=== PATIENT | female | born 1940 | race Caucasian/White ===

== ENCOUNTER → 2016-11-17 | Outpatient (CLI) | payer MEDICARE ==
[~2016-11-17] VITALS: Ht 152.4 cm; Wt 78.5 kg
[~2016-11-17] MED LIST: ACHD5005 PO; AMOX1TAB11 PO; ASP81TEC PO; ASPI-586 PO; ATOR20TA66 PO; ATOR40TA PO; BNZ40T PO; CATHETER FLUSH 10 ML SYR IV PRN; CITA20TA4 PO; CLOP75TA PO; DILT240C86 PO; DILT420C10 PO; DOCU100C37 PO; LVT.1T PO; MELO-195 PO; MELO7.5O PO; MTP25TSR PO; OMEG1CAP77 PO; SIMV10TA3 PO; SIMV20TA3 PO
[2016-11-17 09:09] VITALS: BP 153/84
--- NOTE | 2016-11-17 20:39 | STRESS TEST ---
PROCEDURE PHYSICIAN: NGHIA COOPER DATE OF PROCEDURE: 11/17/2016 EXERCISE MYOVIEW STRESS TEST REPORT REFERRING PHYSICIAN: Dr. Mandeep Summers. INDICATION: Chest pain. BASELINE HEART RATE: 80 BASELINE BLOOD PRESSURE: 153/84 BASELINE EKG: Sinus rhythm with right bundle branch block. SUMMARY: The patient was injected with 10.63 mCi of technetium 99 Myoview and the resting images were obtained. Then the patient started exercising with a baseline heart rate, blood pressure and EKG mentioned above. At minute 2, patient was injected with 30.3 mCi of technetium 99 Myoview. The test was terminated at minute 3, achieving maximum heart rate of 134, which is 92% of maximum expected heart rate. With peak exercise level, blood pressure was 238/124. EKG was showing nondiagnostic changes. During recovery, heart rate returned to baseline. Blood pressure continued to be elevated. Oxygen saturation dropped to 87% during exercise. The resting and stress images were reviewed and compared in the short axis, horizontal long axis, and vertical long axis views. Review of the images showed breast attenuation affecting the quality of the images. There is mild decreased uptake at the anteroapical segment and mid to apical anterior wall with subtle reversibility. SSS 5, SDS 5, TID value 0.8. On the gated images, the left ventricle appeared to be normal size with normal contractility. Calculated ejection fraction 73%. CONCLUSION: 1. Poor exercise tolerance a total of 3 minutes on standard Jelani protocol. Total of 4.6 METs, achieving 92% of maximum expected heart rate. 2. Right bundle branch block persisted throughout test with no ischemic EKG changes. 3. Severe hypertensive response to exercise persisted during recovery. 4. Mild hypoxemia noted during exercise down to 87% after 3 minutes of walking. 5. Breast attenuation with typical female pattern with no significant ischemia or infarction on SPECT images. 6. Normal left ventricular size with normal contractility. Calculated ejection fraction 73%. Job ID: [id number] Dictated Date: 11/17/2016 16:40:47 Manager Of Hospital Date: 11/17/2016 20:33:09 / reinaldo
== END ==
LOC: CARD 07:15
PROVIDERS: ATTEND Internal Medicine Cardiovascular Disease
DX: E78.5 Hyperlipidemia, unspecified (principal); I10 Essential (primary) hypertension; I70.1 Atherosclerosis of renal artery; R07.9 Chest pain, unspecified
CPT/HCPCS: 78452; 93017

== ENCOUNTER → 2016-11-19 | Outpatient (CLI) | payer MEDICARE ==
[~2016-11-19] MED LIST changes: -CATHETER FLUSH 10 ML SYR IV PRN
--- NOTE | 2016-11-22 09:12 | ECHOCARDIOGRAPHY REPORT ---
PROCEDURE PHYSICIAN: NGHIA COOPER DATE OF PROCEDURE: 11/19/2016 TWO DIMENSIONAL ECHOCARDIOGRAM REPORT PRIMARY PHYSICIAN: OTHER PHYSICIAN: REFERRING PHYSICIAN: Dr. Mandeep Summers ORDERING PHYSICIAN: INDICATION FOR THE PROCEDURE: Chest pain. MEASUREMENTS DERIVED VALUES LV DIAMETER (LAX) NORMALS NORMALS Diastolic 4.7 (3.6-5.2) Eject. Fract. 60% (60%+/-6%) Systolic (2.3-3.9) Diastolic Vol. % Shortening (0.22-0.42) Systolic Vol. Aortic Root IVS THICKNESS Diastolic 1 (0.6-1.1) LVPW THICKNESS Diastolic 1 (0.6-1.1) LA DIAMETER Systolic 3.6 (2.1-3.7) FINDINGS: 1. Technical quality is good. 2. The left ventricle is normal in size with normal contractility. Systolic function appeared to be normal. Estimated ejection fraction 60%. 3. The left atrium is normal in size. No clot or thrombus were seen within the left atrium. 4. The right atrium and right ventricle are normal in size. No clot or thrombus were seen within the right side. 5. Mitral valve is normal in morphology with mild mitral regurgitation noted by color Doppler flow. No mitral valve prolapse. No mitral valve stenosis. 6. Aortic valve is trileaflet with normal opening and closing pattern. No significant aortic stenosis or regurgitation was seen. 7. Tricuspid valve is normal in morphology with mild tricuspid regurgitation noted by color Doppler flow. Doppler across tricuspid valve estimated pulmonary artery pressure of 19+ right atrial pressure. 8. Pulmonic valve is functioning normally. 9. No pericardial effusion. IN CONCLUSION: 1. Normal left ventricular size Systolic function. Estimated ejection fraction 60%. 2. Mild mitral and tricuspid regurgitation. 3. Estimated pulmonary artery pressure of 25 mmHg. Job ID: [id number] Dictated Date: 11/22/2016 08:23:25 Guest Services Attendant Date: 11/22/2016 09:09:49 / [email or web address]
== END ==
LOC: CARD 12:09
PROVIDERS: ATTEND Internal Medicine Cardiovascular Disease
DX: I10 Essential (primary) hypertension (principal); I70.1 Atherosclerosis of renal artery; E78.5 Hyperlipidemia, unspecified; R07.9 Chest pain, unspecified
CPT/HCPCS: 93306

== ENCOUNTER → 2016-12-16 | Outpatient (CLI) | payer MEDICARE ==
--- NOTE | 2016-12-16 12:28 | Diagnostic Imaging Report ---
EXAM: Renal vascular duplex ultrasound. INDICATION: Hypertension. FINDINGS: There right kidney is 9.5 and the left kidney is 9.6 cm in length. There is no hydronephrosis or focal lesion. There is minimal increased velocity in the proximal right renal artery to 139 cm per second and mid right renal artery velocity is 1:30 and distally is 91 cm per second. On the renal artery the proximal velocity is 74, mid is 83 and distally is 84 CM per second. The abdominal aortic baseline flow velocity however is 57 cm per second. The right renal artery to aortic ratio is 2.4 and up to 1.5 on the left. Resistive index is 0.69 to 0.76 on the right and 0.71 to 0.72 on the left. IMPRESSION: Slightly elevated velocity, particularly when compared to the abdominal aorta in the proximal right renal artery probably reflective of a mild or moderate stenosis. Correlate clinically and with CTA or MRA if needed. Dictated by: Dictated on workstation # [id number]
== END ==
LOC: RAD 07:49
PROVIDERS: ATTEND Internal Medicine Cardiovascular Disease
DX: I10 Essential (primary) hypertension (principal); I25.10 Atherosclerotic heart disease of native coronary artery without angina pectoris; R07.9 Chest pain, unspecified; E78.5 Hyperlipidemia, unspecified; E78.2 Mixed hyperlipidemia
CPT/HCPCS: 93975

== ENCOUNTER → 2017-03-02 | Outpatient (CLI) | payer MEDICARE ==
[~2017-03-02] MED LIST changes: +CATHETER FLUSH 10 ML SYR IV PRN; +IOHEXOL 350 MG/ML 100 ML (OMNIPAQUE 350) VIAL IV ONE; +NS 100 ML (IVPB) BAG IV ONE
[2017-03-02 10:42] LABS: ALANINE AMINOTRANSFERASE 16 U/L (0-55); ANION GAP 8 MMOL/L (5-14); ASPARTATE AMINO TRANSFERASE 16 U/L (5-34); BILIRUBIN,DIRECT 0.1 MG/DL (0.0-0.3); BILIRUBIN,INDIRECT 0.3 MG/DL; BILIRUBIN,TOTAL 0.4 MG/DL (0.1-1.0); BLOOD UREA NITROGEN 21 MG/DL (7-18); BUN/CREATININE RATIO 23; CALCIUM 9.4 MG/DL (8.5-10.1); CARBON DIOXIDE 24 MMOL/L (21-32); CHLORIDE 110 MMOL/L (98-107); CHOLESTEROL 206 MG/DL (< 200); DIRECT LDL 146 MG/DL (1-129); GFR ESTIMATED > 60; GLUCOSE 98 MG/DL (70-105); POTASSIUM 4.4 MMOL/L (3.6-5.0); SODIUM 142 MMOL/L (135-145); TOTAL PROTEIN 7.5 GM/DL (6.4-8.2); TRIGLYCERIDES 116 MG/DL (<150); VLDL CHOLESTEROL 23 MG/DL (5-40)
--- NOTE | 2017-03-02 11:56 | Diagnostic Imaging Report ---
TECHNIQUE: The CT angiogram of the abdomen was performed with intravenous contrast. Thin section imaging was performed in the axial and coronal planes with MIP coronal reconstructions performed. CONTRAST: 85 mL of Omnipaque 350 was administered intravenously. INDICATION: Hypertension. FINDINGS: The abdominal aorta demonstrates mild calcified and noncalcified plaque with no significant stenosis. There is a patent right renal ostial stent. There is an ostial calcified plaque in the left renal artery with no significant stenosis. The celiac and SMA branches are patent. The ZELDA is also patent. There is a small fat-containing umbilical hernia. No periaortic significantly enlarged lymph node is seen. The lung bases demonstrate minimal groundglass opacities, likely atelectasis related. The liver, gallbladder, pancreas, adrenals, and spleen appear unremarkable. The kidneys demonstrate normal enhancement and excretion. No hydronephrosis. The unenhanced phase demonstrates no stones. The osseous structures demonstrate degenerative disc and facet changes in the lumbar spine and minimal right convexity scoliosis. IMPRESSION: 1. There is a patent proximal right renal stent. No significant renal artery stenosis on either side. 2. Small fat-containing umbilical hernia. Dictated by: Dictated on workstation # [id number]
== END ==
LOC: RAD 09:28
PROVIDERS: ATTEND Internal Medicine Cardiovascular Disease
DX: K42.9 Umbilical hernia without obstruction or gangrene (principal); Z96.0 Presence of urogenital implants; I25.10 Atherosclerotic heart disease of native coronary artery without angina pectoris; E78.2 Mixed hyperlipidemia; I10 Essential (primary) hypertension; Z82.49 Family history of ischemic heart disease and other diseases of the circulatory system
CPT/HCPCS: 36415; 74175; 80048; 80061; 80076

== ENCOUNTER 2017-07-20 07:33 | Day surgery (SDC) | payer MEDICARE ==
[2017-07-20] VITALS (11 sets, daily range): BP systolic 153–174; BP diastolic 76–93
[~2017-07-20] VITALS: Ht 152.4 cm; Wt 77.1 kg
[~2017-07-20 07:33] MED LIST changes: -CATHETER FLUSH 10 ML SYR IV PRN; -IOHEXOL 350 MG/ML 100 ML (OMNIPAQUE 350) VIAL IV ONE; -NS 100 ML (IVPB) BAG IV ONE
[2017-07-20] MEDS ORDERED: HEParin (CATH LAB) 2,000 ML IV ONE (07:46)
[2017-07-20] MEDS ORDERED: NS IV 1000 ML 1,000 ML ONE (07:46)
[2017-07-20] MEDS ORDERED: NS IV 1000 ML 1,000 ML IV SCH ×3 (08:00→11:27)
[2017-07-20 08:17] LABS: BILIRUBIN,URINE NEGATIVE (NEGATIVE); KETONES,URINE NEGATIVE (NEGATIVE); LEUKOCYTE ESTERASE ,URINE 2+ (NEGATIVE); NITRITE,URINE NEGATIVE (NEGATIVE); PH,URINE 5 (5-9); PROTEIN,URINE NEGATIVE (NEGATIVE); UROBILINOGEN,URINE NORMAL (NORMAL)
[2017-07-20 08:18] LABS: MEAN PLATELET VOLUME 11.1 FL (7.4-10.4); RED BLOOD COUNT 4.31 10^6/uL (4.35-5.85); RED CELL DISTRIBUTION WIDTH 13.3 % (10.0-14.5); WHITE BLOOD COUNT 6.9 10^3/uL (4.3-11.0)
[2017-07-20 08:27] LABS: SQUAMOUS EPITHELIAL CELL,UR 0-2 /HPF; WBC,URINE 0-2 /HPF
[2017-07-20 08:33] LABS: PROTHROMBIN TIME PATIENT 13.2 SEC (12.2-14.7)
[2017-07-20 08:43] LABS: ALANINE AMINOTRANSFERASE 19 U/L (0-55); ANION GAP 8 MMOL/L (5-14); ASPARTATE AMINO TRANSFERASE 22 U/L (5-34); BILIRUBIN,TOTAL 0.6 MG/DL (0.1-1.0); BLOOD UREA NITROGEN 16 MG/DL (7-18); BUN/CREATININE RATIO 19; CARBON DIOXIDE 23 MMOL/L (21-32); CHLORIDE 109 MMOL/L (98-107); CHOLESTEROL 167 MG/DL (< 200); CREATININE SERUM 0.84 MG/DL (0.60-1.30); DIRECT LDL 99 MG/DL (1-129); GFR ESTIMATED > 60; GLUCOSE 94 MG/DL (70-105); POTASSIUM 3.7 MMOL/L (3.6-5.0); SODIUM 140 MMOL/L (135-145); TOTAL PROTEIN 7.6 GM/DL (6.4-8.2); TRIGLYCERIDES 131 MG/DL (<150); VLDL CHOLESTEROL 26 MG/DL (5-40)
[2017-07-20] MEDS ORDERED: BNZ40T PO (08:43)
[2017-07-20] MEDS ORDERED: MELO15TA39 PO (08:43)
[2017-07-20] MEDS ORDERED: CITA10TA12 PO (08:43)
[2017-07-20] MEDS ORDERED: ATOR20TA49 PO (08:43)
[2017-07-20] MEDS ORDERED: LEVO100T7 PO (08:43)
[2017-07-20] MEDS ORDERED: ACET-2469 PO (08:43)
[2017-07-20] MEDS ORDERED: IBUP-30 PO (08:43)
[2017-07-20] MEDS ORDERED: DILT300C57 PO (08:43)
--- NOTE | 2017-07-20 08:43 | Diagnostic Imaging Report ---
INDICATION: Atherosclerotic disease. COMPARISON: 01/24/2015. FINDINGS: There is no focal pulmonary consolidation. No effusion or pneumothorax. No vascular congestion. Upper limits heart size is noted. IMPRESSION: No acute appearing abnormality. Dictated by: Dictated on workstation # [id number]
[2017-07-20] MEDS ORDERED: CLON0.1T PO (08:44)
[2017-07-20] MEDS ORDERED: METO-387 PO (08:44)
[2017-07-20] MEDS ORDERED: CITA20TA12 PO (09:56)
[2017-07-20] MEDS ORDERED: DILT300C26 PO (09:56)
[2017-07-20] MEDS ORDERED: MIDAZOLAM 2 MG/2 ML (VERSED) VIAL ONE (10:39)
[2017-07-20] MEDS ORDERED: fentaNYL INJECTION 100 MCG/2 ML AMP ONE (10:39)
--- NOTE | 2017-07-20 11:20 | Cardiac Procedure Note-CS/ASA ---
Pre-Procedure Note Pre-Op Procedure Note H&P Reviewed The H&P was reviewed, patient examined and no changes noted. Date H&P Reviewed: Jul 20, 2017 Time H&P Reviewed: 11:20 Conscious Sedation Pre-Proced Time Reviewed: 11:20 ASA Class: 3 Airway Mallampati Classification: (north fork appropriate class) I. II. III, IV Lungs Heart ASA score ASA 1: a normal healthy patient ASA 2: a patient with a mild systemic disease (mid diabetes, controlled hypertension, obesity X ASA 3: a patient with a severe systemic disease that limits activity (angina , COPD, prior Myocardial infarction) ASA 4: a patient with an incapacitating disease that is a constant threat to life (CHF, renal failure) ASA 5: a moribund patient not expected to survive 24 hrs. (ruptured aneurysm) ASA 6: a declared brain patient whose organs are being harvested. For emergent operations, add the letter E after the classification Grade 3 Sedation Plan: Analgesia, Amnesia, Plan communicated to team members, Discussed options with patient/fam, Discussed risks with patient/fam Note The patient is an appropriate candidate to undergo the planned procedure, sedation, and anesthesia. The patient immediately re-assessed prior to indication. NGHIA COOPER MD Jul 20, 2017 11:20
[2017-07-20] MEDS ORDERED: ENALAPRILAT 2.5 MG/2 ML (VASOTEC) VIAL IV ONE (11:25)
[2017-07-20] MEDS ORDERED: NITROGLYCERIN 2% OINT 1 GM UNIT DOSE PACKET ONE (11:27)
[2017-07-20] MEDS ORDERED: PATIENT MAY USE OWN MEDS, ALL PO SCH (11:30)
--- NOTE | 2017-07-20 11:30 | Discharge Inst-Post CATH ---
Discharge Inst-CATH Post Cardiac Cath D/C Inst Follow Up/Plan Appointment with Dr. Abraham's office in 2 weeks CARDIAC CATH DISCHARGE INSTRUCTIONS *Hold Metformin for 48 hours post heart cath. ACTIVITY * Go Home directly and rest. * Limit activity of the leg (or wrist if it was used) for 7 days including aerobics, swimming, jogging, bicycling, etc. * Restrict stair-climbing for 7 days if possible, if not, climb up with your non -cath leg, then bring together on the same step. * Avoid lifting, pushing, pulling or excessive movement of the affected extremity for 7 days. * Customary sexual activity may be resumed after 2 days-use caution not to use a position that strains or causes pain to the affected extremity. * No driving for 24 hours. * NO SMOKING. * Avoid straining for bowel movements for 7 days. * Gentle walking on level ground is allowed. * Returning to work will depend on the type of procedure and the results. Your doctor will discuss this with you. CALL YOUR DOCTOR FOR ANY OF THE FOLLOWING: *If bleeding from the puncture site occurs- Apply gentle pressure to site with clean cloth and call your doctor or EMS. * If a knot or lump forms under the skin, increases in size, or causes pain. * If bruising appears to be worsening or moving further down your leg instead of disappearing. * Temperature above 101 F. CARE OF YOUR GROIN INCISION; * Bruising or purple discoloration of the skin near the puncture site is common. * You may shower only, no bathtub bathing for 5 days. Be careful to avoid slipping as your leg may feel stiff. * If a closure device was used on your femoral artery, please see the attached guide regarding care of the device and your leg. * REMOVE the dressing from your groin the next day after your procedure in the shower. CARE OF YOUR WRIST INCISION; * Bruising or purple discoloration of the skin near the puncture site is common. * You may shower. * DO NOT submerge wrist. * Remove dressing in 24 hours. NGHIA ABRAHAM MD Jul 20, 2017 11:29
--- NOTE | 2017-07-20 11:33 | Peripheral Report ---
Peripheral Report Physician (s)/Residential Treatment Counselor (s) Physician NGHIA COOPER MD Pre-Procedure Diagnosis Pre-Procedure Diagnosis: malignant hypertension, renal artery stenosis Post-Procedure Note Procedure Start Date: Jul 20, 2017 Name of Procedure: Abdominant aortogram Selective right renal angiogram Findings/Procedure Note PROCEDURE NOTE: After explaining the procedure to the patient, all pros and cons were explained, all questions were answered. The patient signed the consent and then she was placed on the cardiac catheterization laboratory. The patient was placed on the cardiac catheterization laboratory. Groin was prepped SL fashion local anesthesia was used. Sheath placed in the right femoral artery Pigtail catheter was placed in the abdominal aorta and abdominal aortogram was done Gege right catheter was advanced to the right renal artery and selective right renal angiogram was done. Addendum the procedure sheath was removed, Mynx was used FINDINGS: Abdominal aortogram: Normal abdominal aorta, no dissection or aneurysm, selective of the superior and inferior mesenteric artery were normal, left renal artery appeared normal, right renal artery appeared to be slightly hazy in its proximal portion Selective right renal angiogram: Patent stent with mild ostial right renal artery stenosis about 20 percent nonobstructive disease CONCLUSIONS: 1. Patent stent in the right renal artery with mild ostial right renal artery stenosis nonobstructive disease 2. Normal abdominal aorta DISCUSSION AND RECOMMENDATIONS: continue maximizing medical therapy Anesthesia Type: Conscious Sedation Estimated blood loss (mL): 10 ml Contrast Amount: 25 ml Total Radiation Dose: 58 mGy Post-Procedure Diagnosis Post-operative diagnosis: Malignant hypertension Renal artery stenosis Hyperlipidemia NGHIA COOPER MD Jul 20, 2017 11:33 am
== END 2017-07-20 16:30 | disposition home or self-care (01) ==
LOC: CATH 07:33 → SURG 11:52 → CATH 16:30
PROVIDERS: ATTEND Internal Medicine Cardiovascular Disease
DX: I10 Essential (primary) hypertension (principal); I70.1 Atherosclerosis of renal artery; I25.10 Atherosclerotic heart disease of native coronary artery without angina pectoris; E03.9 Hypothyroidism, unspecified; E78.2 Mixed hyperlipidemia; Z79.899 Other long term (current) drug therapy; Z11.2 Encounter for screening for other bacterial diseases; R07.9 Chest pain, unspecified
CPT/HCPCS: 36251; 36415; 71010; 75625; 80053; 80061; 81000; 85027; 85610; 85730; 87081; 93005

== ENCOUNTER → 2018-11-16 | Outpatient (CLI) | payer MEDICARE ==
[~2018-11-16] MED LIST changes: +ACET-2469 PO; +ATOR20TA49 PO; +BENA40TA5 PO; +CITA10TA12 PO; +CITA20TA12 PO; +CLON0.1T PO; +DILT300C26 PO; +DILT300C71 PO; +IBUP-30 PO; +LEVO100T7 PO; +MELO15TA39 PO; +METO-387 PO
[2018-11-16 11:02] LABS: ALBUMIN 4.5 GM/DL (3.2-4.5); BILIRUBIN,TOTAL 0.7 MG/DL (0.1-1.0); CALCIUM 9.7 MG/DL (8.5-10.1); CREATININE SERUM 1.17 MG/DL (0.60-1.30); POTASSIUM 3.9 MMOL/L (3.6-5.0); TOTAL PROTEIN 8.5 GM/DL (6.4-8.2)
--- NOTE | 2018-11-16 12:31 | Diagnostic Imaging Report ---
INDICATION: CAD HYPERTENSION MIXED HYPERLIPIDEMIA JESE COMPARISON: 07/20/2017. FINDINGS: Frontal and lateral views of the chest demonstrate normal heart size and pulmonary vascularity. The lungs are clear. There are no signs of infiltrate, pleural effusions or pneumothoraces. The visualized osseous structures show no acute abnormalities. IMPRESSION: 1. No acute process. No signs of infiltrates, effusions or pneumothoraces. Dictated by: Dictated on workstation # [id number]
== END ==
LOC: RAD 10:10
PROVIDERS: ATTEND Physician Assistant
DX: I25.10 Atherosclerotic heart disease of native coronary artery without angina pectoris (principal); I10 Essential (primary) hypertension; E78.2 Mixed hyperlipidemia; I70.1 Atherosclerosis of renal artery
CPT/HCPCS: 36415; 71046; 80053; 80061

== ENCOUNTER → 2018-11-22 | Outpatient (CLI) | payer MEDICARE | LOC: CARD 11:20 | PROVIDERS: ATTEND Physician Assistant | DX: I25.10 Atherosclerotic heart disease of native coronary artery without angina pectoris (principal); I10 Essential (primary) hypertension; E78.2 Mixed hyperlipidemia; I70.1 Atherosclerosis of renal artery; I07.1 Rheumatic tricuspid insufficiency | CPT/HCPCS: 93306 ==

== ENCOUNTER → 2018-11-27 | Outpatient (CLI) | payer MEDICARE ==
[~2018-11-27] VITALS: Ht 152.4 cm; Wt 78.5 kg
[~2018-11-27] MED LIST changes: +CATHETER FLUSH 10 ML SYR IV PRN; +REGADENOSON 0.4 MG/5 ML SYR (LEXISCAN) IV ONE
[2018-11-27 09:35] VITALS: BP 219/93
[2018-11-27 09:36] VITALS: BP_SYST 180; BP_SYST 219; BP_DIAS 93; BP_DIAS 99
--- NOTE | 2018-11-28 09:08 | STRESS TEST ---
DATE OF SERVICE: 11/27/2018 LEXISCAN MYOVIEW STRESS TEST REFERRING PHYSICIAN: Dr. Mandeep Summers. Baseline heart rate is 63. Baseline blood pressure 219/93. Baseline EKG is sinus rhythm with right bundle branch block. SUMMARY: The patient was injected with 10.8 mCi of technetium-99 Myoview and the resting images were obtained. Then, she received 0.4 mg of Lexiscan followed by 30.9 mCi of technetium-99 Myoview. Throughout the test, there were no EKG changes. The resting and stress images were reviewed and compared in the short axis, horizontal long axis, and vertical long axis views. Review of the images showed breast attenuation affecting the quality of the images with typical female pattern. No significant ischemia or infarction. SSS is 3, SDS 3, TID value 0.85. On the gated images, the left ventricle appeared to be in normal size with normal contractility. Calculated ejection fraction 69%. CONCLUSION: 1. The patient tolerated Lexiscan well. 2. Breast attenuation with typical female pattern. No significant ischemia or infarction on SPECT images. 3. Normal left ventricular size with normal contractility. Calculated ejection fraction 69%. 4. Baseline hypertension persisted throughout test. Job ID: [id number] DocumentID: [id number] Dictated Date: 11/28/2018 08:08:12 Automotive Lube Technician Date: 11/28/2018 09:07:57 Dictated By: NGHIA COOPER MD
== END ==
LOC: CARD 07:28
PROVIDERS: ATTEND Physician Assistant
DX: I25.10 Atherosclerotic heart disease of native coronary artery without angina pectoris (principal); I10 Essential (primary) hypertension; E78.2 Mixed hyperlipidemia; I70.1 Atherosclerosis of renal artery
CPT/HCPCS: 78452; 93017

== ENCOUNTER 2019-02-16 10:42 | Inpatient (IN) | payer MEDICARE ==
[~2019-02-16] VITALS: Ht 152.4 cm; Wt 74.1 kg
[2019-02-16] VITALS (14 sets, daily range): BP systolic 106–148; BP diastolic 48–117
[~2019-02-16 10:42] MED LIST changes: -CATHETER FLUSH 10 ML SYR IV PRN; -REGADENOSON 0.4 MG/5 ML SYR (LEXISCAN) IV ONE
--- OUTSIDE RECORDS SUMMARY | 2019-02-16 10:48 | XMS REPORT | Continuity of Care Document ---
Author Organization Unknown Address Unknown Allergies Active Description Code Type Severity Reaction Onset Reported/Identified Relationship to Patient Clinical Status Yes NO KNOWN DRUG ALLERGIES NO KNOWN DRUG ALLERG UNKNOWN Yes NO KNOWN DRUG ALLERGIES UNKNOWN NO KNOWN DRUG ALLERG Yes NO KNOWN DRUG ALLERGIES UNKNOWN UNKNOWN Yes No Known Drug Allergies [id number] Drug Allergy Unknown N/A 10/27/2010 Medications There is no data. 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, MIDLINE 01/29/2015 ANNIE HOROWITZ DO Ot V03.82 PROPHYLACTIC VACC AGAINST STREPTOCOCCUS 01/31/2015 Ot 611.72 01/31/2015 Ot 611.72 01/31/2015 Ot V67.9 01/31/2015 Ot V15.89 01/31/2015 Ot V67.09 01/31/2015 Ot 793.89 01/31/2015 Ot V76.12 01/31/2015 Ot 793.80 01/31/2015 Ot 793.82 01/31/2015 MANDEEP SUMMERS DO Ot 793.80 01/31/2015 MANDEEP SUMMERS DO Ot V67.9 01/31/2015 GREGORY BROWN APRN Ot 793.80 01/31/2015 ANNIE HOROWITZ DO Ot 618.01 01/31/2015 ANNIE HOROWITZ DO Ot 791.9 01/31/2015 HOROWITZ DO, ANNIE C Ot V72.63 01/31/2015 HOROWITZ DO, ANNIE C Ot V72.81 01/31/2015 HOROWITZ DO, ANNIE C Ot V72.83 01/31/2015 HOROWITZ DO, ANNIE C Ot V74.8 01/31/2015 HOROWITZ DO, ANNIE C Ot 618.01 01/31/2015 HOROWITZ DO, ANNIE C Ot 791.9 01/31/2015 HOROWITZ DO, ANNIE C Ot V72.63 01/31/2015 HOROWITZ DO, ANNIE C Ot V72.81 01/31/2015 HOROWITZ DO, ANNIE C Ot V72.83 01/31/2015 HOROWITZ DO, ANNIE C Ot V74.8 02/14/2015 HOROWITZ DO, ANNIE C Ot 618.01 02/14/2015 HOROWITZ DO, ANNIE C Ot 791.9 02/14/2015 HOROWITZ DO, ANNIE C Ot V72.63 02/14/2015 HOROWITZ DO, ANNIE C Ot V72.81 02/14/2015 HOROWITZ DO, ANNIE C Ot V72.83 02/14/2015 HOROWITZ DO, ANNIE C Ot V74.8 02/25/2015 HOROWITZ DO, ANNIE C Ot 618.01 02/25/2015 HOROWITZ DO, ANNIE C Ot 791.9 02/25/2015 HOROWITZ DO, ANNIE C Ot V72.63 02/25/2015 HOROWITZ DO, ANNIE C Ot V72.81 02/25/2015 HOROWITZ DO, ANNIE C Ot V72.83 02/25/2015 HOROWITZ DO, ANNIE C Ot V74.8 04/24/2015 Ot 611.72 04/24/2015 Ot 611.72 04/24/2015 Ot V67.9 04/24/2015 Ot V15.89 04/24/2015 Ot V67.09 04/24/2015 Ot 793.89 04/24/2015 Ot V76.12 04/24/2015 Ot 793.80 04/24/2015 Ot 793.82 04/24/2015 PAONI DOMANDEEP S Ot 793.80 04/24/2015 PAONI DOMANDEEP S Ot V67.9 04/24/2015 GREGORY BROWN APRN Ot 793.80 04/24/2015 HOROWITZ DO, ANNIE C Ot 618.01 04/24/2015 HOROWITZ DO, ANNIE C Ot 791.9 04/24/2015 HOROWITZ DO, ANNIE C Ot V72.63 04/24/2015 HOROWITZ DO, ANNIE C Ot V72.81 04/24/2015 HOROWITZ DO, ANNIE C Ot V72.83 04/24/2015 HOROWITZ DO, ANNIE C Ot V74.8 04/24/2015 Ot 611.72 04/24/2015 Ot 611.72 04/24/2015 Ot V67.9 04/24/2015 Ot V15.89 04/24/2015 Ot V67.09 04/24/2015 Ot 793.89 04/24/2015 Ot V76.12 04/24/2015 Ot 793.80 04/24/2015 Ot 793.82 04/24/2015 PAONI MANDEEP THURSTON S Ot 793.80 04/24/2015 MANDEEP SUMMERS DO S Ot V67.9 04/24/2015 KEVINGREGORY FLORIST'S DECORATOR Ot 793.80 04/24/2015 HOROWITZ DO, ANNIE C Ot 618.01 04/24/2015 HOROWITZ DO, ANNIE C Ot 791.9 04/24/2015 HOROWITZ DO ANNIE C Ot V72.63 04/24/2015 HOROWITZ DO, ANNIE C Ot V72.81 04/24/2015 HOROWITZ DO, ANNIE C Ot V72.83 04/24/2015 HOROWITZ DO, ANNIE C Ot V74.8 04/30/2015 HOROWITZ DO, ANNIE C Ot 618.2 UTEROVAG PROLAPS-INCOMPL 05/21/2015 HOROWITZ DO, ANNIE C Ot 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, MIDLINE 05/21/2015 HOROWITZ DO, ANNIE C Ot V72.63 PRE-PROCEDURAL LABORATORY EXAMINATION 05/21/2015 HOROWITZ DO ANNIE C Ot V74.8 SCREEN-BACTERIAL DIS NEC 03/22/2016 HOROWITZ DO, ANNIE C Ot 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, MIDLINE 03/22/2016 HOROWITZ DO, ANNIE C Ot V72.63 PRE-PROCEDURAL LABORATORY EXAMINATION 03/22/2016 HOROWITZ DO, ANNIE C Ot V74.8 SCREEN-BACTERIAL DIS NEC 11/17/2016 NGHIA COOPER MD Ot E78.5 HYPERLIPIDEMIA, UNSPECIFIED 11/17/2016 NGHIA COOPER MD Ot I10 ESSENTIAL (PRIMARY) HYPERTENSION 11/17/2016 NGHIA COOPER MD Ot I70.1 ATHEROSCLEROSIS OF RENAL ARTERY 11/17/2016 NGHIA COOPER MD Ot R07.9 CHEST PAIN, UNSPECIFIED 11/18/2016 NGHIA COOPER MD Ot E78.5 HYPERLIPIDEMIA, UNSPECIFIED 11/18/2016 NGHIA COOPER MD Ot I10 ESSENTIAL (PRIMARY) HYPERTENSION 11/18/2016 NGHIA COOPER MD Ot I70.1 ATHEROSCLEROSIS OF RENAL ARTERY 11/18/2016 NGHIA COOPER MD Ot R07.9 CHEST PAIN, UNSPECIFIED 11/22/2016 NGHIA COOPER MD Ot E78.5 HYPERLIPIDEMIA, UNSPECIFIED 11/22/2016 NGHIA COOPER MD Ot I10 ESSENTIAL (PRIMARY) HYPERTENSION 11/22/2016 NGHIA COOPER MD Ot I70.1 ATHEROSCLEROSIS OF RENAL ARTERY 11/22/2016 NGHIA COOPER MD Ot R07.9 CHEST PAIN, UNSPECIFIED 11/25/2016 NGHIA COOPER MD Ot E78.5 HYPERLIPIDEMIA, UNSPECIFIED 11/25/2016 NGHIA COOPER MD Ot I10 ESSENTIAL (PRIMARY) HYPERTENSION 11/25/2016 NGHIA COOPER MD Ot I70.1 ATHEROSCLEROSIS OF RENAL ARTERY 11/25/2016 NGHIA COOPER MD Ot R07.9 CHEST PAIN, UNSPECIFIED 12/09/2016 NGHIA COOPER MD Ot E78.5 HYPERLIPIDEMIA, UNSPECIFIED 12/09/2016 NGHIA COOPER MD Ot I10 ESSENTIAL (PRIMARY) HYPERTENSION 12/09/2016 NGHIA COOPER MD Ot I70.1 ATHEROSCLEROSIS OF RENAL ARTERY 12/09/2016 NGHIA COOPER MD Ot R07.9 CHEST PAIN, UNSPECIFIED 12/14/2016 NGHIA COOPER MD Ot E78.5 HYPERLIPIDEMIA, UNSPECIFIED 12/14/2016 GNHIA COOPER MD Ot I10 ESSENTIAL (PRIMARY) HYPERTENSION 12/14/2016 NGHIA COOPER MD Ot I70.1 ATHEROSCLEROSIS OF RENAL ARTERY 12/14/2016 NGHIA COOPER MD Ot R07.9 CHEST PAIN, UNSPECIFIED 12/15/2016 NGHIA COOPER MD Ot I10 ESSENTIAL (PRIMARY) HYPERTENSION 12/16/2016 NGHIA COOPER MD Ot I10 ESSENTIAL (PRIMARY) HYPERTENSION 12/16/2016 NGHIA COOPER MD Ot I10 ESSENTIAL (PRIMARY) HYPERTENSION 12/16/2016 NGHIA COOPER MD Ot E78.2 MIXED HYPERLIPIDEMIA 12/16/2016 NGHIA COOPER MD Ot E78.5 HYPERLIPIDEMIA, UNSPECIFIED 12/16/2016 NGHIA COOPER MD Ot I10 ESSENTIAL (PRIMARY) HYPERTENSION 12/16/2016 NGHIA COOPER MD Ot I25.10 ATHSCL HEART DISEASE OF [place] CORONARY 12/16/2016 NGHIA COOPER MD Ot R07.9 CHEST PAIN, UNSPECIFIED 12/17/2016 NGHIA COOPER MD Ot E78.5 HYPERLIPIDEMIA, UNSPECIFIED 12/17/2016 NGHIA COOPER MD Ot I10 ESSENTIAL (PRIMARY) HYPERTENSION 12/17/2016 NGHIA COOPER MD Ot I70.1 ATHEROSCLEROSIS OF RENAL ARTERY 12/17/2016 NGHIA COOPER MD Ot R07.9 CHEST PAIN, UNSPECIFIED 12/17/2016 NGHIA OCOPER MD Ot E78.5 HYPERLIPIDEMIA, UNSPECIFIED 12/17/2016 NGHIA COOPER MD Ot I10 ESSENTIAL (PRIMARY) HYPERTENSION 12/17/2016 NGHIA COOPER MD Ot I70.1 ATHEROSCLEROSIS OF RENAL ARTERY 12/17/2016 NGHIA COOPER MD Ot R07.9 CHEST PAIN, UNSPECIFIED 01/06/2017 NGHIA COOPER MD Ot E78.2 MIXED HYPERLIPIDEMIA 01/06/2017 NGHIA COOPER MD Ot E78.5 HYPERLIPIDEMIA, UNSPECIFIED 01/06/2017 NGHIA COOPER MD Ot I10 ESSENTIAL (PRIMARY) HYPERTENSION 01/06/2017 NGHIA COOPER MD Ot I25.10 ATHSCL HEART DISEASE OF [place] CORONARY 01/06/2017 NGHIA COOPER MD Ot R07.9 CHEST PAIN, UNSPECIFIED 01/18/2017 NGHIA COOPER MD Ot E78.2 MIXED HYPERLIPIDEMIA 01/18/2017 NGHIA COOPER MD Ot E78.5 HYPERLIPIDEMIA, UNSPECIFIED 01/18/2017 NGHIA COOPER MD Ot I10 ESSENTIAL (PRIMARY) HYPERTENSION 01/18/2017 NGHIA COOPER MD Ot I25.10 ATHSCL HEART DISEASE OF [place] CORONARY 01/18/2017 NGHIA COOPER MD Ot R07.9 CHEST PAIN, UNSPECIFIED 03/02/2017 NGHIA COOPER MD Ot E78.2 MIXED HYPERLIPIDEMIA 03/03/2017 NGHIA COOPER MD Ot E78.2 MIXED HYPERLIPIDEMIA 03/03/2017 NGHIA COOPER MD Ot I10 ESSENTIAL (PRIMARY) HYPERTENSION 03/03/2017 NGHIA COOPER MD Ot I25.10 ATHSCL HEART DISEASE OF [place] CORONARY 03/03/2017 NGHIA COOPER MD Ot K42.9 UMBILICAL HERNIA WITHOUT OBSTRUCTION OR 03/03/2017 NGHIA COOPER MD Ot Z82.49 FAMILY HX OF ISCHEM HEART DIS AND OTH DI 03/03/2017 NGHIA COOPER MD Ot Z96.0 PRESENCE OF UROGENITAL IMPLANTS 03/23/2017 NGHIA COOPER MD Ot E78.2 MIXED HYPERLIPIDEMIA 03/23/2017 NGHIA COOPER MD Ot I10 ESSENTIAL (PRIMARY) HYPERTENSION 03/23/2017 NGHIA COOPER MD Ot I25.10 ATHSCL HEART DISEASE OF [place] CORONARY 03/23/2017 NGHIA COOPER MD Ot K42.9 UMBILICAL HERNIA WITHOUT OBSTRUCTION OR 03/23/2017 NGHIA COOPER MD Ot Z82.49 FAMILY HX OF ISCHE[place] HEART DIS AND OTH DI 03/23/2017 NGHIA COOPER MD Ot Z96.0 PRESENCE OF UROGENITAL IMPLANTS 03/30/2017 NGHIA COOPER MD Ot E78.2 MIXED HYPERLIPIDEMIA 03/30/2017 NGHIA COOPER MD Ot I10 ESSENTIAL (PRIMARY) HYPERTENSION 03/30/2017 NGHIA COOPER MD Ot I25.10 ATHSCL HEART DISEASE OF [place] CORONARY 03/30/2017 NGHIA COOPER MD Ot K42.9 UMBILICAL HERNIA WITHOUT OBSTRUCTION OR 03/30/2017 NGHIA COOPER MD Ot Z82.49 FAMILY HX OF ISCHE[place] HEART DIS AND OTH DI 03/30/2017 NGHIA COOPER MD Ot Z96.0 PRESENCE OF UROGENITAL IMPLANTS 07/20/2017 NGHIA COOPER MD Ot E03.9 HYPOTHYROIDISM, UNSPECIFIED 07/20/2017 NGHIA COOPER MD Ot E78.2 MIXED HYPERLIPIDEMIA 07/20/2017 NGHIA COOPER MD Ot I10 ESSENTIAL (PRIMARY) HYPERTENSION 07/20/2017 NGHIA COOPER MD Ot I25.10 ATHSCL HEART DISEASE OF [place] CORONARY 07/20/2017 NGHIA COOPER MD Ot I70.1 ATHEROSCLEROSIS OF RENAL ARTERY 07/20/2017 NGHIA COOPER MD Ot R07.9 CHEST PAIN, UNSPECIFIED 07/20/2017 NGHIA COOPER MD Ot Z11.2 ENCOUNTER FOR SCREENING FOR OTHER BACTER 07/20/2017 GNHIA COOPER MD Ot Z79.899 OTHER ALF (CURRENT) DRUG THERAPY 07/29/2017 NGHIA COOPER MD Ot E03.9 HYPOTHYROIDISM, UNSPECIFIED 07/29/2017 NGHIA COOPER MD Ot E78.2 MIXED HYPERLIPIDEMIA 07/29/2017 NGHIA COOPER MD Ot I10 ESSENTIAL (PRIMARY) HYPERTENSION 07/29/2017 NGHIA COOPER MD Ot I25.10 ATHSCL HEART DISEASE OF [place] CORONARY 07/29/2017 NGHIA COOPER MD Ot I70.1 ATHEROSCLEROSIS OF RENAL ARTERY 07/29/2017 NGHIA COOPER MD Ot R07.9 CHEST PAIN, UNSPECIFIED 07/29/2017 NGHIA COOPER MD Ot Z11.2 ENCOUNTER FOR SCREENING FOR OTHER BACTER 07/29/2017 NGHIA COOPER MD Ot Z79.899 OTHER ALF (CURRENT) DRUG THERAPY 08/03/2017 NGHIA COOPER MD Ot E03.9 HYPOTHYROIDISM, UNSPECIFIED 08/03/2017 NGHIA COOPER MD Ot E78.2 MIXED HYPERLIPIDEMIA 08/03/2017 NGHIA COOPER MD J Ot I10 ESSENTIAL (PRIMARY) HYPERTENSION 08/03/2017 NGHIA COOPER MD Ot I25.10 ATHSCL HEART DISEASE OF [place] CORONARY 08/03/2017 NGHIA COOPER MD Ot I70.1 ATHEROSCLEROSIS OF RENAL ARTERY 08/03/2017 NGHIA COOPER MD Ot R07.9 CHEST PAIN, UNSPECIFIED 08/03/2017 NGHIA COOPER MD Ot Z11.2 ENCOUNTER FOR SCREENING FOR OTHER BACTER 08/03/2017 KENNETH SAINI, NGHIA Mendez Ot Z79.899 OTHER BEHAVIORAL HEALTH PROFESSIONAL (CURRENT) DRUG THERAPY 10/05/2017 VolodymyrMandeep garza 728.87 MUSCLE WEAKNESS (GENERALIZED) 10/05/2017 Mandeep Summers M62.81 MUSCLE WEAKNESS (GENERALIZED) 12/15/2017 Mandeep Summers V70.0 ROUTINE GENERAL MEDICAL EXAMINATION AT A HEALTH CARE FACILITY 12/15/2017 Mandeep Summers Z00.00 ENCOUNTER FOR GENERAL ADULT MEDICAL EXAMINATION WITHOUT ABNORMAL FINDINGS 12/15/2017 Mandeep Summers V70.0 ROUTINE GENERAL MEDICAL EXAMINATION AT A HEALTH CARE FACILITY 12/15/2017 Mandeep Summers Z00.00 ENCOUNTER FOR GENERAL ADULT MEDICAL EXAMINATION WITHOUT ABNORMAL FINDINGS 07/05/2018 Volodymyrgreg Mnadeep Jovel 244.9 UNSPECIFIED HYPOTHYROIDISM 07/05/2018 Melina Mandeep Becka E03.9 HYPOTHYROIDISM, UNSPECIFIED 07/05/2018 Volodymyrgreg Mandeep Jovel 244.9 UNSPECIFIED HYPOTHYROIDISM 07/05/2018 Melina Mandeep Becka E03.9 HYPOTHYROIDISM, UNSPECIFIED 11/16/2018 GREGORY BROWN APRN Ot 793.80 UNSPEC ABNORMAL MAMMOGRAM 11/16/2018 ANNIE HOROWITZ DO Ot 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, MIDLINE 11/16/2018 ANNIE HOROWITZ DO Ot 791.9 ABN URINE FINDINGS NEC 11/16/2018 ANNIE HOROWITZ DO Ot V72.63 PRE-PROCEDURAL LABORATORY EXAMINATION 11/16/2018 ANNIE HOROWITZ DO Ot V72.81 [id number] CARDIOVASCULAR 11/16/2018 ANNIE HOROWITZ DO Ot V72.83 EXAM PRE-OPERATIVE NEC 11/16/2018 ANNIE HOROWTIZ DO Ot V74.8 SCREEN-BACTERIAL DIS NEC 11/16/2018 ANNIE HOROWITZ DO Ot 618.01 11/16/2018 ANNIE HOROWITZ DO Ot V72.63 11/16/2018 ANNIE HOROWITZ DO Ot V74.8 11/16/2018 NGHIA COOPER MD Ot E78.5 HYPERLIPIDEMIA, UNSPECIFIED 11/16/2018 NGHIA COOPER MD Ot I10 ESSENTIAL (PRIMARY) HYPERTENSION 11/16/2018 NGHIA COOPER MD Ot I70.1 ATHEROSCLEROSIS OF RENAL ARTERY 11/16/2018 NGHIA COOPER MD Ot R07.9 CHEST PAIN, UNSPECIFIED 11/16/2018 NGHIA COOPER MD Ot E78.5 HYPERLIPIDEMIA, UNSPECIFIED 11/16/2018 NGHIA COOPER MD Ot I10 ESSENTIAL (PRIMARY) HYPERTENSION 11/16/2018 NGHIA COOPER MD Ot I70.1 ATHEROSCLEROSIS OF RENAL ARTERY 11/16/2018 NGHIA COOPER MD Ot R07.9 CHEST PAIN, UNSPECIFIED 11/16/2018 NGHIA COOPER MD Ot E78.2 MIXED HYPERLIPIDEMIA 11/16/2018 NGHIA COOPER MD Ot E78.5 HYPERLIPIDEMIA, UNSPECIFIED 11/16/2018 NGHIA COOPER MD Ot I10 ESSENTIAL (PRIMARY) HYPERTENSION 11/16/2018 NGHIA COOPER MD Ot I25.10 ATHSCL HEART DISEASE OF [place] CORONARY 11/16/2018 NGHIA COOPER MD Ot R07.9 CHEST PAIN, UNSPECIFIED 11/16/2018 NGHIA COOPER MD Ot E78.2 MIXED HYPERLIPIDEMIA 11/16/2018 NGHIA COOPER MD Ot I10 ESSENTIAL (PRIMARY) HYPERTENSION 11/16/2018 NGHIA COOPER MD Ot I25.10 ATHSCL HEART DISEASE OF [place] CORONARY 11/16/2018 NGHIA COOPER MD Ot K42.9 UMBILICAL HERNIA WITHOUT OBSTRUCTION OR 11/16/2018 NGHIA COOPER MD Ot Z82.49 FAMILY HX OF [place] HEART DIS AND OTH DI 11/16/2018 NGHIA COOPER MD Ot Z96.0 PRESENCE OF UROGENITAL IMPLANTS 11/29/2018 SHAHID WEBB Ot E78.2 MIXED HYPERLIPIDEMIA 11/29/2018 SHAHID WEBB Ot I10 ESSENTIAL (PRIMARY) HYPERTENSION 11/29/2018 SHAHID WEBB Ot I25.10 ATHSCL HEART DISEASE OF [place] CORONARY 11/29/2018 SHAHID WEBB Ot I70.1 ATHEROSCLEROSIS OF RENAL ARTERY 12/07/2018 SHAHID WEBB Ot E78.2 MIXED HYPERLIPIDEMIA 12/07/2018 SHAHID WEBB Ot I10 ESSENTIAL (PRIMARY) HYPERTENSION 12/07/2018 FLOREZ-ELA PA, SHAHID K Ot I25.10 ATHSCL HEART DISEASE OF [place] CORONARY 12/07/2018 KEARA EDOUARD, SHAHID K Ot I70.1 ATHEROSCLEROSIS OF RENAL ARTERY 12/13/2018 KEARA EDOUARD, SHAHID Berg Ot E78.2 MIXED HYPERLIPIDEMIA 12/13/2018 KEARA EDOUARD, SHAHID K Ot I10 ESSENTIAL (PRIMARY) HYPERTENSION 12/13/2018 KEARA EDOUARD, SHAHID Berg Ot I25.10 ATHSCL HEART DISEASE OF [place] CORONARY 12/13/2018 KEARA EDOUARD, SHAHID Berg Ot I70.1 ATHEROSCLEROSIS OF RENAL ARTERY 12/18/2018 KEARA EDOUARD, SHAHID K Ot E78.2 MIXED HYPERLIPIDEMIA 12/18/2018 SHAHID WEBB Ot I07.1 RHEUMATIC TRICUSPID INSUFFICIENCY 12/18/2018 SHAHID WEBB K Ot I10 ESSENTIAL (PRIMARY) HYPERTENSION 12/18/2018 SHAHID WEBB Ot I25.10 ATHSCL HEART DISEASE OF [place] CORONARY 12/18/2018 SHAHID WEBB Ot I70.1 ATHEROSCLEROSIS OF RENAL ARTERY 12/19/2018 KEARA EDOUARD, SHAHID K Ot E78.2 MIXED HYPERLIPIDEMIA 12/19/2018 KEARA EDOUARD, SHAHID Berg Ot I10 ESSENTIAL (PRIMARY) HYPERTENSION 12/19/2018 SHAHID WEBB Ot I25.10 ATHSCL HEART DISEASE OF [place] CORONARY 12/19/2018 SHAHID WEBB Ot I70.1 ATHEROSCLEROSIS OF RENAL ARTERY 12/19/2018 Mandeep Summers V76.19 OTHER SCREENING BREAST EXAMINATION 12/19/2018 Mandeep Summers Z12.39 ENCOUNTER FOR OTHER SCREENING FOR MALIGNANT NEOPLASM OF BREAST 12/19/2018 Mandeep Summers V76.19 OTHER SCREENING BREAST EXAMINATION 12/19/2018 Mandeep Summers Z12.39 ENCOUNTER FOR OTHER SCREENING FOR MALIGNANT NEOPLASM OF BREAST 12/21/2018 SHAHID WEBB Ot E78.2 MIXED HYPERLIPIDEMIA 12/21/2018 SHAHID WEBB Ot I07.1 RHEUMATIC TRICUSPID INSUFFICIENCY 12/21/2018 SHAHID WEBB K Ot I10 ESSENTIAL (PRIMARY) HYPERTENSION 12/21/2018 SHAHID WEBB Ot I25.10 ATHSCL HEART DISEASE OF [place] CORONARY 12/21/2018 SHAHID WEBB Ot I70.1 ATHEROSCLEROSIS OF RENAL ARTERY 12/27/2018 SHAHID WEBB Ot E78.2 MIXED HYPERLIPIDEMIA 12/27/2018 SHAHID WEBB Ot I10 ESSENTIAL (PRIMARY) HYPERTENSION 12/27/2018 SHAHID WEBB Ot I25.10 ATHSCL HEART DISEASE OF [place] CORONARY 12/27/2018 SHAHID WEBB Ot I70.1 ATHEROSCLEROSIS OF RENAL ARTERY Procedures There is no data. Results Test Result Range Lipid Panel - 10/27/16 09:06 C/HDL 2.8 3.7-6.7 Cholesterol 158 mg/dL 100-240 HDL 56 mg/dL 30-85 LDL-Calculated 88 mg/dL 0-100 Trig 72 mg/dL 35-160 VLDL 14 mg/dL 0-42 Thyroid Stimulating Hormone - 04/12/17 09:45 TSH 0.47 mIU/mL 0.32-5.00 Automated blood complete blood count (hemogram) panel - 07/20/17 08:01 Blood leukocytes automated count (number/volume) 6.9 10*3/uL 4.3-11.0 Blood erythrocytes automated count (number/volume) 4.31 10*6/uL 4.35-5.85 Venous blood hemoglobin measurement (mass/volume) 12.7 g/dL 11.5-16.0 Blood hematocrit (volume fraction) 38 % 35-52 Automated erythrocyte mean corpuscular volume 89 [foz_us] 80-99 Automated erythrocyte mean corpuscular hemoglobin (mass per erythrocyte) 30 pg 25-34 Automated erythrocyte mean corpuscular hemoglobin concentration measurement (mass/volume) 33 g/dL 32-36 Automated erythrocyte distribution width ratio 13.3 % 10.0- 14.5 Automated blood platelet count (count/volume) 213 10*3/uL 130-400 Automated blood platelet mean volume measurement 11.1 [foz_us] 7.4-10.4 Complete urinalysis with reflex to culture - 07/20/17 08:01 Urine color determination YELLOW NRG Urine clarity determination CLEAR NRG Urine pH measurement by test strip 5 5-9 Specific gravity of urine by test strip 1.020 1.016-1.022 Urine protein assay by test strip, semi-quantitative NEGATIVE NEGATIVE Urine glucose detection by automated test strip NEGATIVE NEGATIVE Erythrocytes detection in urine sediment by light microscopy 1+ NEGATIVE Urine ketones detection by automated test strip NEGATIVE NEGATIVE Urine nitrite detection by test strip NEGATIVE NEGATIVE Urine total bilirubin detection by test strip NEGATIVE NEGATIVE Urine urobilinogen measurement by automated test strip (mass/volume) NORMAL NORMAL Urine leukocyte esterase detection by dipstick 2+ NEGATIVE Automated urine sediment erythrocyte count by microscopy (number/high power field) RARE NRG Automated urine sediment leukocyte count by microscopy (number/high power field) [HPF] NRG Bacteria detection in urine sediment by light microscopy NEGATIVE NRG Squamous epithelial cells detection in urine sediment by light microscopy 0-2 NRG Crystals detection in urine sediment by light microscopy NONE NRG Casts detection in urine sediment by light microscopy NONE NRG Mucus detection in urine sediment by light microscopy NEGATIVE NRG Complete urinalysis with reflex to culture NO NRG PT panel in platelet poor plasma by coagulation assay - 07/20/17 08:01 Prothrombin time (PT) in platelet poor plasma by coagulation assay 13.2 s 12.2-14.7 INR in platelet poor plasma or blood by coagulation assay 1.0 0.8-1.4 Activated partial thromboplastin time (aPTT) in platelet poor plasma bycoagulation assay - 07/20/17 08:01 Activated partial thromboplastin time (aPTT) in platelet poor plasma bycoagulation assay 35 s 24-35 Comprehensive metabolic panel - 07/20/17 08:01 Serum or plasma sodium measurement (moles/volume) 140 mmol/L 135-145 Serum or plasma potassium measurement (moles/volume) 3.7 mmol/L 3.6-5.0 Serum or plasma chloride measurement (moles/volume) 109 mmol/L 98-107 Carbon dioxide 23 mmol/L 21-32 Serum or plasma anion gap determination (moles/volume) 8 mmol/L 5-14 Serum or plasma urea nitrogen measurement (mass/volume) 16 mg/dL 7-18 Serum or plasma creatinine measurement (mass/volume) 0.84 mg/dL 0.60-1.30 Serum or plasma urea nitrogen/creatinine mass ratio 19 NRG Serum or plasma creatinine measurement with calculation of estimated glomerular filtration rate > NRG Serum or plasma glucose measurement (mass/volume) 94 mg/dL 70-105 Serum or plasma calcium measurement (mass/volume) 9.0 mg/dL 8.5-10.1 Serum or plasma total bilirubin measurement (mass/volume) 0.6 mg/dL 0.1-1.0 Serum or plasma alkaline phosphatase measurement (enzymatic activity/volume) 108 U/L 40-136 Serum or plasma aspartate aminotransferase measurement (enzymatic activity/volume) 22 U/L 5-34 Serum or plasma alanine aminotransferase measurement (enzymatic activity/volume) 19 U/L 0-55 Serum or plasma protein measurement (mass/volume) 7.6 g/dL 6.4-8.2 Serum or plasma albumin measurement (mass/volume) 4.0 g/dL 3.2-4.5 Lipid 1996 panel - 07/20/17 08:01 Serum or plasma triglyceride measurement (mass/volume) 131 mg/dL <150 Serum or plasma cholesterol measurement (mass/volume) 167 mg/dL < 200 Serum or plasma cholesterol in HDL measurement (mass/volume) 44 mg/dL 40-60 Cholesterol in LDL [mass/volume] in serum or plasma by direct assay 99 mg/dL 1-129 Serum or plasma cholesterol in VLDL measurement (mass/volume) 26 mg/dL 5-40 Methicillin resistant Staphylococcus aureus (MRSA) screening culture - 07/20/17 08:01 Methicillin resistant Staphylococcus aureus (MRSA) screening culture NEG [facility] Lipid Panel - 05/26/18 09:53 C/HDL 3.6 3.7-6.7 Cholesterol 190 mg/dL 100-240 HDL 53 mg/dL 30-85 LDL-Calculated 120 mg/dL 0-100 Trig 86 mg/dL 35-160 VLDL 17 mg/dL 0-42 Thyroid Stimulating Hormone - 07/05/18 10:51 TSH 2.48 mIU/mL 0.32-5.00 Cardiac Panel - 02/08/19 10:02 CK 116 U/L 26-174 CK-MB 2.7 ng/ml 0.0-9.2 Myoglobin 79.6 ng/ml 1.6-106.0 Troponin <0.020 ng/mL 0.0-0.4 Encounters ACCT No. Visit Date/Time Discharge Status Pt. Type Provider Facility Loc./Unit Complaint [id number] 02/08/2019 09:05:00 02/08/2019 23:59:00 DIS Outpatient Mandeep Summers [id number] 12/19/2018 13:34:00 12/19/2018 23:59:00 DIS Outpatient Pagreg, Mandeep [id number] 07/05/2018 10:48:00 07/05/2018 23:59:00 DIS Outpatient Paoni, Mandeep [id number] 05/26/2018 09:48:00 05/26/2018 23:59:00 DIS Outpatient Pagreg, Mandeep [id number] 12/15/2017 10:26:00 12/15/2017 23:59:00 DIS Outpatient Paoni, Mandeep [id number] 09/16/2017 10:04:00 10/05/2017 15:35:00 DIS Outpatient Paoni, Mandeep [id number] 04/12/2017 09:42:00 04/12/2017 23:59:00 DIS Outpatient Mandeep Summers [id number] 10/27/2016 09:03:00 10/27/2016 23:59:00 DIS Outpatient Mandeep Summers [id number] 10/26/2016 10:18:00 10/26/2016 23:59:00 DIS Outpatient Mandeep Summers [id number] 11/27/2018 07:28:00 11/27/2018 23:59:59 CLS Outpatient FLOREZ-ELA PAMINNASHAHID Morena [facility] CARD CAD, HYPERTENSION [id number] 11/22/2018 11:20:00 11/22/2018 23:59:59 CLS Outpatient FLOREZ-ELA PAMINNASHAHID K [facility] CARD CAD, HYPERTENSION [id number] 11/16/2018 10:10:00 11/16/2018 23:59:59 CLS Outpatient FLOREZ-ELA PAMINNASHAHID K [facility] RAD CAD [id number] 07/20/2017 07:33:00 07/20/2017 16:30:00 DIS Outpatient NGHIA COOPER MD [facility] CATH JESE,HTN,HLP [id number] 03/02/2017 09:28:00 03/02/2017 23:59:59 CLS Outpatient NGHIA COOPER MD [facility] RAD I25.10 CAD [id number] 12/16/2016 07:49:00 12/16/2016 23:59:59 CLS Outpatient NGHIA COOPER MD [facility] RAD I25.10 [id number] 11/19/2016 12:09:00 11/19/2016 23:59:59 CLS Outpatient NGHIA COOPER MD [facility] CARD CHEST PAIN SYNDROME,HTN,HLP [id number] 11/17/2016 07:15:00 11/17/2016 23:59:59 CLS Outpatient NGHIA COOPER MD [facility] CARD CHEST PAIN SYNDROME,HTN,HLP [id number] 05/22/2015 10:00:00 05/22/2015 23:59:59 CLS Preadmit ANNIE HOROWITZ DO [facility] PREOP CYSTOCELE [id number] 04/24/2015 09:34:00 05/21/2015 00:01:00 DIS Outpatient ANNIE HOROWITZ DO [facility] PREOP CYSTOCELE [id number] 04/29/2015 07:45:00 04/30/2015 09:25:00 DIS Outpatient ANNIE HOROWITZ DO [facility] CYSTOCELE [id number] 01/28/2015 06:08:00 01/29/2015 09:30:00 DIS Outpatient ANNIE HOROWITZ DO [facility] CYSTOCELE [id number] 01/24/2015 10:23:00 01/24/2015 23:59:59 CLS Outpatient ANNIE HOROWITZ DO [facility] PREOP CYSTOCELE [id number] 07/10/2013 13:50:00 07/10/2013 23:59:59 CLS Outpatient GREGORY BROWN APRN [facility] RAD 6 MONTH FOLLOW UP [id number] 01/12/2013 08:25:00 01/12/2013 23:59:59 CLS Outpatient MANDEEP SUMMERS DO [facility] RAD [id number] 01/31/2015 09:11:00 Document Registration [id number] 01/31/2015 09:10:00 Document Registration [id number] 01/31/2015 09:10:00 Document Registration [id number] 06/29/2012 07:04:00 Document Registration [id number] 03/21/2012 14:24:00 Document Registration [id number] 03/09/2012 13:34:00 Document Registration [id number] 03/17/2011 09:28:00 Document Registration [id number] 09/07/2010 14:55:00 Document Registration [id number] 05/27/2010 11:18:00 Document Registration
--- NOTE | 2019-02-16 10:56 | NUR ---
pt here with " " pt alert gcs 15. in geovanny pt same time. pt ambulated to room from w/r w/o problems. pt relates approx 1 hr ago pt had sudden onset seing purple out of left eye only. pt denies chest and abd pain. denies dyspnea and no acute sighns of dyspnea noted. pt denies other pain c/os. denies wkness and other vision c/os with dr. pt normall wears glasses has no glassess on now. pt denies abd pain and n/v/d. debnies h/a. denies dizziness. lungs cta bilaterally. abd soft nondistended neg pain with palpation. pt has h/o high bp. neuro check by at 1105. tele applied by me shows sb 53. done geovanny pt at 1108.
--- NOTE | 2019-02-16 11:15 | NUR ---
neuro check by me is neg except for seing purple left eye only.
[2019-02-16 11:22] LABS: BASOPHILS # (AUTO) 0.1 10^3/uL (0.0-0.1); BASOPHILS % (AUTO) 1 % (0-10); EOSINOPHILS # (AUTO) 0.3 10^3/uL (0.0-0.3); EOSINOPHILS % (AUTO) 5 % (0-10); HEMATOCRIT 39 % (35-52); HEMOGLOBIN 12.8 G/DL (11.5-16.0); LYMPHOCYTES # (AUTO) 1.9 X 10^3 (1.0-4.0); LYMPHOCYTES % (AUTO) 27 % (12-44); MEAN CORPUSCULAR HEMOGLOBIN 29 PG (25-34); MEAN CORPUSCULAR HGB CONC 33 G/DL (32-36); MEAN CORPUSCULAR VOLUME 89 FL (80-99); MEAN PLATELET VOLUME 11.7 FL (7.4-10.4); MONOCYTES # (AUTO) 0.6 X 10^3 (0.0-1.0); MONOCYTES % (AUTO) 9 % (0-12); NEUTROPHILS % (AUTO) 59 % (42-75); PLATELET COUNT 211 10^3/uL (130-400); RED CELL DISTRIBUTION WIDTH 13.9 % (10.0-14.5); WHITE BLOOD COUNT 6.8 10^3/uL (4.3-11.0)
--- NOTE | 2019-02-16 11:22 | NUR ---
someone paged out cva alert
--- NOTE | 2019-02-16 11:27 | NUR ---
bs by glucometer by me is 91. dr vergara .
--- NOTE | 2019-02-16 11:28 | NUR ---
bp machine is 156/64 v/odr hold lopressor for now.
[2019-02-16] MEDS ORDERED: meTOprolol 5 MG/5 ML (LOPRESSOR) VIAL IV ONE (11:30)
--- NOTE | 2019-02-16 11:30 | NUR ---
going over risks benefits tpa with pt/
[2019-02-16 11:38] LABS: INR 0.9 (0.8-1.4); PROTHROMBIN TIME PATIENT 12.9 SEC (12.2-14.7)
--- NOTE | 2019-02-16 11:40 | NUR ---
pt back from ct. pt gcs 15. bp machine is 167/76 ausc hr 56 reg ausc resp 20 normal recheck temp 98.1 p ox r/a is 96. tele shows sb 48.
[2019-02-16 11:41] LABS: ALBUMIN 4.3 GM/DL (3.2-4.5); BILIRUBIN,TOTAL 0.6 MG/DL (0.1-1.0); CALCIUM 9.6 MG/DL (8.5-10.1); CREATININE SERUM 1.38 MG/DL (0.60-1.30); POTASSIUM 4.1 MMOL/L (3.6-5.0); TOTAL PROTEIN 8.1 GM/DL (6.4-8.2)
--- NOTE | 2019-02-16 11:44 | NUR ---
iv x1 by me 20 g l acf.
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
--- NOTE | 2019-02-16 11:46 | Diagnostic Imaging Report ---
INDICATION: 24 hours' left eye vision loss. FINDINGS: The lungs are clear. The heart and vessels are normal. There is no effusion or pneumothorax. IMPRESSION: No acute appearing abnormality. Dictated by: Dictated on workstation # [id number]
[2019-02-16] MEDS ORDERED: NS IV 1000 ML 1,000 ML IV ONE (11:53)
--- NOTE | 2019-02-16 11:53 | Diagnostic Imaging Report ---
CLINICAL INDICATION: Patient with left eye vision loss for last 24 hours. EXAM: Axial CT scan of brain performed without IV contrast. COMPARISON: None. FINDINGS: There is no evidence of acute cerebral infarct, intracranial hemorrhage, or gross mass effect. The brain parenchymal volume appears appropriate for patient's age. There are diffuse patchy and confluent areas of low-attenuation white matter changes seen throughout both cerebral hemispheres. There is normal mello-white matter distinction. There is no significant midline shift or herniation. There is no evidence of hydrocephalus. The basal cisterns are unremarkable. The skull, extracranial soft tissue, and orbits are unremarkable. The paranasal sinuses are unremarkable. Temporal bones show no significant abnormality. IMPRESSION: 1: There is no definite CT evidence of interval acute cerebral infarction, intracranial hemorrhage, or mass seen. Given the diffuse low attenuation changes throughout the brain parenchyma which can obscure more subtle findings, if there is clinical concern for acute cerebral infarction, MRI of the brain would better evaluate. 2: There are diffuse patchy confluent areas of low-attenuation white matter changes seen throughout both cerebral hemispheres. This may be related to chronic small vessel ischemic disease or leukoaraiosis. Comparison to prior brain imaging, if available, would help better evaluate for chronicity. Results of this report were discussed with Dr. Leno Turpin via the telephone on 02/16/2019 at 1145 hrs. Dictated by: Dictated on workstation # [id number]
[2019-02-16] MEDS ORDERED: ALTEPLASE 100 MG/VIAL (ACTIVASE) IV ONE (12:00)
--- NOTE | 2019-02-16 12:00 | NUR ---
pt wght 160 poiunds. waste 34.6 mg bolus 6.5 mg total dose 65.4 mginfusion at 58.9/ hr
--- NOTE | 2019-02-16 12:00 | NUR ---
approx time me and 2 other nurse ivan and jam computed up the tpa.
--- NOTE | 2019-02-16 12:00 | NUR ---
before tpa. pt alert gcs 15. bp machine is 180/79 ausc hr 56 reg ausc resp 20 normal recheck temp 98.2 p ox r/a is 96. tele shows sb 49.
--- NOTE | 2019-02-16 12:03 | NUR ---
v/o dr give the lopressor then the tpa. . dr monique with hr as well.
--- NOTE | 2019-02-16 12:07 | NUR ---
lopressor by me over 3 min.
--- NOTE | 2019-02-16 12:09 | NUR ---
tpa bolus completed by mebp machine is 179/85 tele shows sb 49
--- NOTE | 2019-02-16 12:13 | NUR ---
tpa infusionstarted by me
[2019-02-16 12:15] LABS: FIBRIN DEGRADATION PRODUCTS 0.92 UG/ML (0.00-0.49)
--- NOTE | 2019-02-16 12:15 | NUR ---
pt alert gcs 15. in room. pt denies chest and abd pain. denies dyspnea and no acute sighns of dyspnea noted. pt still seing purple left eye only. bp machine is 182/78 tle shows sb 46. p ox r/a is 94.
--- NOTE | 2019-02-16 12:20 | NUR ---
bp adrian is 188/88 tele shows sb 46. p ox r/a is 98. pt gcs 15.
--- NOTE | 2019-02-16 12:25 | NUR ---
pt gcs 15. bp machine is 188/74 tele shows sb 47 p ox r/a is 94
[2019-02-16] MEDS ORDERED: niCARdipine IV 50 MG in NS (IVPB) 230 ML IV SCH (12:30)
--- NOTE | 2019-02-16 12:30 | NUR ---
in room geovanny pt. bp machine is 169/85 tele shows sb 49.p ox r/a is 95. pt let gcs 15.
--- NOTE | 2019-02-16 12:32 | NUR ---
v/o dr start the cardene if systolic bp 185. start at 5 mg /hr.
--- NOTE | 2019-02-16 12:37 | NUR ---
bp machine is 172/75 tele shows sb 48. p ox r/a is 97.pt alert gcs 15. in room. denies chest and abd pain. denies dyspnea and no acute sighns of dyspnea noted. denies h/a and blurry vision. neuro check neg eyes are perlno acute bleeding noted. pt says seing purple in left eye has decresed.
--- NOTE | 2019-02-16 12:44 | NUR ---
pt knows npo awhile ago
--- NOTE | 2019-02-16 12:50 | NUR ---
bp machine is 176/82 tele shows sb 47. p ox r/a is 97 liter bolus started. tpa infusion 95 percent complete.pt alert gcs 15.
--- NOTE | 2019-02-16 12:56 | NUR ---
ekg by me
--- NOTE | 2019-02-16 12:59 | NUR ---
tpa infusion completed.
--- NOTE | 2019-02-16 13:01 | NUR ---
dr monique with commode for ua. ua to lab by me at [address]
[2019-02-16 13:15] LABS: BILIRUBIN,URINE NEGATIVE (NEGATIVE); CLARITY,URINE CLEAR; COLOR,URINE YELLOW; GLUCOSE, URINE (UA) NEGATIVE (NEGATIVE); KETONES,URINE NEGATIVE (NEGATIVE); LEUKOCYTE ESTERASE ,URINE NEGATIVE (NEGATIVE); NITRITE,URINE NEGATIVE (NEGATIVE); PH,URINE 6 (5-9); PROTEIN,URINE NEGATIVE (NEGATIVE); UROBILINOGEN,URINE NORMAL (NORMAL)
[2019-02-16 13:23] LABS: BACTERIA,URINE NEGATIVE /HPF; SQUAMOUS EPITHELIAL CELL,UR 0-2 /HPF
--- NOTE | 2019-02-16 13:31 | NUR ---
bp machine is 187/87 ausc hr 52 reg ausc resp 16 norml recheck temp 97.8 p ox r/a is 97pt back from ct. tele shows srb 53. pt alert gcs 15. remains in the room. pt denies chest and abd pain. denies nausea and no v/d noted in er visit thus far. denies dyspnea and no acute sighns of dyspnea noted. pt knows npo. liter bilus 1/2 completed. pt denies h/a denies vertigo. no acute bleeding noted. neuro check neg and pt relates seing left eye purple had decreased but continues.
--- NOTE | 2019-02-16 13:37 | NUR ---
cardene iv at 5 mg /hr per pump started. 25 ml per hr.
[2019-02-16] MEDS ORDERED: IOHEXOL 350 MG/ML 100 ML (OMNIPAQUE 350) VIAL IV ONE (13:45)
[2019-02-16] MEDS ORDERED: NS 100 ML (IVPB) BAG IV ONE (13:45)
[2019-02-16] MEDS ORDERED: HOLD METFORMIN - RECEIVED CONTRAST 20 ML VIAL IV SCH (13:45)
--- NOTE | 2019-02-16 13:47 | NUR ---
i called report to admit nurse olinda.
--- NOTE | 2019-02-16 13:52 | NUR ---
i will be taking p to admit room john
--- NOTE | 2019-02-16 13:52 | NUR ---
pt remains alert gcs 15. remains in the room. bolus continues cardene continues 5/hr on pump. bp machine is 166/60 ausc hr 52 reg ausc resp 12 normal/ recheck temp 97.6 p ox r/a is 99. tele shows sb 52. no acute sighns of dyspnea noted and no acute sighns of bleeding noted.
--- NOTE | 2019-02-16 13:53 | Diagnostic Imaging Report ---
PROCEDURE: CT angiography of the head and CT angiography of the neck with and without contrast. TECHNIQUE: Contiguous noncontrast images were obtained from the skull base through the vertex. After intravenous contrast administration, helical CT angiography of the neck was performed. Source data was reformatted into multiple MIP projections. Delayed post contrast acquisition was also obtained. Auto Exposure Controls were utilized during the CT exam to meet ALARA standards for radiation dose reduction. DATE: February 16, 2019. INDICATION: 78-year-old female, altered vision of the left eye. The left common carotid artery is patent. The left internal carotid artery is patent. There are calcifications of the cavernous segment of the left internal carotid artery. The left middle cerebral artery is patent. The left anterior cerebral artery is patent. The right anterior cerebral artery is patent. There is a patent anterior communicating artery. The right A1 segment is hypoplastic. The right middle cerebral artery is patent. There are calcifications of the cavernous segment of the right internal carotid artery. The right internal carotid artery is patent. There is calcification at the right carotid bifurcation. There is approximately 50% stenosis of the proximal segment of the right internal carotid artery relating to calcified plaque at this level. The right common carotid artery is patent. The left vertebral artery is conventional in origin. It is patent. The basilar artery is patent. The right and left posterior cerebral arteries are patent. The right and left posterior inferior cerebellar arteries are patent. The right vertebral artery is patent and conventional in origin. The visualized portions of the lung apices are clear. There is a right superior mediastinal lymph node measuring 10 mm in short axis. This is of unclear exact etiology. There is no identified abnormally enlarged cervical lymph node. There is no identified arterial dissection or aneurysm. There are prominent areas of low attenuation in the periventricular and subcortical white matter which are nonspecific but may relate to extensive changes of chronic small vessel ischemic disease. There is no identified abnormal intracranial enhancement. IMPRESSION: 1. No identified arterial head or neck occlusion, dissection, or aneurysm. 2. Hypoplastic right A1 segment. There is patency of the right anterior cerebral artery via a patent anterior communicating artery. 3. Approximately 50% stenosis at the level of the proximal aspect of the right internal carotid artery relating to calcified plaque. 4. Probable extensive changes of chronic small vessel ischemic disease which may limit CT sensitivity for identification of acute stroke. If this is of persistent clinical concern, MRI brain is recommended for further assessment. Dictated by: Dictated on workstation # [id number]
[2019-02-16] MEDS ORDERED: NS IV 1000 ML 1,000 ML IV SCH (14:00)
--- NOTE | 2019-02-16 14:09 | NUR ---
waiting for admit stuff so i can take pt to icu.
--- NOTE | 2019-02-16 14:20 | NUR ---
pt up to commode for ua w/o problems. pt alert gc 15. in room. bp machine is 181/80 ausc hr 64 reg ausc resp 20 normal recheck temp 98.3 p ox r/a is 95 tele shows sr 68. 100 left in bolus. cardene cont. at 5mg/hr on pump. pt relates purple in left eye " not much" and says she can see shapes now out of left eye. no acute bleeding noted. dr want me to do swallow screen.
--- NOTE | 2019-02-16 14:26 | NUR ---
ashley failed swallow screen . i told dr. ramirez had very very slight gurgling upon drinking approx 1/2 glass h20.
--- NOTE | 2019-02-16 14:32 | NUR ---
v/o dr inc. allenene to 7.5mg/hr. i did this and at 1433 i am taking pt to icu. bolus completed. alejandroene and tele continue to floor. with.
[2019-02-16] MEDS ORDERED: HYDR25TA4 PO (15:30)
[2019-02-16] MEDS ORDERED: METO-370 PO (15:30)
[2019-02-16] MEDS ORDERED: LOSA100T57 PO (15:30)
[2019-02-16] MEDS ORDERED: CITA20TA9 PO (15:30)
[2019-02-16] MEDS ORDERED: CLON0.2T PO (15:30)
[2019-02-16] MEDS ORDERED: CLON0.1T PO (15:30)
--- NOTE | 2019-02-16 15:54 | Physical Therapy Evaluation ---
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 Patient completes activity by themselves 4 Supervision or touching assist (CGA). [place] provide cues , steadying assist 3 The helper provides less than half the effort to complete the activity 2 The helper provides more than half the effort to complete the activity 1 Dependent. The helper does all the effort to complete an activity 7 Patient refused to complete or attempt activity 9 The patient did not perform the activity before the current illness or injury 88 Not attempted due to Medical conditions or safety concerns Functional Abilities and Goals: Independent: Patient completed the activities by him/herself, with or without an assistive device, with no assistance from a helper. Needed Some Help: Patient needed partial assistance from another person to complete activities. Dependent: A helper completed the activities for the patient. Unknown: Not Applicable: Bed Mobility: 7 Transfers (B,C,W/C) (FIM): 7 Gait: 7 Stairs: 7 Indoor Mobility (Ambulation): Independent Stairs: Independent Prior Devices Use: None PT Evaluation-Current Subjective Patient reports her vision is getting "a little better". Pain Numeric Pain Scale: 0-No Pain Location: No Pain Reported Objective Patient Orientation: Normal For Age Problem Solving: Good Attachments: IV ROM/Strength ROM Lower Extremities bilateral LE WFL Strength Lower Extremities 4/5 grossly bilaterally Integumentary/Posture Integumentary refer to nursing notes Bowel Incontinence: No Bladder Incontinence: No Posture WFL Neuromuscular (Tone, Coordination, Reflexes) grossly intact Sensory Vision: left eye decreased peripheral vision Hearing: Functional Sensation Right Lower Extremit: Intact Sensation Left Lower Extremity: Intact Transfers Therapy Code Descriptions/Definitions Functional Ness Measure: 0=Not Assessed/NA 4=Minimal Assistance 1=Total Assistance 5=Supervision or Setup 2=Maximal Assistance 6=Modified Ness 3=Moderate Assistance 7=Complete Ness Transfers (B, C, W/C) (FIM): 7 Scootin Rollin Supine to/from Sit: 7 Sit to/from Stand: 7 Gait Mode of Locomotion: Walk Anticipated Mode of Locomotion: Walk Gait (FIM): 7 Distance (FIM): 3=150 ft Distance: 300' Gait Level of Assist: 7 Gait Assistive Device: None Comments/Gait Description safe and functional Balance Sitting Static: Normal Sitting Dynamic: Normal Standing Static: Normal Standing Dynamic: Normal Assessment/Needs 78 y.o. female is currently at independent [facility] with all gross motor skills and does not require skilled therapy intervention. Rehab Potential: Good PT Plan Treatment/Plan Treatment Plan: Discontinue PT, goals met Treatment Plan: Other Treatment Duration: Feb 16, 2019 Frequency: 1 time per week Estimated Hrs Per Day: .25 hour per day Patient and/or Family Agrees t: Yes Time/GCodes Time In: 1525 Time Out: 1535 Total Billed Treatment Time: 10 Total Billed Treatment 1 visit EVLowC 10 min CARMELLA OCHOA PT Feb 16, 2019 15:54
[2019-02-16] MEDS ORDERED: CYAN200014 PO (16:14)
[2019-02-16] MEDS ORDERED: OMEG-160 PO (16:14)
[2019-02-16] MEDS ORDERED: ACETAMINOPHEN 650 MG SUPP (TYLENOL) PR PRN (16:15)
[2019-02-16] MEDS ORDERED: ACETAMINOPHEN 325 MG TABLET PO PRN (16:15)
[2019-02-16] MEDS ORDERED: CATHETER FLUSH 10 ML SYR IV PRN (16:15)
[2019-02-16] MEDS ORDERED: APAP 325 MG/10.15 ML LIQ (TYLENOL) UDC NG PRN (16:15)
--- NOTE | 2019-02-16 16:15 | NUR ---
SPOKE WITH PATIENT WELL GOING OVER THE EXTERNAL MED HISTORY. PATIENT IS TAKING CLONIDINE 0.1 MG (CURRENTLY HAS 0.2MG AT HOME AND IS BREAKING THEM IN 1/2) AND IS TAKING THIS ONCE DAILY. HER PRESCRIPTIONS HAVE INDICATED TO TAKE A 2ND DOSE WHEN BLOOD PRESSURE IS HIGH BUT SHE SAYS DOES NOT DO THAT BECAUSE SHE DOES NOT LIKE HOW IT MAKES HER FEEL AND SHE HAS TOLD DR. ALONSO. HCTZ HAS BEEN DISCONTINUED PER PATIENT WITHIN THE LAST 4-[address] COOPER. OTC MEDICATIONS: VITAMIN B12 ONCE DAILY FISH OIL ONCE DAILY IBUPROFEN PRN TYLENOL PM QHS PRN
[2019-02-16] MEDS: niCARdipine 50 MG/NS 250 ML IV DRIP IV SCH ×2 (16:30)
[2019-02-16] MEDS: NS IV 1000 ML 1,000 ML IV SCH (16:31)
--- NOTE | 2019-02-16 17:24 | Consultation-Cardiology ---
HPI-Cardiology Cardiology Consultation Date of Consultation 02/16/19 Date of Admission Time Seen by Provider: 17:20 Indication: acute CVA HPI 78-year-old lady with history of malignant hypertension, sinus node dysfunction, started having sudden loss of vision in her left eye occurred around 10 a.m., came to the emergency room, CT did not show any stroke, she was diagnosed with r etinal artery occlusion and received TPA. Reporting slight improvement in the vision at this time but still seeing some shadows and light only. Denied any chest pain, denied any shortness of breath or palpitation. No similar episodes in the past Home Medications & Allergies Allergies: Coded Allergies: No Known Drug Allergies (Unverified , 10/27/10) Home Medication List Reviewed: Yes OBD-Vrheyo-Ifqoel Hx Patient Social History Marital Status: Alcohol Use: Denies Use Recreational Drug Use: No Smoking Status: Never a Smoker Recent Foreign Travel: No Recent Infectious Disease Expo: No Immunizations Up To Date Date of Pneumonia Vaccine: Jan 20, 2015 Date of Influenza Vaccine: Jun 08, 2017 Past Medical History Discussed below Family Medical History Family History: Arthritis 19 FATHER 19 MOTHER Cardiovascular disease 19 FATHER Cataracts 19 MOTHER Dementia 19 FATHER Hypertension 19 MOTHER Myocardial infarction 19 FATHER Thyroid disease 19 MOTHER No Family History of: AIDS Alcoholism Alzheimer's disease Asthma Colon cancer Completed stroke Diabetes mellitus Drug abuse Glaucoma Kidney disease Parkinson's disease Prostate cancer Psychosocial problem Respiratory disorder Seizure disorder Severe allergy Tuberculosis Review of Systems-General Review of Systems Constitutional: no symptoms reported, see HPI; No chills, No fever EENTM: see HPI Respiratory: see HPI; No cough, No dyspnea on exertion, No hemoptysis, No orthopnea, No phlegm, No short of breath, No stridor, No wheezing, No other Cardiovascular: see HPI; No chest pain, No edema Gastrointestinal: see HPI; No abdominal pain, No nausea, No vomiting Genitourinary: no symptoms reported, see HPI Musculoskeletal: no symptoms reported, see HPI Skin: no symptoms reported, see HPI Psychiatric/Neurological: See HPI All Other Systems Reviewed Negative Unless Noted: Yes Reviewed Test Results Reviewed Test Results Lab Laboratory Tests Test 02/16/19 11:12 02/16/19 11:27 02/16/19 13:05 Range/Units White Blood Count 6.8 4.3-11.0 10^3/uL Red Blood Count 4.39 4.35-5.85 10^6/uL Hemoglobin 12.8 11.5-16.0 G/DL Hematocrit 39 35-52 % Mean Corpuscular Volume 89 80-99 FL Mean Corpuscular Hemoglobin 29 25-34 PG Mean Corpuscular Hemoglobin Concent 33 32-36 G/DL Red Cell Distribution Width 13.9 10.0-14.5 % Platelet Count 211 130-400 10^3/uL Mean Platelet Volume 11.7 H 7.4-10.4 FL Neutrophils (%) (Auto) 59 42-75 % Lymphocytes (%) (Auto) 27 12-44 % Monocytes (%) (Auto) 9 0-12 % Eosinophils (%) (Auto) 5 0-10 % Basophils (%) (Auto) 1 0-10 % Neutrophils # (Auto) 4.0 1.8-7.8 X 10^3 Lymphocytes # (Auto) 1.9 1.0-4.0 X 10^3 Monocytes # (Auto) 0.6 0.0-1.0 X 10^3 Eosinophils # (Auto) 0.3 0.0-0.3 10^3/uL Basophils # (Auto) 0.1 0.0-0.1 10^3/uL Prothrombin Time 12.9 12.2-14.7 SEC INR Comment 0.9 0.8-1.4 Activated Partial Thromboplast Time 40 H 24-35 SEC D-Dimer 0.92 H 0.00-0.49 UG/ML Sodium Level 137 135-145 MMOL/L Potassium Level 4.1 3.6-5.0 MMOL/L Chloride Level 108 H 98-107 MMOL/L Carbon Dioxide Level 19 L 21-32 MMOL/L Anion Gap 10 5-14 MMOL/L Blood Urea Nitrogen 26 H 7-18 MG/DL Creatinine 1.38 H 0.60-1.30 MG/DL Estimat Glomerular Filtration Rate 37 BUN/Creatinine Ratio 19 Glucose Level 95 70-105 MG/DL Calcium Level 9.6 8.5-10.1 MG/DL Corrected Calcium 9.4 8.5-10.1 MG/DL Total Bilirubin 0.6 0.1-1.0 MG/DL Aspartate Amino Transf (AST/SGOT) 18 5-34 U/L Alanine Aminotransferase (ALT/SGPT) 15 0-55 U/L Alkaline Phosphatase 117 40-136 U/L Troponin I 0.042 H <0.028 NG/ML Total Protein 8.1 6.4-8.2 GM/DL Albumin 4.3 3.2-4.5 GM/DL Glucometer 91 70-110 MG/DL Urine Color YELLOW Urine Clarity CLEAR Urine pH 6 5-9 Urine Specific [place] 1.010 L 1.016-1.022 Urine Protein NEGATIVE NEGATIVE Urine Glucose (UA) NEGATIVE NEGATIVE Urine Ketones NEGATIVE NEGATIVE Urine Nitrite NEGATIVE NEGATIVE Urine Bilirubin NEGATIVE NEGATIVE Urine Urobilinogen NORMAL NORMAL MG/DL Urine Leukocyte Esterase NEGATIVE NEGATIVE Urine RBC (Auto) NEGATIVE NEGATIVE Urine RBC NONE /HPF Urine WBC NONE /HPF Urine Squamous Epithelial Cells 0-2 /HPF Urine Crystals NONE /LPF Urine Bacteria NEGATIVE /HPF Urine Casts NONE /LPF Urine Mucus NEGATIVE /LPF Urine Culture Indicated NO Physical Exam Physical Exam Vital Signs Vital Signs - First Documented 02/16/19 10:56 Temp 97.7 Pulse 64 Resp 16 B/P (MAP) 204/89 (127) Pulse Ox 98 O2 Delivery Room Air Capillary Refill : Less Than 3 Seconds Height, Weight, BMI Height: 5'0.00" Weight: 169lbs. 0.0oz. [id number]; 33.0 BMI Method:Stated General Appearance: WD/WN, Mild Distress Eyes: Bilateral Eye Normal Inspection, Bilateral Eye PERRL, Bilateral Eye EOMI HEENT: Normal ENT Inspection, Pharynx Normal, Moist Mucous Membranes Neck: Full Range of Motion, Normal Inspection, Non Tender, Supple, Carotid Bruit Respiratory: Chest Non Tender, Normal Breath Sounds, No Accessory Muscle Use, No Respiratory Distress Cardiovascular: Regular Rate, Rhythm, No Edema, No JVD, Normal Peripheral Pulses, Systolic Murmur, Gallop/S3 Gastrointestinal: Normal Bowel Sounds, No Organomegaly, No Pulsatile Mass, Non Tender, Soft Back: Normal Inspection, No CVA Tenderness, No Vertebral Tenderness Extremity: Normal Capillary Refill, Normal Inspection, Normal Range of Motion, Non Tender, No Calf Tenderness, No Pedal Edema Neurologic/Psychiatric: Alert, Oriented x3, No Motor/Sensory Deficits, Normal Mood/Affect Skin: Normal Color, Warm/Dry Lymphatic: No Adenopathy A/P-Cardiology Admission Diagnosis Acute CVA Malignant hypertension Hyperlipidemia Coronary artery disease Assessment/Plan Acute CVA, diagnosed with acute retinal artery occlusion and received TPA. Still having significant vision loss. Maintained on Cardene drip at this time. Malignant hypertension, history of renal artery stent in 2017, still having labile blood pressure. Currently on Cardene drip. I will try to keep her blood pressure between 150 and 180 for adequate perfusion pressure History of chest pain, reporting improvement. No chest pain was reported at this time Cardiac catheterization done in 2010 showing 50 percent stenosis in the right coronary artery with ilas-ju-pdsikqik disease nonobstructive disease, stress test in November 2018 showing typical female pattern with no ischemia or infarction Hyperlipidemia Mild to moderate carotid stenosis, CTA reported 50 percent stenosis nonobstructive disease History of thyroidectomy History of breast cancer Degenerative joint disease Clinical Quality Measures DVT/VTE Risk/Contraindication: Risk Factor Score Per Nursin RFS Level Per Nursing on Admit: 3=High Stroke: Date of last known well: Feb 16, 2019 NGHIA COOPER MD Feb 16, 2019 17:24
[2019-02-16] MEDS: meTOproloL SUCCINATE 50 MG (TOPROL XL) TAB PO SCH (17:52)
[2019-02-16] MEDS ORDERED: NON-FORMULARY MEDICATION 1 EA EA (Atorvastatin Calcium (Lipitor) 20 MG) PO SCH (18:00)
[2019-02-16] MEDS: ATORVASTATIN 20 MG (LIPITOR) TABLET PO SCH (18:00)
[2019-02-17] VITALS (10 sets, daily range): BP systolic 130–163; BP diastolic 61–90
[2019-02-17] MEDS: niCARdipine 50 MG/NS 250 ML IV DRIP IV SCH ×2 (02:12)
[2019-02-17 04:14] LABS: BASOPHILS # (AUTO) 0.1 10^3/uL (0.0-0.1); BASOPHILS % (AUTO) 1 % (0-10); EOSINOPHILS # (AUTO) 0.3 10^3/uL (0.0-0.3); EOSINOPHILS % (AUTO) 4 % (0-10); HEMATOCRIT 36 % (35-52); LYMPHOCYTES % (AUTO) 26 % (12-44); MEAN CORPUSCULAR HEMOGLOBIN 29 PG (25-34); MEAN CORPUSCULAR HGB CONC 33 G/DL (32-36); MEAN CORPUSCULAR VOLUME 88 FL (80-99); MEAN PLATELET VOLUME 11.8 FL (7.4-10.4); MONOCYTES # (AUTO) 0.7 X 10^3 (0.0-1.0); MONOCYTES % (AUTO) 9 % (0-12); NEUTROPHILS # (AUTO) 4.9 X 10^3 (1.8-7.8); NEUTROPHILS % (AUTO) 61 % (42-75); PLATELET COUNT 226 10^3/uL (130-400); RED CELL DISTRIBUTION WIDTH 13.8 % (10.0-14.5)
[2019-02-17 04:36] LABS: ALBUMIN 3.9 GM/DL (3.2-4.5); BILIRUBIN,TOTAL 0.5 MG/DL (0.1-1.0); CREATININE SERUM 0.94 MG/DL (0.60-1.30); MAGNESIUM 1.8 MG/DL (1.8-2.4); PHOSPHORUS 3.3 MG/DL (2.3-4.7); POTASSIUM 3.8 MMOL/L (3.6-5.0); TOTAL PROTEIN 7.3 GM/DL (6.4-8.2)
[2019-02-17] MEDS: LEVOTHYROXINE 100 MCG (LEVOTHROID) TAB PO SCH (05:37)
[2019-02-17] MEDS ORDERED: KCL 20 MEQ TAB (K-DUR) PO SCH (06:00)
[2019-02-17] MEDS ORDERED: POTASSIUM CL 10MEQ/50ML IVPB 50 ML IV SCH (06:00)
[2019-02-17] MEDS ORDERED: MAGNESIUM 1 GM/100 ML IVPB 100 ML IV SCH (06:00)
--- NOTE | 2019-02-17 06:55 | Pulmonary Consultation ---
History of Present Illness History of Present Illness Date of Consultation 02/17/19 06:49 Time Seen by Provider: 06:50 Date of Admission Reason for Visit: acute CVA Allergies and Home Medications Allergies Coded Allergies: No Known Drug Allergies (Unverified , 10/27/10) Home Medications Acetaminophen/Diphenhydramine 1 Each Tablet, 1 TAB PO HS PRN for SLEEP, (Reported) Atorvastatin Calcium 20 Mg Tablet, 20 MG PO 1800, (Reported) Citalopram Hydrobromide 20 Mg Tablet, 20 MG PO 1800, (Reported) Clonidine HCl 0.1 Mg Tablet, 0.1 MG PO DAILY, (Reported) Cyanocobalamin (Vitamin B-12) 2,000 Mcg Tablet, 2,000 MCG PO DAILY, (Reported) Diltiazem HCl 300 Mg Cap.er.24h, 300 MG PO DAILY, (Reported) Ibuprofen 200 Mg Tablet, 200 MG PO Q6H PRN for PAIN-MILD, (Reported) Levothyroxine Sodium 100 Mcg Tablet, 100 MCG PO DAILY, (Reported) Losartan Potassium 100 Mg Tablet, 100 MG PO DAILY, (Reported) Meloxicam 15 Mg Tablet, 15 MG PO DAILY, (Reported) Metoprolol Succinate 50 Mg Tab.er.24h, 50 MG PO 1800, (Reported) [place]-3/Dha/Epa/Fish Oil 1 Each Capsule, 1 CAP PO DAILY, (Reported) Past [place]-Vcrrsy-Rdnsby Hx Past Med/Social Hx: Reviewed Nursing Past Med/Soc Hx Patient Social History Alcohol Use: Denies Use Recreational Drug Use: No Smoking Status: Never a Smoker Recent Foreign Travel: No Contact w/Someone Who Travel: No Recent Infectious Disease Expo: No Immunizations Up To Date Date of Pneumonia Vaccine: Jan 20, 2015 Date of Influenza Vaccine: Jun 08, 2017 Past Medical History Surgeries: Yes Lobectomy (left breast), Thyroidectomy Cardiac: Yes High Cholesterol, Hypertension Reproductive Disorders: No Female Reproductive Disorders: Denies Sexually Transmitted Disease: No HIV/AIDS: No Osteoporosis, Arthritis, Fractures Hypothyroidsim Cataract Loss of Vision: Bilateral Hearing Impairment: Denies Breast, Thyroid Depression Adverse Reaction/Blood Tranf: No Family Medical History Reviewed Nursing Family Hx Arthritis 19 FATHER 19 MOTHER Cardiovascular disease 19 FATHER Cataracts 19 MOTHER Dementia 19 FATHER Hypertension 19 MOTHER Myocardial infarction 19 FATHER Thyroid disease 19 MOTHER No Family History of: AIDS Alcoholism Alzheimer's disease Asthma Colon cancer Completed stroke Diabetes mellitus Drug abuse Glaucoma Kidney disease Parkinson's disease Prostate cancer Psychosocial problem Respiratory disorder Seizure disorder Severe allergy Tuberculosis Review of Systems Time Seen by Provider: 06:57 Sepsis Event Evaluation Height, Weight, BMI Height: 5'0.00" Weight: 165lbs. 7.0oz. 75.709251vg; 33.0 BMI Method:Stated Exam Exam Vital Signs Date Time Temp Pulse Resp B/P (MAP) Pulse Ox O2 Delivery O2 Flow Rate FiO2 02/17/19 06:00 67 32 95 Room Air 02/17/19 05:45 45 20 152/81 (104) 96 Room Air 02/17/19 05:30 13 150/90 (110) 97 Room Air 02/17/19 05:00 22 02/17/19 04:00 53 25 145/74 (97) 97 Room Air 02/17/19 04:00 Room Air 02/17/19 03:00 50 14 145/70 (95) 94 Room Air 02/17/19 02:00 52 18 95 Room Air 02/17/19 01:00 51 02/17/19 01:00 51 15 145/74 (97) 95 Room Air 02/17/19 00:00 48 16 133/61 (85) 94 Room Air 02/17/19 00:00 Room Air 02/16/19 23:05 98.4 02/16/19 23:00 79 18 106/50 (68) 92 Room Air 02/16/19 22:00 49 20 128/57 (80) 90 Room Air 02/16/19 21:00 48 18 124/59 (80) 94 Room Air 02/16/19 20:00 Room Air 02/16/19 20:00 52 11 116/63 (80) 94 Room Air 02/16/19 19:48 95 Room Air 02/16/19 19:30 98.2 02/16/19 19:00 49 02/16/19 19:00 49 15 116/48 (70) 97 Room Air 02/16/19 18:00 56 23 139/79 (99) 95 Room Air 02/16/19 17:00 80 20 115/51 (72) 97 Room Air 02/16/19 16:45 56 19 136/63 (87) 97 Room Air 02/16/19 16:30 61 21 134/117 (123) 96 Room Air 02/16/19 16:15 58 24 129/62 (84) 96 Room Air 02/16/19 16:00 54 11 135/63 (87) 97 Room Air 02/16/19 15:45 56 20 132/61 (84) 96 Room Air 02/16/19 15:15 59 38 126/67 (86) 94 Room Air 02/16/19 15:00 62 24 148/68 (94) 98 Room Air 02/16/19 15:00 98 Room Air 02/16/19 15:00 96 Room Air 02/16/19 14:56 57 02/16/19 13:47 97.6 52 12 166/60 (95) 99 Room Air 02/16/19 10:56 97.7 64 16 204/89 (127) 98 Room Air I & O 02/17/19 07:00 Intake Total 1850 ml Output Total 1350 ml Balance 500 ml Height & Weight Height: 5'0.00" Weight: 165lbs. 7.0oz. 75.372210vk; 33.0 BMI Method:Stated General Appearance: No Apparent Distress, WD/WN HEENT: Normal ENT Inspection, Pharynx Normal, Moist Mucous Membranes Neck: Full Range of Motion, Normal Inspection, Non Tender, Supple, Carotid Bruit Respiratory: Chest Non Tender, Normal Breath Sounds, No Accessory Muscle Use, No Respiratory Distress Cardiovascular: Regular Rate, Rhythm, No Edema, No JVD, Normal Peripheral P ulses, Systolic Murmur, Gallop/S3 Capillary Refill: Less Than 3 Seconds Peripheral Pulses: 2+ Radial Pulses (R), 2+ Radial Pulses (L) Gastrointestinal: normal bowel sounds, soft Extremity: Normal Capillary Refill, Normal Inspection, Normal Range of Motion, Non Tender, No Calf Tenderness, No Pedal Edema Neurologic/Psychiatric: Alert, Oriented x3, No Motor/Sensory Deficits, Normal Mood/Affect Skin: Normal Color, Warm/Dry Lymphatic: No Adenopathy Results Lab Laboratory Tests 02/16/19 11:12 02/17/19 03:55 Assessment/Plan Assessment/Plan Acute CVA s/p TPA -Repeat CT scheduled for today -NIH is 1 -Dysphagia screen - passed -Start plavix after 24hrs TPA and after CT head if no bleed Malignant HTN - Improved -Monitor Hyperlipidemia CAD -Cardiology following OCTAVIO STANFORD DO Feb 17, 2019 06:55
[2019-02-17] MEDS: DILTIAZEM 300 MG (CARDIZEM CD) CAP PO SCH (07:54)
[2019-02-17] MEDS: LOSARTAN 100 MG (COZAAR) TABLET PO SCH (07:54)
[2019-02-17] MEDS: NS IV 1000 ML 1,000 ML IV SCH (07:54)
--- NOTE | 2019-02-17 08:24 | Diagnostic Imaging Report ---
INDICATION: Shortness of breath. COMPARISON: 02/16/2019. FINDINGS: Single view of the chest demonstrates clear lungs bilaterally. The heart is normal. There is no pneumothorax. Osseous structures are normal. IMPRESSION: Negative chest. Dictated by: Dictated on workstation # [id number]
[2019-02-17] MEDS ORDERED: NON-FORMULARY MEDICATION 1 EA EA (Diltiazem HCl (Cartia Xt) 300 MG) PO SCH (09:00)
--- NOTE | 2019-02-17 09:13 | Cardiology Progress Note ---
Subjective Date Seen by Provider: Feb 17, 2019 Time Seen by Provider: 09:12 Subjective/Events-last exam patient is sitting in a chair, feeling better, her vision is improved. Review of Systems General: No Chills, No Night Sweats, No Fatigue, No Malaise, No Appetite, No Other HEENT: No Head Aches, No Visual Changes, No Eye Pain, No Ear Pain, No Dysphasia, No Sinus Congestion, No Post Nasal Drip, No Sore Throat, No Other Pulmonary: No Dyspnea, No Cough, No Pleuritic Chest Pain, No Other Cardiovascular: No: Chest Pain, Palpitations, Orthopnea, Paroxysmal Noc. Dyspnea, Edema, Lt Headedness, Other Objective-Cardiology Exam Last Set of Vital Signs Vital Signs 02/16/19 02/17/19 02/17/19 02/17/19 23:05 05:45 06:00 07:00 Temp 98.4 Pulse 54 Resp 32 B/P (MAP) 152/81 (104) Pulse Ox 95 O2 Delivery Room Air Capillary Refill : Less Than 3 Seconds I&O Intake and Output 02/17/19 00:00 Intake Total 1700 ml Output Total 200 ml Balance 1500 ml Intake Oral 700 ml IV Total 1000 ml Output Urine Total 200 ml # Voids 3 Daily Weight Change No General: Alert, Oriented X3, Cooperative HEENT: Atraumatic, PERRLA Neck: Supple, No JVD, No Thyromegaly Lungs: Clear to Auscultation, Normal Air Movement Heart: Regular Rate, Normal S1, Normal S2, No Murmurs Abdomen: Normal Bowel Sounds, Soft, No Tenderness, No Hepatosplenomegaly, No Masses Extremities: No Clubbing, No Cyanosis, No Edema, Normal Pulses, No Tenderness/Swelling Skin: No Rashes, No Breakdown, No Significant Lesion Neuro: Normal Gait, Normal Speech, Strength at 5/5 X4 Ext, Normal Tone, Se nsation Intact Psych/Mental Status: Mental Status NL, Mood NL Results Lab Laboratory Tests 02/16/19 11:12 02/17/19 03:55 A/P-Cardiology Admission Diagnosis Acute CVA Malignant hypertension Hyperlipidemia Coronary artery disease Assessment/Plan Acute CVA, diagnosed with acute retinal artery occlusion and received TPA, continue to improve. We will continue monitoring Malignant hypertension, history of renal artery stent in 2016, still having labile blood pressure, better controlled at this time, restarted home medication and will continue to monitoring blood pressure History of chest pain, reporting improvement. No chest pain was reported at this time, continue to monitor Cardiac catheterization done in 2010 showing 50 percent stenosis in the right coronary artery with [id number] disease nonobstructive disease, stress test in November 2018 showing typical female pattern with no ischemia or infarction Hyperlipidemia, monitor lipids Mild to moderate carotid stenosis, CTA reported 50 percent stenosis nonobstructive disease History of thyroidectomy History of breast cancer Degenerative joint disease Clinical Quality Measures DVT/VTE Risk/Contraindication: Risk Factor Score Per Nursin RFS Level Per Nursing on Admit: 3=High Stroke: Date of last known well: Feb 16, 2019 NGHIA COOPER MD Feb 17, 2019 09:13
--- NOTE | 2019-02-17 09:48 | Diagnostic Imaging Report ---
PROCEDURE: CT head without contrast. TECHNIQUE: Multiple contiguous axial images were obtained through the brain without the use of intravenous contrast. Auto Exposure Controls were utilized during the CT exam to meet ALARA standards for radiation dose reduction. INDICATION: Visual disturbance COMPARISON: 02/16/2019 FINDINGS: There is stable age-related cerebral volume loss and chronic small vessel ischemic changes. There is no midline shift or mass effect. There is no hemorrhage or evidence of acute ischemia. No extra-axial fluid collection is seen. There is no dense vessel sign. Osseous structures are normal. Paranasal sinuses and mastoids are clear. IMPRESSION: No acute intracranial abnormalities. Dictated by: Dictated on workstation # [id number]
[2019-02-17] MEDS: cloNIDine 0.1 MG (CATAPRES) TAB PO SCH ×2 (09:53→19:52)
--- NOTE | 2019-02-17 10:00 | NUR ---
Patient in room 420. Report received from Christine NUNEZ. Will continue to monitor.
--- NOTE | 2019-02-17 10:03 | NUR ---
pt to room 420 and settled. report to Sandra NUNEZ
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
[2019-02-17] MEDS: CLOPIDOGREL 75 MG (PLAVIX) TABLET PO SCH (12:42)
[2019-02-17] MEDS: ATORVASTATIN 20 MG (LIPITOR) TABLET PO SCH (17:34)
[2019-02-17] MEDS: meTOproloL SUCCINATE 50 MG (TOPROL XL) TAB PO SCH (17:35)
--- NOTE | 2019-02-17 21:40 | NUR ---
PATIENT REMOVED IV ON DAY SHIFT. PATIENT REFUSED TO LET THIS NURSE REPLACE IV. PATIENT IS DRESSED IN STREET CLOTHES AND HAS REMOVED ALL HOSPITAL WRISTBANDS. PATIENT HAS COME OUT OF HER ROOM SEVERAL TIMES WITH DIFFERENT ITEMS ([employer] GROCERY BAG FILLED WITH PERSONAL ITEMS, BLANKETS, BED LINENS) AND WHEN STAFF APPROACHES PATIENT TO ASK WHERE SHE IS GOING PATIENT STATES THAT SHE IS GOING HOME. PATIENT IS EASILY REDIRECTED BACK TO HER ROOM. TELESITTER PLACED IN PATIENT ROOM FOR HER SAFETY. WILL CONTINUE TO MONITOR.
[2019-02-18] VITALS: BP 142/68
[2019-02-18 04:00] VITALS: BP 172/77
[2019-02-18] MEDS: LEVOTHYROXINE 100 MCG (LEVOTHROID) TAB PO SCH (05:59)
[2019-02-18 08:00] VITALS: BP 166/79
[2019-02-18] MEDS ORDERED: CLOP75TA28 PO (08:32)
[2019-02-18] MEDS: DILTIAZEM 300 MG (CARDIZEM CD) CAP PO SCH (08:36)
[2019-02-18] MEDS: cloNIDine 0.1 MG (CATAPRES) TAB PO SCH (08:36)
[2019-02-18] MEDS: LOSARTAN 100 MG (COZAAR) TABLET PO SCH (08:37)
[2019-02-18] MEDS: CLOPIDOGREL 75 MG (PLAVIX) TABLET PO SCH (08:37)
--- NOTE | 2019-02-18 08:43 | Discharge Summary-Hospitalist ---
Diagnosis/Chief Complaint Date of Admission Feb 16, 2019 at 14:00 Date of Discharge Discharge Date: Feb 18, 2019 Admission Diagnosis A/P 1. Acute ischemic left retinal artery occlusion likely atherosclerotic in etiology with good response to TPA NIH stroke level 0 will initiate Plavix around noon today 24 hours post TPA dose likely discharge tomorrow. 2. Difficult to control hypertension for the patient and Dr. Hardy hypertension management per his recommendation. 3. Likely sick sinus syndrome bradycardia aggravated by medication patient very well may end up needing a pacemaker in the future after discussion loop recording as an outpatient and follow-up with cardiology. 4. probable Stage III chronic renal disease secondary to hypertension repeat basic metabolic panel.. Discharge Summary Discharge Physical Exam Allergies: Coded Allergies: No Known Drug Allergies (Unverified , 10/27/10) Vitals & I&Os Vital Signs Date Time Temp Pulse Resp B/P (MAP) Pulse Ox O2 Delivery O2 Flow Rate FiO2 02/18/19 04:00 93.1 51 14 172/77 (108) 97 Room Air General Appearance: No Apparent Distress, WD/WN HEENT: PERRL/EOMI Respiratory: Chest Non Tender, Lungs Clear, Normal Breath Sounds, No Accessory Muscle Use, No Respiratory Distress Cardiovascular: Regular Rate, Rhythm, No Edema, No Gallop, No JVD, Normal Peripheral Pulses, Other (positive S4 negative S3 with soft 1 to 2/6 systolic ejection murmur noted best over the aortic outflow tract) Gastrointestinal: Normal Bowel Sounds, No Organomegaly, No Pulsatile Mass, Non Tender, Soft Neurologic/Psychiatric: Alert, Oriented x3 Hospital Course Was the Problem List Reviewed?: Yes patient presented emergency room with acute loss of vision in the left eye there was absence of pupillary reflexes on the left and funduscopic findings were highly suspicious for central retinal artery occlusion. After consultation with the stroke team at [facility] was initiated and after discussion with the patient over wrists and benefits. CT had prior revealed no evidence for bleed. Patient does have stage III chronic renal disease secondary to long-standing labile hypertension so CT angiography was not obtained. She had had recent carotid duplex evaluation revealed findings compatible with moderate carotid disease per Dr. Wright reporting around 50 percent estimated bilateral obstruction of the carotids. Post-TPA she had returned to near normal vision. She was able to read normal print with her glasses on out of the affected left eye. She reports in the morning of vision seems a bit blurred but clears after an hour to and on discharge she is again able to read print in the morning with glasses on. Her heart rate predominantly in the mid 40s to low 50s but on 3 medications have heart rate lowering effects. We will defer to Dr. Wright in regards to any changes in antihypertensive regiment. She had prodromal a mild systolic blood pressure elevation during her hospital stay of that she states is aggravated by stress of her 's declining health. He is predominantly in the 140-160 systolic range with normal diastolic pressures. She was switched to Plavix which she will continue 75 mg daily and was advised to call her exhibit specialist Dr. Ely Tuesday morning to get in for an evaluation this coming week at which time a can be decided as to whether or not there would be any benefit to ophthalmolog ic referral not available at our institution currently. She will follow with Dr. Wright based on his recommendations. I did advise considering that we're initiating Plavix and an elderly individual who is also on SSRI into reported nonsteroidals that she stop both her as needed ibuprofen and regular meloxicam as this is not helping out with blood pressure control and it increases her risk for GI bleeding. Labs (last 24 hrs) Microbiology 02/16/19 MRSA Screen - Final, Complete MRSA not isolated Patient resulted labs reviewed. Discussion & Recommendations Discharge Planning: >30 minutes discharge planning Discharge Home Medications: Active Scripts Active Clopidogrel (Clopidogrel Bisulfate) 75 Mg Tablet 75 Mg PO DAILY 30 Days Reported Fish Oil 1,000 mg Softgel (Freeland-3/Dha/Epa/Fish Oil) 1 Each Capsule 1 Cap PO DAILY Vitamin B-12 (Cyanocobalamin (Vitamin B-12)) 2,000 Mcg Tablet 2,000 Mcg PO DAILY Losartan Potassium 100 Mg Tablet 100 Mg PO DAILY Citalopram HBr (Citalopram Hydrobromide) 20 Mg Tablet 20 Mg PO 1800 Metoprolol Succinate 50 Mg Tab.er.24h 50 Mg PO 1800 Cartia Xt (Diltiazem HCl) 300 Mg Cap.er.24h 300 Mg PO DAILY Clonidine HCl 0.1 Mg Tablet 0.1 Mg PO DAILY Meloxicam 15 Mg Tablet 15 Mg PO DAILY Lipitor (Atorvastatin Calcium) 20 Mg Tablet 20 Mg PO 1800 Tylenol Pm Ex-Strength Caplet (Acetaminophen/Diphenhydramine) 1 Each Tablet 1 Tab PO HS PRN Advil (Ibuprofen) 200 Mg Tablet 200 Mg PO Q6H PRN Levothyroxine Sodium 100 Mcg Tablet 100 Mcg PO DAILY Instructions to patient/family Please see electronic discharge instructions given to patient. Clinical Quality Measures DVT/VTE Risk/Contraindication: Risk Factor Score Per Nursin RFS Level Per Nursing on Admit: 3=High Stroke: Date of last known well: Feb 16, 2019 Copy Copies To 1: DEMOND ALONSO MARK D MD Feb 18, 2019 08:43
[2019-02-18 12:55] VITALS: BP 166/79
== END 2019-02-18 13:00 | disposition home or self-care (01) | DRG 123 ==
LOC: EDUNIT# 10:42 → ER 10:43 → ICU 14:00 → 4TH 02-17 09:55
PROVIDERS: ADMIT Internal Medicine; ATTEND Internal Medicine
DX: H34.12 Central retinal artery occlusion, left eye (principal); I12.9 Hypertensive chronic kidney disease with stage 1 through stage 4 chronic kidney disease, or unspecified chronic kidney disease; N18.3 Chronic kidney disease, stage 3 (moderate); R29.700 NIHSS score 0; I49.5 Sick sinus syndrome; I45.10 Unspecified right bundle-branch block; E78.5 Hyperlipidemia, unspecified; I25.10 Atherosclerotic heart disease of native coronary artery without angina pectoris; F32.9 Major depressive disorder, single episode, unspecified; M81.0 Age-related osteoporosis without current pathological fracture; M19.90 Unspecified osteoarthritis, unspecified site; E89.0 Postprocedural hypothyroidism; Z95.0 Presence of cardiac pacemaker; Z85.3 Personal history of malignant neoplasm of breast
CPT/HCPCS: 36415; 70450; 70496; 70498; 71045; 80053; 80061; 81000; 82962; 83735; 84100; 84484; 85025; 85379; 85610; 85730; 87081; 92977; 93005; 93041; 94664; 99291

== ENCOUNTER 2020-01-01 00:01 | Inpatient (IN) | payer MEDICARE ==
[~2020-01-01] VITALS: Ht 162 cm; Wt 72.0 kg
[2020-01-01] VITALS (29 sets, daily range): BP systolic 109–151; BP diastolic 56–106
[~2020-01-01 00:01] MED LIST changes: -ACET-2469 PO; +ACET-2715 PO; +CITA20TA9 PO; +CLON0.2T PO; +CLOP75TA28 PO; +CYAN200014 PO; +HYDR25TA4 PO; +LOSA100T57 PO; -METO-387 PO; +METO50TA7 PO; +OMEG-160 PO; +SIMV10TA26 PO; -SIMV10TA3 PO
--- OUTSIDE RECORDS SUMMARY | 2020-01-01 01:01 | XMS REPORT ---
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 [facility] [employer] Address [address] [place] [address] Care Team Providers Care Home Teaching Grades 9 Thru 12 Teacher Name Role Phone MANDEEP SUMMERS Unavailable PAONI, MANDEEP Unavailable Unavailable PAONI, MANDEEP Unavailable Unavailable PAONI, MANDEEP Unavailable Unavailable KENNETH SAINI, NGHIA Mendez Unavailable Unavailable SHAHID WEBB Unavailable Unavailab MANDEEP Salazar Unavailable Unavailable PASIMONE, MANDEEP Unavailable Unavailable PASIMONE MANDEEP Unavailable Unavailable TOBY SAINI, SERA Hauser Unavailable Unavailable MARY SAINI, BOB Hauser Unavailable Unavailable MARY SAINI, BOB Hauser Unavailable Unavailable AVA SAINI, SHAWNEE Unavailable Unavailable LEISURE, LYNIETA Unavailable Unavailable BROWN, ROB Unavailable Unavailable BROWN, ROB Unavailable Unavailable CARLOS, CHANDROUTIE Unavailable Unavailable CARLOS, CHANDROUTIE Unavailable Unavailable CARLOS, CHANDROUTIE Unavailable Unavailable MARLENE PARRY Unavailable Unavailable ANETA WETZEL Unavailable Unavailable KIDO, TAKAAKI Unavailable Unavailable KIDO, TAKAAKI Unavailable Unavailable KIDO, TAKAAKI Unavailable Unavailable Unavailable Unavailable Unavailable Unavailable Unavailable Unavailable Unavailable Unavailable Unavailable Unavailable Allergies Normalized Allergy Reported Date of Reaction(s) Care Provider Facility Allergy Type classification allergen Allergy Onset DA (20 Unclassified No Known Drug 10-27-2010 - no information NGHIA COOPER , Not Available sources.) Allergies (05468) no information Unclassified NO KNOWN DRUG UNKNOWN, NO MANDEEP APONTE I Not Available (21 sources.) ALLERGIES KNOWN DRUG (12833) ALLERGIES Medications Medication Ingredient Drug Dose Dates Status Sig Sig Care Class(es) (Normalized) (Original) Provid er no ALPRAZolam Benzodiazep 0.25 10-13-19 no no no no information ine mg 20 - informat information informatio n name (1 source.) 10-13-19 ion 20 no CEFAZOLIN no 1 g 10-07-19 no no no no information VIAL INJ 1 information 20 - informat informatio n information name (1 source.) GM (ANCEF) 10-07-19 ion 20 1 g 10-07-2019 no no no no name - information inform informat 10-07-2019 ation ion no FENTANYL no 10-07-19 no no no no information INJ 100 information - informat information info rmation name (1 source.) MCG/2CC 10-14-19 ion VIAL 20 10-07-2019 no no no no name - information inform informat 10-07-2019 ation ion 10-07-2019 no no no no name - information inform informat 10-07-2019 ation ion no hydroCHLORO Thiazide 25 mg 10-08-19 no no Hydroc hlorot no information thiazide Diuretic 20 - informat information hiazid e name (1 source.) 10-14-19 ion tablet 25mg 20 (Hydrodiuril 25mg) 25 25 no HYDROCODONE no 10-07-19 no no no no information /APAP information 20 - informat information infor mation name (1 source.) 5MG/325MG 10-17-19 ion TAB 5 20 MG/325MG (CARINA-TAB 5/325) no KETOROLAC no 12-15-19 no no no no information VIAL INJ 15 information - informat informati on information name (1 source.) MG/CC 12-15-19 ion (TORADOL 20 VIAL) no Lactated no 12-31-19 no no no Jeanni information Ringer's information - informat information inf ormation e (1 source.) Solution 01-07-20 ion Jones 20 on (no phone) no LORAZEPAM no 10-08-19 no no no no information 1CC VIAL information - informat information inf ormation name (1 source.) INJ 2 MG/CC 10-08-19 ion (ATIVAN 20 VIAL) no Losartan Angiotensin 100 mg 10-08-19 no no LOSART AN TAB no information 2 Receptor 20 - informat information 100 MG name (1 source.) Sherif 10-14-19 ion (COZAAR) 100 20 100 no MORPHINE no 10-07-19 no no no no information SYRINGE INJ information - informat informati on information name (1 source.) 2 MG/CC 10-14-19 ion 20 no Normal no 12-31-19 no no no Jeanni information saline information 20 - informat information infor mation e (1 source.) Translation 01-15-20 ion Jones s: [ Normal 20 on (no SALINE 0.9 phone) % (NS 100cc) (plain bag), NORMAL SALINE 250CC IV BAG INJ 0.9 % (NS 250CC IV BAG)] 10-08-2019 no no no no name - information inform informat 10-08-2019 ation ion 10-08-2019 no no no no name - information inform informat 10-23-2019 ation ion 10-07-2019 no no no no name - information inform informat 10-14-2019 ation ion 10-07-2019 no no no no name - information inform informat 10-14-2019 ation ion 10-07-2019 no no no no name - information inform informat 10-22-2019 ation ion 10-07-2019 no no no no name - information inform informat 10-22-2019 ation ion no ONDANSETRON no 10-07-19 no no no no information VIAL INJ 4 information 20 - informat informatio n information name (1 source.) MG/2CC 10-14-19 ion (ZOFRAN 2CC 20 VIAL) no Orphenadrin Muscle 12-15-19 no no no no information e Relaxant 20 - informat information informat ion name (1 source.) 12-15-19 ion 20 no pantoprazol Proton Pump 40 mg 10-09-19 no no no no information e Inhibitor 20 - informat information informa tion name (1 source.) 10-22-19 ion 20 no Piperacilli no 3.375 10-07-19 no no no no information n-tazobacta information g 20 - informat inform ation information name (1 source.) m 3.375 Gm 10-14-19 ion IV recon 20 soln (Zosyn) 3.375 g 10-07-2019 no no no no name - information inform informat 10-14-2019 ation ion Problems Active Problems Problem Normalized Date Last Normalized Normalized Provider Fa cility Classification Problem(s) Recorded Problem Problem Sta tus Duration Other Abnormal Episodic Active GREGORY BROKOB Not Availa ble screening for mammogram, (34682) suspected unspecified conditions Translations: (not mental [ ENCOUNTER disorders or FOR OTHER infectious SCREENING FOR disease) (31 MALIGNANT sources.) NEOPLASM OF BREAST, OTHER SCREENING BREAST EXAMINATION] Acute Acute Episodic Active [facility] posthemorrhagi posthemorrhagi [facility] of c anemia (7 c anemia [employer] sources.) Translations: [facility] (42583) [ ACUTE POSTHEMORRHAGI C ANEMIA] Osteoporosis Age-related Chronic Active BOB MARY Via (8 sources.) osteoporosis MD [place] without Hospital - current [place] pathological (42112) fracture Anxiety Anxiety Chronic Active [facility] disorders (8 disorder, [facility] of sources.) unspecified [employer] Translations: [facility] (01330) [ ANXIETY STATE, UNSPECIFIED] Peripheral and Atherosclerosi Chronic Active RAVIJEFF BOLAÑOSJI , Not Available visceral s of renal (74860) atherosclerosi artery s (19 sources.) Coronary Atheroscleroti Chronic Active [facility] KENNETH , No t Available atherosclerosi c heart (95330) s and other disease of heart disease [place] (21 sources.) coronary artery without angina pectoris 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; 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; occlusion, Hospital - vascular left eye [place] occlusion; and Translations: (61174) retinopathy [ CENTRAL (32 sources.) RETINAL ARTERY OCCLUSION, BILATERAL, CENTRAL RETINAL ARTERY OCCLUSION] Nonspecific Chest pain, Episodic [facility] , Not Available chest pain (21 unspecified MD (87087) sources.) Translations: [ OTHER CHEST PAIN, OTHER CHEST PAIN, CHEST PAIN, UNSPECIFIED ] Chronic kidney Chronic kidney Chronic Active BOB GAURAV HERNANDEZ Via disease (8 disease, stage MD [place] sources.) 3 (moderate) [facility] (27668) Intracranial Concussion Episodic Active [facility] injury (12 without loss [facility] of sources.) of [employer] consciousness, [facility] (50320) initial encounter Translations: [ CONCUSSION WITH NO LOSS OF CONSCIOUSNESS] Prolapse of Cystocele, Chronic Active ANNIE HOROWITZ , Not A vailable female genital midline DO (13824) organs (4 Translations: sources.) [ UTEROVAG PROLAPS-INCOMP L] Other Encounter for Episodic Active [facility] aftercare (14 change or [facility] of sources.) removal of [employer] surgical wound [facility] (15684) dressing Other Encounter for Episodic Active [facility] aftercare (14 change or [facility] of sources.) removal of [employer] surgical wound [facility] (09067) dressing Immunizations Encounter for Episodic Active ANNIE HOROWITZ , Not Available and screening screening for DO (10621) for infectious other disease (9 bacterial sources.) diseases Translations: [ SCREEN-BACTERI AL DIS NEC, PROPHYLACTIC VACC AGAINST STREPTOCOCCUS ] Essential Essential Chronic Active NGHIA COOPER , Not [place] ilable hypertension (primary) (48419) (21 sources.) hypertension Translations: [ UNSPECIFIED ESSENTIAL HYPERTENSION, MALIGNANT ESSENTIAL HYPERTENSION] Residual Family history Episodic Active NGHIA COOPER , No t Available codes; of ischemic MD (44079) unclassified heart disease (4 sources.) and other diseases of the circulatory system Headache; Headache Episodic Active [facility] including [facility] #1 of migraine (3 [employer] sources.) [facility] (69050) Hypertension Hypertensive Chronic Active BOB HERNANDEZ [facility] Via with chronic kidney MD [place] complications disease with Hospital - and secondary stage 1 [place] hypertension through stage (77739) (8 sources.) 4 chronic kidney disease, or unspecified chronic kidney disease Thyroid Hypothyroidism Chronic Active [facility] , No t Available disorders (33 , unspecified MD (57875) sources.) Translations: [ UNSPECIFIED HYPOTHYROIDISM , UNSPECIFIED HYPOTHYROIDISM ] Residual Insomnia, Episodic Active [facility] Hospital codes; unspecified [facility] of unclassified [employer] (5 sources.) [facility] (79215) Residual Insomnia, Episodic Active [facility] Hospital codes; unspecified [facility] of unclassified [employer] (5 sources.) [facility] (54605) Other Long-term Episodic Active [facility] aftercare (6 (current) use [facility] #1 o f sources.) of other [employer] medications [facility] (06370) Mood disorders Major Chronic Active GAURAV WONG Via (5 sources.) depressive MD [place] disorder, [facility] - single [place] episode, (61688) unspecified Disorders of Mixed Chronic Active [facility] KENNETH , Not A vailable lipid hyperlipidemia (81178) metabolism (24 Translations: sources.) [ HYPERLIPIDEMIA , UNSPECIFIED, MIXED HYPERLIPIDEMIA ] Other Muscle Episodic Active [facility] connective weakness [facility] #1 of tissue disease (generalized) [employer] (25 sources.) [facility] (48346) Acute NIHSS score 0 Episodic Active GAURAV WONG Via cerebrovascula MD [place] r disease (5 Hospital - sources.) [place] (02747) Open wounds of Open wound of Episodic Active [facility] pital head; neck; scalp, without [place] of and trunk (26 mention of [place] sources.) complication [facility] (39259) Translations: [ LACERATION WITH FOREIGN BODY OF SCALP, INITIAL ENCOUNTER , OPEN WOUND OF SCALP, , OPEN WOUND OF SCALP, COMPLICATED, LACERATION WITH FOREIGN BODY OF SCALP, SUBSEQUENT ENCOUNTER ] Other Other Episodic Active [facility] connective disorders of [facility] of tissue disease soft tissue [employer] (5 sources.) [facility] (75157) Other Other long Episodic Active NGHIA COOPER , Not Av ailable aftercare (15 term (current) MD (79845) sources.) drug therapy Other injuries Other Episodic Active ANNIE HOROWITZ , Not Available and conditions nonspecific DO (53116) due to findings on external examination of causes (1 urine source.) Other Other soft Episodic Active [facility] connective tissue [facility] of tissue disease disorders [employer] (25 sources.) related to [facility] (57535) use, overuse and pressure, left forearm Other Other soft Episodic Active [facility] connective tissue [facility] of tissue disease disorders [employer] (2 sources.) related to [facility] (17423) use, overuse and pressure, unspecified upper arms Other Other Episodic Active [facility] aftercare (15 specified [facility] of sources.) aftercare [facility] (68802) Other Other Chronic Active [facility] non-traumatic specified [facility] of joint arthritis, [place] disorders (20 multiple sites [facility] (47627) sources.) Spondylosis; Pain in Episodic Active [facility] intervertebral thoracic spine [facility] of disc [place] disorders; [facility] (09680) other back problems (4 sources.) Cancer of Personal Episodic Active [facility]OB [facility]NANDEZ [facility] breast (8 history of MD [place] sources.) malignant Hospital - neoplasm of [place] breast (58620) Complications Postprocedural Chronic Active BOB HERNANDEZ [facility] Via of surgical hypothyroidism MD [place] procedures or Hospital - medical care [place] (8 sources.) (85935) Genitourinary Presence of Chronic Active NGHIA KENNETH , N ot Available symptoms and urogenital MD (21250) ill-defined implants conditions (4 sources.) Heart valve Rheumatic Chronic Active SHAHID [facility] Via disorders (2 tricuspid FLOREZ-ANDERSO Linda sources.) insufficiency N , [place] [facility] (28232) Cardiac Sick sinus Chronic Active BOB HERNANDEZ , [facility] Vi a dysrhythmias syndrome MD [place] (8 sources.) [facility] (03833) Sprains and Strain of Episodic Active ANETA WETZEL Hospit al strains (2 muscle, fascia [facility] of sources.) and tendon at [employer] neck level, [facility] (97976) initial encounter Translations: [ NECK SPRAIN] Bacterial Streptococcus Episodic Active ANNIE HOROWITZ , Not Available infection; infection in DO (43372) unspecified conditions site (1 classified source.) elsewhere and of unspecified site, streptococcus, group D [Enterococcus] Abdominal Umbilical Episodic Active BASHAR KENNETH , Not [place] ilable hernia (4 hernia without MD (36024) sources.) obstruction or gangrene Osteoarthritis Unspecified Chronic Active BOB HERNANDEZ 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 [place] sources.) bundle-branch [facility] Translations: (21523) [ PRESENCE OF CARDIAC PACEMAKER] Urinary tract Urinary tract Episodic Active ANNIE HOROWITZ , Not Available infections (1 infection, DO (29602) source.) site not specified Past or Other Problems Problem Normalized Date Last Normalized Normalized Provider Fa cility Classification Problem(s) Recorded Problem Problem Sta tus Duration Unclassified ACUTE POS no information no information [facility] (1 source.) [facility] #1 of [facility] (34933) Other Diarrhea, Episodic Completed [facility] gastrointestin unspecified [facility] of al disorders [employer] (27 sources.) [facility] (05276) Unclassified Laceration no information no information [facility] (26 sources.) without LEISURE [facility] of foreign body [employer] of [facility] (09137) Unclassified LONG-TERM no information no information [facility] (1 source.) (CURRENT) USE [facility] o f OF O [facility] (68993) Mood disorders Major no information no information BOB ARORA SON , [facility] Via (3 sources.) depressive MD [place] disorder, [facility] episode, (59476) unspecified Acute NIHSS score 0 no information no information BOB ARORA SON , [facility] Via cerebrovascula MD Linda stevens disease (3 Hospital - sources.) [place] (26537) Unclassified OPEN WOUND OF no information no information [facility] (1 source.) [facility] [address] ([address]018) Unclassified no information no information no information IRA A HOROWITZ , Not Available (1 source.) DO (44578) Unclassified no information no information no information IRA A HOROWITZ , Not Available (1 source.) DO (07726) Unclassified no information no information no information IRA A HOROWITZ , Not Available (1 source.) DO (85412) Procedures Procedure Normalized Procedure Procedure Result Performer Facility Date 02-16-2019 INTRODUCE OTH no information no name [facility] Via C hristi THROMBOLYTIC IN [facility] VEI (54800) INTRODUCE OTH no information no name [facility] Via Linda THROMBOLYTIC IN [facility] (98577) Immunizations Normalized Immunization Date Notes Care Provider Facili ty Immunization no information 10-07-2019 no information no name Hospital [address] ([address]) Results Test Name Value Interpretation Reference Range Date Time Fa cility (Normalized) (Normalized) (Medline Reference) not yet categorized on 2019-12-26 COVID19 Negative (no code) 12-26-2019 Hospital 05: [address] ([address]648) laboratory on 2019-12-26 Albumin BCG dye 4.1 (no code) 12-26-2019 Hospital [Mass/Vol] 05: [address] ([address]05) ALP [Catalytic 115 U/L (no code) 44 - 147 U/L 12-26-2019 Hosp ital activity/Vol] 05: [address] (65729) ALT [Catalytic 12 U/L (no code) 4 - 40 U/L 12-26-2019 Hospit al activity/Vol] 05: [address] (80263) Anion gap 14 mmol/L (no code) 3 - 11 mmol/L 12-26-2019 Hospital [Moles/Vol] 05: [address] (48864) AST [Catalytic 16 U/L (no code) 10 - 34 U/L 12-26-2019 Hospi shruti activity/Vol] 05:00 [facility] of [facility] (62857) Basophils (Bld) 0.1 10*3/uL (no code) 0 - 0.3 10*3/uL 12-26-2019 Hospital [#/Vol] 05:00040 [facility] (88209) Basophils/100 0.60 % (no code) 0.5 - 1 % 12-26-2019 Hospital WBC (Bld) 05: [facility] (45389) Bilirubin 0.5 mg/dL (no code) 0.1 - 1.2 mg/dL 12-26-2019 Hospit al [Mass/Vol] 05: [facility] () Calcium 8.3 mg/dL (no code) 8.5 - 10.2 mg/dL 12-26-2019 Hospi shruti [Mass/Vol] 05: [facility] (55683) Chloride 100 mmol/L (no code) 95 - 106 mmol/L 05 Hospi shruti [Moles/Vol] 05:00 [facility] of [facility] (21777) Creatinine 1.71 mg/dL (H) 12-26-2019 Hospital [Mass/Vol] 05:00 [facility] (93816) Eosinophils 0.2 10*3/uL (no code) 0.05 - 0.5 12-26-2019 Hospita l (Bld) [#/Vol] 10*3/uL 05: [facility] (54424) Eosinophils/100 1.9 % (no code) 1 - 4 % 12-26-2019 Hospit al WBC (Bld) 05: [facility] (26826) Erythrocyte 13.4 % (no code) 11.6 - 14.6 % 12-26-2019 Hospit al distribution 05: [facility] of width (RBC) [facility] [Ratio] (65076) GFR/1.73 sq 29 (L) 90 - 120 12-26-2019 Hospital M.predicted MDRD mL/min/{1.73_m2} mL/min/{1.73_m2} 05:00 District [facility] of (S/P/Bld) [Vol [facility] rate/Area] (47312) Globulin (S) 2.9 g/dL (no code) 2 - 3.5 g/dL 12-26-2019 Hospit al [Mass/Vol] 05:00 [facility] of [facility] () Glucose 101 mg/dL (no code) 60 - 125 mg/dL 12-26-2019 Hospita l [Mass/Vol] 05:00 [facility] () HCO3 (P) 26 (no code) 12-26-2019 Hospital [Moles/Vol] 05: [facility] () Hematocrit (Bld) 36.4 % (no code) 36.1 - 50.3 % 12-26-2019 H ospital [Volume 05: [facility] of fraction] [facility] (21376) Hemoglobin (Bld) 12.0 g/dL (L) 12.1 - 17.2 g/dL 12-26-2019 Hospital [Mass/Vol] 05:00 [facility] (46059) Lymphocytes 1.86 10*3/uL (no code) 0.9 - 2.9 12-26-2019 Hospita l (Bld) [#/Vol] 10*3/uL 05:00 [facility] () Lymphocytes/100 23.1 % (no code) 20 - 40 % 12-26-2019 Hospit al WBC (Bld) 05:00 [facility] () MCH (RBC) 29.1 pg (no code) 27 - 31 pg 12-26-2019 Hospital [Entitic mass] 05: [facility] #1 [facility] () MCHC (RBC) 33.0 g/dL (no code) 32 - 36 g/dL 12-26-2019 Hospital [Mass/Vol] 05:00 [facility] () MCV (RBC) 88.1 fL (no code) 80 - 100 fL 12-26-2019 Hospital [Entitic vol] 05:00 [facility] (87799) Monocytes (Bld) 0.8 10*3/uL (no code) 0.3 - 0.9 12-26-2019 Hosp ital [#/Vol] 10*3/uL 05: [facility] (62842) Monocytes/100 9.4 % (no code) 2 - 8 % 12-26-2019 Hospital WBC (Bld) 05: [facility] (51601) Neutrophils 5.23 10*3/uL (no code) 1.7 - 7 10*3/uL 12-26-2019 H ospital (Bld) [#/Vol] 05: District 1 of [facility] (18473) Neutrophils/100 65.0 % (no code) 40 - 60 % 12-26-2019 Hospit al WBC (Bld) 05: [facility] (25786) Osmolality Calc 287 (no code) 12-26-2019 Hospital [Osmolality] 05: [facility] (62389) Platelet mean 9.6 fL (no code) 7.2 - 11.7 fL 12-26-2019 Hosp ital volume (Bld) 05: [facility] of [Entitic vol] [facility] (85112) Platelets (Bld) 408 10*3/uL (H) 150 - 450 12-26-2019 Hosp ital [#/Vol] 10*3/uL 05:00 [facility] (46672) Potassium 2.4 mmol/L (LL) 3.7 - 5.2 mmol/L 12-26-2019 Hosp ital [Moles/Vol] 05: District 1 [facility] (97641) Protein 7.0 g/dL (no code) 6.4 - 8.3 g/dL 12-26-2019 Hospita l [Mass/Vol] 05: [facility] 1 of [facility] (33454) RBC (Bld) 4.13 10*6/uL (no code) 4.2 - 6.1 12-26-2019 Hospital [#/Vol] 10*6/uL 05:000 [facility] (89471) Sodium 138 mmol/L (no code) 135 - 145 mmol/L 12-26-2019 Hosp ital [Moles/Vol] 05:000 [facility] (84499) Urea nitrogen 19 mg/dL (no code) 7 - 20 mg/dL 12-26-2019 Hospi shruti [Mass/Vol] 05:00 [facility] (86464) WBC (Bld) 8.05 10*3/uL (no code) 3.5 - 10.5 12-26-2019 Hospital [#/Vol] 10*3/uL 05:000 [facility] (78654) laboratory on 2019-12-16 Salmonella and Note (no code) 12-16-2019 [facility] (00 000) Shigella sp 06:45-0400 identified Org specific cx Nom (Stl) laboratory on 2019-12-14 Ova and Note (no code) 12-14-2019 [facility] (41689 ) parasites 14:57-0400 identified LM Nom (Unsp spec) not yet categorized on 2019-12-13 CAMPYLOBACTER FINAL REPORT (no code) 12-13-2019 Hospital CULTURE 07:13 [facility] (01617) RESULT 1 NO SALMONELLA OR (no code) 12-13-2019 Hospital SHIGELLA 07:130400 [facility] of RECOVERED. [facility] (05349) RESULT 1 NO CAMPYLOBACTER (no code) 12-13-2019 Hospital SPECIES 07:13 [facility] of ISOLATED. [facility] (98757) SALMONELLA/SHIGE FINAL REPORT (no code) 12-13-2019 Hospital LLA SCREEN 07:13 [facility] (10195) laboratory on 2019-12-13 E. coli Negative (no code) 12-13-2019 Hospital shiga-like toxin 07:130400 [facility] of IA Ql (Stl) [facility] (85735) not yet categorized on 2019-12-11 OVA + PARASITE FINAL REPORT (no code) 12-11-2019 Hospital EXAM 10:59-0400 [facility] (63224) RESULT 1 NO OVA, CYSTS, (no code) 12-11-2019 Hospital OR PARASITES 10:59-0400 [facility] of SEEN.\.br\ONE [facility] NEGATIVE (52297) SPECIMEN DOES NOT RULE OUT THE POSSIBILITY OF A\.br\PARASITIC INFECTION. laboratory on 2019-12-11 C. difficile DNA NEGATIVE: No DNA (A) 12-11-2019 Hosp ital SAMMY+probe Ql evidence of 10:59-0400 [facility] of (Unsp spec) toxogenic C. [facility] difficile (92096) detected. Lactoferrin IA Positive (A) 12-11-2019 Hospital Ql (Stl) 10:59-0400 [facility] ([id number]) not yet categorized on 2019-10-13 Electrocardiogra Complete (no code) 10-13-2019 Hospital ms recorded 03:410500 [facility] (15997) laboratory on 2019-10-13 Albumin BCG dye 4.2 (no code) 10-13-2019 Hospital [Mass/Vol] 03:410500 [facility] (12071) ALP [Catalytic 101 U/L (no code) 44 - 147 U/L 10-13-2019 Hosp ital activity/Vol] 03:410500 [facility] (40046) ALT [Catalytic 13 U/L (no code) 4 - 40 U/L 10-13-2019 Hospit al activity/Vol] 03:410500 [facility] (20618) Anion gap 14 mmol/L (no code) 3 - 11 mmol/L 10-13-2019 Hospital [Moles/Vol] 03:41-0500 [facility] (49458) AST [Catalytic 14 U/L (no code) 10 - 34 U/L 10-13-2019 Hospi shruti activity/Vol] 03:410500 [facility] (61495) Basophils (Bld) 0.1 10*3/uL (no code) 0 - 0.3 10*3/uL 10-13-2019 Hospital [#/Vol] 03:41-0500 [facility] (87848) Basophils/100 0.70 % (no code) 0.5 - 1 % 10-13-2019 Hospital WBC (Bld) 03: [facility] (76641) Bilirubin 0.4 mg/dL (no code) 0.1 - 1.2 mg/dL 10-13-2019 Hospit al [Mass/Vol] 03:050 [facility] (40719) Calcium 9.5 mg/dL (no code) 8.5 - 10.2 mg/dL 10-13-2019 Hospi shruti [Mass/Vol] 03: [facility] (97937) Chloride 109 mmol/L (no code) 95 - 106 mmol/L 10-13-2019 Hospi shruti [Moles/Vol] 03: [facility] (92189) Creatinine 1.05 mg/dL (no code) 10-13-2019 Hospital [Mass/Vol] 03: [facility] (59930) Eosinophils 0.4 10*3/uL (no code) 0.05 - 0.5 10-13-2019 Hospita l (Bld) [#/Vol] 10*3/uL 03:050 [facility] (86961) Eosinophils/100 4.2 % (no code) 1 - 4 % 10-13-2019 Hospit al WBC (Bld) 03:050 [facility] (01992) Erythrocyte 14.1 % (no code) 11.6 - 14.6 % 10-13-2019 Hospit al distribution 03: [facility] width (RBC) [facility] [Ratio] ([id number]) Fibrin D-dimer 220.00 (no code) 10-13-2019 Hospital DDU (PPP) 03: [facility] [Mass/Vol] [facility] (23450) Free T4 1.66 ng/dL (H) 0.9 - 2.2 ng/dL 10-13-2019 Hospi shruti [Mass/Vol] 03:050 [facility] (03157) GFR/1.73 sq 51 (L) 90 - 120 10-13-2019 Hospital M.predicted MDRD mL/min/{1.73_m2} mL/min/{1.73_m2} 03:41-050 [facility] (S/P/Bld) [Vol [facility] rate/Area] (72152) Globulin (S) 3.2 g/dL (no code) 2 - 3.5 g/dL 10-13-2019 Hospit al [Mass/Vol] 03:41-050 [facility] (11581) Glucose 106 mg/dL (no code) 60 - 125 mg/dL 10-13-2019 Hospita l [Mass/Vol] 03:41-050 [facility] (24798) HCO3 (P) 24 (no code) 10-13-2019 Hospital [Moles/Vol] 03:41050 [facility] (29461) Hematocrit (Bld) 33.2 % (L) 36.1 - 50.3 % 10-13-2019 H ospital [Volume 03:41-0500 [facility] fraction] [facility] (59956) Hemoglobin (Bld) 10.7 g/dL (L) 12.1 - 17.2 g/dL 10-13-2019 Hospital [Mass/Vol] 03:41-0500 [facility] (90924) Lymphocytes 2.06 10*3/uL (no code) 0.9 - 2.9 10-13-2019 Hospita l (Bld) [#/Vol] 10*3/uL 03:41-0500 [facility] () Lymphocytes/100 24.8 % (no code) 20 - 40 % 10-13-2019 Hospit al WBC (Bld) 03:41-0500 [facility] (87632) MCH (RBC) 30.4 pg (no code) 27 - 31 pg 10-13-2019 Hospital [Entitic mass] 03:410500 [facility] (59806) MCHC (RBC) 32.2 g/dL (no code) 32 - 36 g/dL 10-13-2019 Hospital [Mass/Vol] 03:41-0500 [facility] (29955) MCV (RBC) 94.3 fL (no code) 80 - 100 fL 10-13-2019 Hospital [Entitic vol] 03:41-0500 [facility] (23494) Monocytes (Bld) 0.8 10*3/uL (no code) 0.3 - 0.9 10-13-2019 Hosp ital [#/Vol] 10*3/uL 03:050 [facility] (03717) Monocytes/100 9.0 % (no code) 2 - 8 % 10-13-2019 Hospital WBC (Bld) 03: [facility] (50385) Natriuretic 49.50 pg/mL (no code) 0 - 100 pg/mL 10-13-2019 Hosp ital peptide B (Bld) 03: [facility] [Mass/Vol] [facility] (09137) Neutrophils 5.09 10*3/uL (no code) 1.7 - 7 10*3/uL 10-13-2019 H ospital (Bld) [#/Vol] 03: [facility] (85674) Neutrophils/100 61.3 % (no code) 40 - 60 % 10-13-2019 Hospit al WBC (Bld) 03: [facility] (96911) Osmolality Calc 296 (H) 10-13-2019 Hospital [Osmolality] 03: [facility] (38999) Platelet mean 10.8 fL (H) 7.2 - 11.7 fL 10-13-2019 Hosp ital volume (Bld) 03: [facility] [Entitic vol] [facility] (47986) Platelets (Bld) 264 10*3/uL (no code) 150 - 450 10-13-2019 Hosp ital [#/Vol] 10*3/uL 03: [facility] (97623) Potassium 3.6 mmol/L (no code) 3.7 - 5.2 mmol/L 10-13-2019 Hosp ital [Moles/Vol] 03:050 [facility] (43802) Protein 7.4 g/dL (no code) 6.4 - 8.3 g/dL 10-13-2019 Hospita l [Mass/Vol] 03:41050 [facility] (24914) RBC (Bld) 3.52 10*6/uL (L) 4.2 - 6.1 10-13-2019 Hospital [#/Vol] 10*6/uL 03:050 [facility] (36565) Sodium 143 mmol/L (no code) 135 - 145 mmol/L 10-13-2019 Hosp ital [Moles/Vol] 03: [facility] (70164) Troponin ng/mL (no code) 0 - 0.4 ng/mL 10-13-2019 Hospital I.cardiac 03: [facility] [Mass/Vol] [facility] (29027) TSH Qn 0.74 (no code) 10-13-2019 Hospital 03: [facility] (39708) Urea nitrogen 14 mg/dL (no code) 7 - 20 mg/dL 10-13-2019 Hospi shruti [Mass/Vol] 03: [facility] (19979) WBC (Bld) 8.31 10*3/uL (no code) 3.5 - 10.5 10-13-2019 Hospital [#/Vol] 10*3/uL 03: [facility] () laboratory on 2019-10-09 Anion gap 12 mmol/L (no code) 3 - 11 mmol/L 10-09-2019 Hospital [Moles/Vol] 00:36050 [facility] (05839) Basophils (Bld) 0.0 10*3/uL (no code) 0 - 0.3 10*3/uL 10-09-2019 Hospital [#/Vol] 00:36050 [facility] (13313) Basophils/100 0.10 % (no code) 0.5 - 1 % 10-09-2019 Hospital WBC (Bld) 00: [facility] (75538) Calcium 8.3 mg/dL (no code) 8.5 - 10.2 mg/dL 10-09-2019 Hospi shruti [Mass/Vol] 00: [facility] (57756) Chloride 116 mmol/L (H) 95 - 106 mmol/L 10-09-2019 Hospi shruti [Moles/Vol] 00: [facility] () Creatinine 1.03 mg/dL (no code) 10-09-2019 Hospital [Mass/Vol] 00:36 [facility] () Eosinophils 0.0 10*3/uL (no code) 0.05 - 0.5 10-09-2019 Hospita l (Bld) [#/Vol] 10*3/uL 00: [facility] (26964) Eosinophils/100 0.1 % (no code) 1 - 4 % 10-09-2019 Hospit al WBC (Bld) 00: [facility] () Erythrocyte 13.6 % (no code) 11.6 - 14.6 % 10-09-2019 Hospit al distribution 00: [facility] width (RBC) [facility] [Ratio] ([id number]) GFR/1.73 sq 52 (L) 90 - 120 10-09-2019 Hospital M.predicted MDRD mL/min/{1.73_m2} mL/min/{1.73_m2} 00: [facility] (S/P/Bld) [Vol [facility] rate/Area] () Glucose 108 mg/dL (no code) 60 - 125 mg/dL 10-09-2019 Hospita l [Mass/Vol] 00: [facility] () HCO3 (P) 19 (L) 10-09-2019 Hospital [Moles/Vol] 00: [facility] (92244) Hematocrit (Bld) 28.9 % (L) 36.1 - 50.3 % 10-09-2019 H ospital [Volume 00: [facility] fraction] [facility] () Hemoglobin (Bld) 9.4 g/dL (L) 12.1 - 17.2 g/dL 10-09-2019 Hospital [Mass/Vol] 00: [facility] (03420) Lymphocytes 1.79 10*3/uL (no code) 0.9 - 2.9 10-09-2019 Hospita l (Bld) [#/Vol] 10*3/uL 00:36-0500 [facility] (64474) Lymphocytes/100 17.5 % (no code) 20 - 40 % 10-09-2019 Hospit al WBC (Bld) 00:36050 [facility] (83522) MCH (RBC) 30.4 pg (no code) 27 - 31 pg 10-09-2019 Hospital [Entitic mass] 00:36050 [facility] (97149) MCHC (RBC) 32.5 g/dL (no code) 32 - 36 g/dL 10-09-2019 Hospital [Mass/Vol] 00:36050 [facility] (04586) MCV (RBC) 93.5 fL (no code) 80 - 100 fL 10-09-2019 Hospital [Entitic vol] 00:36050 [facility] (78332) Monocytes (Bld) 0.9 10*3/uL (no code) 0.3 - 0.9 10-09-2019 Hosp ital [#/Vol] 10*3/uL 00:360500 [facility] (09376) Monocytes/100 8.3 % (no code) 2 - 8 % 10-09-2019 Hospital WBC (Bld) 00:360500 [facility] (61420) Neutrophils 7.55 10*3/uL (H) 1.7 - 7 10*3/uL 10-09-2019 H ospital (Bld) [#/Vol] 00:360500 [facility] (49999) Neutrophils/100 74.0 % (no code) 40 - 60 % 10-09-2019 Hospit al WBC (Bld) 00:36050 [facility] (58569) Osmolality Calc 298 (H) 10-09-2019 Hospital [Osmolality] 00:[address] (59593) Platelet mean 11.5 fL (H) 7.2 - 11.7 fL 10-09-2019 Hosp ital volume (Bld) 00:360500 [facility] [Entitic vol] [facility] (37314) Platelets (Bld) 166 10*3/uL (no code) 150 - 450 10-09-2019 Hosp ital [#/Vol] 10*3/uL 00:36-0500 [facility] (16116) Potassium 3.9 mmol/L (no code) 3.7 - 5.2 mmol/L 10-09-2019 Hosp ital [Moles/Vol] 00:360500 [facility] (35794) RBC (Bld) 3.09 10*6/uL (L) 4.2 - 6.1 10-09-2019 Hospital [#/Vol] 10*6/uL 00:360500 [facility] (65588) Sodium 143 mmol/L (no code) 135 - 145 mmol/L 10-09-2019 Hosp ital [Moles/Vol] 00:360500 [facility] (29010) Urea nitrogen 19 mg/dL (no code) 7 - 20 mg/dL 10-09-2019 Hospi shruti [Mass/Vol] 00:360500 [facility] (59407) WBC (Bld) 10.21 10*3/uL (H) 3.5 - 10.5 10-09-2019 Hospita l [#/Vol] 10*3/uL 00:36-0500 [facility] (40222) not yet categorized on 2019-10-08 Electrocardiogra Complete (no code) 10-08-2019 Hospital ms recorded 07:28-0500 [facility] (21028) Electrocardiogra Complete (no code) 10-08-2019 Hospital ms recorded 13:46-0500 [facility] (91595) laboratory on 2019-10-08 ABO and Rh group Positive (no code) 10-08-2019 Hospital Nom (BldC) 13:49-0500 [facility] (73935) Anion gap 13 mmol/L (no code) 3 - 11 mmol/L 10-08-2019 Hospital [Moles/Vol] 02:000500 [facility] (86140) Basophils (Bld) 0.0 10*3/uL (no code) 0 - 0.3 10*3/uL 10-08-2019 Hospital [#/Vol] 02:000500 [facility] (67591) Basophils/100 0.10 % (no code) 0.5 - 1 % 10-08-2019 Hospital WBC (Bld) 02:00 [facility] (53395) Blood group Negative (no code) 10-08-2019 Hospital antibody screen 13:49 [facility] (74809) Calcium 8.1 mg/dL (L) 8.5 - 10.2 mg/dL 10-08-2019 Hospi shruti [Mass/Vol] 02:00 [facility] (96043) Chloride 112 mmol/L (no code) 95 - 106 mmol/L 10-08-2019 Hospi shruti [Moles/Vol] 02: [facility] (50809) CK [Catalytic 85 U/L (no code) 10-08-2019 Hospital activity/Vol] 07:28050 [facility] (23379) CK [Catalytic 123 U/L (no code) 10-08-2019 Hospital activity/Vol] 13:460500 [facility] (67844) CK.MB [Mass/Vol] 2.4 ng/mL (no code) 0 - 4.3 ng/mL 10-08-2019 H ospital 07: [facility] (86720) CK.MB [Mass/Vol] 2.9 ng/mL (no code) 0 - 4.3 ng/mL 10-08-2019 H ospital 13:460500 [facility] (65752) Creatinine 1.23 mg/dL (no code) 10-08-2019 Hospital [Mass/Vol] 02: [facility] (13278) Eosinophils 0.0 10*3/uL (no code) 0.05 - 0.5 10-08-2019 Hospita l (Bld) [#/Vol] 10*3/uL 02: [facility] (97939) Eosinophils/100 0.0 % (no code) 1 - 4 % 10-08-2019 Hospit al WBC (Bld) 02: [facility] (11684) Erythrocyte 13.5 % (no code) 11.6 - 14.6 % 10-08-2019 Hospit al distribution 02: [facility] width (RBC) [facility] [Ratio] (34685) GFR/1.73 sq 42 (L) 90 - 120 10-08-2019 Hospital M.predicted MDRD mL/min/{1.73_m2} mL/min/{1.73_m2} 02: [facility] (S/P/Bld) [Vol [facility] rate/Area] () Glucose 138 mg/dL (H) 60 - 125 mg/dL 10-08-2019 Hospita l [Mass/Vol] 02: [facility] (75037) HCO3 (P) 17 (L) 10-08-2019 Hospital [Moles/Vol] 02: [facility] (64908) Hematocrit (Bld) 25.6 % (L) 36.1 - 50.3 % 10-08-2019 H ospital [Volume 02:00050 [facility] fraction] [facility] (50703) Hematocrit (Bld) 23.2 % (L) 36.1 - 50.3 % 10-08-2019 H ospital [Volume 11:30-0500 [facility] fraction] [facility] (01622) Hematocrit (Bld) 23.2 % (L) 36.1 - 50.3 % 10-08-2019 H ospital [Volume 13:49-0500 [facility] fraction] [facility] (49983) Hemoglobin (Bld) 8.1 g/dL (L) 12.1 - 17.2 g/dL 10-08-2019 Hospital [Mass/Vol] 02:050 [facility] (41808) Hemoglobin (Bld) 7.4 g/dL (L) 12.1 - 17.2 g/dL 10-08-2019 Hospital [Mass/Vol] 11:300500 [facility] (78919) Hemoglobin (Bld) 7.4 g/dL (L) 12.1 - 17.2 g/dL 10-08-2019 Hospital [Mass/Vol] 13:49-0500 [facility] (56839) Lymphocytes 1.14 10*3/uL (no code) 0.9 - 2.9 10-08-2019 Hospita l (Bld) [#/Vol] 10*3/uL 02:000500 [facility] (50612) Lymphocytes/100 11.3 % (no code) 20 - 40 % 10-08-2019 Hospit al WBC (Bld) 02: [facility] (39909) Major crossmatch COMPATIBLE X 2 (no code) 10-08-2019 Hospit al [Interp] 13:490500 [facility] (61696) MCH (RBC) 29.7 pg (no code) 27 - 31 pg 10-08-2019 Hospital [Entitic mass] 02:000500 [facility] (72203) MCHC (RBC) 31.6 g/dL (L) 32 - 36 g/dL 10-08-2019 Hospital [Mass/Vol] 02:000500 [facility] (55130) MCV (RBC) 93.8 fL (no code) 80 - 100 fL 10-08-2019 Hospital [Entitic vol] 02:000500 [facility] (54538) Monocytes (Bld) 0.4 10*3/uL (no code) 0.3 - 0.9 10-08-2019 Hosp ital [#/Vol] 10*3/uL 02:000500 [facility] (65382) Monocytes/100 4.2 % (no code) 2 - 8 % 10-08-2019 Hospital WBC (Bld) 02:000 [facility] (91944) Myoglobin 172.7 ng/mL (H) 10-08-2019 Hospital [Mass/Vol] 07:28-0500 [facility] (06781) Myoglobin 203.3 ng/mL (H) 10-08-2019 Hospital [Mass/Vol] 13:46-0500 [facility] (00057) Neutrophils 8.54 10*3/uL (H) 1.7 - 7 10*3/uL 10-08-2019 H ospital (Bld) [#/Vol] 02:000500 [facility] (43529) Neutrophils/100 84.4 % (H) 40 - 60 % 10-08-2019 Hospit al WBC (Bld) 02:00 [facility] (89875) Osmolality Calc 291 (no code) 10-08-2019 Hospital [Osmolality] 02:00 [facility] (88778) Platelet mean 11.1 fL (H) 7.2 - 11.7 fL 10-08-2019 Hosp ital volume (Bld) 02:000500 [facility] [Entitic vol] [facility] (88180) Platelets (Bld) 227 10*3/uL (no code) 150 - 450 10-08-2019 Hosp ital [#/Vol] 10*3/uL 02:000500 [facility] (35660) Potassium 4.4 mmol/L (no code) 3.7 - 5.2 mmol/L 10-08-2019 Hosp ital [Moles/Vol] 02:000500 [facility] (73344) RBC (Bld) 2.73 10*6/uL (L) 4.2 - 6.1 10-08-2019 Hospital [#/Vol] 10*6/uL 02:000500 [facility] (73700) Sodium 138 mmol/L (no code) 135 - 145 mmol/L 10-08-2019 Hosp ital [Moles/Vol] 02:000500 [facility] (33046) Transfuse packed Checked Out. (no code) 10-08-2019 Hospital RBC units (BPU) 13:49-0500 [facility] [#] [facility] (46408) Transfuse packed Checked Out. (no code) 10-08-2019 Hospital RBC units (BPU) 18:37-0500 [facility] [#] [facility] (05038) Troponin ng/mL (no code) 0 - 0.4 ng/mL 10-08-2019 Hospital I.cardiac 07:280500 [facility] [Mass/Vol] [facility] (61236) Troponin ng/mL (no code) 0 - 0.4 ng/mL 10-08-2019 Hospital I.cardiac 13:46-0500 [facility] [Mass/Vol] [facility] (98422) Urea nitrogen 25 mg/dL (no code) 7 - 20 mg/dL 10-08-2019 Hospi shruti [Mass/Vol] 02:00050 [facility] (59182) WBC (Bld) 10.11 10*3/uL (H) 3.5 - 10.5 10-08-2019 Hospita l [#/Vol] 10*3/uL 02: [facility] (83359) not yet categorized on 2019-10-07 Electrocardiogra Complete (no code) 10-07-2019 Hospital ms recorded 11:59-0500 [facility] (28744) laboratory on 2019-10-07 ABO and Rh group Positive (no code) 10-07-2019 Hospital Nom (BldC) 11:440500 [facility] (14856) Albumin BCG dye 3.8 (no code) 10-07-2019 Hospital [Mass/Vol] 10:470500 [facility] (40609) ALP [Catalytic 115 U/L (no code) 44 - 147 U/L 10-07-2019 Hosp ital activity/Vol] 10:47050 [facility] (55863) ALT [Catalytic 15 U/L (no code) 4 - 40 U/L 10-07-2019 Hospit al activity/Vol] 10:470500 [facility] (60685) Anion gap 16 mmol/L (H) 3 - 11 mmol/L 10-07-2019 Hospital [Moles/Vol] 10:470500 [facility] (92517) AST [Catalytic 19 U/L (no code) 10 - 34 U/L 10-07-2019 Hospi shruti activity/Vol] 10:470500 [facility] (69854) Basophils (Bld) 0.1 10*3/uL (no code) 0 - 0.3 10*3/uL 10-07-2019 Hospital [#/Vol] 10:47-0500 [facility] (79934) Basophils (Bld) 0.0 10*3/uL (no code) 0 - 0.3 10*3/uL 10-07-2019 Hospital [#/Vol] 16:00-0500 [facility] (96990) Basophils/100 0.50 % (no code) 0.5 - 1 % 10-07-2019 Hospital WBC (Bld) 10:470500 [facility] (13339) Basophils/100 0.20 % (no code) 0.5 - 1 % 10-07-2019 Hospital WBC (Bld) 16:000500 [facility] (64176) Bilirubin 0.4 mg/dL (no code) 0.1 - 1.2 mg/dL 10-07-2019 Hospit al [Mass/Vol] 10:470500 [facility] (02712) Blood group Negative (no code) 10-07-2019 Hospital antibody screen 11:440500 [facility] (74785) Calcium 8.9 mg/dL (no code) 8.5 - 10.2 mg/dL 10-07-2019 Hospi shruti [Mass/Vol] 10:47-0500 [facility] (21776) Chloride 112 mmol/L (no code) 95 - 106 mmol/L 10-07-2019 Hospi shruti [Moles/Vol] 10:47-0500 [facility] (28604) Creatinine 1.59 mg/dL (H) 10-07-2019 Hospital [Mass/Vol] 10:47-0500 [facility] (47397) Eosinophils 0.4 10*3/uL (no code) 0.05 - 0.5 10-07-2019 Hospita l (Bld) [#/Vol] 10*3/uL 10:47-0500 [facility] (01633) Eosinophils 0.0 10*3/uL (no code) 0.05 - 0.5 10-07-2019 Hospita l (Bld) [#/Vol] 10*3/uL 16:00050 [facility] (68971) Eosinophils/100 2.8 % (no code) 1 - 4 % 10-07-2019 Hospit al WBC (Bld) 10:47-0500 [facility] (46715) Eosinophils/100 0.1 % (no code) 1 - 4 % 10-07-2019 Hospit al WBC (Bld) 16:000500 [facility] (04549) Erythrocyte 13.6 % (no code) 11.6 - 14.6 % 10-07-2019 Hospit al distribution 10:47050 [facility] of width (RBC) [facility] [Ratio] (01643) Erythrocyte 13.5 % (no code) 11.6 - 14.6 % 10-07-2019 Hospit al distribution 16:00-050 [facility] of width (RBC) [facility] [Ratio] (89334) GFR/1.73 sq 31 (L) 90 - 120 10-07-2019 Hospital M.predicted MDRD mL/min/{1.73_m2} mL/min/{1.73_m2} 10:47050 [facility] (S/P/Bld) [Vol [facility] rate/Area] (45514) Globulin (S) 3.1 g/dL (no code) 2 - 3.5 g/dL 10-07-2019 Hospit al [Mass/Vol] 10:470500 [facility] (68979) Glucose 123 mg/dL (H) 60 - 125 mg/dL 10-07-2019 Hospita l [Mass/Vol] 10:470500 [facility] (41974) HCO3 (P) 18 (L) 10-07-2019 Hospital [Moles/Vol] 10:47050 [facility] () Hematocrit (Bld) 34.3 % (L) 36.1 - 50.3 % 10-07-2019 H ospital [Volume 10:470500 [facility] of fraction] [facility] (17263) Hematocrit (Bld) 34.2 % (L) 36.1 - 50.3 % 10-07-2019 H ospital [Volume 11:44-0500 [facility] of fraction] [facility] (54972) Hematocrit (Bld) 29.2 % (L) 36.1 - 50.3 % 10-07-2019 H ospital [Volume 16:00-0500 [facility] of fraction] [facility] (03187) Hemoglobin (Bld) 11.1 g/dL (L) 12.1 - 17.2 g/dL 10-07-2019 Hospital [Mass/Vol] 10:47-0500 [facility] ([id number]) Hemoglobin (Bld) 11.0 g/dL (L) 12.1 - 17.2 g/dL 10-07-2019 Hospital [Mass/Vol] 11:44-0500 [facility] ([id number]) Hemoglobin (Bld) 9.3 g/dL (L) 12.1 - 17.2 g/dL 10-07-2019 Hospital [Mass/Vol] 16:00-0500 [facility] ([id number]) INR Coag 1.0 (no code) 10-07-2019 Hospital (Platelet poor 10:470500 [facility] plasma or blood) [facility] [Relative time] ([id number]) Lymphocytes 3.04 10*3/uL (no code) 0.9 - 2.9 10-07-2019 Hospita l (Bld) [#/Vol] 10*3/uL 10:470500 [facility] ([id number]) Lymphocytes 1.03 10*3/uL (no code) 0.9 - 2.9 10-07-2019 [facility]ospita l (Bld) [#/Vol] 10*3/uL 16:000500 [facility] ([id number]) Lymphocytes/100 23.0 % (no code) 20 - 40 % 10-07-2019 Hospit al WBC (Bld) 10:47-0500 [facility] ([id number]) Lymphocytes/100 6.7 % (L) 20 - 40 % 10-07-2019 Hospit al WBC (Bld) 16:000500 [facility] ([id number]) MCH (RBC) 29.8 pg (no code) 27 - 31 pg 10-07-2019 Hospital [Entitic mass] 10:47-0500 [facility] ([id number]) MCHC (RBC) 32.4 g/dL (no code) 32 - 36 g/dL 10-07-2019 Hospital [Mass/Vol] 10:47-0500 [facility] ([id number]) MCHC (RBC) 31.8 g/dL (L) 32 - 36 g/dL 10-07-2019 Hospital [Mass/Vol] 16:00-0500 [facility] ([id number]) MCV (RBC) 92.2 fL (no code) 80 - 100 fL 10-07-2019 Hospital [Entitic vol] 10:47-0500 [facility] ([id number]) MCV (RBC) 93.6 fL (no code) 80 - 100 fL 10-07-2019 Hospital [Entitic vol] 16:00-0500 [facility] ([id number]) Monocytes (Bld) 0.9 10*3/uL (no code) 0.3 - 0.9 10-07-2019 Hosp ital [#/Vol] 10*3/uL 10:47-0500 [facility] ([id number]) Monocytes (Bld) 0.3 10*3/uL (no code) 0.3 - 0.9 10-07-2019 Hosp ital [#/Vol] 10*3/uL 16:00-0500 [facility] ([id number]) Monocytes/100 6.8 % (no code) 2 - 8 % 10-07-2019 Hospital WBC (Bld) 10:47-0500 [facility] ([id number]) Monocytes/100 1.7 % (no code) 2 - 8 % 10-07-2019 Hospital WBC (Bld) 16:000500 [facility] ([id number]) Neutrophils 8.82 10*3/uL (H) 1.7 - 7 10*3/uL 10-07-2019 H [facility]spital (Bld) [#/Vol] 10:47-0500 [facility] ([id number]) Neutrophils 14.03 10*3/uL (H) 1.7 - 7 10*3/uL 10-07-2019 Hospital (Bld) [#/Vol] 16:00-0500 [facility] ([id number]) Neutrophils/100 66.9 % (no code) 40 - 60 % 10-07-2019 Hospit al WBC (Bld) 10:47-0500 [facility] ([id number]) Neutrophils/100 91.3 % (H) 40 - 60 % 10-07-2019 Hospit al WBC (Bld) 16:00050 [facility] ([id number]) Osmolality Calc 299 (H) 10-07-2019 Hospital [Osmolality] 10:470500 [facility] ([id number]) Platelet mean 11.5 fL (H) 7.2 - 11.7 fL 10-07-2019 Hosp ital volume (Bld) 10:47-0500 [facility] [Entitic vol] [facility] ([id number]) Platelet mean 10.9 fL (H) 7.2 - 11.7 fL 10-07-2019 Hosp ital volume (Bld) 16:000500 [facility] [Entitic vol] [facility] ([id number]) Platelets (Bld) 286 10*3/uL (no code) 150 - 450 10-07-2019 Hosp ital [#/Vol] 10*3/uL 10:47-0500 [facility] ([id number]) Platelets (Bld) 229 10*3/uL (no code) 150 - 450 10-07-2019 Hosp ital [#/Vol] 10*3/uL 16:000500 [facility] ([id number]) Potassium 4.2 mmol/L (no code) 3.7 - 5.2 mmol/L 10-07-2019 Hosp ital [Moles/Vol] 10:470500 [facility] ([id number]) Protein 6.9 g/dL (no code) 6.4 - 8.3 g/dL 10-07-2019 Hospita l [Mass/Vol] 10:47-0500 [facility] ([id number]) PT Coag (PPP) 12.0 s (no code) 9.4 - 12.5 s 10-07-2019 Hospi shruti [Time] 10:47-0500 [facility] ([id number]) RBC (Bld) 3.72 10*6/uL (no code) 4.2 - 6.1 10-07-2019 Hospital [#/Vol] 10*6/uL 10:47050 [facility] ([id number]) RBC (Bld) 3.12 10*6/uL (L) 4.2 - 6.1 10-07-2019 Hospital [#/Vol] 10*6/uL 16: [facility] ([id number]) Sodium 142 mmol/L (no code) 135 - 145 mmol/L 10-07-2019 Hosp ital [Moles/Vol] 10: [facility] (87327) Urea nitrogen 28 mg/dL (H) 7 - 20 mg/dL 10-07-2019 Hospi shruti [Mass/Vol] 10: [facility] ([id number]) WBC (Bld) 13.19 10*3/uL (H) 3.5 - 10.5 10-07-2019 Hospita l [#/Vol] 10*3/uL 10:47050 [facility] ([id number]) WBC (Bld) 15.36 10*3/uL (H) 3.5 - 10.5 10-07-2019 Hospita l [#/Vol] 10*3/uL 16: [facility] ([id number]) laboratory on 2019-10-01 Albumin BCG dye 4.5 (no code) 10-01-2019 Hospital [Mass/Vol] 04: [facility] (79576) ALP [Catalytic 129 U/L (no code) 44 - 147 U/L 10-01-2019 Hosp ital activity/Vol] 04: [facility] ([id number]) ALT [Catalytic 16 U/L (no code) 4 - 40 U/L 10-01-2019 Hospit al activity/Vol] 04: [facility] ([id number]) Anion gap 13 mmol/L (no code) 3 - 11 mmol/L 10-01-2019 Hospital [Moles/Vol] 04: [facility] (57731) AST [Catalytic 17 U/L (no code) 10 - 34 U/L 10-01-2019 Hospi shruti activity/Vol] 04: [facility] (18624) Bilirubin 0.7 mg/dL (no code) 0.1 - 1.2 mg/dL 10-01-2019 Hospit al [Mass/Vol] 04: [facility] (68001) Calcium 9.7 mg/dL (no code) 8.5 - 10.2 mg/dL 10-01-2019 Hospi shruti [Mass/Vol] 04: [facility] (83665) Chloride 107 mmol/L (no code) 95 - 106 mmol/L 10-01-2019 Hospi shruti [Moles/Vol] 04: [facility] (61155) Cholesterol 182 mg/dL (no code) 180 - 200 mg/dL 10-01-2019 Hosp ital [Mass/Vol] 04: [facility] (72635) Cholesterol in 50 mg/dL (no code) 10-01-2019 Hospital HDL [Mass/Vol] 04: [facility] (60763) Cholesterol in 104 mg/dL (H) 0 - 100 mg/dL 10-01-2019 Hos pital LDL [Mass/Vol] 04: [facility] (03399) Cholesterol in 28 mg/dL (no code) 10-01-2019 Hospital VLDL [Mass/Vol] 04: [facility] (70476) Cholesterol.tota 3.6 {ratio} (L) 10-01-2019 Hospital l/Cholesterol in 04: [facility] HDL [Mass ratio] [facility] ([id number]) Creatinine 1.21 mg/dL (no code) 10-01-2019 Hospital [Mass/Vol] 04: [facility] (68641) GFR/1.73 sq 43 (L) 90 - 120 10-01-2019 Hospital M.predicted MDRD mL/min/{1.73_m2} mL/min/{1.73_m2} 04: [facility] (S/P/Bld) [Vol [facility] rate/Area] ([id number]) Globulin (S) 3.1 g/dL (no code) 2 - 3.5 g/dL 10-01-2019 Hospit al [Mass/Vol] 04: [facility] (63975) Glucose 110 mg/dL (no code) 60 - 125 mg/dL 10-01-2019 Hospita l [Mass/Vol] 04: [facility] (80506) HCO3 (P) 26 (no code) 10-01-2019 Hospital [Moles/Vol] 04: [facility] (58604) Osmolality Calc 296 (H) 10-01-2019 Hospital [Osmolality] 04: [facility] () Potassium 3.9 mmol/L (no code) 3.7 - 5.2 mmol/L 10-01-2019 Hosp ital [Moles/Vol] 04: [facility] (67611) Protein 7.6 g/dL (no code) 6.4 - 8.3 g/dL 10-01-2019 Hospita l [Mass/Vol] 04: [facility] (63396) Sodium 142 mmol/L (no code) 135 - 145 mmol/L 10-01-2019 Hosp ital [Moles/Vol] 04: [facility] (64152) Triglyceride 142 mg/dL (no code) 0 - 150 mg/dL 10-01-2019 Hospi shruti [Mass/Vol] 04: [facility] (43925) TSH Qn 0.76 (no code) 10-01-2019 Hospital 04: [facility] (47878) Urea nitrogen 18 mg/dL (no code) 7 - 20 mg/dL 10-01-2019 Hospi shruti [Mass/Vol] 04: [facility] ([id number]) not yet categorized on 2019-04-25 Electrocardiogra Complete (no code) 04-25-2019 Hospital ms recorded 18:080400 [facility] (51935) hematology on 2019-02-27 ESR (Bld) 11 mm/h (no code) 02-27-2019 Hospital [Velocity] 11:430400 [facility] ([id number]) other on 2019-02-08 CK [Catalytic 116 U/L (no code) 02-08-2019 Hospital activity/Vol] 11:02 [facility] (48256) Electrocardiogra Complete (no code) 02-08-2019 Hospital ms recorded 11:02 [facility] (12074) cardiac on 2019-02-08 CK.MB [Mass/Vol] 2.7 ng/mL (no code) 0 - 4.3 ng/mL 02-08-2019 H ospital 11: [facility] (56251) Myoglobin 79.6 ng/mL (no code) 02-08-2019 Hospital [Mass/Vol] 11:02 [facility] (97175) Troponin ng/mL (no code) 0 - 0.4 ng/mL 02-08-2019 Hospital I.cardiac 11: [facility] [Mass/Vol] [facility] (02629) thyroid on 2018-07-05 Thyrotropin Qn 2.48 (no code) 07-05-2018 Hospital 11:51-0500 [facility] (07615) urinalysis on 2018-05-26 Bilirubin Ql (U) 0.5 (no code) 05-26-2018 Hospital 10:530400 [facility] (91892) other on 2018-05-26 Cholesterol in 17 mg/dL (no code) 05-26-2018 Hospital VLDL mass conc 10:53 [facility] (16903) Cholesterol.tota 3.6 {ratio} (L) 05-26-2018 Hospital l/Cholesterol in :53 [facility] HDL mass ratio [facility] (18185) Globulin 3.2 g/dL (no code) 2 - 3.5 g/dL 05-26-2018 Hospital Calculated mass :53 [facility] conc (S) [facility] (26863) metabolic panel on 2018-05-26 Albumin mass 4.1 g/dL (no code) 3.4 - 5.4 g/dL 05-26-2018 Hosp ital conc 10:53-0400 [facility] (99876) ALP enzyme 92 U/L (no code) 44 - 147 U/L 05-26-2018 Hospital act/vol 10:530400 [facility] (89699) ALT enzyme 15 U/L (no code) 4 - 40 U/L 05-26-2018 Hospital act/vol 10:530400 [facility] (75133) Anion gap 3 12 mmol/L (no code) 3 - 11 mmol/L 05-26-2018 Hospit al molar conc 10:530400 [facility] (16612) AST enzyme 20 U/L (no code) 10 - 34 U/L 05-26-2018 Hospital act/vol 10:530400 [facility] (17833) Calcium mass 9.3 mg/dL (no code) 8.5 - 10.2 mg/dL 05-26-2018 Ho spital conc 10:530400 [facility] (37080) Chloride molar 109 mmol/L (no code) 95 - 106 mmol/L 05-26-2018 Hospital conc 10:530400 [facility] (93274) CO2 molar conc 26 mmol/L (no code) 23 - 29 mmol/L 05-26-2018 Ho spital 10:530400 [facility] (10242) Creatinine mass 1.03 mg/dL (no code) 05-26-2018 Hospital conc 10:530400 [facility] (82401) GFR/1.73 sq M 52 (L) 90 - 120 05-26-2018 Hospital predicted among mL/min/{1.73_m2} mL/min/{1.73_m2} 10:53 [facility] non-blacks MDRD [facility] vol rate/area ([id number]) (S/P/Bld) Glucose mass 89 mg/dL (no code) 60 - 125 mg/dL 05-26-2018 Hosp ital conc 10:530400 [facility] (57760) Osmolality 295 mosm/kg (no code) 275 - 295 05-26-2018 Hospital mosm/kg 10: [facility] (52872) Potassium molar 4.8 mmol/L (no code) 3.7 - 5.2 mmol/L 05-26-2018 Hospital conc 10:530400 [facility] (38082) Protein mass 7.3 g/dL (no code) 6.4 - 8.3 g/dL 05-26-2018 Hosp ital conc 10:530400 [facility] (79128) Sodium molar 142 mmol/L (no code) 135 - 145 mmol/L 05-26-2018 H ospital conc 10:530400 [facility] (82352) Urea nitrogen 20 mg/dL (no code) 7 - 20 mg/dL 05-26-2018 Hospi shruti mass conc 10:530400 [facility] (18544) cardiac on 2018-05-26 Cholesterol in 53 mg/dL (no code) 05-26-2018 Hospital HDL mass conc 10:530400 [facility] (11407) Cholesterol in 120 mg/dL (H) 0 - 100 mg/dL 05-26-2018 Hos pital LDL mass conc 10:530400 [facility] (79264) Cholesterol mass 190 mg/dL (no code) 180 - 200 mg/dL 05-26-2018 Hospital conc 10:530400 [facility] (32325) Triglyceride 86 mg/dL (no code) 0 - 150 mg/dL 05-26-2018 Hospi shruti mass conc 10:530400 [facility] (06000) thyroid on 2017-04-12 TSH Qn 0.47 (no code) 04-12-2017 Not Available 10:0 (70762) other on 2016-10-27 Albumin BCG dye 4.3 (no code) 10-27-2016 Not Availa ble [Mass/Vol] 10:060500 (07817) Cholesterol in 14 mg/dL (no code) 10-27-2016 Not Availab le VLDL [Mass/Vol] 10:0500 (69447) Cholesterol.tota 2.8 {ratio} (L) 10-27-2016 Not Avail able l/Cholesterol in 10: (22379) HDL [Mass ratio] GFR/1.73 sq 64 (no code) 90 - 120 10-27-2016 Not Availa ble M.predicted MDRD mL/min/{1.73_m2} mL/min/{1.73_m2} 10:0 (46932) (S/P/Bld) [Vol rate/Area] Globulin (S) 2.9 g/dL (no code) 2 - 3.5 g/dL 10-27-2016 Not Av ailable [Mass/Vol] 10:0 (89973) HCO3 (P) 23 (no code) 10-27-2016 Not Available [Moles/Vol] 10:0 (96276) Osmolality Calc 297 (H) 10-27-2016 Not Availa ble [Osmolality] 10:0 (05337) metabolic panel on 2016-10-27 ALP [Catalytic 84 U/L (no code) 44 - 147 U/L 10-27-2016 Not Available activity/Vol] 10:0500 (23527) ALT [Catalytic 18 U/L (no code) 4 - 40 U/L 10-27-2016 Not Av ailable activity/Vol] 10:0500 (20506) Anion gap 13 mmol/L (no code) 3 - 11 mmol/L 10-27-2016 Not Avai lable [Moles/Vol] 10:0500 (07560) AST [Catalytic 18 U/L (no code) 10 - 34 U/L 10-27-2016 Not A vailable activity/Vol] 10:0500 (87436) Bilirubin 0.5 mg/dL (no code) 0.1 - 1.2 mg/dL 10-27-2016 Not Av ailable [Mass/Vol] 10:0500 (07152) Calcium 9.1 mg/dL (no code) 8.5 - 10.2 mg/dL 10-27-2016 Not A vailable [Mass/Vol] 10:0500 (28530) Chloride 111 mmol/L (no code) 95 - 106 mmol/L 10-27-2016 Not A vailable [Moles/Vol] 10:0500 (25254) Creatinine 0.87 mg/dL (no code) 10-27-2016 Not Available [Mass/Vol] 10:0500 (12986) Glucose 85 mg/dL (no code) 60 - 125 mg/dL 10-27-2016 Not Ariadne ilable [Mass/Vol] 10:0500 (82416) Potassium 3.9 mmol/L (no code) 3.7 - 5.2 mmol/L 10-27-2016 Not Available [Moles/Vol] 10:0500 (52147) Protein 7.2 g/dL (no code) 6.4 - 8.3 g/dL 10-27-2016 Not Ariadne ilable [Mass/Vol] 10:0500 (20519) Sodium 143 mmol/L (no code) 135 - 145 mmol/L 10-27-2016 Not Available [Moles/Vol] 10:0500 (09134) Urea nitrogen 21 mg/dL (no code) 7 - 20 mg/dL 10-27-2016 Not A vailable [Mass/Vol] 10:0500 (14570) cardiac on 2016-10-27 Cholesterol 158 mg/dL (no code) 180 - 200 mg/dL 10-27-2016 Not Available [Mass/Vol] 10:0500 (65502) Cholesterol in 56 mg/dL (no code) 10-27-2016 Not Availab le HDL [Mass/Vol] 10:0500 (65229) Cholesterol in 88 mg/dL (no code) 0 - 100 mg/dL 10-27-2016 Not Available LDL [Mass/Vol] 10:0500 (23271) Triglyceride 72 mg/dL (no code) 0 - 150 mg/dL 10-27-2016 Not A vailable [Mass/Vol] 10:0500 (73296) Vital Signs The data below is from unstructured sources Vital Response Date/Time Temperature (Fahrenheit) 98.2 degree s F (97.6 - 99.5) 04/30/2015 9:25am Temperature (Calculated Celsius) 36. 20255 degrees C (36.4 - 37.5) 04/30/2015 8:30am Temperature Source Tympanic 04/30/2015 9:25am Pulse Rate (adult) 74 bpm (60 - 90) 04/30/2015 9:25am Respiratory Rate 18 bpm (12 - 24) 04/30/2015 9:25am O2 Sat by Pulse Oximetry 97 % (88 - 100) 04/30/2015 9:25am Blood Pressure 145/88 mm Hg 04/30/2015 9:25am Blood Pressure Mean 107 mm Hg 04/30/2015 8:30am Pain Pain Intensity 0 2014 8:30am Height (Feet) 5 feet 03/2015 8:31am Height (Calculated Centimeters) 152. 641866 cm 04/29/2015 8:31am Weight (Pounds) 169 pounds 04/29/2015 8:31am Weight (Ounces) 9.6 oz 0 04/29/2015 8:31am Weight (Calculated Grams) 37465.267 gm 04/29/2015 8:31am Weight (Calculated Kilograms) 76.929 267 kilograms 04/29/2015 8:31am Calculated BMI 28.12 03/2015 8:31am Vital Response Date/Time Temperature (Fahrenheit) 97.9 degree s F (97.6 - 99.5) Temperature (Calculated Celsius) 36. 70745 degrees C (36.4 - 37.5) Temperature Source Tympanic Pulse Rate (adult) 85 bpm (60 - 90) Respiratory Rate 20 bpm (12 - 24) O2 Sat by Pulse Oximetry 95 % (88 - 100) Blood Pressure 136/69 mm Hg Pain Pain Intensity 0 Height (Feet) 5 feet Height (Calculated Centimeters) 152. 775282 cm Weight (Pounds) 173 pounds Weight (Calculated Grams) 81176.481 gm Weight (Calculated Kilograms) 78.471 481 kilograms Calculated BMI 28.79 Vital Response Date/Time Temperature (Fahrenheit) 98.3 degree s F (97.6 - 99.5) 07/20/2017 4:25pm Temperature (Calculated Celsius) 36. 51577 degrees C (36.4 - 37.5) 07/20/2017 4:20pm Temperature Source Tympanic 07/20/2017 4:25pm Pulse Rate (adult) 54 bpm (60 - 90) 07/20/2017 4:25pm Respiratory Rate 18 bpm (12 - 24) 07/20/2017 4:25pm O2 Sat by Pulse Oximetry 96 % (88 - 100) 07/20/2017 4:25pm Blood Pressure 163/92 mm Hg 07/20/2017 4:25pm Blood Pressure Mean 115 mm Hg (65 - 110) 07/20/2017 4:20pm Pain Numeric Pain Scale 0-No Pain 07/20/2017 4:25pm Height (Feet) 5 feet 8:10am Height (Inches) 0.00 inches 07/20/2017 8:10am Height (Calculated Centimeters) 152. 403884 cm 07/20/2017 8:10am Weight (Pounds) 170 pounds 07/20/2017 8:10am Weight (Ounces) 0.0 oz 1 09/19/2016 8:10am Weight (Calculated Grams) 35216.70 gm 07/20/2017 8:10am Weight (Calculated Kilograms) 77.110 704 kilograms 07/20/2017 8:10am Calculated BMI 33.2 06/23 8:10am Capillary Refill Capillary Refill Less Than 3 Seconds 07/20/2017 4:20pm Vital Response Date/Time Temperature (Fahrenheit) 98.3 degree s F (97.6 - 99.5) 07/20/2017 4:25pm Temperature (Calculated Celsius) 36. 75274 degrees C (36.4 - 37.5) 07/20/2017 4:20pm Temperature Source Tympanic 07/20/2017 4:25pm Pulse Rate (adult) 54 bpm (60 - 90) 07/20/2017 4:25pm Respiratory Rate 18 bpm (12 - 24) 07/20/2017 4:25pm O2 Sat by Pulse Oximetry 96 % (88 - 100) 07/20/2017 4:25pm Blood Pressure 163/92 mm Hg 07/20/2017 4:25pm Blood Pressure Mean 115 mm Hg (65 - 110) 07/20/2017 4:20pm Pain Numeric Pain Scale 0-No Pain 07/20/2017 4:25pm Height (Feet) 5 feet 8:10am Height (Inches) 0.00 inches 07/20/2017 8:10am Height (Calculated Centimeters) 152. 876035 cm 07/20/2017 8:10am Weight (Pounds) 170 pounds 07/20/2017 8:10am Weight (Ounces) 0.0 oz 1 09/19/2016 8:10am Weight (Calculated Grams) 04497.70 gm 07/20/2017 8:10am Weight (Calculated Kilograms) 77.110 704 kilograms 07/20/2017 8:10am Calculated BMI 33.2 06/23 8:10am Capillary Refill Capillary Refill Less Than 3 Seconds 07/20/2017 4:20pm Interventions No Information Plan of Treatment The data below is from unstructured sources Discharge Date 04/30/15 9:25am Instructions/Education Provided Cyst ocele (DC) Prescriptions See Medication Section Discharge Date 07/20/17 4:30pm Instructions/Education Provided CARD IAC CATH DISCHARGE INSTRUC Prescriptions See Medication Section Discharge Date 07/20/17 4:30pm Instructions/Education Provided CARD IAC CATH DISCHARGE INSTRUC Prescriptions See Medication Section Goals No Information Social History No Information Functional Status The data below is from unstructured sources Query Response Date Tony rded Patient Orientation Person Place Time Situation April 30, 2015 12:04pm No functional status information available. Mental Status No Information Encounters Encounter Normalized Encounter Encounter Diagnosis Care Provi alanis Organization Date Type 02-16-2019 Emergency department no information no name no organization name patient visit 02-16-2019 Evaluation and no information no name no organ ization name - management of 02-18-2019 inpatient 07-05-2018 Patient encounter no information no name no or ganization name - 07-06-2018 05-26-2018 Patient encounter no information no name no or ganization name - 05-27-2018 07-20-2017 Patient encounter no information no name no or ganization name - 07-20-2017 12-31-2019 Patient encounter no information Keegan Ramey (no [facility] phone[facility] of [facility] (no phone) 12-26-2019 Patient encounter no information KEEGAN RAMEY (no [facility] phone) MANDEEP SUMMERS (no of [facility] (no 12-26-2019 phone) phone) 12-19-2019 Patient encounter no information MANDEEP SUMMERS (no miguel ne) [facility] procedure of [facility] (no 12-19-2019 phone) 12-15-2019 Patient encounter no information Rob Becker (no [facility] procedure phone) ANETA LOVEELHAM of [facility] (no 12-15-2019 (no phone) ANETA phone) KATEELHAM (no phone) 12-13-2019 Patient encounter no information MANDEEP SUMMERS (no miguel ne) [facility] procedure of [facility] (no 12-13-2019 phone) 12-11-2019 Patient encounter no information MANDEEP SUMMERS (no miguel ne) [facility] procedure of [facility] (no 12-11-2019 phone) 10-29-2019 Patient encounter no information CHANDROUTIE LATCHM AN [facility] procedure (no phone) of [facility] (no 10-29-2019 phone) 10-27-2019 Patient encounter no information CHANDROUTIE LATCHM AN [facility] procedure (no phone) of [facility] (no 10-27-2019 phone) 10-26-2019 Patient encounter no information CHANDROUTIE LATCHM AN [facility] procedure (no phone) of [facility] (no 10-26-2019 phone) 10-25-2019 Patient encounter no information CHANDROUTIE LATCHM AN [facility] procedure (no phone) of [facility] (no 10-25-2019 phone) 10-24-2019 Patient encounter no information CHANDROUTIE LATCHM AN [facility] procedure (no phone) of [facility] (no 10-24-2019 phone) 10-23-2019 Patient encounter no information CHANDROUTIE LATCHM AN [facility] procedure (no phone) of [facility] (no 10-23-2019 phone) 10-22-2019 Patient encounter no information CHANDROUTIE LATCHM AN [facility] procedure (no phone) of [facility] (no 10-22-2019 phone) 10-21-2019 Patient encounter no information CHANDROUTIE LATCHM AN [facility] procedure (no phone) of [facility] (no 10-21-2019 phone) 10-20-2019 Patient encounter no information CHANDROUTIE LATCHM AN [facility] procedure (no phone) of [facility] (no 10-20-2019 phone) 10-19-2019 Patient encounter no information CHANDROUTIE LATCHM AN [facility] procedure (no phone) of [facility] (no 10-19-2019 phone) 10-18-2019 Patient encounter no information CHANDROUTIE LATCHM AN [facility] procedure (no phone) of [facility] (no 10-18-2019 phone) 10-17-2019 Patient encounter no information CHANDROUTIE LATCHM AN [facility] procedure (no phone) of [facility] (no 10-17-2019 phone) 10-16-2019 Patient encounter no information CHANDROUTIE LATCHM AN [facility] procedure (no phone) of [facility] (no 10-16-2019 phone) 10-15-2019 Patient encounter no information CHANDROUTIE LATCHM AN [facility] procedure (no phone) of [facility] (no 10-15-2019 phone) 10-14-2019 Patient encounter no information CHANDROUTIE LATCHM AN [facility] procedure (no phone) of [facility] (no 10-14-2019 phone) 10-13-2019 Patient encounter no information Mandeep Summers (no miguel ne) [facility] procedure MARLENE PARRY (no phone) of [facility] (no 10-13-2019 MARLENE PARRY (no phone) phone) MARLENE PARRY (no phone) 10-12-2019 Patient encounter no information [facility] (no phone) of [facility] (no 10-12-2019 phone) 10-11-2019 Patient encounter no information MANDEEP SUMMERS (no miguel ne) [facility] procedure of [facility] (no 10-11-2019 phone) 10-11-2019 Patient encounter no information TANI LATCHM AN [facility] procedure (no phone) of [facility] (no 10-11-2019 phone) 10-10-2019 Patient encounter no information MARIA DEL ROSARIOTIE LATCHM AN [facility] procedure (no phone) of [facility] (no 10-10-2019 phone) 10-07-2019 Patient encounter no information Mandeep Summers (no miguel ne) [facility] procedure CAITLIN JACKSON (no of [facility] (no 10-09-2019 phone) KADYROUTIE phone) CARLOS (no phone) Mandeep Summers (no phone) TANI GONZALEZ (no phone) Mandeep Summers (no phone) Mandeep Summers (no phone) Mandeep Helmoni (no phone) Mandeep Helmoni (no phone) 10-01-2019 Patient encounter no information MANDEEP SUMMERS (no miguel ne) [facility] - procedure of [facility] (no 10-01-2019 phone) 10-01-2019 Patient encounter no information MANDEEP SUMMERS (no miguel ne) [facility] - procedure of [facility] (no 10-01-2019 phone) 09-04-2019 Patient encounter no information no name no or ganization name - procedure 09-04-2019 06-21-2019 Patient encounter no information no name no or ganization name - procedure 06-21-2019 04-25-2019 Patient encounter no information no name no or ganization name - procedure 04-25-2019 02-27-2019 Patient encounter no information no name no or ganization name - procedure 02-28-2019 02-20-2019 Patient encounter no information no name no or ganization name - procedure 02-21-2019 02-16-2019 Patient encounter no information no name no or ganization name - procedure 02-18-2019 02-08-2019 Patient encounter no information no name no or ganization name - procedure 02-09-2019 02-08-2019 Patient encounter no information no name no or ganization name - procedure 02-09-2019 12-19-2018 Patient encounter no information no name no or ganization name - procedure 12-20-2018 11-27-2018 Patient encounter no information no name no or ganization name procedure 11-22-2018 Patient encounter no information no name no or ganization name procedure 11-16-2018 Patient encounter no information no name no or ganization name procedure 07-25-2018 Patient encounter no information no name no or ganization name - procedure 07-26-2018 10-12-2017 Patient encounter no information no name no or ganization name - procedure 10-13-2017 04-12-2017 Patient encounter no information no name no or ganization name - procedure 04-13-2017 03-02-2017 Patient encounter no information no name no or ganization name procedure 12-16-2016 Patient encounter no information no name no or ganization name procedure 11-19-2016 Patient encounter no information no name no or ganization name procedure 11-17-2016 Patient encounter no information no name no or ganization name procedure 10-27-2016 Patient encounter no information no name no or ganization name - procedure 10-28-2016 10-26-2016 Patient encounter no information no name no or ganization name - procedure 10-27-2016 05-22-2015 Patient encounter no information no name no or ganization name procedure 04-29-2015 Patient encounter no information no name no or ganization name - procedure 04-30-2015 04-24-2015 Patient encounter no information no name no or ganization name - procedure 05-21-2015 01-28-2015 Patient encounter no information no name no or ganization name - procedure 01-29-2015 07-10-2013 Patient encounter no information no name no or ganization name procedure 12-17-2019 no information Encounter for general no name n o organization name adult medical examination without abnormal findings 11-28-2019 no information Encounter for general no name n o organization name adult medical examination without abnormal findings 11-28-2019 no information Encounter for general no name n o organization name adult medical examination without abnormal findings 11-26-2019 no information Encounter for general no name n o organization name adult medical examination without abnormal findings 11-05-2019 no information Encounter for general no name n o organization name adult medical examination without abnormal findings 10-31-2019 no information Encounter for general no name n o organization name adult medical examination without abnormal findings 10-31-2019 no information Encounter for general no name n o organization name adult medical examination without abnormal findings 10-30-2019 no information Encounter for general no name n o organization name adult medical examination without abnormal findings 10-29-2019 no information Encounter for general no name n o organization name adult medical examination without abnormal findings 10-26-2019 no information Encounter for general no name n o organization name adult medical examination without abnormal findings 10-25-2019 no information Encounter for general no name n o organization name adult medical examination without abnormal findings 10-25-2019 no information Encounter for general no name n o organization name adult medical examination without abnormal findings 10-24-2019 no information Encounter for general no name n o organization name adult medical examination without abnormal findings 10-23-2019 no information Encounter for general no name n o organization name adult medical examination without abnormal findings 10-22-2019 no information Encounter for general no name n o organization name adult medical examination without abnormal findings 10-18-2019 no information Encounter for general no name n o organization name adult medical examination without abnormal findings 10-18-2019 no information Encounter for general no name n o organization name adult medical examination without abnormal findings 10-17-2019 no information Encounter for general no name n o organization name adult medical examination without abnormal findings 10-16-2019 no information Encounter for general no name n o organization name adult medical examination without abnormal findings no information Pre-operative no name no organization name cardiovascular examination no information Pre-procedural no name no organization name laboratory examination no information Encounter for general no name no organ ization name adult medical examination without abnormal findings Medical Equipment No Information Payers Normalized Payer Value Medicare no information Advance Directives Directive Response Recor ded Date/Time Advance Directives No 8:31am Health Care Power of Foreign Exchange Student Coordinator No 04/29/15 8:31am Organ Donor Yes 04/29/15 8:31am Resuscitation Status Full Code 04/29/15 8:31am Directive Response Recor ded Date/Time Advance Directives No 7:18am Health Care Power of Foreign Exchange Student Coordinator No 01/28/15 7:18am Organ Donor Yes 01/28/15 7:18am Resuscitation Status Full Code 01/28/15 7:18am Directive Response Recor ded Date/Time Advance Directives No 8:09am Health Care Power of Foreign Exchange Student Coordinator No 07/20/17 8:09am Organ Donor Yes 07/20/17 8:09am Resuscitation Status Full Code 07/20/17 8:09am Discharge Instructions Patient Instructions Physician Instructions New, Converted or Re-Newed RX: Transmitted to Pharmacy (also estrogen cream on chart please send with patient) Additional Follow Up: Yes Orders/Referrals Follow-up with Dr. Horowitz next week Activity: Activity as Tolerated (no lifting over 10 lb) Driving Instructions: You May Drive NO SMOKING: NO SMOKING Nothing Inside Vagina: No Douching, No [place], No Tampons Discharge Diet: Regular Diet Symptoms to Report to : Bleeding Excessive, Pain Increased, Fever Over 101 Degrees F, Pain/Pressure in Chest, Urination Difficulty, Vaginal Bleeding Increase, Vaginal Discharge Foul, Questions/Concerns, Nausea/Vomiting, Shortness of Breath For Any Problems or Questions: Contact Your Physician No hospital discharge instructions. Patient Instructions Physician Instructions New, Converted or Re-Newed RX: Transmitted to Pharmacy (also estrogen cream on chart please send with patient) Additional Follow Up: Yes Orders/Referrals Follow-up with Dr. Horowitz next week Activity: Activity as Tolerated (no lifting over 10 lb) Driving Instructions: You May Drive NO SMOKING: NO SMOKING Nothing Inside Vagina: No Douching, No [place], No Tampons Discharge Diet: Regular Diet Symptoms to Report to : Bleeding Excessive, Pain Increased, Fever Over 101 Degrees F, Pain/Pressure in Chest, Urination Difficulty, Vaginal Bleeding Increase, Vaginal Discharge Foul, Questions/Concerns, Nausea/Vomiting, Shortness of Breath For Any Problems or Questions: Contact Your Physician No hospital discharge instruction information available. Additional Source Comments This clinical document has been generated using [employer] software that has been certified by the Office of the National Coordinator for Health Information Technology (ONC 15.99.04.3023.[id number]) and the National Committee for [employer] (NCQA, as an eMeasure certified technology). FOR RECORDS PERTAINING TO PATIENTS WHO ARE OR HAVE BEEN ENROLLED IN A CHEMICAL D EPENDENCY/SUBSTANCE ABUSE PROGRAM, SOME INFORMATION MAY BE OMITTED. This clinica l summary was aggregated from multiple sources. Caution should be exercised in using it in the provision of clinical care. This summary normalizes information from multiple sources, and as a consequence, information in this document may ma terially change the coding, format and clinical context of patient data. In davidson tion, data may be omitted in some cases. CLINICAL DECISIONS SHOULD BE BASED ON T HE PRIMARY CLINICAL RECORDS. [employer] provides no warranty or guara ntee of the accuracy or completeness of information in this document.The followi ng information is based on time limited clinical information
--- OUTSIDE RECORDS SUMMARY | 2020-01-01 01:02 | XMS REPORT | Continuity of Care Document ---
Demographics Preferred Language Unknown Marital Status Unknown Voodoo Affiliation Unknown Race Unknown Ethnic Group Unknown Author Organization Unknown Address Unknown Phone Unavailable Allergies Active Description Code Type Severity Reaction Onset Reported/Identified Relationship to Patient Clinical Status Yes NO KNOWN DRUG ALLERGIES NO KNOWN DRUG ALLERG UNKNOWN Yes NO KNOWN DRUG ALLERGIES UNKNOWN NO KNOWN DRUG ALLERG Yes NO KNOWN DRUG ALLERGIES UNKNOWN UNKNOWN Yes No Known Drug Allergies [id number] Drug Allergy Unknown N/A 10/27/2010 Medications Medication Packaging Start Date St op Date Route Dosage Sig CEFAZOLIN VIAL INJ 1 GM (ANCEF) 10/07/2019 10/07/2019 ONCE&1544 TETANUS,DIPTH,PERT ADULT INJ 0 (ADACEL SYRINGE) ML 10/07/2019 10/07/2019 ONCE&1554 NORMAL SALINE 1000CC IV BAG INJ 0.9 % (NS 1000CC IV BAG) ml 10/07/2019 10/22/2019 CONTINUOUSEVERY 0 Hour FENTANYL INJ 100 MCG/2CC VIAL MCG 10/07/2019 10/07/2019 ONCE&1720 CEFAZOLIN VIAL INJ 1 GM (ANCEF) 10/07/2019 10/07/2019 ONCE&1745 NORMAL SALINE 1000CC IV BAG INJ 0.9 % (NS 1000CC IV BAG) ml 10/07/2019 10/22/2019 CONTINUOUSEVERY 0 Hour ONDANSETRON VIAL INJ 4 MG/2CC (ZOFRAN 2CC VIAL) MG 10/07/2019 10/14/2019 PRN Q6H MORPHINE SYRINGE INJ 2 MG/CC MG 10/07/2019 10/14/2019 PRN Q2H HYDROCODONE/APAP 5MG/325MG T AB 5 MG/325MG (CARINA-TAB 5/325) TAB 10/07/2019 10/17/2019 PRN Q4H Piperacillin-tazobactam 3.37 5 Gm IV recon soln (Zosyn) GM 10/07/2019 10/14/2019 Q6H&0600,1200,1800,2359 FENTANYL INJ 100 MCG/2CC VIAL MCG 10/07/2019 10/07/2019 ONCE&1950 DILTIAZEM XR CAP 300 MG (CARDIZEM CD) MG 10/07/2019 10/13/2019 Daily&2100 Piperacillin-tazobactam 3.37 5 Gm IV recon soln (Zosyn) GM 10/07/2019 10/14/2019 Q6H&0430,1030,1630,2230 FENTANYL INJ 100 MCG/2CC VIAL MCG 10/07/2019 10/14/2019 PRN Q2H LEVOTHYROXINE TAB 100 MCG (SYNTHROID) MCG 10/08/2019 11/06/2019 Q24H&0900 CLONIDINE TAB 0.1 MG (CATAPRES) Dose(s) 10/08/2019 10/14/2019 Daily&0900 Hydrochlorothiazide tablet 2 5mg (Hydrodiuril 25mg) Dose(s) 10/08/2019 10/14/2019 Daily&0900 LOSARTAN TAB 100 MG (COZAAR) Dose(s) 10/08/2019 10/14/2019 Daily&0900 NORMAL SALINE 1000CC IV BAG INJ 0.9 % (NS 1000CC IV BAG) ml 10/08/2019 10/23/2019 CONTINUOUSEVERY 0 Hour SIMVASTATIN TAB 10 MG (ZOCOR) MG 10/08/2019 10/14/2019 QPM&2000 NORMAL SALINE 250CC IV BAG I NJ 0.9 % (NS 250CC IV BAG) ml 10/08/2019 10/08/2019 ONCE&2019 LORAZEPAM 1CC VIAL INJ 2 MG/CC (ATIVAN VIA L) MG 10/09/2019 10/09/2019 PRN ONCE PANTOPRAZOLE TAB 40 MG (PROTONIX) MG 10/09/2019 10/22/2019 Q24H&0900 ALPRAZOLAM TAB 0.25 MG (XANAX) MG 10/13/2019 10/13/2019 PRN ONCE KETOROLAC VIAL INJ 15 MG/CC (TORADOL VIAL) MG 12/15/2019 12/15/2019 ONCE&1046 ORPHENADRINE INJ 60 MG/2CC (NORFLEX) MG 12/15/2019 12/15/2019 ONCE&1046 LACTATED RINGERS 1000CC IV BAG INJ ml 12/31/2019 01/07/2020 CONTINUOUSEVERY 0 Hour NORMAL SALINE 1000CC IV BAG INJ 0.9 % (NS 1000CC IV BAG) ml 12/31/2019 01/15/2020 CONTINUOUSEVERY 0 Hour Problems Date Dx Coded Attending Type Code Diagnosis Diagnosed By 10/28/2010 Ot 272.4 10/28/2010 Ot 405.01 10/28/2010 Ot 414.01 10/28/2010 Ot 440.0 10/28/2010 Ot 440.1 10/28/2010 Ot 593.81 10/28/2010 Ot 786.59 01/29/2015 HOROWITZ DO ANNIE C Ot 041.0 4 STREPTOCOCCUS INFECTION NOS, GROUP D (EN 01/29/2015 HOROWITZ DO, ANNIE C Ot 599.0 URIN TRACT INFECTION NOS 01/29/2015 HOROWITZ DO, ANNIE C Ot 618.0 1 CYSTOCELE, MIDLINE 01/29/2015 HOROWITZ DO, ANNIE C Ot V03.8 2 PROPHYLACTIC VACC AGAINST STREPTOCOCCUS 01/31/2015 Ot 611.72 01/31/2015 Ot 611.72 01/31/2015 Ot V67.9 01/31/2015 Ot V15.89 01/31/2015 Ot V67.09 01/31/2015 Ot 793.89 01/31/2015 Ot V76.12 01/31/2015 Ot 793.80 01/31/2015 Ot 793.82 01/31/2015 PAONI DO, MANDEEP S Ot 793.80 01/31/2015 PAONI DO, MANDEEP S Ot V67.9 01/31/2015 GREGORY BROWN APRN Ot 793.80 01/31/2015 HOROWITZ DO, ANNIE C Ot 618.0 1 01/31/2015 HOROWITZ DO, ANNIE C Ot 791.9 01/31/2015 HOROWITZ DO, ANNIE C Ot V72.6 3 01/31/2015 HOROWITZ DO, ANNIE C Ot V72.8 1 01/31/2015 HOROWITZ DO, ANNIE C Ot V72.8 3 01/31/2015 HOROWITZ DO, ANNIE C Ot V74.8 01/31/2015 HOROWITZ DO, ANNIE C Ot 618.0 1 01/31/2015 HOROWITZ DO, ANNIE C Ot 791.9 01/31/2015 HOROWITZ DO, ANNIE C Ot V72.6 3 01/31/2015 HOROWITZ DO, ANNIE C Ot V72.8 1 01/31/2015 HOROWITZ DO, ANNIE C Ot V72.8 3 01/31/2015 HOROWITZ DO, ANNIE C Ot V74.8 02/14/2015 HOROWITZ DO, ANNIE C Ot 618.0 1 02/14/2015 HOROWITZ DO, ANNIE C Ot 791.9 02/14/2015 HOROWITZ DO, ANNIE C Ot V72.6 3 02/14/2015 HOROWITZ DO, ANNIE C Ot V72.8 1 02/14/2015 HOROWITZ DO, ANNIE C Ot V72.8 3 02/14/2015 HOROWITZ DO, ANNIE C Ot V74.8 02/25/2015 HOROWITZ DO, ANNIE C Ot 618.0 1 02/25/2015 HOROWITZ DO, ANNIE C Ot 791.9 02/25/2015 HOROWITZ DO, ANNIE C Ot V72.6 3 02/25/2015 HOROWITZ DO, ANNIE C Ot V72.8 1 02/25/2015 HOROWITZ DO, ANNIE C Ot V72.8 3 02/25/2015 HOROWITZ DO, ANNIE C Ot V74.8 04/24/2015 Ot 611.72 04/24/2015 Ot 611.72 04/24/2015 Ot V67.9 04/24/2015 Ot V15.89 04/24/2015 Ot V67.09 04/24/2015 Ot 793.89 04/24/2015 Ot V76.12 04/24/2015 Ot 793.80 04/24/2015 Ot 793.82 04/24/2015 PAONI DO, MANDEEP S Ot 793.80 04/24/2015 PAONI DO, AMNDEEP S Ot V67.9 04/24/2015 GREGORY BROWN APRN Ot 793.80 04/24/2015 HOROWITZ DO, ANNIE C Ot 618.0 1 04/24/2015 HOROWITZ DO, ANNIE C Ot 791.9 04/24/2015 HORWOITZ DO, ANNIE C Ot V72.6 3 04/24/2015 HOROWITZ DO, ANNIE C Ot V72.8 1 04/24/2015 HOROWITZ DO, ANNIE C Ot V72.8 3 04/24/2015 HOROWITZ DO, ANNIE C Ot V74.8 04/24/2015 Ot 611.72 04/24/2015 Ot 611.72 04/24/2015 Ot V67.9 04/24/2015 Ot V15.89 04/24/2015 Ot V67.09 04/24/2015 Ot 793.89 04/24/2015 Ot V76.12 04/24/2015 Ot 793.80 04/24/2015 Ot 793.82 04/24/2015 MANDEEP SUMMERS DO S Ot 793.80 04/24/2015 PAONI DOMANDEEP S Ot V67.9 04/24/2015 NICOLEELYSIAJaninaGREGORY APRN Ot 793.80 04/24/2015 HOROWITZ DO, ANNIE C Ot 618.0 1 04/24/2015 HOROWITZ DO, ANNIE C Ot 791.9 04/24/2015 HOROWITZ DO, ANNIE C Ot V72.6 3 04/24/2015 HOROWITZ DO, ANNIE C Ot V72.8 1 04/24/2015 HOROWITZ DO, ANNIE C Ot V72.8 3 04/24/2015 HOROWITZ DO, ANNIE C Ot V74.8 04/30/2015 HOROWITZ DO, ANNIE C Ot 618.2 UTEROVAG PROLAPS-INCOMPL 05/21/2015 HOROWITZ DO, ANNIE C Ot 618.0 1 CYSTOCELE, MIDLINE 05/21/2015 HOROWITZ DO, ANNIE C Ot V72.6 3 PRE-PROCEDURAL LABORATORY EXAMINATION 05/21/2015 HOROWITZ DO, ANNIE C Ot V74.8 SCREEN-BACTERIAL DIS NEC 03/22/2016 HOROWITZ DO, ANNIE C Ot 618.0 1 CYSTOCELE, MIDLINE 03/22/2016 HOROWITZ DO, ANNIE C Ot V72.6 3 PRE-PROCEDURAL LABORATORY EXAMINATION 03/22/2016 HOROWITZ DO, ANNIE C Ot V74.8 SCREEN-BACTERIAL DIS NEC 04/07/2016 Diane Coleman W R19.7 DIARRHEA, UNSPECIFIED 04/07/2016 Diane Coleman W R19.7 DIARRHEA, UNSPECIFIED 04/07/2016 Diaen Coleman W R19.7 DIARRHEA, UNSPECIFIED 04/07/2016 Diane Coleman W R19.7 DIARRHEA, UNSPECIFIED 04/07/2016 Jefe Mae W R19.7 DIARRHEA, UNSPECIFIED 04/07/2016 Diane Coleman W R19.7 DIARRHEA, UNSPECIFIED 04/07/2016 JaredDiane swenson W R19.7 DIARRHEA, UNSPECIFIED 04/07/2016 JaredDiane swenson W R19.7 DIARRHEA, UNSPECIFIED 04/07/2016 JaredDiane swenson W R19.7 DIARRHEA, UNSPECIFIED 04/07/2016 JaredDiane swenson W R19.7 DIARRHEA, UNSPECIFIED 04/07/2016 JaredMichele hernandesmaritza W R19.7 DIARRHEA, UNSPECIFIED 04/07/2016 JaredMichele swensonmaritza W R19.7 DIARRHEA, UNSPECIFIED 04/07/2016 JaredMichele swensonmaritza W R19.7 DIARRHEA, UNSPECIFIED 04/07/2016 JaredMichele swensonmaritza W R19.7 DIARRHEA, UNSPECIFIED 04/07/2016 JaredMichele swensonmaritza W R19.7 DIARRHEA, UNSPECIFIED 04/07/2016 JaredMichele swensonmaritza W R19.7 DIARRHEA, UNSPECIFIED 04/07/2016 JaredMichele swensonmaritza W R19.7 DIARRHEA, UNSPECIFIED 04/07/2016 JaredDiane swenson W R19.7 DIARRHEA, UNSPECIFIED 04/07/2016 JaredDiane swenson W R19.7 DIARRHEA, UNSPECIFIED 04/07/2016 JaredDiane swenson W R19.7 DIARRHEA, UNSPECIFIED 04/07/2016 Zeb Bates W R19.7 DIARRHEA, UNSPECIFIED 11/17/2016 NGHIA COOPER MD Ot E78. 5 HYPERLIPIDEMIA, UNSPECIFIED 11/17/2016 NGHIA COOPER MD Ot I10 ESSENTIAL (PRIMARY) HYPERTENSION 11/17/2016 NGHIA COOPER MD Ot I70. 1 ATHEROSCLEROSIS OF RENAL ARTERY 11/17/2016 NGHIA COOPER MD Ot R07. 9 CHEST PAIN, UNSPECIFIED 11/18/2016 NGHIA COOPER MD Ot E78. 5 HYPERLIPIDEMIA, UNSPECIFIED 11/18/2016 NGHIA COOPER MD Ot I10 ESSENTIAL (PRIMARY) HYPERTENSION 11/18/2016 NGHIA COOPER MD Ot I70. 1 ATHEROSCLEROSIS OF RENAL ARTERY 11/18/2016 NGHIA COOPER MD Ot R07. 9 CHEST PAIN, UNSPECIFIED 11/22/2016 NGHIA COOPER MD Ot E78. 5 HYPERLIPIDEMIA, UNSPECIFIED 11/22/2016 NGHIA COOPER MD Ot I10 ESSENTIAL (PRIMARY) HYPERTENSION 11/22/2016 NGHIA COOPER MD Ot I70. 1 ATHEROSCLEROSIS OF RENAL ARTERY 11/22/2016 NGHIA COOPER MD Ot R07. 9 CHEST PAIN, UNSPECIFIED 11/25/2016 NGHIA COOPER MD Ot E78. 5 HYPERLIPIDEMIA, UNSPECIFIED 11/25/2016 NGHIA COOPER MD Ot I10 ESSENTIAL (PRIMARY) HYPERTENSION 11/25/2016 NGHIA COOPER MD Ot I70. 1 ATHEROSCLEROSIS OF RENAL ARTERY 11/25/2016 NGHIA COOPER MD Ot R07. 9 CHEST PAIN, UNSPECIFIED 12/09/2016 NGHIA COOPER MD Ot E78. 5 HYPERLIPIDEMIA, UNSPECIFIED 12/09/2016 NGHIA COOPER MD Ot I10 ESSENTIAL (PRIMARY) HYPERTENSION 12/09/2016 NGHIA COOPER MD Ot I70. 1 ATHEROSCLEROSIS OF RENAL ARTERY 12/09/2016 NGHIA COOPER MD Ot R07. 9 CHEST PAIN, UNSPECIFIED 12/14/2016 NGHIA COOPER MD Ot E78. 5 HYPERLIPIDEMIA, UNSPECIFIED 12/14/2016 NGHIA COOPER MD Ot I10 ESSENTIAL (PRIMARY) HYPERTENSION 12/14/2016 NGHIA COOPER MD Ot I70. 1 ATHEROSCLEROSIS OF RENAL ARTERY 12/14/2016 NGHIA COOPER MD Ot R07. 9 CHEST PAIN, UNSPECIFIED 12/15/2016 NGHIA COOPER MD Ot I10 ESSENTIAL (PRIMARY) HYPERTENSION 12/16/2016 NGHIA COOPER MD Ot I10 ESSENTIAL (PRIMARY) HYPERTENSION 12/16/2016 NGHIA COOPER MD Ot I10 ESSENTIAL (PRIMARY) HYPERTENSION 12/16/2016 NGHIA COOPER MD Ot E78. 2 MIXED HYPERLIPIDEMIA 12/16/2016 NGHIA COOPER MD Ot E78. 5 HYPERLIPIDEMIA, UNSPECIFIED 12/16/2016 NGHIA COOPER MD Ot I10 ESSENTIAL (PRIMARY) HYPERTENSION 12/16/2016 NGHIA COOPER MD Ot I25. 10 ATHSCL HEART DISEASE OF [place] CORONARY 12/16/2016 NGHIA COOPER MD Ot R07. 9 CHEST PAIN, UNSPECIFIED 12/17/2016 NGHIA COOPER MD Ot E78. 5 HYPERLIPIDEMIA, UNSPECIFIED 12/17/2016 NGHIA COOPER MD Ot I10 ESSENTIAL (PRIMARY) HYPERTENSION 12/17/2016 NGHIA COOPER MD Ot I70. 1 ATHEROSCLEROSIS OF RENAL ARTERY 12/17/2016 NGHIA COOPER MD Ot R07. 9 CHEST PAIN, UNSPECIFIED 12/17/2016 NGHIA COOPER MD Ot E78. 5 HYPERLIPIDEMIA, UNSPECIFIED 12/17/2016 NGHIA COOPER MD Ot I10 ESSENTIAL (PRIMARY) HYPERTENSION 12/17/2016 NGHIA COOPER MD Ot I70. 1 ATHEROSCLEROSIS OF RENAL ARTERY 12/17/2016 NGHIA COOPER MD Ot R07. 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 5 HYPERLIPIDEMIA, UNSPECIFIED 01/06/2017 NGHIA COOPER MD Ot I10 ESSENTIAL (PRIMARY) HYPERTENSION 01/06/2017 NGHIA COOPER MD Ot I25. 10 ATHSCL HEART DISEASE OF [place] CORONARY 01/06/2017 NGHIA COOPER MD Ot R07. 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 5 HYPERLIPIDEMIA, UNSPECIFIED 01/18/2017 NGHIA COOPER MD Ot I10 ESSENTIAL (PRIMARY) HYPERTENSION 01/18/2017 NGHIA COOPER MD Ot I25. 10 ATHSCL HEART DISEASE OF [place] CORONARY 01/18/2017 NGHIA COOPER MD Ot R07. 9 CHEST PAIN, UNSPECIFIED 03/02/2017 NGHIA COOPER MD Ot E78. 2 MIXED HYPERLIPIDEMIA 03/03/2017 NGHIA COOPER MD Ot E78. 2 MIXED HYPERLIPIDEMIA 03/03/2017 NGHIA COOPER MD Ot I10 ESSENTIAL (PRIMARY) HYPERTENSION 03/03/2017 NGHIA COOPER MD Ot I25. 10 ATHSCL HEART DISEASE OF [place] CORONARY 03/03/2017 NGHIA COOPER MD Ot K42. 9 UMBILICAL HERNIA WITHOUT OBSTRUCTION OR 03/03/2017 NGHIA COOPER MD Ot Z82. 49 FAMILY HX OF ISCHEM HEART DIS AND OTH DI 03/03/2017 NGHIA COOPER MD Ot Z96. 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 10 ATHSCL HEART DISEASE OF [place] CORONARY 03/23/2017 NGHIA COOPER MD Ot K42. 9 UMBILICAL HERNIA WITHOUT OBSTRUCTION OR 03/23/2017 NGHIA COOPER MD Ot Z82. 49 FAMILY HX OF ISCHEM HEART DIS AND OTH DI 03/23/2017 NGHIA COOPER MD Ot Z96. 0 PRESENCE OF UROGENITAL IMPLANTS 03/30/2017 NGHIA COOPER MD Ot E78. 2 MIXED HYPERLIPIDEMIA 03/30/2017 NGHIA COOPER MD Ot I10 ESSENTIAL (PRIMARY) HYPERTENSION 03/30/2017 NGHIA COOPER MD Ot I25. 10 ATHSCL HEART DISEASE OF [place] CORONARY 03/30/2017 NGHIA COOPER MD Ot K42. 9 UMBILICAL HERNIA WITHOUT OBSTRUCTION OR 03/30/2017 NGHIA COOPER MD Ot Z82. 49 FAMILY HX OF ISCHEM HEART DIS AND OTH DI 03/30/2017 NGHIA COOPER MD Ot Z96. 0 PRESENCE OF UROGENITAL IMPLANTS 07/20/2017 NGHIA COOPER MD Ot E03. 9 HYPOTHYROIDISM, UNSPECIFIED 07/20/2017 NGHIA COOPER MD Ot E78. 2 MIXED HYPERLIPIDEMIA 07/20/2017 NGHIA COOPER MD Ot I10 ESSENTIAL (PRIMARY) HYPERTENSION 07/20/2017 NGHIA COOPER MD Ot I25. 10 ATHSCL HEART DISEASE OF [place] CORONARY 07/20/2017 NGHIA COOPER MD Ot I70. 1 ATHEROSCLEROSIS OF RENAL ARTERY 07/20/2017 NGHIA COOPER MD Ot R07. 9 CHEST PAIN, UNSPECIFIED 07/20/2017 NGHIA COOPER MD Ot Z11. 2 ENCOUNTER FOR SCREENING FOR OTHER BACTER 07/20/2017 NGHIA COOPER MD Ot Z79.899 OTHER CUSTODIAL (CURRENT) DRUG THERAPY 07/29/2017 NGHIA COOPER MD Ot E03. 9 HYPOTHYROIDISM, UNSPECIFIED 07/29/2017 NGHIA COOPER MD Ot E78. 2 MIXED HYPERLIPIDEMIA 07/29/2017 NGHIA COOPER MD Ot I10 ESSENTIAL (PRIMARY) HYPERTENSION 07/29/2017 NGHIA COOPER MD Ot I25. 10 ATHSCL HEART DISEASE OF [place] CORONARY 07/29/2017 NGHIA COOPER MD Ot I70. 1 ATHEROSCLEROSIS OF RENAL ARTERY 07/29/2017 NGHIA COOPER MD Ot R07. 9 CHEST PAIN, UNSPECIFIED 07/29/2017 NGHIA COOPER MD Ot Z11. 2 ENCOUNTER FOR SCREENING FOR OTHER BACTER 07/29/2017 NGHIA COOPER MD Ot Z79.899 OTHER CUSTODIAL (CURRENT) DRUG THERAPY 08/03/2017 NGHIA COOPER MD Ot E03. 9 HYPOTHYROIDISM, UNSPECIFIED 08/03/2017 NGHIA COOPER MD Ot E78. 2 MIXED HYPERLIPIDEMIA 08/03/2017 NGHIA COOPER MD Ot I10 ESSENTIAL (PRIMARY) HYPERTENSION 08/03/2017 NGHIA COOPER MD Ot I25. 10 ATHSCL HEART DISEASE OF [place] CORONARY 08/03/2017 NGHIA COOPER MD Ot I70. 1 ATHEROSCLEROSIS OF RENAL ARTERY 08/03/2017 NGHIA COOPER MD Ot R07. 9 CHEST PAIN, UNSPECIFIED 08/03/2017 NGHIA COOPER MD Ot Z11. 2 ENCOUNTER FOR SCREENING FOR OTHER BACTER 08/03/2017 NGHIA COOPER MD Ot Z79.899 OTHER CUSTODIAL (CURRENT) DRUG THERAPY 10/05/2017 Mandeep Summers 728.87 MUSCLE WEAKNESS (GENERALIZED) 10/05/2017 Mandeep Summers M62.81 MUSCLE WEAKNESS (GENERALIZED) 10/12/2017 W 401.9 UNSP ECIFIED ESSENTIAL HYPERTENSION 10/12/2017 W I10 ESSENT IAL (PRIMARY) HYPERTENSION 10/12/2017 W V70.0 ROUT INE GENERAL MEDICAL EXAMINATION AT A HEALTH CARE FACILITY 10/12/2017 W Z00.00 ENC OUNTER FOR GENERAL ADULT MEDICAL EXAMINATION WITHOUT ABNORMAL FINDINGS 12/15/2017 Mandeep Summers V70.0 ROUTINE GENERAL MEDICAL EXAMINATION AT A HEALTH CARE FACILITY 12/15/2017 Mandeep Summers W Z00.00 ENCOUNTER FOR GENERAL ADULT MEDICAL EXAMINATION WITHOUT ABNORMAL FINDINGS 12/15/2017 Mandeep Summers V70.0 ROUTINE GENERAL MEDICAL EXAMINATION AT A HEALTH CARE FACILITY 12/15/2017 Madneep Summers Z00.00 ENCOUNTER FOR GENERAL ADULT MEDICAL EXAMINATION WITHOUT ABNORMAL FINDINGS 07/05/2018 Mandeep Summers W 244.9 UNSPECIFIED HYPOTHYROIDISM 07/05/2018 Mandeep Summers E03.9 HYPOTHYROIDISM, UNSPECIFIED 07/05/2018 W 244.9 UNSP ECIFIED HYPOTHYROIDISM 07/05/2018 W E03.9 HYPO THYROIDISM, UNSPECIFIED 07/05/2018 Mandeep Summers W 244.9 UNSPECIFIED HYPOTHYROIDISM 07/05/2018 Mandeep Summers W E03.9 HYPOTHYROIDISM, UNSPECIFIED 11/16/2018 NICOLEVANNA GREGORY Chin TOXICOLOGY SUPERVISOR Ot 793.80 UNSPEC ABNORMAL MAMMOGRAM 11/16/2018 LOR DO ANNIE C Ot 618.0 1 CYSTOCELE, MIDLINE 11/16/2018 LOR DO ANNIE C Ot 791.9 ABN URINE FINDINGS NEC 11/16/2018 LOR DO ANNIE C Ot V72.6 3 PRE-PROCEDURAL LABORATORY EXAMINATION 11/16/2018 LOR THURSTON ANNIE C Ot V72.8 1 ATSB-[id number] CARDIOVASCULAR 11/16/2018 LOR DO ANNIE C Ot V72.8 3 EXAM PRE-OPERATIVE NEC 11/16/2018 HOROWITZ DO ANNIE C Ot V74.8 SCREEN-BACTERIAL DIS NEC 11/16/2018 LOR DO ANNIE C Ot 618.0 1 11/16/2018 LOR DO ANNIE C Ot V72.6 3 11/16/2018 LOR DO ANNIE C Ot V74.8 11/16/2018 NGHIA COOPER MD Ot E78. 5 HYPERLIPIDEMIA, UNSPECIFIED 11/16/2018 NGHIA COOPER MD Ot I10 ESSENTIAL (PRIMARY) HYPERTENSION 11/16/2018 NGHIA COOPER MD Ot I70. 1 ATHEROSCLEROSIS OF RENAL ARTERY 11/16/2018 NGHIA COOPER MD Ot R07. 9 CHEST PAIN, UNSPECIFIED 11/16/2018 NGHIA COOPER MD Ot E78. 5 HYPERLIPIDEMIA, UNSPECIFIED 11/16/2018 NGHIA COOPER MD Ot I10 ESSENTIAL (PRIMARY) HYPERTENSION 11/16/2018 NGHIA COOPER MD Ot I70. 1 ATHEROSCLEROSIS OF RENAL ARTERY 11/16/2018 NGHIA COOPER MD Ot R07. 9 CHEST PAIN, UNSPECIFIED 11/16/2018 NGHIA COOPER MD Ot E78. 2 MIXED HYPERLIPIDEMIA 11/16/2018 NGHIA COOPER MD Ot E78. 5 HYPERLIPIDEMIA, UNSPECIFIED 11/16/2018 NGHIA COOPER MD Ot I10 ESSENTIAL (PRIMARY) HYPERTENSION 11/16/2018 NGHIA COOPER MD Ot I25. 10 ATHSCL HEART DISEASE OF [place] CORONARY 11/16/2018 NGHIA COOPER MD Ot R07. 9 CHEST PAIN, UNSPECIFIED 11/16/2018 NGHIA COOPER MD Ot E78. 2 MIXED HYPERLIPIDEMIA 11/16/2018 NGHIA COOPER MD Ot I10 ESSENTIAL (PRIMARY) HYPERTENSION 11/16/2018 NGHIA COOPER MD Ot I25. 10 ATHSCL HEART DISEASE OF [place] CORONARY 11/16/2018 NGHIA COOPER MD Ot K42. 9 UMBILICAL HERNIA WITHOUT OBSTRUCTION OR 11/16/2018 NGHIA COOPER MD Ot Z82. 49 FAMILY HX OF ISCHEM HEART DIS AND OTH DI 11/16/2018 NGHIA COOPER MD Ot Z96. 0 PRESENCE OF UROGENITAL IMPLANTS 11/29/2018 SHAHID WEBB Ot E78.2 MIXED HYPERLIPIDEMIA 11/29/2018 SHAHID WEBB Ot I10 ESSENTIAL (PRIMARY) HYPERTENSION 11/29/2018 SHAHID WEBB Ot I25.10 ATHSCL HEART DISEASE OF [place] CORONARY 11/29/2018 SHAHID WEBB Ot I70.1 ATHEROSCLEROSIS OF RENAL ARTERY 12/07/2018 SHAHID WEBB Ot E78.2 MIXED HYPERLIPIDEMIA 12/07/2018 SHAHID WEBB Ot I10 ESSENTIAL (PRIMARY) HYPERTENSION 12/07/2018 SHAHID WEBB Ot I25.10 ATHSCL HEART DISEASE OF [place] CORONARY 12/07/2018 SHAHID WEBB Ot I70.1 ATHEROSCLEROSIS OF RENAL ARTERY 12/13/2018 SHAHID WEBB Ot E78.2 MIXED HYPERLIPIDEMIA 12/13/2018 SHAHID WEBB Ot I10 ESSENTIAL (PRIMARY) HYPERTENSION 12/13/2018 SHAHID WEBB Ot I25.10 ATHSCL HEART DISEASE OF [place] CORONARY 12/13/2018 SHAHID WEBB Ot I70.1 ATHEROSCLEROSIS OF RENAL ARTERY 12/18/2018 SHAHID WEBB Ot E78.2 MIXED HYPERLIPIDEMIA 12/18/2018 SHAHID WEBB Ot I07.1 RHEUMATIC TRICUSPID INSUFFICIENCY 12/18/2018 SHAHID WEBB Ot I10 ESSENTIAL (PRIMARY) HYPERTENSION 12/18/2018 SHAHID WEBB Ot I25.10 ATHSCL HEART DISEASE OF [place] CORONARY 12/18/2018 SHAHID WEBB Ot I70.1 ATHEROSCLEROSIS OF RENAL ARTERY 12/19/2018 SHAHID WEBB Ot E78.2 MIXED HYPERLIPIDEMIA 12/19/2018 SHAHID WEBB Ot I10 ESSENTIAL (PRIMARY) HYPERTENSION 12/19/2018 SHAHID WEBB Ot I25.10 ATHSCL HEART DISEASE OF [place] CORONARY 12/19/2018 SHAHID WEBB Ot I70.1 ATHEROSCLEROSIS OF RENAL ARTERY 12/19/2018 Mandeep Summers W V76.19 OTHER SCREENING BREAST EXAMINATION 12/19/2018 Mandeep Summers W Z12.39 ENCOUNTER FOR OTHER SCREENING FOR MALIGNANT NEOPLASM OF BREAST 12/19/2018 W V76.19 OTH ER SCREENING BREAST EXAMINATION 12/19/2018 W Z12.39 ENC OUNTER FOR OTHER SCREENING FOR MALIGNANT NEOPLASM OF BREAST 12/19/2018 Mandeep Summers W V76.19 OTHER SCREENING BREAST EXAMINATION 12/19/2018 Mandeep Summers W Z12.39 ENCOUNTER FOR OTHER SCREENING FOR MALIGNANT NEOPLASM OF BREAST 12/21/2018 SHAHID WEBB Ot E78.2 MIXED HYPERLIPIDEMIA 12/21/2018 SHAHID WEBB Ot I07.1 RHEUMATIC TRICUSPID INSUFFICIENCY 12/21/2018 SHAHID WEBB Ot I10 ESSENTIAL (PRIMARY) HYPERTENSION 12/21/2018 SHAHID WEBB Ot I25.10 ATHSCL HEART DISEASE OF [place] CORONARY 12/21/2018 SHAHID WEBB Ot I70.1 ATHEROSCLEROSIS OF RENAL ARTERY 12/27/2018 SHAHID WEBB Ot E78.2 MIXED HYPERLIPIDEMIA 12/27/2018 SHAHID WEBB Ot I10 ESSENTIAL (PRIMARY) HYPERTENSION 12/27/2018 SHAHID WEBB Ot I25.10 ATHSCL HEART DISEASE OF [place] CORONARY 12/27/2018 SHAHID WEBB Ot I70.1 ATHEROSCLEROSIS OF RENAL ARTERY 02/08/2019 W 786.59 OTH ER CHEST PAIN 02/08/2019 W R07.89 OTH ER CHEST PAIN 02/18/2019 MARY SAINI, BOB Hauser Ot E78. 5 HYPERLIPIDEMIA, UNSPECIFIED 02/18/2019 MARY SAINI, BOB Hauser Ot E89. 0 POSTPROCEDURAL HYPOTHYROIDISM 02/18/2019 MARY SAINI, BOB Hauser Ot F32. 9 MAJOR DEPRESSIVE DISORDER, SINGLE EPISOD 02/18/2019 MARY SAINI, BOB Hauser Ot H34. 12 CENTRAL RETINAL ARTERY OCCLUSION, LEFT E 02/18/2019 MARY SAINI, BOB Hauser Ot I12. 9 HYPERTENSIVE CHRONIC KIDNEY DISEASE W ST 02/18/2019 MARY SAINI, BOB Hauser Ot I25. 10 ATHSCL HEART DISEASE OF [place] CORONARY 02/18/2019 MARY SAINI, BOB Hauser Ot I45. 10 UNSPECIFIED RIGHT BUNDLE-BRANCH BLOCK 02/18/2019 BOB HERNANDEZ MD Ot I49. 5 SICK SINUS SYNDROME 02/18/2019 MARY SAINI, BOB Hauser Ot M19. 90 UNSPECIFIED OSTEOARTHRITIS, UNSPECIFIED 02/18/2019 MARY SAINI, BOB Hauser Ot M81. 0 AGE-RELATED OSTEOPOROSIS W/O CURRENT PAT 02/18/2019 MARY SAINI, BOB Hauser Ot N18. 3 CHRONIC KIDNEY DISEASE, STAGE 3 (MODERAT 02/18/2019 MARY SAINI, BOB Hauser Ot R29.700 NIHSS SCORE 0 02/18/2019 MARY SAINI, BOB Hauser Ot Z85. 3 PERSONAL HISTORY OF MALIGNANT NEOPLASM O 02/18/2019 MARY SAINI, BOB Hauser Ot Z95. 0 PRESENCE OF CARDIAC PACEMAKER 02/20/2019 W 362.31 ROMA TRAL RETINAL ARTERY OCCLUSION 02/20/2019 W H34.13 ROMA TRAL RETINAL ARTERY OCCLUSION, BILATERAL 04/25/2019 LEISURE, LYNIETA W 729.99 OTHER DISORDERS OF SOFT TISSUE 04/25/2019 LEISURE, LYNIETA W M70.82 9 OTHER SOFT TISSUE DISORDERS RELATED TO USE, OVERUSE AND PRESSURE, UNSPECIFIED UPPER ARMS 04/25/2019 LEISURE, CAITLIN W M70.83 2 OTH SOFT TISSUE DISORDERS RELATED TO USE/PRESSURE, L FOREARM 10/07/2019 Diane Coleman W 873.0 OPEN WOUND OF SCALP, WITHOUT MENTION OF COMPLICATION 10/07/2019 Diane Coleman S01.01 LACERATION WITHOUT FOREIGN BODY OF SCALP 10/07/2019 Diane Coleman W 873.0 OPEN WOUND OF SCALP, WITHOUT MENTION OF COMPLICATION 10/07/2019 Diane Coleman S01.01 LACERATION WITHOUT FOREIGN BODY OF SCALP 10/09/2019 Diane Coleman W 244.9 UNSPECIFIED HYPOTHYROIDISM 10/09/2019 Diane Coleman 285.1 ACUTE POS 10/09/2019 Diane Coleman W 401.0 MALIGNANT ESSENTIAL HYPERTENSION 10/09/2019 Diane Coleman W 873.0 OPEN WOUND OF SCALP, 10/09/2019 Diane Coleman D 62 ACUTE POSTHEMORRHAGIC ANEMIA 10/09/2019 Diane Coleman E03.9 HYPOTHYROIDISM, UNSPECIFIED 10/09/2019 Diane Coleman H34.13 CENTRAL RETINAL ARTERY OCCLUSION, BILATERAL 10/09/2019 Diane Coleman I 10 ESSENTIAL (PRIMARY) HYPERTENSION 10/09/2019 Diane Coleman W M13.89 OTHER SPECIFIED ARTHRITIS, MULTIPLE SITES 10/09/2019 Diane Coleman M54.6 PAIN IN THORACIC SPINE 10/09/2019 Diane Coleman M62.81 MUSCLE WEAKNESS (GENERALIZED) 10/09/2019 Diane Coleman M70.832 OT SOFT TISSUE DISORDERS RELATED TO USE/PRESSURE, L F OREARM 10/09/2019 Diane Coleman R07.89 OTHER CHEST PAIN 10/09/2019 Diane Coleman W R07.9 CHEST PAIN, UNSPECIFIED 10/09/2019 Diane Coleman R 51 HEADACHE 10/09/2019 Diane Coleman S01.01 LACERATION WITHOUT FOREIGN BODY OF SCALP 10/09/2019 Diane Coleman S01.02XA LACERATION WITH FOREIGN BODY OF SCALP, INITIAL ENCOUNT ER 10/09/2019 Diane Coleman V58.69 LONG-TERM (CURRENT) USE OF O 10/09/2019 Diane Coleman Z00.00 ENCNTR FOR GENERAL ADULT MEDICAL EXAM W/O ABNORMAL FIN DINGS 10/09/2019 Diane Coleman Z12.39 ENCOUNTER FOR OTH SCREENING FOR MALIGNANT NEOPLASM OF BREAST 10/09/2019 Diane Coleman 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.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 10/10/2019 Diane Coleman E03.9 HYPOTHYROIDISM, UNSPECIFIED 10/10/2019 Diane Coleman H34.13 CENTRAL RETINAL ARTERY OCCLUSION, BILATERAL 10/10/2019 Diane Coleman W I 10 ESSENTIAL (PRIMARY) HYPERTENSION 10/10/2019 Diane Coleman M13.89 OTHER SPECIFIED ARTHRITIS, MULTIPLE SITES 10/10/2019 Diane Coleman M62.81 MUSCLE WEAKNESS (GENERALIZED) 10/10/2019 Diane Coleman M70.832 OTH SOFT TISSUE DISORDERS RELATED TO USE/PRESSURE, L F OREARM 10/10/2019 Diane Coleman R07.89 OTHER CHEST PAIN 10/10/2019 Diane Coleman Z00.00 ENCNTR FOR GENERAL ADULT MEDICAL EXAM W/O ABNORMAL FIN DINGS 10/10/2019 Diane Coleman Z12.39 ENCOUNTER FOR OTH SCREENING FOR MALIGNANT NEOPLASM OF BREAST 10/11/2019 Diane Coleman E03.9 HYPOTHYROIDISM, UNSPECIFIED 10/11/2019 Diane Coleman H34.13 CENTRAL RETINAL ARTERY OCCLUSION, BILATERAL 10/11/2019 Diane Coleman I 10 ESSENTIAL (PRIMARY) HYPERTENSION 10/11/2019 Diane Coleman M13.89 OTHER SPECIFIED ARTHRITIS, MULTIPLE SITES 10/11/2019 Diane Coleman M62.81 MUSCLE WEAKNESS (GENERALIZED) 10/11/2019 Diane Coleman M70.832 OTH SOFT TISSUE DISORDERS RELATED TO USE/PRESSURE, L F OREARM 10/11/2019 Diane Coleman R07.89 OTHER CHEST PAIN 10/11/2019 Diane Coleman V58.31 ENCOUNTER FOR CHANGE OR REMOVAL OF SURGICAL WOUND DRES SING 10/11/2019 Diane Coleman Z00.00 ENCNTR FOR GENERAL ADULT MEDICAL EXAM W/O ABNORMAL FIN DINGS 10/11/2019 Diane Coleman Z12.39 ENCOUNTER FOR OTH SCREENING FOR MALIGNANT NEOPLASM OF BREAST 10/11/2019 Diane Coleman Z48.01 ENCOUNTER FOR CHANGE OR REMOVAL OF SURGICAL WOUND DRES SING 10/12/2019 Diane Coleman E03.9 HYPOTHYROIDISM, UNSPECIFIED 10/12/2019 Diane Coleman H34.13 CENTRAL RETINAL ARTERY OCCLUSION, BILATERAL 10/12/2019 Diane Coleman I 10 ESSENTIAL (PRIMARY) HYPERTENSION 10/12/2019 Diane Coleman M13.89 OTHER SPECIFIED ARTHRITIS, MULTIPLE SITES 10/12/2019 Diane Coleman M62.81 MUSCLE WEAKNESS (GENERALIZED) 10/12/2019 Diane Coleman M70.832 OTH SOFT TISSUE DISORDERS RELATED TO USE/PRESSURE, L F OREARM 10/12/2019 Diane Coleman R07.89 OTHER CHEST PAIN 10/12/2019 iDane Coleman V58.31 ENCOUNTER FOR CHANGE OR REMOVAL OF SURGICAL WOUND DRES SING 10/12/2019 Diane Coleman Z00.00 ENCNTR FOR GENERAL ADULT MEDICAL EXAM W/O ABNORMAL FIN DINGS 10/12/2019 Diane Coleman Z12.39 ENCOUNTER FOR OTH SCREENING FOR MALIGNANT NEOPLASM OF BREAST 10/12/2019 Diane Coleman Z48.01 ENCOUNTER FOR CHANGE OR REMOVAL OF SURGICAL WOUND DRES SING 10/13/2019 eJfe Mae 300.00 ANXIETY STATE, UNSPECIFIED 10/13/2019 Jefe Mae 780.52 INSOMNIA, UNSPECIFIED 10/13/2019 Jefe Mae 850.0 CONCUSSION WITH NO LOSS OF CONSCIOUSNESS 10/13/2019 Jefe Mae 873.1 OPEN WOUND OF SCALP, COMPLICATED 10/13/2019 Jefe Mae E03.9 HYPOTHYROIDISM, UNSPECIFIED 10/13/2019 Jefe Mae F41.9 ANXIETY DISORDER, UNSPECIFIED 10/13/2019 Jefe Mae G47.00 INSOMNIA, UNSPECIFIED 10/13/2019 Jefe Mae H34.13 CENTRAL RETINAL ARTERY OCCLUSION, BILATERAL 10/13/2019 Jefe Mae I10 ESSENTIAL (PRIMARY) HYPERTENSION 10/13/2019 Jefe Mae M13.89 OTHER SPECIFIED ARTHRITIS, MULTIPLE SITES 10/13/2019 Jefe Mae M62.81 MUSCLE WEAKNESS (GENERALIZED) 10/13/2019 Jefe Mae M70.832 OTH SOFT TISSUE DISORDERS RELATED TO USE/PRESSURE, L FOREARM 10/13/2019 Jefe Mae R07.89 OTHER CHEST PAIN 10/13/2019 Jefe Mae S01.02XA LACERATION WITH FOREIGN BODY OF SCALP, INITIAL ENCOUNTER 10/13/2019 Jefe Mae S06.0X0A CONCUSSION WITHOUT LOSS OF CONSCIOUSNESS, INITIAL ENCOUNTER 10/13/2019 Jefe Mae Z00.00 ENCNTR FOR GENERAL ADULT MEDICAL EXAM W/O ABNORMAL FINDINGS 10/13/2019 Jefe Mae Z12.39 ENCOUNTER FOR OTH SCREENING FOR MALIGNANT NEOPLASM OF BREAST 10/14/2019 Diane Coleman E03.9 HYPOTHYROIDISM, UNSPECIFIED 10/14/2019 Diane Coleman H34.13 CENTRAL RETINAL ARTERY OCCLUSION, BILATERAL 10/14/2019 Diane Coleman I 10 ESSENTIAL (PRIMARY) HYPERTENSION 10/14/2019 Diane Coleman M13.89 OTHER SPECIFIED ARTHRITIS, MULTIPLE SITES 10/14/2019 Diane Coleman M62.81 MUSCLE WEAKNESS (GENERALIZED) 10/14/2019 Diane Coleman M70.832 OTH SOFT TISSUE DISORDERS RELATED TO USE/PRESSURE, L F OREARM 10/14/2019 Diane Coleman R07.89 OTHER CHEST PAIN 10/14/2019 Diane Coleman Z00.00 ENCNTR FOR GENERAL ADULT MEDICAL EXAM W/O ABNORMAL FIN DINGS 10/14/2019 Diane Coleman Z12.39 ENCOUNTER FOR OTH SCREENING FOR MALIGNANT NEOPLASM OF BREAST 10/15/2019 Diane Coleman E03.9 HYPOTHYROIDISM, UNSPECIFIED 10/15/2019 Diane Coleman H34.13 CENTRAL RETINAL ARTERY OCCLUSION, BILATERAL 10/15/2019 JaredDiane W I 10 ESSENTIAL (PRIMARY) HYPERTENSION 10/15/2019 Diane Coleman W M13.89 OTHER SPECIFIED ARTHRITIS, MULTIPLE SITES 10/15/2019 Diane Coleman M62.81 MUSCLE WEAKNESS (GENERALIZED) 10/15/2019 Diane Coleman M70.832 OTH SOFT TISSUE DISORDERS RELATED TO USE/PRESSURE, L F OREARM 10/15/2019 JaredDiane W R07.89 OTHER CHEST PAIN 10/15/2019 JaredDiane V58.31 ENCOUNTER FOR CHANGE OR REMOVAL OF SURGICAL WOUND DRES SING 10/15/2019 Diane Coleman Z00.00 ENCNTR FOR GENERAL ADULT MEDICAL EXAM W/O ABNORMAL FIN DINGS 10/15/2019 Diane Coleman Z12.39 ENCOUNTER FOR OTH SCREENING FOR MALIGNANT NEOPLASM OF BREAST 10/15/2019 Diane Coleman Z48.01 ENCOUNTER FOR CHANGE OR REMOVAL OF SURGICAL WOUND DRES SING 10/16/2019 Diane Coleman E03.9 HYPOTHYROIDISM, UNSPECIFIED 10/16/2019 Diane Coleman H34.13 CENTRAL RETINAL ARTERY OCCLUSION, BILATERAL 10/16/2019 Diane Coleman W I 10 ESSENTIAL (PRIMARY) HYPERTENSION 10/16/2019 Diane Coleman M13.89 OTHER SPECIFIED ARTHRITIS, MULTIPLE SITES 10/16/2019 Diane Coleman M62.81 MUSCLE WEAKNESS (GENERALIZED) 10/16/2019 Diane Coleman M70.832 OTH SOFT TISSUE DISORDERS RELATED TO USE/PRESSURE, L F OREARM 10/16/2019 Diane Coleman R07.89 OTHER CHEST PAIN 10/16/2019 Diane Coleman Z00.00 ENCNTR FOR GENERAL ADULT MEDICAL EXAM W/O ABNORMAL FIN DINGS 10/16/2019 Diane Coleman Z12.39 ENCOUNTER FOR OTH SCREENING FOR MALIGNANT NEOPLASM OF BREAST 10/17/2019 Diane Coleman E03.9 HYPOTHYROIDISM, UNSPECIFIED 10/17/2019 Diane Coleman H34.13 CENTRAL RETINAL ARTERY OCCLUSION, BILATERAL 10/17/2019 Diane Coleman W I 10 ESSENTIAL (PRIMARY) HYPERTENSION 10/17/2019 Diane Coleman M13.89 OTHER SPECIFIED ARTHRITIS, MULTIPLE SITES 10/17/2019 Diane Coleman M62.81 MUSCLE WEAKNESS (GENERALIZED) 10/17/2019 Diane Coleman M70.832 OTH SOFT TISSUE DISORDERS RELATED TO USE/PRESSURE, L F OREARM 10/17/2019 Diane Coleman R07.89 OTHER CHEST PAIN 10/17/2019 Diane Coleman V58.31 ENCOUNTER FOR CHANGE OR REMOVAL OF SURGICAL WOUND DRES SING 10/17/2019 Diane Coleman Z00.00 ENCNTR FOR GENERAL ADULT MEDICAL EXAM W/O ABNORMAL FIN DINGS 10/17/2019 Diane Coleman Z12.39 ENCOUNTER FOR OTH SCREENING FOR MALIGNANT NEOPLASM OF BREAST 10/17/2019 Diane Coleman Z48.01 ENCOUNTER FOR CHANGE OR REMOVAL OF SURGICAL WOUND DRES SING 10/18/2019 Diane Coleman E03.9 HYPOTHYROIDISM, UNSPECIFIED 10/18/2019 Diane Coleman H34.13 CENTRAL RETINAL ARTERY OCCLUSION, BILATERAL 10/18/2019 Diane Coleman I 10 ESSENTIAL (PRIMARY) HYPERTENSION 10/18/2019 Diane Coleman M13.89 OTHER SPECIFIED ARTHRITIS, MULTIPLE SITES 10/18/2019 Diane Coleman M62.81 MUSCLE WEAKNESS (GENERALIZED) 10/18/2019 Diane Coleman M70.832 OT SOFT TISSUE DISORDERS RELATED TO USE/PRESSURE, L F OREARM 10/18/2019 Diane Coleman R07.89 OTHER CHEST PAIN 10/18/2019 Diane Coleman V58.31 ENCOUNTER FOR CHANGE OR REMOVAL OF SURGICAL WOUND DRES SING 10/18/2019 Diane Coleman Z00.00 ENCNTR FOR GENERAL ADULT MEDICAL EXAM W/O ABNORMAL FIN DINGS 10/18/2019 Diane Coleman Z12.39 ENCOUNTER FOR OTH SCREENING FOR MALIGNANT NEOPLASM OF BREAST 10/18/2019 Diane Coleman Z48.01 ENCOUNTER FOR CHANGE OR REMOVAL OF SURGICAL WOUND DRES SING 10/19/2019 Diane Coleman E03.9 HYPOTHYROIDISM, UNSPECIFIED 10/19/2019 Diane Coleman H34.13 CENTRAL RETINAL ARTERY OCCLUSION, BILATERAL 10/19/2019 Diane Coleman W I 10 ESSENTIAL (PRIMARY) HYPERTENSION 10/19/2019 Diane Coleman M13.89 OTHER SPECIFIED ARTHRITIS, MULTIPLE SITES 10/19/2019 Diane Coleman M62.81 MUSCLE WEAKNESS (GENERALIZED) 10/19/2019 Diane Coleman M70.832 OTH SOFT TISSUE DISORDERS RELATED TO USE/PRESSURE, L F OREARM 10/19/2019 Diane Colmean R07.89 OTHER CHEST PAIN 10/19/2019 Diane Coleman V58.31 ENCOUNTER FOR CHANGE OR REMOVAL OF SURGICAL WOUND DRES SING 10/19/2019 Diane Coleman Z00.00 ENCNTR FOR GENERAL ADULT MEDICAL EXAM W/O ABNORMAL FIN DINGS 10/19/2019 Diane Coleman Z12.39 ENCOUNTER FOR OTH SCREENING FOR MALIGNANT NEOPLASM OF BREAST 10/19/2019 Diane Coleman Z48.01 ENCOUNTER FOR CHANGE OR REMOVAL OF SURGICAL WOUND DRES SING 10/20/2019 Diane Coleman E03.9 HYPOTHYROIDISM, UNSPECIFIED 10/20/2019 Diane Coleman H34.13 CENTRAL RETINAL ARTERY OCCLUSION, BILATERAL 10/20/2019 Diane Coleman W I 10 ESSENTIAL (PRIMARY) HYPERTENSION 10/20/2019 Diane Coleman M13.89 OTHER SPECIFIED ARTHRITIS, MULTIPLE SITES 10/20/2019 Diane Coleman M62.81 MUSCLE WEAKNESS (GENERALIZED) 10/20/2019 Diane Coleman M70.832 OTH SOFT TISSUE DISORDERS RELATED TO USE/PRESSURE, L F OREARM 10/20/2019 Diane Coleman R07.89 OTHER CHEST PAIN 10/20/2019 Diane Coleman V58.31 ENCOUNTER FOR CHANGE OR REMOVAL OF SURGICAL WOUND DRES SING 10/20/2019 Jared, [place] W Z00.00 ENCNTR FOR GENERAL ADULT MEDICAL EXAM W/O ABNORMAL FIN DINGS 10/20/2019 Diane Coleman Z12.39 ENCOUNTER FOR OTH SCREENING FOR MALIGNANT NEOPLASM OF BREAST 10/20/2019 Diane Coleman Z48.01 ENCOUNTER FOR CHANGE OR REMOVAL OF SURGICAL WOUND DRES SING 10/21/2019 Diane Coleman E03.9 HYPOTHYROIDISM, UNSPECIFIED 10/21/2019 Diane Coleman H34.13 CENTRAL RETINAL ARTERY OCCLUSION, BILATERAL 10/21/2019 Diane Coleman W I 10 ESSENTIAL (PRIMARY) HYPERTENSION 10/21/2019 Diane Coleman M13.89 OTHER SPECIFIED ARTHRITIS, MULTIPLE SITES 10/21/2019 Diane Coleman M62.81 MUSCLE WEAKNESS (GENERALIZED) 10/21/2019 Diane Coleman M70.832 OTH SOFT TISSUE DISORDERS RELATED TO USE/PRESSURE, L F OREARM 10/21/2019 Diane Coleman R07.89 OTHER CHEST PAIN 10/21/2019 Diane Coleman V58.31 ENCOUNTER FOR CHANGE OR REMOVAL OF SURGICAL WOUND DRES SING 10/21/2019 Diane Coleman Z00.00 ENCNTR FOR GENERAL ADULT MEDICAL EXAM W/O ABNORMAL FIN DINGS 10/21/2019 Diane Coleman Z12.39 ENCOUNTER FOR OTH SCREENING FOR MALIGNANT NEOPLASM OF BREAST 10/21/2019 Diane Coleman Z48.01 ENCOUNTER FOR CHANGE OR REMOVAL OF SURGICAL WOUND DRES SING 10/22/2019 Diane Coleman E03.9 HYPOTHYROIDISM, UNSPECIFIED 10/22/2019 Diane Coleman H34.13 CENTRAL RETINAL ARTERY OCCLUSION, BILATERAL 10/22/2019 Diane Coleman I 10 ESSENTIAL (PRIMARY) HYPERTENSION 10/22/2019 Diane Coleman M13.89 OTHER SPECIFIED ARTHRITIS, MULTIPLE SITES 10/22/2019 Diane Coleman M62.81 MUSCLE WEAKNESS (GENERALIZED) 10/22/2019 Diane Coleman M70.832 OTH SOFT TISSUE DISORDERS RELATED TO USE/PRESSURE, L F OREARM 10/22/2019 Diane Coleman R07.89 OTHER CHEST PAIN 10/22/2019 Diane Coleman V58.31 ENCOUNTER FOR CHANGE OR REMOVAL OF SURGICAL WOUND DRES SING 10/22/2019 Diane Coleman Z00.00 ENCNTR FOR GENERAL ADULT MEDICAL EXAM W/O ABNORMAL FIN DINGS 10/22/2019 Diane Coleman Z12.39 ENCOUNTER FOR OTH SCREENING FOR MALIGNANT NEOPLASM OF BREAST 10/22/2019 Diane Coleman Z48.01 ENCOUNTER FOR CHANGE OR REMOVAL OF SURGICAL WOUND DRES SING 10/23/2019 Diane Coleman E03.9 HYPOTHYROIDISM, UNSPECIFIED 10/23/2019 Diane Coleman H34.13 CENTRAL RETINAL ARTERY OCCLUSION, BILATERAL 10/23/2019 Diane Coleman I 10 ESSENTIAL (PRIMARY) HYPERTENSION 10/23/2019 Diane Coleman M13.89 OTHER SPECIFIED ARTHRITIS, MULTIPLE SITES 10/23/2019 Diane Coleman M62.81 MUSCLE WEAKNESS (GENERALIZED) 10/23/2019 Diane Coleman M70.832 OTH SOFT TISSUE DISORDERS RELATED TO USE/PRESSURE, L F OREARM 10/23/2019 Diane Coleman R07.89 OTHER CHEST PAIN 10/23/2019 Diane Coleman V58.31 ENCOUNTER FOR CHANGE OR REMOVAL OF SURGICAL WOUND DRES SING 10/23/2019 Diane Coleman Z00.00 ENCNTR FOR GENERAL ADULT MEDICAL EXAM W/O ABNORMAL FIN DINGS 10/23/2019 Diane Coleman Z12.39 ENCOUNTER FOR OTH SCREENING FOR MALIGNANT NEOPLASM OF BREAST 10/23/2019 Diane Coleman Z48.01 ENCOUNTER FOR CHANGE OR REMOVAL OF SURGICAL WOUND DRES SING 10/24/2019 Diane Coleman E03.9 HYPOTHYROIDISM, UNSPECIFIED 10/24/2019 Diane Coleman H34.13 CENTRAL RETINAL ARTERY OCCLUSION, BILATERAL 10/24/2019 Diane Coleman I 10 ESSENTIAL (PRIMARY) HYPERTENSION 10/24/2019 Diane Coleman M13.89 OTHER SPECIFIED ARTHRITIS, MULTIPLE SITES 10/24/2019 Diane Coleman M62.81 MUSCLE WEAKNESS (GENERALIZED) 10/24/2019 Diane Coleman M70.832 OTH SOFT TISSUE DISORDERS RELATED TO USE/PRESSURE, L F OREARM 10/24/2019 Diane Coleman R07.89 OTHER CHEST PAIN 10/24/2019 Diane Coleman V58.31 ENCOUNTER FOR CHANGE OR REMOVAL OF SURGICAL WOUND DRES SING 10/24/2019 Diane Coleman Z00.00 ENCNTR FOR GENERAL ADULT MEDICAL EXAM W/O ABNORMAL FIN DINGS 10/24/2019 Diane Coleman Z12.39 ENCOUNTER FOR OTH SCREENING FOR MALIGNANT NEOPLASM OF BREAST 10/24/2019 Diane Coleman Z48.01 ENCOUNTER FOR CHANGE OR REMOVAL OF SURGICAL WOUND DRES SING 10/25/2019 Diane Coleman E03.9 HYPOTHYROIDISM, UNSPECIFIED 10/25/2019 Diane Coleman H34.13 CENTRAL RETINAL ARTERY OCCLUSION, BILATERAL 10/25/2019 Diane Coleman I 10 ESSENTIAL (PRIMARY) HYPERTENSION 10/25/2019 Diane Coleman M13.89 OTHER SPECIFIED ARTHRITIS, MULTIPLE SITES 10/25/2019 Diane Coleman M62.81 MUSCLE WEAKNESS (GENERALIZED) 10/25/2019 Diane Coleman M70.832 OT SOFT TISSUE DISORDERS RELATED TO USE/PRESSURE, L F OREARM 10/25/2019 Daine Coleman R07.89 OTHER CHEST PAIN 10/25/2019 Diane Coleman V58.31 ENCOUNTER FOR CHANGE OR REMOVAL OF SURGICAL WOUND DRES SING 10/25/2019 Diane Coleman Z00.00 ENCNTR FOR GENERAL ADULT MEDICAL EXAM W/O ABNORMAL FIN DINGS 10/25/2019 Diane Coleman Z12.39 ENCOUNTER FOR OTH SCREENING FOR MALIGNANT NEOPLASM OF BREAST 10/25/2019 Diane Coleman Z48.01 ENCOUNTER FOR CHANGE OR REMOVAL OF SURGICAL WOUND DRES SING 10/26/2019 Diane Coleman E03.9 HYPOTHYROIDISM, UNSPECIFIED 10/26/2019 Diane Coleman H34.13 CENTRAL RETINAL ARTERY OCCLUSION, BILATERAL 10/26/2019 Diane Coleman I 10 ESSENTIAL (PRIMARY) HYPERTENSION 10/26/2019 Diane Coleman M13.89 OTHER SPECIFIED ARTHRITIS, MULTIPLE SITES 10/26/2019 Diane Coleman M62.81 MUSCLE WEAKNESS (GENERALIZED) 10/26/2019 Diane Coleman M70.832 OTH SOFT TISSUE DISORDERS RELATED TO USE/PRESSURE, L F OREARM 10/26/2019 Diane Coleman R07.89 OTHER CHEST PAIN 10/26/2019 Diane Coleman V58.31 ENCOUNTER FOR CHANGE OR REMOVAL OF SURGICAL WOUND DRES SING 10/26/2019 Diane Coleman Z00.00 ENCNTR FOR GENERAL ADULT MEDICAL EXAM W/O ABNORMAL FIN DINGS 10/26/2019 Diane Coleman Z12.39 ENCOUNTER FOR OTH SCREENING FOR MALIGNANT NEOPLASM OF BREAST 10/26/2019 Diane Coleman Z48.01 ENCOUNTER FOR CHANGE OR REMOVAL OF SURGICAL WOUND DRES SING 10/27/2019 Diane Coleman E03.9 HYPOTHYROIDISM, UNSPECIFIED 10/27/2019 Diane Coleman H34.13 CENTRAL RETINAL ARTERY OCCLUSION, BILATERAL 10/27/2019 Diane Coleman I 10 ESSENTIAL (PRIMARY) HYPERTENSION 10/27/2019 Diane Coleman M13.89 OTHER SPECIFIED ARTHRITIS, MULTIPLE SITES 10/27/2019 Diane Coleman M62.81 MUSCLE WEAKNESS (GENERALIZED) 10/27/2019 Diane Coleman M70.832 OT SOFT TISSUE DISORDERS RELATED TO USE/PRESSURE, L F OREARM 10/27/2019 Diane Coleman R07.89 OTHER CHEST PAIN 10/27/2019 Diane Coleman V58.31 ENCOUNTER FOR CHANGE OR REMOVAL OF SURGICAL WOUND DRES SING 10/27/2019 Diane Coleman Z00.00 ENCNTR FOR GENERAL ADULT MEDICAL EXAM W/O ABNORMAL FIN DINGS 10/27/2019 Diane Coleman Z12.39 ENCOUNTER FOR OTH SCREENING FOR MALIGNANT NEOPLASM OF BREAST 10/27/2019 Diane Coleman Z48.01 ENCOUNTER FOR CHANGE OR REMOVAL OF SURGICAL WOUND DRES SING 10/29/2019 Diane Coleman E03.9 HYPOTHYROIDISM, UNSPECIFIED 10/29/2019 Diane Coleman H34.13 CENTRAL RETINAL ARTERY OCCLUSION, BILATERAL 10/29/2019 Diane Coleman W I 10 ESSENTIAL (PRIMARY) HYPERTENSION 10/29/2019 Diane Coleman M13.89 OTHER SPECIFIED ARTHRITIS, MULTIPLE SITES 10/29/2019 Diane Coleman M62.81 MUSCLE WEAKNESS (GENERALIZED) 10/29/2019 Diane Coleman M70.832 OTH SOFT TISSUE DISORDERS RELATED TO USE/PRESSURE, L F OREARM 10/29/2019 Diane Coleman R07.89 OTHER CHEST PAIN 10/29/2019 Diane Coleman S01.02XD LACERATION WITH FOREIGN BODY OF SCALP, SUBSEQUENT ENCO UNTER 10/29/2019 Diane Coleman V58.89 ENCOUNTER FOR OTHER SPECIFIED AFTERCARE 10/29/2019 Diane Coleman Z00.00 ENCNTR FOR GENERAL ADULT MEDICAL EXAM W/O ABNORMAL FIN DINGS 10/29/2019 Diane Coleman Z12.39 ENCOUNTER FOR OT SCREENING FOR MALIGNANT NEOPLASM OF BREAST 12/15/2019 Zeb Bates 847.0 NECK SPRAIN 12/15/2019 Zeb Bates E03.9 HYPOTHYROIDISM, UNSPECIFIED 12/15/2019 Zeb Bates H34.13 CENTRAL RETINAL ARTERY OCCLUSION, BILATERAL 12/15/2019 Zeb Bates I10 ESSENTIAL (PRIMARY) HYPERTENSION 12/15/2019 Zeb Bates M13.89 OTHER SPECIFIED ARTHRITIS, MULTIPLE SITES 12/15/2019 Zeb Bates M62.81 MUSCLE WEAKNESS (GENERALIZED) 12/15/2019 Zeb Bates M70.832 OTH SOFT TISSUE DISORDERS RELATED TO USE/PRESSURE, L FOREARM 12/15/2019 Zeb Bates R07.89 OTHER CHEST PAIN 12/15/2019 Zeb Bates S16.1XXA STRAIN OF MUSCLE, FASCIA AND TENDON AT NECK LEVEL, INIT 12/15/2019 Zeb Bates Z00.00 ENCNTR FOR GENERAL ADULT MEDICAL EXAM W/O ABNORMAL FINDINGS 12/15/2019 Zeb Bates Z12.39 ENCOUNTER FOR OTH SCREENING FOR MALIGNANT NEOPLASM OF BREAST Procedures Code Description Performed By Per formed On [id number] IN TRODUCE OTH THROMBOLYTIC IN PERIPH VEI 02/16/2019 Results Test Result Range Lipid Panel - 10/27/16 09:06 C/HDL 2.8 3.7-6.7 Cholesterol 158 mg/dL 100-240 HDL 56 mg/dL 30-85 LDL-Calculated 88 mg/dL 0-100 Trig 72 mg/dL 35-160 VLDL 14 mg/dL 0-42 Thyroid Stimulating Hormone - 04/12/17 0 9:45 TSH 0.47 mIU/mL 0.32-5.00 Automated blood complete blood count (he mogram) panel - 07/20/17 08:01 Blood leukocytes automated count (number/volume) 6.9 10*3/uL 4.3-11.0 Blood erythrocytes automated count (number/volume) 4.31 10*6/uL 4.35-5.85 Venous blood hemoglobin measurement (mass/volume) 12.7 g/dL 11.5-16.0 Blood hematocrit (volume fraction) 38 % 35-52 Automated erythrocyte mean corpuscular volume 89 [ foz_us] 80-99 Automated erythrocyte mean corpuscular h emoglobin (mass per erythrocyte) 30 pg 25-34 Automated erythrocyte mean corpuscular h emoglobin concentration measurement (mass/volume) 33 g/dL 32-36 Automated erythrocyte distribution width ratio 13. 3 % 10.0- 14.5 Automated blood platelet count (count/volume) 213 10*3/uL 130-400 Automated blood platelet mean volume measurement 11.1 [foz_us] 7.4-10.4 Complete urinalysis with reflex to cultu re - 07/20/17 08:01 Urine color determination YELLOW NRG Urine clarity determination CLEAR NR G Urine pH measurement by test strip 5 5-9 Specific gravity of urine by test strip 1.020 1.016-1.022 Urine protein assay by test strip, semi-quantitative NEGATIVE NEGATIVE Urine glucose detection by automated test strip NE GATIVE NEGATIVE Erythrocytes detection in urine sediment by light micr oscopy 1+ NEGATIVE Urine ketones detection by automated test strip NE GATIVE NEGATIVE Urine nitrite detection by test strip NEGATIVE NEGATIVE Urine total bilirubin detection by test strip NEGA TIVE NEGATIVE Urine urobilinogen measurement by automated test strip (mass/volume) NORMAL NORMAL Urine leukocyte esterase detection by dipstick 2+ NEGATIVE Automated urine sediment erythrocyte cou nt by microscopy (number/high power field) RARE NRG Automated urine sediment leukocyte count by microscopy (number/high power field) [HPF] NRG Bacteria detection in urine sediment by light microsco py NEGATIVE NRG Squamous epithelial cells detection in u rine sediment by light microscopy 0-2 NRG Crystals detection in urine sediment by light microsco py NONE NRG Casts detection in urine sediment by light microscopy NONE NRG Mucus detection in urine sediment by light microscopy NEGATIVE NRG Complete urinalysis with reflex to culture NO NRG PT panel in platelet poor plasma by coag ulation assay - 07/20/17 08:01 Prothrombin time (PT) in platelet poor plasma by coagu lation assay 13.2 s 12.2-14.7 INR in platelet poor plasma or blood by coagulation as say 1.0 0.8-1.4 Activated partial thromboplastin time (a PTT) in platelet poor plasma bycoagulation assay - 07/20/17 08:01 Activated partial thromboplastin time (a PTT) in platelet poor plasma bycoagulation assay 35 s 24-35 Comprehensive metabolic panel - 07/20/17 08:01 Serum or plasma sodium measurement (moles/volume) 140 mmol/L 135-145 Serum or plasma potassium measurement (moles/volume) 3.7 mmol/L 3.6-5.0 Serum or plasma chloride measurement (moles/volume) 109 mmol/L 98-107 Carbon dioxide 23 mmol/L 21-32 Serum or plasma anion gap determination (moles/volume) 8 mmol/L 5-14 Serum or plasma urea nitrogen measurement (mass/volume ) 16 mg/dL 7-18 Serum or plasma creatinine measurement (mass/volume) 0.84 mg/dL 0.60-1.30 Serum or plasma urea nitrogen/creatinine mass ratio 19 NRG Serum or plasma creatinine measurement w ith calculation of estimated glomerular filtration rate > NRG Serum or plasma glucose measurement (mass/volume) 94 mg/dL 70-105 Serum or plasma calcium measurement (mass/volume) 9.0 mg/dL 8.5-10.1 Serum or plasma total bilirubin measurement (mass/volu me) 0.6 mg/dL 0.1-1.0 Serum or plasma alkaline phosphatase kathryn surement (enzymatic activity/volume) 108 U/L 40-136 Serum or plasma aspartate aminotransfera se measurement (enzymatic activity/volume) 22 U/L 5-34 Serum [...] Serum or plasma cholesterol in HDL measurement (mass/v olume) 44 mg/dL 40-60 Cholesterol in LDL [mass/volume] in serum or plasma by direct assay 99 mg/dL 1-129 Serum or plasma cholesterol in VLDL measurement (mass/ volume) 26 mg/dL 5-40 Methicillin resistant Staphylococcus aur eus (MRSA) screening culture - 07/20/17 08:01 Methicillin resistant Staphylococcus aureus (MRSA) scr eening culture NEG NRG Lipid Panel - 05/26/18 09:53 C/HDL 3.6 3.7-6.7 Cholesterol 190 mg/dL 100-240 HDL 53 mg/dL 30-85 LDL-Calculated 120 mg/dL 0-100 Trig 86 mg/dL 35-160 VLDL 17 mg/dL 0-42 Thyroid Stimulating Hormone - 07/05/18 1 0:51 TSH 2.48 mIU/mL 0.32-5.00 Cardiac Panel - 02/08/19 10:02 CK 116 U/L 26-174 CK-MB 2.7 ng/ml 0.0-9.2 Myoglobin 79.6 ng/ml 1.6-106.0 Troponin <0.020 ng/mL 0.0-0.4 Complete blood count (CBC) with automate d white blood cell (WBC) differential - 02/16/19 11:12 Blood leukocytes automated count (number/volume) 6.8 10*3/uL 4.3-11.0 Blood erythrocytes automated count (number/volume) 4.39 10*6/uL 4.35-5.85 Venous blood hemoglobin measurement (mass/volume) 12.8 g/dL 11.5-16.0 Blood hematocrit (volume fraction) 39 % 35-52 Automated erythrocyte mean corpuscular volume 89 [ foz_us] 80-99 Automated erythrocyte mean corpuscular h emoglobin (mass per erythrocyte) 29 pg 25-34 Automated erythrocyte mean corpuscular h emoglobin concentration measurement (mass/volume) 33 g/dL 32-36 Automated erythrocyte distribution width ratio 13. 9 % 10.0- 14.5 Automated blood platelet count (count/volume) 211 10*3/uL 130-400 Automated blood platelet mean volume measurement 11.7 [foz_us] 7.4-10.4 Automated blood neutrophils/100 leukocytes 59 % 42-75 Automated blood lymphocytes/100 leukocytes 27 % 12-44 Blood monocytes/100 leukocytes 9 % 0-12 Automated blood eosinophils/100 leukocytes 5 % 0-10 Automated blood basophils/100 leukocytes 1 % 0-10 Blood neutrophils automated count (number/volume) 4.0 10*3 1.8-7.8 Blood lymphocytes automated count (number/volume) 1.9 10*3 1.0-4.0 Blood monocytes automated count (number/volume) 0. 6 10*3 0.0-1.0 Automated eosinophil count 0.3 10*3/uL 0 .0-0.3 Automated blood basophil count (count/volume) 0.1 10*3/uL 0.0-0.1 PT panel in platelet poor plasma by coag ulation assay - 02/16/19 11:12 Prothrombin time (PT) in platelet poor plasma by coagu lation assay 12.9 s 12.2-14.7 INR in platelet poor plasma or blood by coagulation as say 0.9 0.8-1.4 Activated partial thromboplastin time (a PTT) in platelet poor plasma bycoagulation assay - 02/16/19 11:12 Activated partial thromboplastin time (a PTT) in platelet poor plasma bycoagulation assay 40 s 24-35 Comprehensive metabolic panel - 02/16/19 11:12 Serum or plasma sodium measurement (moles/volume) 137 mmol/L 135-145 Serum or plasma potassium measurement (moles/volume) 4.1 mmol/L 3.6-5.0 Serum or plasma chloride measurement (moles/volume) 108 mmol/L 98-107 Carbon dioxide 19 mmol/L 21-32 Serum or plasma anion gap determination (moles/volume) 10 mmol/L 5-14 Serum or plasma urea nitrogen measurement (mass/volume ) 26 mg/dL 7-18 Serum or plasma creatinine measurement (mass/volume) 1.38 mg/dL 0.60-1.30 Serum or plasma urea nitrogen/creatinine mass ratio 19 NRG Serum or plasma creatinine measurement w ith calculation of estimated glomerular filtration rate 37 NRG Serum or plasma glucose measurement (mass/volume) 95 mg/dL 70-105 Serum or plasma calcium measurement (mass/volume) 9.6 mg/dL 8.5-10.1 Serum or plasma total bilirubin measurement (mass/volu me) 0.6 mg/dL 0.1-1.0 Serum or plasma alkaline phosphatase kathryn surement (enzymatic activity/volume) 117 U/L 40-136 Serum or plasma aspartate aminotransfera se measurement (enzymatic activity/volume) 18 U/L 5-34 Serum or plasma alanine aminotransferase measurement (enzymatic activity/volume) 15 U/L 0-55 Serum or plasma protein measurement (mass/volume) 8.1 g/dL 6.4-8.2 Serum or plasma albumin measurement (mass/volume) 4.3 g/dL 3.2-4.5 CALCIUM CORRECTED 9.4 mg/dL 8.5-10.1 Serum or plasma troponin i.cardiac measu rement (mass/volume) - 02/16/19 11:12 Serum or plasma troponin i.cardiac measurement (mass/v olume) 0.042 ng/mL <0.028 Fibrin D-dimer FEU measurement in platel et poor plasma (mass/volume) - 02/16/19 11:12 Fibrin D-dimer FEU measurement in platelet poor plasma (mass/volume) 0.92 ug/mL 0.00-0.49 Capillary blood glucose measurement by g lucometer (mass/volume) - 02/16/19 11:27 Capillary blood glucose measurement by glucometer (mas s/volume) 91 mg/dL 70-110 Complete urinalysis with reflex to cultu re - 02/16/19 13:05 Urine color determination YELLOW NRG Urine clarity determination CLEAR NR G Urine pH measurement by test strip 6 5-9 Specific gravity of urine by test strip 1.010 1.016-1.022 Urine protein assay by test strip, semi-quantitative NEGATIVE NEGATIVE Urine glucose detection by automated test strip NE GATIVE NEGATIVE Erythrocytes detection in urine sediment by light micr oscopy NEGATIVE NEGATIVE Urine ketones detection by automated test strip NE GATIVE NEGATIVE Urine nitrite detection by test strip NEGATIVE NEGATIVE Urine total bilirubin detection by test strip NEGA TIVE NEGATIVE Urine urobilinogen measurement by automated test strip (mass/volume) NORMAL NORMAL Urine leukocyte esterase detection by dipstick NEG ATIVE NEGATIVE Automated urine sediment erythrocyte cou nt by microscopy (number/high power field) NONE NRG Automated urine sediment leukocyte count by microscopy (number/high power field) NONE NRG Bacteria detection in urine sediment by light microsco py NEGATIVE NRG Squamous epithelial cells detection in u rine sediment by light microscopy 0-2 NRG Crystals detection in urine sediment by light microsco py NONE NRG Casts detection in urine sediment by light microscopy NONE NRG Mucus detection in urine sediment by light microscopy NEGATIVE NRG Complete urinalysis with reflex to culture NO NRG Methicillin resistant Staphylococcus aur eus (MRSA) screening culture - 02/16/19 16:00 Methicillin resistant Staphylococcus aureus (MRSA) scr eening culture NEG NRG Complete blood count (CBC) with automate d white blood cell (WBC) differential - 02/17/19 03:55 Blood leukocytes automated count (number/volume) 8.0 10*3/uL 4.3-11.0 Blood erythrocytes automated count (number/volume) 4.10 10*6/uL 4.35-5.85 Venous blood hemoglobin measurement (mass/volume) 12.0 g/dL 11.5-16.0 Blood hematocrit (volume fraction) 36 % 35-52 Automated erythrocyte mean corpuscular volume 88 [ foz_us] 80-99 Automated erythrocyte mean corpuscular h emoglobin (mass per erythrocyte) 29 pg 25-34 Automated erythrocyte mean corpuscular h emoglobin concentration measurement (mass/volume) 33 g/dL 32-36 Automated erythrocyte distribution width ratio 13. 8 % 10.0- 14.5 Automated blood platelet count (count/volume) 226 10*3/uL 130-400 Automated blood platelet mean volume measurement 11.8 [foz_us] 7.4-10.4 Automated blood neutrophils/100 leukocytes 61 % 42-75 Automated blood lymphocytes/100 leukocytes 26 % 12-44 Blood monocytes/100 leukocytes 9 % 0-12 Automated blood eosinophils/100 leukocytes 4 % 0-10 Automated blood basophils/100 leukocytes 1 % 0-10 Blood neutrophils automated count (number/volume) 4.9 10*3 1.8-7.8 Blood lymphocytes automated count (number/volume) 2.0 10*3 1.0-4.0 Blood monocytes automated count (number/volume) 0. 7 10*3 0.0-1.0 Automated eosinophil count 0.3 10*3/uL 0 .0-0.3 Automated blood basophil count (count/volume) 0.1 10*3/uL 0.0-0.1 Comprehensive metabolic panel - 02/17/19 03:55 Serum or plasma sodium measurement (moles/volume) 141 mmol/L 135-145 Serum or plasma potassium measurement (moles/volume) 3.8 mmol/L 3.6-5.0 Serum or plasma chloride measurement (moles/volume) 113 mmol/L 98-107 Carbon dioxide 17 mmol/L 21-32 Serum or plasma anion gap determination (moles/volume) 11 mmol/L 5-14 Serum or plasma urea nitrogen measurement (mass/volume ) 16 mg/dL 7-18 Serum or plasma creatinine measurement (mass/volume) 0.94 mg/dL 0.60-1.30 Serum or plasma urea nitrogen/creatinine mass ratio 17 NRG Serum or plasma creatinine measurement w ith calculation of estimated glomerular filtration rate 58 NRG Serum or plasma glucose measurement (mass/volume) 95 mg/dL 70-105 Serum or plasma calcium measurement (mass/volume) 9.0 mg/dL 8.5-10.1 Serum or plasma total bilirubin measurement (mass/volu me) 0.5 mg/dL 0.1-1.0 Serum or plasma alkaline phosphatase kathryn surement (enzymatic activity/volume) 106 U/L 40-136 Serum or plasma aspartate aminotransfera se measurement (enzymatic activity/volume) 18 U/L 5-34 Serum or plasma alanine aminotransferase measurement (enzymatic activity/volume) 14 U/L 0-55 Serum or plasma protein measurement (mass/volume) 7.3 g/dL 6.4-8.2 Serum or plasma albumin measurement (mass/volume) 3.9 g/dL 3.2-4.5 CALCIUM CORRECTED 9.1 mg/dL 8.5-10.1 Serum or plasma phosphate measurement (m ass/volume) - 02/17/19 03:55 Serum or plasma phosphate measurement (mass/volume) 3.3 mg/dL 2.3-4.7 Magnesium - 02/17/19 03:55 Magnesium 1.8 mg/dL 1.8-2.4 Lipid 1996 panel - 02/17/19 03:55 Serum or plasma triglyceride measurement (mass/volume) 82 mg/dL <150 Serum or plasma cholesterol measurement (mass/volume) 135 mg/dL < 200 Serum or plasma cholesterol in HDL measurement (mass/v olume) 40 mg/dL 40-60 Cholesterol in LDL [mass/volume] in serum or plasma by direct assay 82 mg/dL 1-129 Serum or plasma cholesterol in VLDL measurement (mass/ volume) 16 mg/dL 5-40 Sed Rate - 02/27/19 10:43 Sed Rate 11 mm/hr 9-15 EKG - 04/25/19 17:08 EKG Complete Thyroid Stimulating Hormone - 10/01/19 0 9:16 TSH 0.76 mIU/mL 0.32-5.00 Protime - 10/07/19 15:47 INR 1.0 1.0-4.0 Protime 12.0 Sec 9.9-12.8 TYPE/SCREEN - 10/07/19 16:44 ABO/RH O POSITIVE ANTIBODY SCREEN NEGATIVE EKG - 10/07/19 16:59 EKG Complete CBC with Auto Diff - 10/07/19 21:00 Baso% 0.20 % 0.00-2.50 Eos 0.0 K/uL 0.0-0.7 Eos% 0.1 % 0.0-7.0 Hct 29.2 % 36.0-46.0 Hgb 9.3 g/dL 13.0-15.0 Lym 1.03 K/uL 0.60-3.40 Lym% 6.7 % 10.0-50.0 MCH 29.8 pg 27.0-31.0 MCHC 31.8 g/dL 32.0-36.0 MCV 93.6 fL 80.0-97.0 Schley% 1.7 % 0.0-12.0 MPV 10.9 fL 7.4-10.0 Clarisa% 91.3 % 37.0-80.0 Plt 229 K/uL 150-400 RBC 3.12 M/uL 3.60-5.00 RDW 13.5 % 11.6-14.8 WBC 15.36 K/uL 5.00-10.00 Clarisa 14.03 K/uL 2.00-6.90 Schley 0.3 K/uL 0.0-0.9 Baso 0.0 K/uL 0.0-0.2 [facility] - 10/08/19 07:00 Anion Gap 13 6-14 BUN 25 mg/dL 5-25 Calcium 8.1 mg/dL 8.3-10.4 Chloride 112 mmol/L 95-114 CO2 17 mEq/L 22-33 Creat 1.23 mg/dL 0.50-1.50 eGFR 42 mL/min/1.73m2 >59 Glucose 138 mg/dL 70-110 Osmo 291 280-295 Potassium 4.4 mmol/L 3.5-5.3 Sodium 138 mmol/L 134-148 Cardiac Panel - 10/08/19 12:28 CK 85 U/L 26-174 CK-MB 2.4 ng/ml 0.0-9.2 Myoglobin 172.7 ng/ml 1.6-106.0 Troponin <0.020 ng/mL 0.0-0.4 - 10/08/19 16:30 Hct 23.2 % 36.0-46.0 Hgb 7.4 g/dL 13.0-15.0 Cardiac Panel - 10/08/19 18:46 CK 123 U/L 26-174 CK-MB 2.9 ng/ml 0.0-9.2 Myoglobin 203.3 ng/ml 1.6-106.0 Troponin <0.020 ng/mL 0.0-0.4 EKG - 10/08/19 18:46 EKG Complete XM (2) [facility] - 10/08/19 18:49 CROSSMATCH COMPATIBLE X 2 Hct 23.2 % 36.0-46.0 Hgb 7.4 g/dL 13.0-15.0 Leukoreduced Packed RBC Unit Checkout - 10/08/19 18:49 LRPRBC Checkout Checked Out. Leukoreduced Packed RBC Unit Checkout - 10/08/19 23:37 LRPRBC Checkout Checked Out. [facility] - 10/09/19 05:36 Anion Gap 12 6-14 BUN 19 mg/dL 5-25 Calcium 8.3 mg/dL 8.3-10.4 Chloride 116 mmol/L 95-114 CO2 19 mEq/L 22-33 Creat 1.03 mg/dL 0.50-1.50 eGFR 52 mL/min/1.73m2 >59 Glucose 108 mg/dL 70-110 Osmo 298 280-295 Potassium 3.9 mmol/L 3.5-5.3 Sodium 143 mmol/L 134-148 Troponin I - 10/13/19 08:41 Troponin <0.020 ng/mL 0.0-0.4 Ova + Parasite Exam - 12/11/19 14:59 Ova + Parasite Exam Note Fecal Leukocyte - 12/11/19 14:59 Fecal Leukocyte Positive Negative Ova + Parasite Exam - 12/11/19 14:59 OVA + PARASITE EXAM FINAL REPORT RESULT 1 NO OVA, CYSTS, OR PARASITES SEEN..brONE NEGATIVE SPECIMEN DOES NOT RULE OUT THE POSSIBILITY OF A.brPARASITIC INFECTION. Stool Culture - 12/13/19 11:13 Stool Culture Note Stool Culture - 12/13/19 11:13 CAMPYLOBACTER CULTURE FINAL REPORT E COLI SHIGA TOXIN EIA NEGATIVE NEGATIV E RESULT 1 NO SALMONELLA OR SHIGELLA RECOVERED. Salmonella/Shigella Screen FINAL REPORT Result 1 NO CAMPYLOBACTER SPECIES ISOLATED. COVID19 - 12/26/19 09:00 COVID19 NEGATIVE test performed at [facility] - 12/31/19 09:35 Anion Gap 17 6-14 BUN 15 mg/dL 5-25 Calcium 9.1 mg/dL 8.3-10.4 Chloride 108 mmol/L 95-114 CO2 21 mEq/L 22-33 Creat 1.22 mg/dL 0.50-1.50 eGFR 43 mL/min/1.73m2 >59 Glucose 97 mg/dL 70-110 Osmo 294 280-295 Potassium 3.7 mmol/L 3.5-5.3 Sodium 142 mmol/L 134-148 Encounters ACCT No. Visit Date/Time Discharge Status Pt. 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, UNCONTROLLED HTN [id number] 11/27/2018 07:28:00 04/08/2 019 23:59:59 CLS Outpatient GIULIA WEBB [facility] CARD CAD, HYPERT ENSION [id number] 11/22/2018 11:20:00 019 23:59:59 CLS Outpatient GIULIA WEBB [facility] CARD CAD, HYPERT ENSION [id number] 11/16/2018 10:10:00 019 23:59:59 CLS Outpatient GIULIA WEBB [facility] RAD CAD [id number] 07/20/2017 07:33:00 017 16:30:00 DIS Outpatient NGHIA COOPER MD [facility] CATH JESE,HTN,HLP [id number] 03/02/2017 09:28:00 017 23:59:59 CLS Outpatient NGHIA COOPER MD [facility] RAD I25.10 CAD [id number] 12/16/2016 07:49:00 017 23:59:59 CLS Outpatient NGHIA COOPER MD [facility] RAD I25.10 [id number] 11/19/2016 12:09:00 017 23:59:59 CLS Outpatient NGHIA COOPER MD [facility] CARD CHEST PAIN SYNDROME,HTN ,HLP [id number] 11/17/2016 07:15:00 017 23:59:59 CLS Outpatient NGHIA COOPER MD [facility] CARD CHEST PAIN SYNDROME,HTN ,HLP [id number] 05/22/2015 10:00:00 015 23:59:59 CLS Preadmit ANNIE HOROWITZ DO, V [facility] PREOP CYSTOCELE [id number] 04/24/2015 09:34:00 015 00:01:00 DIS Outpatient ANNIE HOROWITZ DO [facility] PREOP CYSTOCELE [id number] 04/29/2015 07:45:00 015 09:25:00 DIS Outpatient HOROWITZ ANNIE THURSTON Marisabel [facility] CYSTOCELE [id number] 01/28/2015 06:08:00 015 09:30:00 DIS Outpatient ANNIE HOROWITZ DO Marisabel [facility] CYSTOCELE [id number] 01/24/2015 10:23:00 23:59:59 CLS Outpatient HOROWITZ DOANNIE Marisabel [facility] PREOP CYSTOCELE [id number] 07/10/2013 13:50:00 013 23:59:59 CLS Outpatient GREGORY BROWN APRN [facility] RAD 6 MONTH FOLLOW UP [id number] 01/12/2013 08:25:00 23:59:59 CLS Outpatient MANDEEP SUMMERS DO [facility] RAD [id number] 01/31/2015 09:11:00 Document Registration [id number] 01/31/2015 09:10:00 Document Registration [id number] 01/31/2015 09:10:00 Document Registration [id number] 06/29/2012 07:04:00 Document Registration [id number] 03/21/2012 14:24:00 Document Registration [id number] 03/09/2012 13:34:00 Document Registration [id number] 03/17/2011 09:28:00 Document Registration [id number] 09/07/2010 14:55:00 Document Registration [id number] 05/27/2010 11:18:00 Document Registration [id number] 12/26/2019 08:55:00 12/26/2019 23:59 :00 DIS Outpatient Ilan Ramey [id number] 12/26/2019 08:30:00 12/26/2019 23:59 :00 DIS Outpatient Mandeep Summers [id number] 12/19/2019 13:32:00 12/19/2019 23:59 :00 DIS Outpatient Mandeep Summers [id number] 12/15/2019 09:58:00 12/15/2019 11:00 :00 DIS Outpatient Paulo [facility] [id number] 12/13/2019 11:12:00 12/13/2019 23:59 :00 DIS Outpatient PaoniMandeep [id number] 12/13/2019 11:11:00 12/13/2019 23:59 :00 DIS Outpatient Paoni, Mandeep [id number] 12/11/2019 14:53:00 12/11/2019 23:59 :00 DIS Outpatient Paoni, Mandeep [id number] 10/29/2019 09:59:00 10/29/2019 10:04 :00 DIS Outpatient Jared, Diane [id number] 10/27/2019 09:33:00 10/27/2019 09:45 :00 DIS Outpatient Jared, Diane [id number] 10/26/2019 09:33:00 10/26/2019 09:48 :00 DIS Outpatient Jared, Diane [id number] 10/25/2019 08:56:00 10/25/2019 09:10 :00 DIS Outpatient Jared, Diane [id number] 10/24/2019 09:42:00 10/24/2019 09:47 :00 DIS Outpatient Jared, Diane [id number] 10/23/2019 09:10:00 10/23/2019 09:20 :00 DIS Outpatient Jared, Diane [id number] 10/22/2019 08:59:00 10/22/2019 09:07 :00 DIS Outpatient Jared, Diane [id number] 10/21/2019 09:41:00 10/21/2019 09:55 :00 DIS Outpatient Jared, Diane [id number] 10/20/2019 09:37:00 10/20/2019 09:50 :00 DIS Outpatient Jared, Diane [id number] 10/19/2019 10:10:00 10/19/2019 10:25 :00 DIS Outpatient Jared, Diane [id number] 10/18/2019 10:20:00 10/18/2019 10:42 :00 DIS Outpatient Jared, Diane [id number] 10/17/2019 09:01:00 10/17/2019 09:30 :00 DIS Outpatient Jared, Diane [id number] 10/17/2019 08:56:00 10/17/2019 08:56 :00 CAN Outpatient Jared, Diane [id number] 10/16/2019 08:53:00 10/16/2019 09:15 :00 DIS Outpatient Diane Coleman [id number] 10/15/2019 09:29:00 10/15/2019 09:50 :00 DIS Outpatient Michele Colemanmaritza [id number] 10/14/2019 10:03:00 10/14/2019 10:25 :00 DIS Outpatient Diane Coleman [id number] 10/13/2019 08:22:00 10/13/2019 10:00 :00 DIS Outpatient Jefe Mae [id number] 10/12/2019 09:22:00 10/12/2019 09:55 :00 DIS Outpatient JaredMichele swensonmaritza [id number] 10/11/2019 13:39:00 10/11/2019 23:59 :00 DIS Outpatient PaMandeep garza [id number] 10/11/2019 09:13:00 10/11/2019 09:25 :00 DIS Outpatient JaredMichele swensonmaritza [id number] 10/10/2019 08:06:00 10/10/2019 08:25 :00 [id number] 10/07/2019 15:12:00 10/09/2019 09:30 :00 DIS Outpatient Jared [facility] ICU [id number] 10/01/2019 13:35:00 10/01/2019 23:59 :00 DIS Outpatient Paoni, Mandeep [id number] 10/01/2019 09:08:00 10/01/2019 23:59 :00 DIS Outpatient Paoni, Mandeep [id number] 09/04/2019 10:56:00 09/04/2019 23:59 :00 DIS Outpatient Paoni, Mandeep [id number] 06/21/2019 14:47:00 06/21/2019 23:59: 00 DIS Outpatient Paoni, Mandeep [id number] 04/25/2019 16:40:00 04/25/2019 18:00: 00 [facility] [id number] 02/27/2019 10:24:00 02/27/2019 23:59: 00 DIS Outpatient Paoni, Mandeep [id number] 02/08/2019 09:05:00 02/08/2019 23:59: 00 DIS Outpatient Paoni, Mandeep [id number] 12/19/2018 13:34:00 12/19/2018 23:59: 00 DIS Outpatient Mandeep Summers [id number] 07/25/2018 15:07:00 07/25/2018 23:59: 00 DIS Outpatient SHAWNEE ESCALANTE [id number] 07/05/2018 10:48:00 07/05/2018 23:59: 00 DIS Outpatient Mandeep Summers [id number] 05/26/2018 09:48:00 05/26/2018 23:59: 00 DIS Outpatient Mandeep Summers [id number] 12/15/2017 10:26:00 12/15/2017 23:59: 00 DIS Outpatient Mandeep Summers [id number] 09/16/2017 10:04:00 10/05/2017 15:35: 00 DIS Outpatient Mandeep Summers [id number] 04/12/2017 09:42:00 04/12/2017 23:59: 00 DIS Outpatient Mandeep Summers [id number] 10/27/2016 09:03:00 10/27/2016 23:59: 00 DIS Outpatient Mandeep Summers [id number] 10/26/2016 10:18:00 10/26/2016 23:59: 00 DIS Outpatient Mandeep Summers [id number] 12/25/2019 10:32:12 Document Registration [id number] 11/05/2019 16:17:12 Document Registration [id number] 10/07/2019 15:44:44 Document Registration [id number] 10/07/2019 15:40:42 Document Registration [id number] 02/20/2019 09:41:00 Document Registration [id number] 02/08/2019 07:54:00 Document Registration [id number] 12/19/2018 12:46:00 Document Registration [id number] 07/05/2018 10:07:00 Document Registration [id number] 10/12/2017 13:00:00 Document Registration
[2020-01-01] MEDS ORDERED: PATIENT MAY USE OWN MEDS, ALL PO SCH ×2 (02:00→09:45)
[2020-01-01] MEDS ORDERED: NS IV 1000 ML 1,000 ML IV SCH ×2 (02:00→09:42)
[2020-01-01] MEDS ORDERED: NITROGLYCERIN 0.4 MG SL TABS BTL 25'S SL PRN (02:30)
[2020-01-01] MEDS ORDERED: NITROGLYCERIN DRIP 25 MG/250 ML D5W (PRE-MIX) IV SCH (02:30)
--- NOTE | 2020-01-01 03:21 | NUR ---
PT POOR HISTORIAN. UNABLE TO GET ALL ADMISSION INFORMATION.
[2020-01-01 03:49] LABS: BASOPHILS % (AUTO) 0 % (0-10); EOSINOPHILS % (AUTO) 0 % (0-10); HEMATOCRIT 34 % (35-52); HEMOGLOBIN 11.1 G/DL (11.5-16.0); LYMPHOCYTES # (AUTO) 0.9 X 10^3 (1.0-4.0); LYMPHOCYTES % (AUTO) 4 % (12-44); MEAN CORPUSCULAR HEMOGLOBIN 28 PG (25-34); MEAN CORPUSCULAR HGB CONC 33 G/DL (32-36); MEAN CORPUSCULAR VOLUME 87 FL (80-99); MEAN PLATELET VOLUME 10.6 FL (7.4-10.4); MONOCYTES # (AUTO) 0.5 X 10^3 (0.0-1.0); MONOCYTES % (AUTO) 2 % (0-12); NEUTROPHILS # (AUTO) 19.8 X 10^3 (1.8-7.8); NEUTROPHILS % (AUTO) 93 % (42-75); PLATELET COUNT 389 10^3/uL (130-400); RED CELL DISTRIBUTION WIDTH 14.1 % (10.0-14.5); WHITE BLOOD COUNT 21.3 10^3/uL (4.3-11.0)
[2020-01-01 04:06] LABS: POTASSIUM 3.8 MMOL/L (3.6-5.0)
[2020-01-01 04:07] LABS: CALCIUM 8.7 MG/DL (8.5-10.1)
[2020-01-01 04:11] LABS: PHOSPHORUS 3.8 MG/DL (2.3-4.7)
[2020-01-01 04:12] LABS: CREATININE SERUM 1.21 MG/DL (0.60-1.30)
[2020-01-01 04:14] LABS: INR 1.1 (0.8-1.4); MAGNESIUM 1.5 MG/DL (1.6-2.4); PROTHROMBIN TIME PATIENT 15.1 SEC (12.2-14.7)
[2020-01-01 05:08] LABS: LYMPHOCYTES % (MANUAL) 4 %; MONOCYTES % (MANUAL) 4 %; NEUTROPHILS % (MANUAL) 92 %; RBC MORPH NORMAL
[2020-01-01] MEDS: POTASSIUM CL 10MEQ/50ML IVPB 50 ML IV SCH (05:11)
[2020-01-01] MEDS: MAGNESIUM 1 GM/100 ML IVPB 100 ML IV SCH ×3 (05:12→05:24)
[2020-01-01] MEDS: KCL 20 MEQ TAB (K-DUR) PO SCH (05:12)
[2020-01-01] MEDS: LEVOTHYROXINE 100 MCG (LEVOTHROID) TAB PO SCH (05:23)
--- NOTE | 2020-01-01 06:09 | Pulmonary Consultation ---
History of Present Illness History of Present Illness Date Seen by Provider: January 01, 2020 Time Seen by Provider: 06:03 Date of Admission History of Present Illness 79yo s/p recent colonoscopy at [facility] per Dr. Ramey presented secondary to SOB, intermittent CP and abdominal pain. Pt was found to have elevated troponin. No fever or chills. No N/V/D. Per RN pt had negative CT of abd at [facility]. No prior episodes like this. I am consulted for ICU management. Allergies and Home Medications Allergies Coded Allergies: cyclobenzaprine (Unverified Allergy, Unknown, UNKNOWN, 01/01/20) Home Medications Acetaminophen/Diphenhydramine 1 Each Tablet, 1 TAB PO HS PRN for SLEEP, (Reported) Atorvastatin Calcium 20 Mg Tablet, 20 MG PO 1800, (Reported) Citalopram Hydrobromide 20 Mg Tablet, 20 MG PO 1800, (Reported) Clonidine HCl 0.1 Mg Tablet, 0.1 MG PO DAILY, (Reported) Clopidogrel Bisulfate 75 Mg Tablet, 75 MG PO DAILY Prescribed by: BOB HERNANDEZ on 02/18/19 0832 Cyanocobalamin (Vitamin B-12) 2,000 Mcg Tablet, 2,000 MCG PO DAILY, (Reported) Diltiazem HCl 300 Mg Cap.er.24h, 300 MG PO DAILY, (Reported) Levothyroxine Sodium 100 Mcg Tablet, 100 MCG PO DAILY, (Reported) Losartan Potassium 100 Mg Tablet, 100 MG PO DAILY, (Reported) [place]-3/Dha/Epa/Fish Oil 1 Each Capsule, 1 CAP PO DAILY, (Reported) Past Rxzxvge-Txtowp-Ixqcer Hx Patient Social History Alcohol Use: Denies Use Recreational Drug Use: No Recent Foreign Travel: No Recent Hopitalizations: No Immunizations Up To Date Date of Pneumonia Vaccine: Jan 20, 2015 Date of Influenza Vaccine: Jun 08, 2017 Seasonal Allergies Seasonal Allergies: No Past Medical History Surgeries: Yes Lobectomy, Thyroidectomy Respiratory: No Cardiac: Yes High Cholesterol, Hypertension Neurological: No Reproductive Disorders: No Female Reproductive Disorders: Denies Sexually Transmitted Disease: No HIV/AIDS: No Gastrointestinal: No Musculoskeletal: Yes (SEVERAL FX RIBS AND SHOULDER DISLOCATION) Osteoporosis, Arthritis, Fractures Endocrine: Yes Hypothyroidsim Cataract Loss of Vision: Bilateral Hearing Impairment: Denies Cancer: Yes (BREAST-LUMPECTOMY, THYROID) Breast, Thyroid Psychosocial: Yes (TAKES MEDS) Depression Integumentary: No Blood Disorders: No Adverse Reaction/Blood Tranf: No Family Medical History Arthritis 19 FATHER 19 MOTHER Cardiovascular disease 19 FATHER Cataracts 19 MOTHER Dementia 19 FATHER Hypertension 19 MOTHER Myocardial infarction 19 FATHER Thyroid disease 19 MOTHER No Family History of: AIDS Alcoholism Alzheimer's disease Asthma Colon cancer Completed stroke Diabetes mellitus Drug abuse Glaucoma Kidney disease Parkinson's disease Prostate cancer Psychosocial problem Respiratory disorder Seizure disorder Severe allergy Tuberculosis Review of Systems Time Seen by Provider: 06:14 Constitutional: Weakness, Malaise; No: Fever, Chills, Sweats, Other Eyes: No: Pain, Vision change, Conjunctivae inflammation, Eyelid inflammation, Other, Redness ENT: No: Ear pain, Ear discharge, Nose pain, Nose discharge, Nose congestion, Mouth pain, Mouth swelling, Throat pain, Throat swelling, Other Respiratory: Cough, Dry, Shortness of breath, SOB with excertion; No: Wheezing, Hemoptysis Cardiovascular: Chest Pain, Palpitations, Paroxysmal Noc. Dyspnea, Lt Headedness Gastrointestinal: Nausea; No: Vomiting, Abdominal Pain, Diarrhea, Constipation, Melena, Hematochezia, Other Sepsis Event Evaluation Height, Weight, BMI Height: 5'0.00" Weight: 163lbs. 7.4oz. 74.839827km; 24.04 BMI Method:Stated Exam Exam Vital Signs Date Time Temp Pulse Resp B/P (MAP) Pulse Ox O2 Delivery O2 Flow Rate FiO2 01/01/20 03:30 Room Air 01/01/20 03:19 36.9 01/01/20 03:00 97 20 133/98 (110) 91 Nasal Cannula 3.00 01/01/20 02:46 98 138/97 01/01/20 02:00 94 22 144/87 (106) 95 Nasal Cannula 3.00 01/01/20 01:00 100 01/01/20 01:00 99 13 149/96 (113) 92 Nasal Cannula 3.00 01/01/20 00:45 94 16 146/93 (110) 95 Nasal Cannula 3.00 01/01/20 00:30 96 26 131/93 (106) 95 Nasal Cannula 3.00 01/01/20 00:15 94 10 145/94 (111) 99 Nasal Cannula 3.00 01/01/20 00:10 Room Air 01/01/20 00:05 36.8 Height & Weight Height: 5'0.00" Weight: 163lbs. 7.4oz. 74.188492iy; 24.04 BMI Method:Stated General Appearance: No Apparent Distress, WD/WN HEENT: PERRL/EOMI, TMs Normal, Normal ENT Inspection, Pharynx Normal Neck: Full Range of Motion, Normal Inspection, Non Tender, Supple Respiratory: Chest Non Tender, Lungs Clear, Normal Breath Sounds, No Accessory Muscle Use, No Respiratory Distress Cardiovascular: Regular Rate, Rhythm, No Edema, No Gallop Capillary Refill: Less Than 3 Seconds Gastrointestinal: normal bowel sounds, non tender, soft Extremity: Normal Capillary Refill, Normal Inspection, No Pedal Edema Neurologic/Psychiatric: Alert, Oriented x3 Skin: Normal Color, Warm/Dry Lymphatic: No Adenopathy Results Lab Laboratory Tests 01/01/20 03:15 Assessment/Plan Assessment/Plan CP with NSTEMI -Cardiology following -Currently on Nitro gtt -Probable cath today Sepsis -CT of abd at [facility] is reported as negative -Obtain report -Check LA -Start Zosyn -Give liter bolus of LR then run at 150cc/hr (pt had 2 liters at [facility]) -Check gray cultures Anion gapped metabolic acidosis -Check LA Metabolic encephalopathy/severe confusion -Check ABG Check CMP -Check ammonia level OCTAVIO STANFORD DO January 01, 2020 06:08
[2020-01-01] MEDS ORDERED: LACTATED RINGERS 1,000 ML IV SCH ×2 (06:15→08:30)
[2020-01-01] MEDS ORDERED: ONDANSETRON 4 MG/2 ML (SDV) Z0FRAN IVP PRN (06:15)
--- NOTE | 2020-01-01 06:27 | Progress Note ---
Progress Note 79yoWF clinic patient of Dr Summers at [facility] came to [facility] ER with weakness following Dr Ramey colonoscopy performed to evaluate weight loss. I spoke to Dr Ramey who noted severe diverticulosis but no mass or source of wt loss. I assessed the patient to be slightly confused and obtained no detailed PMH from her. 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 I checked ABG and PaO2 67 but nl PH. Potassium 3.1 so I gave IV potassium and Mag. WBC 14k but CXR normal and no free air on xray. 2 hours after admitted to ICU patient reported mild chest pain and EKG obtained revealed RBBB and some subtle abnl but no major abnl compared to prior EKG. Troponin drawn which revealed 4.[address] Rogers Plavix 300mg PO once and ASA 4 ASA 81mg chewed Toprol 50mg XL given for SBP 150 and HR 99 and Lovenox 1mg/sq given prior to transport I updated RN on status. YAHIR RAMIREZ DO January 01, 2020 06:27
[2020-01-01] MEDS ORDERED: PIPERACILLIN/TAZO 4.5 GM/NS 100 ML IV ONE ×2 (06:45)
--- NOTE | 2020-01-01 06:52 | Diagnostic Imaging Report ---
INDICATION: Myocardial infarction COMPARISON: 02/17/2019 FINDINGS: Single frontal view of the chest demonstrates normal heart size and pulmonary vascularity. The lungs show minimal bibasilar airspace opacities suggestive of atelectasis. There is no large effusion or pneumothorax. Osseous structures show no gross acute abnormalities. IMPRESSION: 1. Minimal bibasilar airspace disease suspicious for atelectasis. Dictated by: Dictated on workstation # [id number]
[2020-01-01 06:53] LABS: ABG BASE EXCESS -7.6 MMOL/L (-2.5-2.5); ABG OXYGEN SATURATION 92 % (94-100); ABG PCO2 25 MMHG (35-45); ABG PH 7.43 (7.37-7.43); ABG PO2 63 MMHG (79-93); ABG TCO2 16.7 MMOL/L (21.0-31.0)
[2020-01-01 06:54] LABS: ALLENS TEST POSITIVE; PATIENT TEMP 36.9; VENTILATOR NO
[2020-01-01] MEDS: LACTATED RINGERS 1,000 ML IV SCH ×4 (06:56→19:44)
[2020-01-01 07:11] LABS: ALBUMIN 3.5 GM/DL (3.2-4.5); POTASSIUM 3.7 MMOL/L (3.6-5.0)
[2020-01-01 07:12] LABS: CALCIUM 8.2 MG/DL (8.5-10.1)
[2020-01-01 07:13] LABS: TOTAL PROTEIN 6.6 GM/DL (6.4-8.2)
[2020-01-01 07:15] LABS: BILIRUBIN,TOTAL 0.7 MG/DL (0.1-1.0)
[2020-01-01 07:17] LABS: CREATININE SERUM 1.21 MG/DL (0.60-1.30)
[2020-01-01] MEDS ORDERED: NS IV 1000 ML 0 ML ONE (08:07)
[2020-01-01] MEDS ORDERED: HEParin (CATH LAB) 2,000 ML IV ONE (08:07)
[2020-01-01] MEDS ORDERED: LIDOCAINE 1% INJ 20 ML 20 ML VIAL ONE (08:07)
--- NOTE | 2020-01-01 08:37 | Consultation-Cardiology ---
HPI-Cardiology Cardiology Consultation: Date of Consultation 01/01/20 Time Seen by a Provider: 08:00 Date of Admission Attending Physician Adore Abel DO Admitting Physician Mandeep Summers DO Consulting Physician JASON BACH MD, FACP, FACC HPI: Chief Complaint: CC: Chest discomfort HPI 79 yo woman who developed intermittent chest discomfort after endoscopy yesterday at [facility] and was transferred to this hosp to Dr Abel's service. Had recurrent chest pain during the night that required iv nitro and troponin has increased. Some shortness of breath and gen malaise. No focal weakness or seizure. No fever or chills. No N/V/D Review of Systems-Cardiology Review of Systems Constitutional: As described under HPI Eyes: No vision change Ears/Nose/Throat: No ear discharge, No nasal drainage, No recent hearing loss Respiratory: As described under HPI Cardiovascular: As described under HPI Gastrointestinal: As described under HPI Genitourinary: No dysuria, No hematuria, No urine frequency changes Musculoskeletal: No back pain, No joint pain Skin: No rash, No ulcerations Psychiatric/Neurological: No seizure, No focal weakness, No syncope Hematologic: No bleeding abnormalities [id number]-Ulolha Hx Patient Social History Alcohol Use: Denies Use Recreational Drug Use: No Recent Foreign Travel: No Hospitalization with Isolation: Denies Physical Abuse Screen: No Sexual Abuse: No Immunizations Up To Date Date of Pneumonia Vaccine: Jan 20, 2015 Date of Influenza Vaccine: Jun 08, 2017 Past Medical History PMH As described under Assessment. Family Medical History Family History: Arthritis 19 FATHER 19 MOTHER Cardiovascular disease 19 FATHER Cataracts 19 MOTHER Dementia 19 FATHER Hypertension 19 MOTHER Myocardial infarction 19 FATHER Thyroid disease 19 MOTHER No Family History of: AIDS Alcoholism Alzheimer's disease Asthma Colon cancer Completed stroke Diabetes mellitus Drug abuse Glaucoma Kidney disease Parkinson's disease Prostate cancer Psychosocial problem Respiratory disorder Seizure disorder Severe allergy Tuberculosis Allergies and Home Medications Allergies Coded Allergies: cyclobenzaprine (Unverified Allergy, Unknown, UNKNOWN, 01/01/20) Home Medications Acetaminophen/Diphenhydramine 1 Each Tablet, 1 TAB PO HS PRN for SLEEP, (Reported) Atorvastatin Calcium 20 Mg Tablet, 20 MG PO 1800, (Reported) Citalopram Hydrobromide 20 Mg Tablet, 20 MG PO 1800, (Reported) Clonidine HCl 0.1 Mg Tablet, 0.1 MG PO DAILY, (Reported) Clopidogrel Bisulfate 75 Mg Tablet, 75 MG PO DAILY Prescribed by: BOB HERNANDEZ on 02/18/19 0832 Cyanocobalamin (Vitamin B-12) 2,000 Mcg Tablet, 2,000 MCG PO DAILY, (Reported) Diltiazem HCl 300 Mg Cap.er.24h, 300 MG PO DAILY, (Reported) Levothyroxine Sodium 100 Mcg Tablet, 100 MCG PO DAILY, (Reported) Losartan Potassium 100 Mg Tablet, 100 MG PO DAILY, (Reported) [place]-3/Dha/Epa/Fish Oil 1 Each Capsule, 1 CAP PO DAILY, (Reported) Patient Home Medication List Home Medication List Reviewed: Yes Physical Exam-Cardiology Physical Exam Vital Signs/I&O 01/01/20 01/01/20 01/01/20 01/01/20 00:05 00:10 00:15 00:30 Temp 36.8 Pulse 94 96 Resp 10 26 B/P (MAP) 145/94 (111) 131/93 (106) Pulse Ox 99 95 O2 Delivery Room Air Nasal Cannula Nasal Cannula O2 Flow Rate 3.00 3.00 01/01/20 01/01/20 01/01/20 01/01/20 00:45 01:00 01:00 02:00 Pulse 94 99 100 94 Resp 16 13 22 B/P (MAP) 146/93 (110) 149/96 (113) 144/87 (106) Pulse Ox 95 92 95 O2 Delivery Nasal Cannula Nasal Cannula Nasal Cannula O2 Flow Rate 3.00 3.00 3.00 01/01/20 01/01/20 01/01/20 01/01/20 02:46 03:00 03:19 03:30 Temp 36.9 Pulse 98 97 Resp 20 B/P (MAP) 138/97 133/98 (110) Pulse Ox 91 O2 Delivery Nasal Cannula Room Air O2 Flow Rate 3.00 01/01/20 01/01/20 01/01/20 01/01/20 04:00 05:00 06:00 07:00 Pulse 90 96 91 91 Resp 27 25 27 B/P (MAP) 136/84 (101) 126/72 (90) 136/90 (105) Pulse Ox 92 93 94 O2 Delivery Nasal Cannula Nasal Cannula Nasal Cannula O2 Flow Rate 3.00 3.00 3.00 01/01/20 01/01/20 01/01/20 07:00 08:00 08:00 Temp 36.6 Pulse 86 85 Resp 28 23 B/P (MAP) 124/86 (99) 109/56 (73) Pulse Ox 92 91 O2 Delivery Nasal Cannula Nasal Cannula O2 Flow Rate 3.00 3.00 Capillary Refill : Less Than 3 Seconds Constitutional: AAO x 3 (She is reported to be intermittently confused but was alert and oriented at the time of my exam), well-developed, well-nourished HEENT: EOMI, hearing is well preserved, xanthelasmas are seen Neck: carotid pulses are 2 + bilaterally, with good upstrokes Respiratory: No accessory muscle use; other (good bilat) Cardiovascular: regular rate-rhythm, S1 and S2, systolic murmur (soft JONNY at card base) Gastrointestinal: No tender; soft; No guarding, No rebound; audible bowel sounds Extremities: No clubbing, No cyanosis, No significant edema Neurologic/Psychiatric: oriented x 3, other; No grossly intact Skin: No rash on exposed areas, No ulcerations on exposed areas Data Review Labs Laboratory Tests 01/01/20 03:15: White Blood Count 21.3H, Red Blood Count 3.94L, Hemoglobin 11.1L, Hematocrit 34L , Mean Corpuscular Volume 87, Mean Corpuscular Hemoglobin 28, Mean Corpuscular Hemoglobin Concent 33, Red Cell Distribution Width 14.1, Platelet Count 389, Mean Platelet Volume 10.6H, Neutrophils (%) (Auto) 93H, Lymphocytes (%) (Auto) 4L, Monocytes (%) (Auto) 2, Eosinophils (%) (Auto) 0, Basophils (%) (Auto) 0, Neutrophils # (Auto) 19.8H, Lymphocytes # (Auto) 0.9L, Monocytes # (Auto) 0.5, Eosinophils # (Auto) 0.0, Basophils # (Auto) 0.0, Neutrophils % (Manual) 92, Lymphocytes % (Manual) 4, Monocytes % (Manual) 4, Blood Morphology Comment NORMAL, Prothrombin Time 15.1H, INR Comment 1.1, Activated Partial Thromboplast Time 51H, Sodium Level 143, Potassium Level 3.8, Chloride Level 109H, Carbon Dioxide Level 15L, Anion Gap 19H, Blood Urea Nitrogen 13, Creatinine 1.21, Estimat Glomerular Filtration Rate 43, BUN/Creatinine Ratio 11, Glucose Level 157H, Calcium Level 8.7, Phosphorus Level 3.8, Magnesium Level 1.5L, Myoglobin 596.7H, Troponin I 8.543*H 01/01/20 06:30: Sodium Level 140, Potassium Level 3.7, Chloride Level 107, Carbon Dioxide Level 16L, Anion Gap 17H, Blood Urea Nitrogen 14, Creatinine 1.21, Estimat Glomerular Filtration Rate 43, BUN/Creatinine Ratio 12, Glucose Level 176H, Calcium Level 8.2L, Lactic Acid Level 2.29*H, Corrected Calcium 8.6, Total Bilirubin 0.7, Aspartate Amino Transf (AST/SGOT) 44H, Alanine Aminotransferase (ALT/SGPT) 10, Alkaline Phosphatase 84, Ammonia 13, Total Protein 6.6, Albumin 3.5, Procalcitonin 5.79H 01/01/20 06:45: Blood Gas Puncture Site RIGHT RADIAL, Blood Gas Patient Temperature 36.9, Arterial Blood pH 7.43, Arterial Blood Partial Pressure CO2 25L, Arterial Blood Partial Pressure O2 63L, Arterial Blood HCO3 16*L, Arterial Blood Total CO2 16.7L, Arterial Blood Oxygen Saturation 92L, Arterial Blood Base Excess -7.6L, Pietro Test POSITIVE, Blood Gas Ventilator Setting NO, Blood Gas Inspired Oxygen UNK 01/01/20 07:05: A/P-Cardiology Assessment/Admission Diagnosis Ac NSTEMI with continuing unstable angina (currently on iv NTG) Probable sepsis of undetermined etiology, managed by Med and ICU svces Chronic anemia of undetermined etiology, managed by Med svce Discussion and Recomendations * Urgent cath recommended due to NSTEMI with post-infarction angina * Procedure, risks, benefits, potential complications and alternatives discussed with the patient. She seems to understand and wishes to proceed. Has requested that we call the , too. Her nurse spoke with the . He informed us that her primary professional fee coder is Dr Abraham. I spoke with Dr Abraham personally who has asked me to proceed because he won't be able do the card cath at this time. We have informed the and will proceed if consent is granted * I discussed the case with Dr Able on the phone Clinical Quality Measures DVT/VTE Risk/Contraindication: Risk Factor Score Per Nursin RFS Level Per Nursing on Admit: 3=High JASON BACH MD FACP FAC CCDS January 01, 2020 08:37
[2020-01-01] MEDS ORDERED: MIDAZOLAM 5 MG/5 ML (VERSED) VIAL ONE (08:42)
[2020-01-01] MEDS ORDERED: fentaNYL INJECTION 100 MCG/2 ML AMP ONE (08:42)
--- NOTE | 2020-01-01 08:51 | Cardiac Procedure Note-CS/ASA ---
Pre-Procedure Note Pre-Op Procedure Note H&P Reviewed The H&P was reviewed, patient examined and no changes noted. Date H&P Reviewed: January 01, 2020 Time H&P Reviewed: 08:51 Conscious Sedation Pre-Proced Time 08:51 ASA Score 3 For ASA 3 and 4: Consider anesthesia and medical clearance. Also, for patients with a history of failed moderate sedation consider anesthesia. Airway Lungs Heart ASA score ASA 1: a normal healthy patient ASA 2: a patient with a mild systemic disease (mid diabetes, controlled hypertension, obesity ASA 3: a patient with a severe systemic disease that limits activity (angina, COPD, prior Myocardial infarction) ASA 4: a patient with an incapacitating disease that is a constant threat to life (CHF, renal failure) ASA 5: a moribund patient not expected to survive 24 hrs. (ruptured aneurysm) ASA 6: a declared brain- patient whose organs are being harvested. For emergent operations, add the letter E after the classification Mallampati Classification Grade 2 Sedation Plan Analgesia, Amnesia, Plan communicated to team members, Discussed options with patient/fam, Discussed risks with patient/fam The patient is an appropriate candidate to undergo the planned procedure, sedation, and anesthesia. The patient immediately re-assessed prior to indication. JASON BACH MD FACP FAC CCDS January 01, 2020 08:51
[2020-01-01] MEDS ORDERED: ENOXAPARIN 80 MG/0.8 ML (LOVENOX) SYR SC SCH (09:00)
[2020-01-01] MEDS ORDERED: ENOXAPARIN 60 MG/0.6 ML (LOVENOX) SYR SC SCH (09:00)
[2020-01-01] MEDS ORDERED: HEParin 1000 UNIT/ML (10ML VIAL) FOR BOLUS ONE (09:02)
[2020-01-01] MEDS ORDERED: ADENOSINE 3 MG/1 ML (ADENOSCAN) 30ML VIAL IV ONE (09:03)
[2020-01-01 09:19] LABS: BILIRUBIN,URINE 2+ (NEGATIVE); CLARITY,URINE CLEAR; COLOR,URINE YELLOW; GLUCOSE, URINE (UA) NEGATIVE (NEGATIVE); KETONES,URINE 1+ (NEGATIVE); LEUKOCYTE ESTERASE ,URINE NEGATIVE (NEGATIVE); NITRITE,URINE NEGATIVE (NEGATIVE); PH,URINE 5.5 (5-9); PROTEIN,URINE NEGATIVE (NEGATIVE)
[2020-01-01 09:28] LABS: AMORPHOUS SEDIMENT,UR FEW AMOR URATES /LPF; BACTERIA,URINE MODERATE /HPF; RBC,URINE 0-2 /HPF
[2020-01-01] MEDS: PANTOPRAZOLE 40 MG (PROTONIX) VIAL IV SCH (10:07)
--- NOTE | 2020-01-01 10:10 | CARDIAC CATHETERIZATION ---
DATE OF SERVICE: 01/01/2020 CARDIAC CATHETERIZATION REPORT The patient is a 79-year-old lady, who developed chest discomfort following a colonoscopy yesterday at the [facility]. She was transferred to this hospital. Her troponin was elevated. She had a recurrent chest discomfort that was treated with IV nitroglycerin. Diagnosis was acute non-ST elevation myocardial infarction. Urgent cardiac catheterization was recommended due to continued symptoms. Informed consent was obtained. DESCRIPTION OF PROCEDURE: She was brought to the cardiac catheterization laboratory in a fasting state. Right groin was prepared and draped in the usual sterile fashion. Lidocaine 1% was used for local anesthesia. Modified Seldinger technique was used to advance a 5-Portuguese sheath into the right femoral artery. A 5-Portuguese JL4 catheter was used for left coronary angiography. A 5-Portuguese JR4 catheter was used for right coronary angiography. A 5-Portuguese pigtail catheter was used for left heart catheterization and left ventricular angiography. Subsequently, we carried out fractional flow reserve measurement in the left circumflex artery that was exhibiting approximately of 50% proximal stenosis. FRACTIONAL FLOW RESERVE MEASUREMENT OF THE LEFT CIRCUMFLEX ARTERY: We exchanged the sheath over a wire for a 6-Portuguese sheath. We gave 4000 units of intravenous heparin. We used a 6-Portuguese JL4 guide catheter and a pressure wire. The pressure wire was advanced across the lesion in the left circumflex artery and the tip was placed in the distal vessel. We gave adenosine 140 mcg per kilogram per minute for 2 minutes and 20 seconds. Fractional flow reserve was 0.98, indicating hemodynamic nonsignificance. The equipment was removed. Angiography of the right femoral artery was carried out through the sheath. Mynx was used to achieve hemostasis. She tolerated the procedure well. HEMODYNAMICS: Left ventricular end-diastolic pressure following coronary angiography was 30 mmHg. There was no significant pressure gradient on pullback across the aortic valve. Ascending aortic pressure was 130/85 with a mean of 106 mmHg. CORONARY ANGIOGRAPHY: Coronary calcification is present. Left main coronary artery does not exhibit significant obstructive disease. Left anterior descending artery has 30% to 40% proximal stenosis. Left circumflex artery has approximately 50% proximal stenosis and fractional flow reserve across this is 0.98. The right coronary artery is dominant and has multiple plaques with stenoses of up to approximately 30%. LEFT VENTRICULAR ANGIOGRAPHY: Left ventricular angiography was carried out in the right anterior oblique projection. Global left ventricular systolic function is markedly impaired. There is global hypokinesis. Left ventricular ejection fraction is approximately 20%. CONCLUSIONS: 1. Coronary artery disease, relatively mild. A 50% proximal stenosis in the left circumflex artery has a fractional flow reserve of 0.98, indicating hemodynamic insignificance. Other coronaries have diffuse mild to moderate plaque. 2. Marked impairment of global left ventricular systolic function with global hypokinesis and left ventricular ejection fraction of approximately 20%. 3. Elevated left ventricular end-diastolic pressure. DISCUSSION AND RECOMMENDATIONS: Based on the results of the study, it appears appropriate to continue a conservative approach for coronary artery disease. Dilated cardiomyopathy will be treated with beta-blockers and REEMA inhibitors, if tolerated. Further recommendations will be based on her hospital course. Aspirin is being continued because of her mild to moderate coronary artery disease. Job ID: [id number] DocumentID: [id number] Dictated Date: 01/01/2020 09:36:10 Farm Reporter Date: 01/01/2020 10:09:25 Dictated By: JASON BACH MD, MA, FACP, FACC, MTDD
[2020-01-01] MEDS: morphine INJ 4 MG/ML 1 ML (VIAL/SYRINGE) IV PRN (11:04)
[2020-01-01] MEDS: LOSARTAN 100 MG (COZAAR) TABLET PO SCH (11:22)
[2020-01-01] MEDS: ASPIRIN E.C. 81 MG (ECOTRIN) TAB PO SCH (11:22)
[2020-01-01] MEDS: meTOprolol TARTRATE 25 MG (LOPRESSOR) TABLET PO SCH ×2 (11:22→19:41)
[2020-01-01] MEDS: CLOPIDOGREL 75 MG (PLAVIX) TABLET PO SCH (11:22)
[2020-01-01] MEDS ORDERED: POTA-53 PO (11:57)
[2020-01-01] MEDS ORDERED: CLOP75TA69 PO (11:57)
[2020-01-01] MEDS ORDERED: CLON0.1T PO (11:57)
[2020-01-01] MEDS ORDERED: HYDR25TA4 PO (11:59)
--- NOTE | 2020-01-01 11:59 | NUR ---
UNABLE TO SPEAK WITH THE PT, THE NURSE ADVISED I CALL HER TO GET INFORMATION ABOUT HER MEDICATIONS. I SPOKE WITH ANTIONETTE (PTS ) WENT THRU THE EXT MED HISTORY AND ALSO HAD HER PCP FAX OVER AN ACTIVE MED LIST (I WILL INCLUDE A COPY ON HER CHART) TO COMPLETE THE MED REC ANTIONETTE WAS UNABLE TO ANSWER MY QUESTIONS ABOUT THE PATIENTS MEDICATIONS- HE WAS NAMING THE MEDICATIONS OFF THAT WERE IN A CONTAINER BUT COULD NOT TELL ME IF/ HOW SHE WAS TAKING EACH ONE. FOR THIS REASON I REACHED OUT TO DR. MELCHOR'S OFFICE TO GET A MED LIST AND COMPLETED THE MED REC USING THAT HCTZ 25MG- LAST FILLED 11-02-2019 #30, PRIOR TO THIS IT WAS BEING PICKED UP EVERY 30 DAYS- IT IS STILL ON THE ACTIVE MED LIST FROM THE PCP- FOR THIS REASON I DID KEEP IT ON THE MED REC AND DOCUMENTED THE PAST DUE FILL. SHE WAS PRESCRIBED POTASSIUM ER 20MEQ ON 12-26-2019 1 TAB BID #10- SINCE SHE WAS TAKING THIS PRIOR TO HER VISIT TO [facility] I DID INCLUDE THIS IN THE MED REC OTC MEDS: TYLENOL PM VIT B12 FISH OIL
[2020-01-01] MEDS ORDERED: VANCOMYCIN INJECTION 0.1 MG in NS (IVPB) 250 ML IV SCH (13:00)
--- NOTE | 2020-01-01 13:06 | History & Physical-Hospitalist ---
History of Present Illness HPI/Chief Complaint Yvonne Resendez is a 79-year-old female with past medical history of hypertension, hyperlipidemia, hypothyroidism, CVA, recent weight loss, who presented as a transfer from [facility] with non-ST elevated myocardial infarction. She had been admitted yesterday after undergoing a colonoscopy to evaluate for her weight loss. She was admitted due to weakness. She was found to have electrolyte abnormalities which were replaced. An EKG was performed and was concerning for possible acute changes. A troponin was checked and was elevated at 4 and she was subsequently transferred for cardiology consultation. Upon my examination she has just returned from a left heart catheterization and is minimally responsive. She is unable to provide any significant history. Source: RN/MD Exam Limitations: clinical condition Date Seen 01/01/20 Time Seen by a Provider: 09:50 Attending Physician Adore Abel DO PCP Mandeep Summers DO Referring Physician Date of Admission January 01, 2020 at 10:59 Home Medications & Allergies Home Medications Reviewed patient Home Medication Reconciliation performed by pharmacy medication reconciliations mechanical facilities technician and/or nursing. Patients Allergies have been reviewed. Allergies Allergies Coded Allergies cyclobenzaprine (Unverified Allergy, Unknown, UNKNOWN, 01/01/20) Past Hnelyoq-Wqbwtf-Wluftz Hx Past Med/Social Hx: Reviewed Nursing Past Med/Soc Hx Patient Social History Alcohol Use: Denies Use Recreational Drug Use: No Physical Abuse Screen: No Sexual Abuse: No Recent Foreign Travel: No Recent Hopitalizations: No Immunizations Up To Date Date of Pneumonia Vaccine: Jan 20, 2015 Date of Influenza Vaccine: Jun 08, 2017 Seasonal Allergies Seasonal Allergies: No Past Medical History Surgeries: Lobectomy, Thyroidectomy Cardiac: High Cholesterol, Hypertension Reproductive: No Sexually Transmitted Disease: No HIV/AIDS: No Female Reproductive Disorders: Denies Musculoskeletal: Osteoporosis, Arthritis, Fractures Endocrine: Hypothyroidsim HEENT: Cataract Loss of Vision: Bilateral Hearing Impairment: Denies Cancer: Breast, Thyroid Psychosocial: Depression History of Blood Disorders: No Adverse Reaction to Blood Salazar: No Family History Arthritis 19 FATHER 19 MOTHER Cardiovascular disease 19 FATHER Cataracts 19 MOTHER Dementia 19 FATHER Hypertension 19 MOTHER Myocardial infarction 19 FATHER Thyroid disease 19 MOTHER No Family History of: AIDS Alcoholism Alzheimer's disease Asthma Colon cancer Completed stroke Diabetes mellitus Drug abuse Glaucoma Kidney disease Parkinson's disease Prostate cancer Psychosocial problem Respiratory disorder Seizure disorder Severe allergy Tuberculosis Review of Systems ROS-Unable to Obtain: poor historian Constitutional: see HPI Physical Exam Physical Exam Vital Signs Vital Signs - First Documented 01/01/20 01/01/20 01/01/20 00:05 00:10 00:15 Temp 36.8 Pulse 94 Resp 10 B/P (MAP) 145/94 (111) Pulse Ox 99 O2 Delivery Room Air O2 Flow Rate 3.00 Capillary Refill : Less Than 3 Seconds Height, Weight, BMI Height: 5'0.00" Weight: 163lbs. 7.4oz. 74.125783gn; 24.04 BMI Method:Stated General Appearance: No Apparent Distress, WD/WN Neck: Normal Inspection, Supple Respiratory: No Respiratory Distress, Wheezing Cardiovascular: Regular Rate, Rhythm, No Edema, No Murmur, Normal Peripheral Pulses Gastrointestinal: Normal Bowel Sounds, Non Tender, Soft Extremity: Normal Inspection, Non Tender, No Pedal Edema Neurologic/Psychiatric: Disoriented, Other (lethargic) Skin: Warm/Dry, Pallor Results Results/Procedures Labs Laboratory Tests 01/01/20 03:15 01/01/20 06:30 Patient resulted labs reviewed. Imaging: Reviewed Imaging Report Assessment/Plan Admission Diagnosis NSTEMI Admission Status: Inpatient Order (span 2 midnights) Reason for Inpatient Admission: NSTEMI requiring Cardiology consultation Assessment and Plan NSTEMI, type 2 Acute heart failure with reduced ejection fraction troponin elevated at 4, repeat on arrival 8 loaded with aspirin and Plavix Started on therapeutic Lovenox, transition to prophylactic dose Cardiology consulted, appreciate assistance left heart catheterization revealed mild coronary artery disease global hypokinesis with ejection fraction approximately 20 percent visualized during heart cath echocardiogram ordered add on TSH Severe sepsis high anion gap metabolic acidosis Lactic acidosis acute respiratory failure with hypoxia SIRS+ with leukocytosis and tachycardia, evaluating septic source chest x-ray without infiltrate Blood cultures drawn, pending obtain Urinalysis Procalcitonin elevated at 5.79 Lactic acid elevated at 2.7 Continue IV fluids, decrease rate with acute heart failure started on Zosyn Add vancomycin Pulmonology consulted, appreciate assistance Hypertension Hyperlipidemia Hypothyroidism History of CVA Continue home meds DVT prophylaxis: Lovenox Diagnosis/Problems Diagnosis/Problems (1) Severe sepsis Status: Acute (2) Lactic acidosis Status: Acute (3) High anion gap metabolic acidosis Status: Acute (4) Acute respiratory failure with hypoxia Status: Acute (5) NSTEMI (non-ST elevation myocardial infarction) Status: Acute (6) Acute HFrEF (heart failure with reduced ejection fraction) Status: Acute (7) HTN (hypertension) Status: Chronic Qualifiers: Hypertension type: essential hypertension Qualified Codes: I10 - Essential (primary) hypertension (8) HLD (hyperlipidemia) Status: Chronic Qualifiers: Hyperlipidemia type: unspecified Qualified Codes: E78.5 - Hyperlipidemia, unspecified (9) Hypothyroidism Status: Chronic (10) History of CVA (cerebrovascular accident) Status: Chronic Clinical Quality Measures DVT/VTE Risk/Contraindication: Risk Factor Score Per Nursin RFS Level Per Nursing on Admit: 3=High MILLICENT SÁNCHEZ MD January 01, 2020 13:06
[2020-01-01] MEDS: PIPERACILLIN/TAZOBACTAM (BULK) 4.5 GM in NS (IVPB) 100 ML IV SCH ×2 (13:36→19:43)
[2020-01-01] MEDS: ENOXAPARIN 40 MG/0.4 ML (LOVENOX) SYR SC SCH (13:36)
[2020-01-01] MEDS ORDERED: VANCOMYCIN 1250 MG/NS 250 ML IVPB IV NR ×2 (13:46)
--- NOTE | 2020-01-01 13:48 | NUR ---
PTD VANCOMYCIN LABS: SCR 1.21 PLAN: VANCOMYCIN 20MG/KG LOADING (1,250MG), THEN 15MG/KG (1,000MG) IV DAILY. WILL ORDER A TROUGH LEVEL PRIOR TO THE 3RD DOSE, HOLD IF LEVEL IS GREATER THAN 20.
--- NOTE | 2020-01-01 14:00 | NUR ---
DR SÁNCHEZ CALLED TO CHECK ON PT, THIS RN UPDATED DR THAT PT WAS CURRENTLY ALERT AND ORIENTED. DR UPDATED ON PT VITALS AND LOW URINE OUTPUT.
--- NOTE | 2020-01-01 15:50 | CONSULTATION REPORT ---
DATE OF SERVICE: 01/01/2020 ATTENDING PHYSICIAN: Dr. Luh Massey. ATTENDING PRIMARY CARE: Mandeep Summers DO HISTORY OF PRESENT ILLNESS: The patient is a 79-year-old female known to us. We had seen her in the office for a 6-week history of diarrhea. Upon further questioning, she had reported having a colonoscopy eight years ago, which was normal. She stated that the diarrhea started and persisted and even worsened over time where she would have multiple loose bowel movements throughout the day and night. She does not report any abdominal pain or any reflux type of symptoms. She also does not recall any red blood per rectum nor any dark tarry stools. She also reports decreased appetite and has lost approximately 11 pounds in the past 6 weeks as well. She has also tried Imodium without success. Upon workup, the only abnormality that was detected was fecal leukocytes on a stool analysis. PAST MEDICAL HISTORY: Coronary artery disease, hypercholesterolemia, hypertension, depression, history of stroke 2017, history of myocardial infarction, history of thyroid cancer, history of left breast cancer. PAST SURGICAL HISTORY: Total hysterectomy, total thyroidectomy 1987, left breast lumpectomy 2009, bladder suspension x2, 2012. ALLERGIES: CYCLOBENZAPRINE. MEDICATIONS: Atorvastatin 20 mg daily, Plavix 75 mg daily, escitalopram 20 mg daily, hydrochlorothiazide 25 mg daily, levothyroxine 100 mcg daily, Cartia XT 300 mg daily, losartan 100 mg daily, clonidine 0.1 mg daily. SOCIAL HISTORY: Negative smoke. Rare alcohol. FAMILY HISTORY: Mother, rheumatoid arthritis. Father, CVA, myocardial infarction. Maternal grandfather DVT. Maternal grandmother, myocardial infarction. VITAL SIGNS: Temperature 36.7, blood pressure 131/82, pulse 92, respirations 25, pulse ox 92% on 3 liters nasal cannula. REVIEW OF SYSTEMS: Well-nourished female currently in no acute distress. She is not experiencing any shortness of breath or difficulty breathing. No chest pain, palpitations, diaphoresis. Intermittent episodes of nausea, no vomiting. Persistent diarrhea for the past six weeks. No red blood per rectum, no dark tarry stools. No change in diet or medications nor drinking water sources. No fever or chills with approximately 11-pound weight loss in 6 weeks. PHYSICAL EXAMINATION: CHEST: Few scattered rales bilaterally. HEART: Regular, no murmurs. EXTREMITIES: No lower extremity edema, negative Homans sign. HEENT: No scleral icterus. NECK: No cervical lymphadenopathy. ABDOMEN: Soft, nontender, nondistended. SKIN: Warm, dry. LABORATORY DATA: Laboratory work did show elevation of troponin at 8.5. Myoglobin 596.7. BNP 7992.8. ASSESSMENT AND PLAN: A 79-year-old female with a non-ST segment elevation myocardial infarction after a colonoscopy done yesterday. We will continue to monitor her progress. She may start and increase the diet as tolerated. She also did undergo an ultrasound at [facility] yesterday and we will look up those results for possible gallbladder etiology for her weight loss and diarrhea. From my understanding, she does have some level of heart failure with an ejection fraction 20% and mild atherosclerosis; and angioplasty without stent was performed. There is no contraindication for anticoagulation. Job ID: [id number] DocumentID: [id number] Dictated Date: 01/01/2020 15:30:06 Baseball Coach Date: 01/01/2020 15:49:52 Dictated By: KEEGAN PRESSLEY MD MTDD
[2020-01-02] VITALS (16 sets, daily range): BP systolic 89–153; BP diastolic 43–111
[2020-01-02] MEDS ORDERED: FUROSEMIDE 40 MG/4 ML INJ (LASIX) ONE (01:59)
[2020-01-02] MEDS ORDERED: FUROSEMIDE 40 MG/4 ML INJ (LASIX) IVP ONE (02:00)
--- NOTE | 2020-01-02 02:00 | NUR ---
PT COMPLAINING OF SEVERE LOWER ABD PRESSURE. PT MOANING/THRASHING, TAKING OFF BP CUFF AND ALL BLANKETS BC SHE IS IN SO MUCH PAIN. SPOKE WITH EICU AND INFORMED HIM THAT PTS URINE OUTPUT FOR THE LAST 4 HOURS WAS 100CC AND THAT I BLADDER SCANNED PTS BLADDER AND PT ONLY HAD 5CC URINE IN BLADDER. ORDERS RECEIVED FOR LASIX 40MG IV X1 DOSE NOW. WILL CARRY OUT ORDERS AND CONTINUE TO MONITOR PT.
[2020-01-02] MEDS: morphine INJ 4 MG/ML 1 ML (VIAL/SYRINGE) IV PRN (02:42)
[2020-01-02 03:38] LABS: BASOPHILS % (AUTO) 0 % (0-10); EOSINOPHILS % (AUTO) 0 % (0-10); HEMATOCRIT 31 % (35-52); HEMOGLOBIN 10.2 G/DL (11.5-16.0); LYMPHOCYTES # (AUTO) 2.1 X 10^3 (1.0-4.0); LYMPHOCYTES % (AUTO) 14 % (12-44); MEAN CORPUSCULAR HEMOGLOBIN 28 PG (25-34); MEAN CORPUSCULAR HGB CONC 33 G/DL (32-36); MEAN CORPUSCULAR VOLUME 86 FL (80-99); MONOCYTES % (AUTO) 7 % (0-12); NEUTROPHILS # (AUTO) 11.5 X 10^3 (1.8-7.8); NEUTROPHILS % (AUTO) 79 % (42-75); PLATELET COUNT 381 10^3/uL (130-400); WHITE BLOOD COUNT 14.6 10^3/uL (4.3-11.0)
[2020-01-02 03:50] LABS: POTASSIUM 3.4 MMOL/L (3.6-5.0)
[2020-01-02 03:51] LABS: CALCIUM 8.3 MG/DL (8.5-10.1)
[2020-01-02 03:56] LABS: CREATININE SERUM 1.26 MG/DL (0.60-1.30); PHOSPHORUS 2.8 MG/DL (2.3-4.7)
[2020-01-02 03:59] LABS: MAGNESIUM 1.9 MG/DL (1.6-2.4)
[2020-01-02] MEDS: KCL 20 MEQ TAB (K-DUR) PO SCH (04:08)
[2020-01-02] MEDS: POTASSIUM CL 10MEQ/50ML IVPB 50 ML IV SCH ×5 (04:08→06:48)
[2020-01-02] MEDS: MAGNESIUM 1 GM/100 ML IVPB 100 ML IV SCH (04:08)
[2020-01-02] MEDS: PIPERACILLIN/TAZOBACTAM (BULK) 4.5 GM in NS (IVPB) 100 ML IV SCH ×3 (05:10→20:54)
[2020-01-02] MEDS: LEVOTHYROXINE 100 MCG (LEVOTHROID) TAB PO SCH (05:11)
[2020-01-02] MEDS: LACTATED RINGERS 1,000 ML IV SCH (05:11)
--- NOTE | 2020-01-02 06:02 | Pulmonary Progress Note ---
Subjective Time Seen by a Provider: 05:57 Subjective/Events-last exam No complications noted. Sepsis Event Evaluation Height, Weight, BMI Height: 5'0.00" Weight: 163lbs. 7.4oz. [id number]; 24.04 BMI Method:Stated Focused Exam Lactate Level 01/01/20 08:27: Lactic Acid Level 2.05*H 01/01/20 10:50: Lactic Acid Level 2.70*H 01/01/20 13:08: Lactic Acid Level 1.36 Exam Exam Vital Signs Date Time Temp Pulse Resp B/P (MAP) Pulse Ox O2 Delivery O2 Flow Rate FiO2 01/02/20 04:30 36.9 01/02/20 04:00 Room Air 01/02/20 04:00 88 20 146/102 (117) 95 Nasal Cannula 3.00 01/02/20 03:30 92 153/100 (117) 94 Nasal Cannula 3.00 01/02/20 02:00 96 19 144/78 (100) Nasal Cannula 3.00 01/02/20 01:00 87 01/02/20 01:00 87 14 131/76 (94) 91 Nasal Cannula 3.00 01/02/20 00:00 81 31 138/77 (97) 98 Nasal Cannula 3.00 01/01/20 23:37 Nasal Cannula 3.00 01/01/20 23:35 36.0 01/01/20 23:00 80 15 127/93 (104) 96 Nasal Cannula 3.00 01/01/20 22:00 75 24 132/90 (104) 97 Nasal Cannula 3.00 01/01/20 21:00 84 22 151/106 (121) 95 Nasal Cannula 3.00 01/01/20 20:34 36.2 Nasal Cannula 3.00 01/01/20 20:00 Nasal Cannula 3.00 01/01/20 20:00 85 18 135/68 (90) 98 Nasal Cannula 3.00 01/01/20 20:00 37.0 01/01/20 19:00 83 01/01/20 19:00 83 18 131/68 (89) 97 Nasal Cannula 3.00 01/01/20 18:00 87 14 127/86 (100) 98 Nasal Cannula 3.00 01/01/20 17:00 81 17 126/85 (99) 95 Nasal Cannula 3.00 01/01/20 16:00 84 17 116/70 (85) 90 Nasal Cannula 3.00 01/01/20 16:00 36.6 01/01/20 15:55 Nasal Cannula 3.00 01/01/20 15:00 90 22 122/77 (92) 90 Nasal Cannula 3.00 01/01/20 14:00 92 25 131/82 (98) 92 Nasal Cannula 3.00 01/01/20 13:00 83 19 129/86 (100) 97 Nasal Cannula 3.00 01/01/20 12:36 85 01/01/20 12:00 Nasal Cannula 3.00 01/01/20 12:00 36.7 01/01/20 12:00 85 25 134/86 (102) 97 Nasal Cannula 3.00 01/01/20 11:30 81 9 133/81 (98) 97 Nasal Cannula 3.00 01/01/20 11:00 95 13 114/80 (91) 92 Nasal Cannula 3.00 01/01/20 10:45 94 11 93 Nasal Cannula 3.00 01/01/20 10:38 Nasal Cannula 3.00 01/01/20 10:30 74 15 131/93 (106) 95 Nasal Cannula 3.00 01/01/20 10:15 90 22 142/79 (100) 94 Nasal Cannula 3.00 01/01/20 10:00 84 20 129/93 (105) 95 Nasal Cannula 3.00 01/01/20 09:45 87 18 141/94 (110) 93 Nasal Cannula 3.00 01/01/20 08:00 Nasal Cannula 3.00 01/01/20 08:00 85 23 109/56 (73) 91 Nasal Cannula 3.00 01/01/20 08:00 36.6 01/01/20 07:00 86 28 124/86 (99) 92 Nasal Cannula 3.00 01/01/20 07:00 91 01/01/20 06:00 91 27 136/90 (105) 94 Nasal Cannula 3.00 I & O 01/02/20 06:59 Intake Total 3437.5 ml Output Total 1390 ml Balance 2047.5 ml Height & Weight Height: 5'0.00" Weight: 163lbs. 7.4oz. [id number]; 24.04 BMI Method:Stated General Appearance: No Apparent Distress, WD/WN HEENT: PERRL/EOMI, TMs Normal, Normal ENT Inspection, Pharynx Normal Neck: Normal Inspection, Supple Respiratory: No Respiratory Distress, Wheezing Cardiovascular: Regular Rate, Rhythm, No Edema, No Murmur, Normal Peripheral Pulses Capillary Refill: Less Than 3 Seconds Gastrointestinal: normal bowel sounds, non tender, soft Extremity: Normal Inspection, Non Tender, No Pedal Edema Neurologic/Psychiatric: Disoriented, Other (lethargic) Skin: Warm/Dry, Pallor Lymphatic: No Adenopathy Results Lab Laboratory Tests 01/01/20 03:15 01/01/20 06:30 01/02/20 03:05 Assessment/Plan Assessment/Plan CP with NSTEMI -Cardiology following -s/p cath Sepsis - Zosyn, vanco - LR -- decrease to 30cc/hr -Check gray cultures Metabolic lactic acidosis -LA is improving Metabolic encephalopathy/severe confusion OCTAVIO STANFORD DO January 02, 2020 06:02
--- NOTE | 2020-01-02 07:27 | Diagnostic Imaging Report ---
INDICATION: ICU patient. Comparison with 01/01/2020. FINDINGS: Portable chest. There continues to be minimal atelectasis left lung base. The lungs are otherwise clear and well-aerated. The heart is not enlarged. There is no pulmonary edema. No pneumothorax or pleural effusion. No bony abnormalities. IMPRESSION: Mild left basilar atelectasis. Dictated by: Dictated on workstation # [id number]
[2020-01-02] MEDS: LOSARTAN 100 MG (COZAAR) TABLET PO SCH (08:41)
[2020-01-02] MEDS: meTOprolol TARTRATE 25 MG (LOPRESSOR) TABLET PO SCH ×2 (08:41→20:54)
[2020-01-02] MEDS: CLOPIDOGREL 75 MG (PLAVIX) TABLET PO SCH (08:41)
[2020-01-02] MEDS: PANTOPRAZOLE 40 MG (PROTONIX) VIAL IV SCH (08:41)
[2020-01-02] MEDS: ASPIRIN E.C. 81 MG (ECOTRIN) TAB PO SCH (08:41)
--- NOTE | 2020-01-02 09:00 | NUR ---
Report from Chapito NUNEZ, patient to room 415. Patient oriented to room, and call light. Patient voices no pain or discomfort at this time, will assume care of patient at this time.
--- NOTE | 2020-01-02 11:20 | NUR ---
Patient agitated at this time, patient yelling out, attempting to climb out of bed. Patient taking off oxygen. Staff and this RN attempted to place oxygen back on patient, patient tried to hit staff, told this RN that she wants to leave and wants Dr. Summers here right now and wants her here with her right now. [place] catheter removed from patient per Dr. Massey. Patient continues to be agitated with staff, continues to take off oxygen, staff continues to reorient patient to facility and to keep oxygen on.
--- NOTE | 2020-01-02 11:31 | Cardiology Progress Note ---
Subjective Date Seen by Provider: January 02, 2020 Time Seen by Provider: 11:30 Subjective/Events-last exam Patient in bed, c/o bladder pain and discomfort with urgency, powell in place. Denies any chest pain or dyspnea. Focused Exam Lactate Level 01/01/20 10:50: Lactic Acid Level 2.70*H 01/01/20 13:08: Lactic Acid Level 1.36 01/02/20 15:45: Lactic Acid Level 3.58*H Lactic Acid Level Laboratory Tests Test 01/02/20 15:45 Lactic Acid Level 3.58 MMOL/L (0.50-2.00) *H Objective-Cardiology Exam Last Set of Vital Signs Vital Signs 01/02/20 01/02/20 12:00 16:28 Temp 37.0 Pulse 114 Resp 18 B/P (MAP) 137/86 (103) Pulse Ox 95 O2 Delivery Nasal Cannula O2 Flow Rate 1.50 Capillary Refill : Less Than 3 Seconds I&O Intake and Output 01/02/20 00:00 Intake Total 2187.5 ml Output Total 490 ml Balance 1697.5 ml Intake Oral 365 ml IV Total 1822.5 ml Output Urine Total 490 ml # Voids 2 # Bowel Movements 1 Daily Weight Change Yes, 2-13 lbs General: Alert, Oriented X3, Cooperative, Mild Distress HEENT: Atraumatic, PERRLA Neck: Supple, No JVD, +2 Carotid Pulse No Bruit Lungs: Clear to Auscultation, Normal Air Movement Heart: Regular Rate Abdomen: Soft, Other (ttp lower quadrants) Extremities: No Edema Skin: No Rashes, No Significant Lesion Neuro: Cranial Nerves 3-12 NL Results Lab Laboratory Tests 01/02/20 03:05 01/02/20 15:45 A/P-Cardiology Admission Diagnosis NSTEMI Sepsis Assessment/Plan Coronary artery disease,NSTEMI- cardiac catheterization done 01/01/2020 revealed 50% proximal stenosis in the left circumflex artery has a fractional flow reserve of 0.98, indicating hemodynamic insignificance. Other coronaries have diffuse mild to moderate plaque. Marked impairment of global left ventricular systolic function with global hypokinesis and left ventricular ejection fraction of approximately 20%. On beta zenobia and ARB CHF, acute LV systolic dysfunction with EF 20%, nonischemic cardiomyopathy, on beta zenobia, ARB Sepsis- elevated lactic acid and procalcitonin, gray culture, continue antibiotics. History of recent persistent diarrhea and weight loss, underwent colonoscopy on 12/31/2019, Dr. Ramey following. 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 Hypertension, history of labile blood pressure, continue to monitor. Renal artery stenosis- Stent in the right renal artery Express SD 5 x19 mm ex panded to 6 , CTA of abdominal aorta and renal arteries done March 02, 2017 revealed patent stent to the right renal artery, continue to monitor Hyperlipidemia, maintained on Lipitor as outpatient Nonobstructive carotid artery stenosis-most recent carotid duplex done in October 2018, still having left carotid bruit, CT scan of the neck was reported as 50 percent stenosis at the level of the proximal aspect of the right internal carotid artery, continue to monitor History of thyroidectomy, maintained on thyroid replacement, monitored by primary care physician History of partial hysterectomy in 1981, 2 knee replacement 2004 in 2004, breast surgery. History of breast cancer, had lumpectomy in 2011. Degenerative joint disease Patient was seen and evaluated with Hailey, examination performed, management plan was discussed, agree with the current scribed note, I made few changes to the note using Italic font On my evaluation patient was thrashing, confused and anxious, hypoxemic. Agitated. It appear that she deteriorated significantly during the day, had a sitter next to the bed. I contacted Dr. Renteria and Dr. Yoo and decided to transfer her urgently to the intensive care unit. On arrival to ICU she started on oxygen, appear to be more alert,, still confu sed. Denied any chest pain Bilateral rhonchi Review of her labs showed metabolic acidosis, hypoxemia, lactic acidosis Receiving antibiotic, had a cardiac catheterization done with Dr. Rogers as described above Continue with conservative management Clinical Quality Measures DVT/VTE Risk/Contraindication: Risk Factor Score Per Nursin RFS Level Per Nursing on Admit: 3=High HAILEY SARAH January 02, 2020 11:31 NGHIA COOPER MD January 02, 2020 16:42
--- NOTE | 2020-01-02 11:33 | Progress Note - Hospitalist ---
Subjective HPI/CC On Admission Date Seen by Provider: January 02, 2020 Time Seen by Provider: 09:25 Yvonne Resendez is a 79-year-old female with past medical history of hypertension, hyperlipidemia, hypothyroidism, CVA, recent weight loss, who presented as a transfer from [facility] with non-ST elevated myocardial infarction. She had been admitted yesterday after undergoing a colonoscopy to evaluate for her weight loss. She was admitted due to weakness. She was found to have electrolyte abnormalities which were replaced. An EKG was performed and was concerning for possible acute changes. A troponin was checked and was elevated at 4 and she was subsequently transferred for cardiology consultation. Upon my examination she has just returned from a left heart catheterization and is minimally responsive. She is unable to provide any significant history. Subjective/Events-last exam She is less confused today. She denies any chest pain or shortness of breath. She denies any fevers or chills. She denies any abdominal pain, nausea, or vomiting. She reports diarrhea. Focused Exam Lactate Level 01/01/20 08:27: Lactic Acid Level 2.05*H 01/01/20 10:50: Lactic Acid Level 2.70*H 01/01/20 13:08: Lactic Acid Level 1.36 Objective Exam Vital Signs Vital Signs Date Time Temp Pulse Resp B/P (MAP) Pulse Ox O2 Delivery O2 Flow Rate FiO2 01/02/20 09:13 36.7 91 18 91 Nasal Cannula 1.50 01/02/20 08:00 139/111 (120) Capillary Refill : Less Than 3 Seconds General Appearance: No Apparent Distress, WD/WN Neck: Normal Inspection, Supple Respiratory: Lungs Clear, Normal Breath Sounds, No Respiratory Distress Cardiovascular: Regular Rate, Rhythm, No Edema, No Murmur Gastrointestinal: Normal Bowel Sounds, Non Tender, Soft Extremity: Normal Inspection, Non Tender, No Pedal Edema Neurologic/Psychiatric: Alert, Oriented x3, No Motor/Sensory Deficits, Normal Mood/Affect Skin: Normal Color, Warm/Dry Results/Procedures Lab Laboratory Tests 01/02/20 03:05 Patient resulted labs reviewed. Imaging: Reviewed Imaging Report Assessment/Plan Assessment and Plan Assess & Plan/Chief Complaint NSTEMI, type 2 Acute heart failure with reduced ejection fraction Cardiology consulted, appreciate assistance left heart catheterization revealed mild coronary artery disease global hypokinesis with ejection fraction approximately 20 percent visualized during heart cath Echocardiogram pending Severe sepsis Acute respiratory failure with hypoxia SIRS+ with leukocytosis and tachycardia, no clear source at this time chest x-ray without infiltrate Blood cultures drawn, pending Urinalysis not indicative of YANICK Procalcitonin elevated at 5.79, repeat level today Continue vancomycin and Zosyn Pulmonology consulted, appreciate assistance Euthyroid sick syndrome TSH low at 0.14 T3 and T4 normal No acute management needs Hypertension Hyperlipidemia Hypothyroidism History of CVA Continue home meds DVT prophylaxis: Lovenox high anion gap metabolic acidosis, resolved Lactic acidosis, resolved Diagnosis/Problems Diagnosis/Problems (1) Severe sepsis Status: Acute (2) Lactic acidosis Status: Resolved Resolution Date/Time: 01/02/20 @ 11:44 (3) High anion gap metabolic acidosis Status: Resolved Resolution Date/Time: 01/02/20 @ 11:44 (4) Acute respiratory failure with hypoxia Status: Acute (5) NSTEMI (non-ST elevation myocardial infarction) Status: Acute (6) Acute HFrEF (heart failure with reduced ejection fraction) Status: Acute (7) HTN (hypertension) Status: Chronic Qualifiers: Hypertension type: essential hypertension Qualified Codes: I10 - Essential (primary) hypertension (8) HLD (hyperlipidemia) Status: Chronic Qualifiers: Hyperlipidemia type: unspecified Qualified Codes: E78.5 - Hyperlipidemia, unspecified (9) Hypothyroidism Status: Chronic (10) History of CVA (cerebrovascular accident) Status: Chronic (11) Euthyroid sick syndrome Clinical Quality Measures DVT/VTE Risk/Contraindication: Risk Factor Score Per Nursin RFS Level Per Nursing on Admit: 3=High MILLICENT SÁNCHEZ MD January 02, 2020 11:33
[2020-01-02] MEDS: ENOXAPARIN 40 MG/0.4 ML (LOVENOX) SYR SC SCH (11:45)
--- NOTE | 2020-01-02 12:00 | NUR ---
Patient continues to be agitated, Dr. Massey in to reassess patient. Patient continues to want to see her doctor; continues to be trying to get out of bed, and continues to take off her oxygen and hit staff.
[2020-01-02] MEDS ORDERED: LORazepam INJ 2 MG/ML (ATIVAN) VIAL IVP NR (12:15)
--- NOTE | 2020-01-02 12:30 | NUR ---
Ativan administered to patient, patient continues to have staff with her at bedside, patient continues to try to get out of bed, and takes off oxygen, and hits at staff.
--- NOTE | 2020-01-02 13:00 | NUR ---
Patient now a 1:1 with staff, patient continues to hit staff, and take oxygen off. Multiple staff are in room with patient to try to calm patient, and keep oxygen on patient.
--- NOTE | 2020-01-02 13:08 | Progress Note ---
Subjective Date Seen by a Provider: January 02, 2020 Time Seen by a Provider: 13:00 Subjective/Events-last exam doing ok. states no pain issues. tolerating diet however no hunger. no nausea/vomiting. Focused Exam Lactate Level 01/01/20 08:27: Lactic Acid Level 2.05*H 01/01/20 10:50: Lactic Acid Level 2.70*H 01/01/20 13:08: Lactic Acid Level 1.36 Objective Exam Vital Signs Date Time Temp Pulse Resp B/P (MAP) Pulse Ox O2 Delivery O2 Flow Rate FiO2 01/02/20 12:00 37.0 93 18 137/86 (103) 95 Nasal Cannula 1.50 01/02/20 09:13 36.7 91 18 91 Nasal Cannula 1.50 01/02/20 08:00 92 20 139/111 (120) 88 Nasal Cannula 3.00 01/02/20 08:00 Nasal Cannula 1.50 01/02/20 08:00 36.9 01/02/20 07:00 85 31 151/102 (118) 97 Nasal Cannula 3.00 01/02/20 06:44 86 01/02/20 06:00 85 21 150/103 (119) 97 Nasal Cannula 3.00 01/02/20 05:00 84 21 153/107 (122) 98 Nasal Cannula 3.00 01/02/20 04:30 36.9 01/02/20 04:00 Room Air 01/02/20 04:00 88 20 146/102 (117) 95 Nasal Cannula 3.00 01/02/20 03:30 92 153/100 (117) 94 Nasal Cannula 3.00 01/02/20 02:00 96 19 144/78 (100) Nasal Cannula 3.00 01/02/20 01:00 87 01/02/20 01:00 87 14 131/76 (94) 91 Nasal Cannula 3.00 01/02/20 00:00 81 31 138/77 (97) 98 Nasal Cannula 3.00 01/01/20 23:37 Nasal Cannula 3.00 01/01/20 23:35 36.0 01/01/20 23:00 80 15 127/93 (104) 96 Nasal Cannula 3.00 01/01/20 22:00 75 24 132/90 (104) 97 Nasal Cannula 3.00 01/01/20 21:00 84 22 151/106 (121) 95 Nasal Cannula 3.00 01/01/20 20:34 36.2 Nasal Cannula 3.00 01/01/20 20:00 Nasal Cannula 3.00 01/01/20 20:00 85 18 135/68 (90) 98 Nasal Cannula 3.00 01/01/20 20:00 37.0 01/01/20 19:00 83 01/01/20 19:00 83 18 131/68 (89) 97 Nasal Cannula 3.00 01/01/20 18:00 87 14 127/86 (100) 98 Nasal Cannula 3.00 01/01/20 17:00 81 17 126/85 (99) 95 Nasal Cannula 3.00 01/01/20 16:00 84 17 116/70 (85) 90 Nasal Cannula 3.00 01/01/20 16:00 36.6 01/01/20 15:55 Nasal Cannula 3.00 01/01/20 15:00 90 22 122/77 (92) 90 Nasal Cannula 3.00 01/01/20 14:00 92 25 131/82 (98) 92 Nasal Cannula 3.00 I & O 01/02/20 07:00 Intake Total 3437.5 ml Output Total 1390 ml Balance 2047.5 ml Capillary Refill : Less Than 3 Seconds General Appearance: No Apparent Distress HEENT: PERRL/EOMI Neck: Full Range of Motion Respiratory: Chest Non Tender, Decreased Breath Sounds Gastrointestinal: normal bowel sounds, non tender, soft Extremity: Normal Capillary Refill Neurologic/Psychiatric: Alert, Oriented x3 Skin: Normal Color Lymphatic: No Adenopathy Results Lab Laboratory Tests 01/01/20 13:08: Lactic Acid Level 1.36 01/01/20 19:53: Glucometer 161H 01/02/20 03:05: White Blood Count 14.6H, Red Blood Count 3.60L, Hemoglobin 10.2L, Hematocrit 31L , Mean Corpuscular Volume 86, Mean Corpuscular Hemoglobin 28, Mean Corpuscular Hemoglobin Concent 33, Red Cell Distribution Width 14.0, Platelet Count 381, Mean Platelet Volume 11.0H, Neutrophils (%) (Auto) 79H, Lymphocytes (%) (Auto) 14, Monocytes (%) (Auto) 7, Eosinophils (%) (Auto) 0, Basophils (%) (Auto) 0, Neutrophils # (Auto) 11.5H, Lymphocytes # (Auto) 2.1, Monocytes # (Auto) 1.0, Eosinophils # (Auto) 0.0, Basophils # (Auto) 0.0, Sodium Level 138, Potassium Level 3.4L, Chloride Level 107, Carbon Dioxide Level 18L, Anion Gap 13, Blood Urea Nitrogen 17, Creatinine 1.26, Estimat Glomerular Filtration Rate 41, BUN/Creatinine Ratio 13, Glucose Level 114H, Calcium Level 8.3L, Phosphorus Level 2.8, Magnesium Level 1.9, Triglycerides Level 85, Cholesterol Level 104, LDL Cholesterol Direct 52, VLDL Cholesterol 17, HDL Cholesterol 38L, Procalcitonin 5.66H Assessment/Plan Assessment/Plan Assess & Plan/Chief Complaint NSTEMI s/p colonoscopy for persistent diarrhea, nausea, and weight loss. HIDA with EF% during this admission. however if positive would wait until least 3 months for surgery. Clinical Quality Measures DVT/VTE Risk/Contraindication: Risk Factor Score Per Nursin RFS Level Per Nursing on Admit: 3=High KEEGAN PRESSLEY MD January 02, 2020 13:08
[2020-01-02] MEDS ORDERED: HALOPERIDOL 5 MG/ML (HALDOL) AMP ONE (13:13)
[2020-01-02] MEDS ORDERED: HALOPERIDOL 5 MG/ML (HALDOL) AMP IM ONE (13:15)
--- NOTE | 2020-01-02 13:45 | NUR ---
Patient given Haldol for agitation per order. Staff called RT to room for patient oxygen low in 70s and 80s. Rt came to room at 1335 and placed patient on 4 L NC. Patient seems to have settled at this time.
--- NOTE | 2020-01-02 14:21 | Diagnostic Imaging Report ---
PROCEDURE: CT chest, abdomen, and pelvis without contrast. TECHNIQUE: Multiple contiguous axial images were obtained through the chest, abdomen, and pelvis without the use of intravenous contrast. Auto Exposure Controls were utilized during the CT exam to meet ALARA standards for radiation dose reduction. INDICATION: Altered mental status. Correlation is made with prior CT abdomen and pelvis study from 03/02/2017. No CT chest is available for comparison. CT CHEST: No axillary lymphadenopathy is detected. Mediastinum and andrea are somewhat limited in evaluation due to absence of intravenous contrast. There is a prominent lymph node in the right paratracheal location with short axis measurement of 11 mm. No pericardial fluid is identified. Small to moderate sized bilateral pleural effusions are identified. There are airspace infiltrates bilateral lower lobes. No discrete mass is detected. The bony structures demonstrate some mild compression of T6 vertebral body. This may be chronic. IMPRESSION: [id number] bilateral pleural effusions with bibasilar pulmonary infiltrates or atelectasis. No other significant abnormality is detected. CT abdomen and pelvis: Liver is unremarkable. Gallbladder is mildly distended. No biliary duct dilatation is seen. The pancreas and spleen are unremarkable. No adrenal mass is detected. Both kidneys appear to have contrast within the parenchyma. Correlation to recent contrast administration is recommended. No excretion into the collecting systems is seen which can be owing to renal failure. Patient does have a right renal stent. Aorta is non-aneurysmal. A small fat-containing umbilical hernia is noted. The bowel loops are of normal caliber. There is no obstruction. There is diverticulosis of the sigmoid colon but no evidence of acute diverticulitis. There is a small amount of free fluid in the pelvis. There is contrast within the urinary bladder. IMPRESSION: 1. Uncomplicated diverticulosis. 2. Fat-containing umbilical hernia. 3. Mild gallbladder distention. 4. Retained renal parenchymal contrast from prior contrast procedure. This could be owing to poor renal function and renal failure. 5. No other significant abnormality is detected. Dictated by: Dictated on workstation # [id number]
--- NOTE | 2020-01-02 14:23 | NUR ---
RD ASSESSMENT PMHx: HTN; HLD; hypothyroidism; CVA; CA(breast, thyroid); CAD PT INTERACTION: Pt was awake and pleasant during nutrition assessment. Pt states current appetite is "not good" and has been this way for about 1 month. Pt states normally having a good appetite. Note avg PO intake 33% x1d, per chart review. Pt states following a regular diet at home, and has no issues with chewing/swallowing food. Pt states no recent issues with nausea or vomiting. Pt states recent issues with diarrhea, stating that episodes have been occurring for the past month. Note last BM was 12/31, and pt not currently on bowel regimen per chart review. Pt states recent 12# wt loss x1mon, attributing it to poor appetite. Note unable to determine recent wt hx, per chart review. ABNORMAL NUTRITION-RELATED LAB VALUES LOW: K 3.4; Ca 8.3; HDL 38 HIGH: glu 114 Est. kcal needs: 8269-3300 kcal | 25-30 kcal/kg Est. Pro needs: 59-74 g Pro | 0.8-1.0 g Pro/kg PES STATEMENT: Inadequate oral intake (NI-2.1) related to loss of appetite | diarrhea | NPO status as evidenced by pt interview | chart review | avg PO intake 33% x1d INTERVENTION: Note pt currently NPO. Would recommend diet advancement when medically able and as tolerated. Will continue to follow and reassess as pt needs, intake, and status change. MONITOR/EVALUATE: PO Intake; Plan of Care; Hydration Status; Weight Status; Lab Values Jeff Aldana, MS, RD, LD
[2020-01-02] MEDS: VANCOMYCIN 1 GM/NS 250 ML IVPB IV SCH ×2 (14:43)
[2020-01-02] MEDS ORDERED: HALOPERIDOL 5 MG/ML (HALDOL) AMP IM PRN (15:15)
[2020-01-02 15:21] LABS: ALBUMIN 3.4 GM/DL (3.2-4.5); BILIRUBIN,DIRECT 0.4 MG/DL (0.0-0.3); BILIRUBIN,INDIRECT 0.2 MG/DL; BILIRUBIN,TOTAL 0.6 MG/DL (0.1-1.0); TOTAL PROTEIN 6.3 GM/DL (6.4-8.2)
--- NOTE | 2020-01-02 15:35 | NUR ---
Dr. Abraham in patient room, asks for staff for Rapid, Rapid was called by feeder worker power unit operator, no one answered the phone for rapid. Dr. Abraham told staff to take patient to ICU now. This RN came out of another patient room to other staff taking patient to ICU. This RN and patient to ICU 9. Report given to Mei NUNEZ. Patient at this time still 1:1 with staff, and continues to pull off oxygen and hit at staff.
[2020-01-02 15:45] LABS: ABG BASE EXCESS -6.1 MMOL/L (-2.5-2.5); ABG OXYGEN SATURATION 96 % (94-100); ABG PCO2 27 MMHG (35-45); ABG PH 7.43 (7.37-7.43); ABG PO2 74 MMHG (79-93); ABG TCO2 18.4 MMOL/L (21.0-31.0); VENTILATOR NO
[2020-01-02 15:46] LABS: PATIENT TEMP 36
[2020-01-02 15:54] LABS: BASOPHILS % (AUTO) 0 % (0-10); EOSINOPHILS % (AUTO) 0 % (0-10); HEMATOCRIT 34 % (35-52); HEMOGLOBIN 10.7 G/DL (11.5-16.0); LYMPHOCYTES # (AUTO) 1.4 X 10^3 (1.0-4.0); LYMPHOCYTES % (AUTO) 9 % (12-44); MEAN CORPUSCULAR HEMOGLOBIN 28 PG (25-34); MEAN CORPUSCULAR HGB CONC 32 G/DL (32-36); MEAN CORPUSCULAR VOLUME 87 FL (80-99); MEAN PLATELET VOLUME 10.6 FL (7.4-10.4); MONOCYTES # (AUTO) 1.3 X 10^3 (0.0-1.0); MONOCYTES % (AUTO) 9 % (0-12); NEUTROPHILS # (AUTO) 12.2 X 10^3 (1.8-7.8); NEUTROPHILS % (AUTO) 82 % (42-75); PLATELET COUNT 384 10^3/uL (130-400); RED CELL DISTRIBUTION WIDTH 14.2 % (10.0-14.5); WHITE BLOOD COUNT 14.8 10^3/uL (4.3-11.0)
--- NOTE | 2020-01-02 16:03 | Pulmonary Progress Note ---
Standard Progress Note Progress Notes Date Seen by Provider: January 02, 2020 Time Seen by Provider: 16:03 Called to bedside by Dr. Abraham secondary to respiratory distress. Pt was on 4th floor and pull off her oxygen. She became hypoxic and went into respiratory distress.Pt is now in ICU with close monitoring Assessment & Plan CP with NSTEMI -Cardiology following -s/p cath Acute respiratory distress -ABG -CXR -Repeat labs Sepsis - Zosyn, vanco - LR -- decrease to 30cc/hr -Check gray cultures Metabolic lactic acidosis -LA is improving Combativeness -Start precedex gtt -Geodon Metabolic encephalopathy/severe confusion Critical Care: Critically Ill Patient Time spent with patient (mins): 30 Focused Exam Lactate Level 01/01/20 10:50: Lactic Acid Level 2.70*H 01/01/20 13:08: Lactic Acid Level 1.36 01/02/20 15:45: Lactic Acid Level Laboratory Tests Test 01/02/20 15:45 OCTAVIO STANFORD DO January 02, 2020 16:03
[2020-01-02] MEDS ORDERED: WATER (STERILE) FOR INJECTION 10 ML ONE (16:12)
[2020-01-02] MEDS ORDERED: ZIPRASIDONE 20 MG INJ (GEODON) VIAL IM ONE (16:12)
[2020-01-02] MEDS ORDERED: DexMEDEtomidine 250 ML DRIP 250 ML IV ONE (16:12)
[2020-01-02 16:14] LABS: ALBUMIN 3.5 GM/DL (3.2-4.5); BILIRUBIN,TOTAL 0.6 MG/DL (0.1-1.0); CALCIUM 8.6 MG/DL (8.5-10.1); CREATININE SERUM 1.35 MG/DL (0.60-1.30); TOTAL PROTEIN 6.7 GM/DL (6.4-8.2)
[2020-01-02] MEDS: DexMEDEtomidine 250 ML DRIP 250 ML IV SCH (16:26)
[2020-01-02] MEDS ORDERED: ZIPRASIDONE INJECTION 20 MG in WATER (STERILE) FOR INJECTION 1.2 ML IM ONE (16:30)
[2020-01-02] MEDS ORDERED: ZIPRASIDONE 20 MG INJ (GEODON) VIAL IM NR (16:30)
[2020-01-02] MEDS ORDERED: LACTATED RINGERS 1,000 ML IV SCH (16:45)
[2020-01-02] MEDS: NS IV 1000 ML 1,000 ML IV SCH ×2 (19:20→21:11)
[2020-01-03] VITALS (23 sets, daily range): BP systolic 80–150; BP diastolic 48–86
[2020-01-03] MEDS: PIPERACILLIN/TAZOBACTAM (BULK) 4.5 GM in NS (IVPB) 100 ML IV SCH ×3 (03:36→21:17)
[2020-01-03 04:11] LABS: BASOPHILS % (AUTO) 0 % (0-10); EOSINOPHILS % (AUTO) 0 % (0-10); HEMATOCRIT 31 % (35-52); HEMOGLOBIN 9.8 G/DL (11.5-16.0); LYMPHOCYTES # (AUTO) 1.1 X 10^3 (1.0-4.0); LYMPHOCYTES % (AUTO) 12 % (12-44); MEAN CORPUSCULAR HEMOGLOBIN 28 PG (25-34); MEAN CORPUSCULAR HGB CONC 32 G/DL (32-36); MEAN CORPUSCULAR VOLUME 89 FL (80-99); MEAN PLATELET VOLUME 11.3 FL (7.4-10.4); MONOCYTES % (AUTO) 10 % (0-12); NEUTROPHILS # (AUTO) 7.5 X 10^3 (1.8-7.8); NEUTROPHILS % (AUTO) 78 % (42-75); PLATELET COUNT 254 10^3/uL (130-400); RED CELL DISTRIBUTION WIDTH 14.3 % (10.0-14.5); WHITE BLOOD COUNT 9.6 10^3/uL (4.3-11.0)
[2020-01-03 04:22] LABS: TOTAL PROTEIN 5.7 GM/DL (6.4-8.2)
[2020-01-03 04:24] LABS: BILIRUBIN,TOTAL 0.6 MG/DL (0.1-1.0); CREATININE SERUM 1.33 MG/DL (0.60-1.30); PHOSPHORUS 3.9 MG/DL (2.3-4.7)
[2020-01-03 04:26] LABS: MAGNESIUM 1.6 MG/DL (1.6-2.4)
[2020-01-03 04:27] LABS: BILIRUBIN,DIRECT 0.3 MG/DL (0.0-0.3); BILIRUBIN,INDIRECT 0.3 MG/DL
[2020-01-03] MEDS: POTASSIUM CL 10MEQ/50ML IVPB 50 ML IV SCH ×3 (04:53→22:32)
[2020-01-03] MEDS: KCL 20 MEQ TAB (K-DUR) PO SCH (04:53)
[2020-01-03] MEDS: MAGNESIUM 1 GM/100 ML IVPB 100 ML IV SCH ×5 (04:53→19:30)
[2020-01-03] MEDS: NS IV 1000 ML 1,000 ML IV SCH ×2 (04:53→10:43)
[2020-01-03] MEDS: LEVOTHYROXINE 100 MCG (LEVOTHROID) TAB PO SCH (04:54)
--- NOTE | 2020-01-03 06:25 | Pulmonary Progress Note ---
Subjective Time Seen by a Provider: 06:21 Subjective/Events-last exam Pt is currently sedated. Precedex is currently off. Sepsis Event Evaluation Height, Weight, BMI Height: 5'0.00" Weight: 163lbs. 7.4oz. [id number]; 24.04 BMI Method:Stated Focused Exam Lactate Level 01/02/20 17:35: Lactic Acid Level 2.30*H 01/02/20 19:35: Lactic Acid Level 2.64*H 01/02/20 21:50: Lactic Acid Level 2.06*H Exam Exam Vital Signs Date Time Temp Pulse Resp B/P (MAP) Pulse Ox O2 Delivery O2 Flow Rate FiO2 01/03/20 06:00 57 17 111/74 (86) 95 Nasal Cannula 1.00 01/03/20 05:00 68 32 105/72 (83) 93 Nasal Cannula 1.00 01/03/20 04:02 Nasal Cannula 1.00 01/03/20 04:00 58 28 124/86 (99) 98 Nasal Cannula 1.00 01/03/20 03:33 36.2 Nasal Cannula 1.00 01/03/20 03:00 63 33 96/66 (76) 99 Nasal Cannula 3.00 01/03/20 02:00 64 26 100/63 (75) 97 Nasal Cannula 3.00 01/03/20 01:00 74 33 113/75 (88) 98 Nasal Cannula 3.00 01/03/20 01:00 74 01/03/20 00:00 Nasal Cannula 3.00 01/03/20 00:00 70 20 109/69 (82) 98 Nasal Cannula 3.00 01/02/20 23:17 36.2 Nasal Cannula 3.00 01/02/20 23:00 71 19 102/70 (81) 97 Nasal Cannula 3.00 01/02/20 22:15 85 24 121/84 (96) 98 Nasal Cannula 3.00 01/02/20 21:05 70 28 89/64 (72) 98 Nasal Cannula 3.00 01/02/20 20:00 36.2 Nasal Cannula 3.00 01/02/20 20:00 78 25 100/64 (76) 98 Nasal Cannula 3.00 01/02/20 20:00 Nasal Cannula 3.00 01/02/20 19:00 78 01/02/20 19:00 78 14 105/66 (79) 98 Nasal Cannula 5.00 01/02/20 16:28 114 01/02/20 16:26 114 01/02/20 16:00 102 31 136/43 (74) 96 Nasal Cannula 5.00 01/02/20 12:57 86 01/02/20 12:00 37.0 93 18 137/86 (103) 95 Nasal Cannula 1.50 01/02/20 10:50 01/02/20 09:13 36.7 91 18 91 Nasal Cannula 1.50 01/02/20 08:00 92 20 139/111 (120) 88 Nasal Cannula 3.00 01/02/20 08:00 Nasal Cannula 1.50 01/02/20 08:00 36.9 01/02/20 07:00 85 31 151/102 (118) 97 Nasal Cannula 3.00 01/02/20 06:44 86 I & O 01/03/20 07:00 Intake Total 500 ml Output Total 900 ml Balance -400 ml Height & Weight Height: 5'0.00" Weight: 163lbs. 7.4oz. 74.016881ee; 24.04 BMI Method:Stated General Appearance: Chronically ill HEENT: PERRL/EOMI Neck: Full Range of Motion Respiratory: Chest Non Tender, Decreased Breath Sounds Cardiovascular: Regular Rate, Rhythm, No Edema, No Murmur Capillary Refill: Less Than 3 Seconds Gastrointestinal: normal bowel sounds, non tender, soft Extremity: Normal Capillary Refill Neurologic/Psychiatric: Depressed Affect, Disoriented Skin: Normal Color Lymphatic: No Adenopathy Results Lab Laboratory Tests 01/01/20 06:30 01/02/20 03:05 01/02/20 15:45 01/03/20 03:46 Assessment/Plan Assessment/Plan CP with NSTEMI -Cardiology following -s/p cath Acute respiratory distress -ABG -CXR -Repeat labs Acute renal failure with metabolic lactic acidosis -Continue IVF at 150cc/hr -Give 2 amps of bicarb Sepsis - Zosyn, vanco - LR -- decrease to 30cc/hr -Check gray cultures Metabolic lactic acidosis -LA is improving Combativeness - precedex gtt -Geodon PRN Probable chronic dementia Metabolic encephalopathy/severe confusion OCTAVIO STANFORD DO January 03, 2020 06:25
[2020-01-03] MEDS ORDERED: SODIUM BICARB 8.4% 50 MEQ/50 ML VIAL IV ONE (06:30)
--- NOTE | 2020-01-03 08:24 | Diagnostic Imaging Report ---
INDICATION: Myocardial infarction. COMPARISON: 01/02/2020 FINDINGS: Single frontal radiographic view of the chest was obtained and shows interval development of moderate pulmonary vascular congestion and mild diffuse prominence of the interstitium. Lungs show low inspiratory volumes with patchy alveolar airspace opacities in the left base resulting in partial obscuration of the left hemidiaphragm. Bilateral effusions are noted. There is no pneumothorax. Osseous structures show no acute abnormalities. IMPRESSION: 1. Interval development of pulmonary vascular congestion and probable diffuse interstitial pulmonary edema. 2. Bibasilar effusions with associated left basilar atelectasis, although infiltrate or developing alveolar pulmonary edema should also be considered. Dictated by: Dictated on workstation # [id number]
[2020-01-03] MEDS ORDERED: risperiDONE 1 MG (RisperDAL) TAB PO SCH (09:00)
--- NOTE | 2020-01-03 09:10 | Cardiology Progress Note ---
Subjective Date Seen by Provider: January 03, 2020 Time Seen by Provider: 09:06 Subjective/Events-last exam Patient is laying down in bed, breathing normal, unresponsive to any verbal commands, received multiple sedative overnight Review of Systems General: Other (unable to provide review of systems) Focused Exam Lactate Level 01/02/20 17:35: Lactic Acid Level 2.30*H 01/02/20 19:35: Lactic Acid Level 2.64*H 01/02/20 21:50: Lactic Acid Level 2.06*H Objective-Cardiology Exam Last Set of Vital Signs Vital Signs 01/03/20 01/03/20 01/03/20 03:33 06:00 09:00 Temp 36.2 Pulse 58 Resp 38 B/P (MAP) 112/73 (86) Pulse Ox 95 O2 Delivery Room Air O2 Flow Rate 1.00 Capillary Refill : Less Than 3 Seconds I&O Intake and Output 01/03/20 00:00 Intake Total 1830 ml Output Total 1650 ml Balance 180 ml Intake Oral 150 ml IV Total 1680 ml Output Urine Total 1650 ml # Voids 1 General: Moderate Distress, Other (sedated, unresponsive) HEENT: Atraumatic, PERRLA Neck: Supple, No JVD, +2 Carotid Pulse No Bruit Lungs: Clear to Auscultation, Normal Air Movement Heart: Regular Rate, Normal S1, Normal S2 Abdomen: Soft, Other (ttp lower quadrants) Extremities: No Edema Skin: No Rashes, No Significant Lesion Neuro: Other (unresponsive) Psych/Mental Status: Other (unresponsive) Results Lab Laboratory Tests 01/02/20 15:45 01/03/20 03:46 A/P-Cardiology Admission Diagnosis NSTEMI Sepsis Assessment/Plan Acute change in mental status, patient was thrashing yesterday, transferred to intensive care unit, received multiple sedative, currently obtunded, unresponsive. Breathing normal. Her baseline mental status is normal for her age, patient was seen as an outpatient and has been independent. Currently managed by primary care team and Dr. Renteria Congestive heart failure, acute left ventricular systolic dysfunction with ejection fraction 20 percent, nonischemic cardiomyopathy, I will start her on Lasix 20 mg IV twice a day and monitor tolerance and response Metabolic acidosis, lactic acidosis and respiratory alkalosis, managed by primary care team Acute renal failure, continue to monitor renal function Sepsis, unknown source, elevated lactic acid and pro-calcitonin, gray cultures are negative so far and receiving antibiotic. Managed by primary care team Coronary artery disease,NSTEMI- cardiac catheterization done 01/01/2020 revealed 50% proximal stenosis in the left circumflex artery has a fractional flow reserve of 0.98, indicating hemodynamic insignificance. Other coronaries have diffuse mild to moderate plaque. Marked impairment of global left ventricular systolic function with global hypokinesis and left ventricular ejection fraction of approximately 20%. On beta zenobia and ARB History of recent persistent diarrhea and weight loss, underwent colonoscopy on 12/31/2019, Dr. Karoline vargas. 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 Hypertension, history of labile blood pressure, continue to monitor. Renal artery stenosis- Stent in the right renal artery Express SD 5 x19 mm expanded to 6 , CTA of abdominal aorta and renal arteries done March 02, 2017 revealed patent stent to the right renal artery, continue to monitor Hyperlipidemia, maintained on Lipitor as outpatient Nonobstructive carotid artery stenosis-most recent carotid duplex done in October 2018, still having left carotid bruit, CT scan of the neck was reported as 50 percent stenosis at the level of the proximal aspect of the right internal carotid artery, continue to monitor History of thyroidectomy, maintained on thyroid replacement, monitored by primary care physician History of partial hysterectomy in 1982, 2 knee replacement 2004 in 2004, breast surgery. History of breast cancer, had lumpectomy in 2011. Degenerative joint disease Clinical Quality Measures DVT/VTE Risk/Contraindication: Risk Factor Score Per Nursin RFS Level Per Nursing on Admit: 3=High NGHIA COOPER MD January 03, 2020 09:10
[2020-01-03] MEDS: CLOPIDOGREL 75 MG (PLAVIX) TABLET PO SCH (09:11)
[2020-01-03] MEDS: ASPIRIN E.C. 81 MG (ECOTRIN) TAB PO SCH (09:11)
[2020-01-03] MEDS: PANTOPRAZOLE 40 MG (PROTONIX) VIAL IV SCH (09:12)
[2020-01-03] MEDS: LOSARTAN 100 MG (COZAAR) TABLET PO SCH (09:12)
[2020-01-03] MEDS: meTOprolol TARTRATE 25 MG (LOPRESSOR) TABLET PO SCH ×2 (09:12→21:17)
[2020-01-03] MEDS: FUROSEMIDE 40 MG/4 ML INJ (LASIX) IVP SCH ×2 (09:24→16:57)
[2020-01-03] MEDS: RT-ALBUTEROL/IPRATROPIUM 3 ML (DUONEB) VIAL INH SCH ×4 (10:02→22:00)
--- NOTE | 2020-01-03 10:38 | NUR ---
PALLIATIVE CARE RN in to see patient after noting her to have transferred to ICU after RAPID RESPONSE is called. This morning patient is off Precedex according to RN and alert to this RN. She was able to say she is in the hospital but told this RN that she was 89. She appears SOB by observations but denies this to be true. Respiratory Rate is 18-20 and regular.
[2020-01-03] MEDS ORDERED: TROUGH ORDER-PHARMACY XX ONE (11:00)
[2020-01-03] MEDS: ENOXAPARIN 40 MG/0.4 ML (LOVENOX) SYR SC SCH (12:01)
[2020-01-03] MEDS: VANCOMYCIN 1 GM/NS 250 ML IVPB IV SCH ×2 (12:01)
--- NOTE | 2020-01-03 13:04 | Progress Note ---
Subjective Date Seen by a Provider: January 03, 2020 Time Seen by a Provider: 10:00 Subjective/Events-last exam doing better today. knows name and place. no chest pain. no abd pain. Focused Exam Lactate Level 01/02/20 17:35: Lactic Acid Level 2.30*H 01/02/20 19:35: Lactic Acid Level 2.64*H 01/02/20 21:50: Lactic Acid Level 2.06*H Objective Exam Vital Signs Date Time Temp Pulse Resp B/P (MAP) Pulse Ox O2 Delivery O2 Flow Rate FiO2 01/03/20 12:00 69 17 134/77 (96) 97 Room Air 01/03/20 11:00 71 21 127/75 (92) 96 Room Air 01/03/20 10:02 98 Room Air 01/03/20 10:00 59 30 100/69 (79) 98 Room Air 01/03/20 09:00 58 38 112/73 (86) 95 Room Air 01/03/20 08:15 96 Room Air 01/03/20 08:00 67 11 99/73 (82) 93 Nasal Cannula 1.00 01/03/20 08:00 36.0 01/03/20 07:00 63 39 80/48 (59) 93 Nasal Cannula 1.00 01/03/20 06:53 66 01/03/20 06:00 57 17 111/74 (86) 95 Nasal Cannula 1.00 01/03/20 05:00 68 32 105/72 (83) 93 Nasal Cannula 1.00 01/03/20 04:02 Nasal Cannula 1.00 01/03/20 04:00 58 28 124/86 (99) 98 Nasal Cannula 1.00 01/03/20 03:33 36.2 Nasal Cannula 1.00 01/03/20 03:00 63 33 96/66 (76) 99 Nasal Cannula 3.00 01/03/20 02:00 64 26 100/63 (75) 97 Nasal Cannula 3.00 01/03/20 01:00 74 33 113/75 (88) 98 Nasal Cannula 3.00 01/03/20 01:00 74 01/03/20 00:00 Nasal Cannula 3.00 01/03/20 00:00 70 20 109/69 (82) 98 Nasal Cannula 3.00 01/02/20 23:17 36.2 Nasal Cannula 3.00 01/02/20 23:00 71 19 102/70 (81) 97 Nasal Cannula 3.00 01/02/20 22:15 85 24 121/84 (96) 98 Nasal Cannula 3.00 01/02/20 21:05 70 28 89/64 (72) 98 Nasal Cannula 3.00 01/02/20 20:00 36.2 Nasal Cannula 3.00 01/02/20 20:00 78 25 100/64 (76) 98 Nasal Cannula 3.00 01/02/20 20:00 Nasal Cannula 3.00 01/02/20 19:00 78 01/02/20 19:00 78 14 105/66 (79) 98 Nasal Cannula 5.00 01/02/20 16:28 114 01/02/20 16:26 114 01/02/20 16:00 102 31 136/43 (74) 96 Nasal Cannula 5.00 I & O 01/03/20 07:00 Intake Total 700 ml Output Total 950 ml Balance -250 ml Capillary Refill : Less Than 3 Seconds General Appearance: No Apparent Distress HEENT: PERRL/EOMI Neck: Full Range of Motion Respiratory: Chest Non Tender, Decreased Breath Sounds Cardiovascular: Regular Rate, Rhythm Gastrointestinal: normal bowel sounds, non tender, soft Extremity: Normal Capillary Refill Neurologic/Psychiatric: Alert Skin: Normal Color Lymphatic: No Adenopathy Results Lab Laboratory Tests 01/02/20 13:10: Erythrocyte Sedimentation Rate 41H, Total Bilirubin 0.6, Direct Bilirubin 0.4H, Indirect Bilirubin 0.2, Aspartate Amino Transf (AST/SGOT) 56H, Alanine Aminotransferase (ALT/SGPT) 17, Alkaline Phosphatase 77, Lactate Dehydrogenase 349H, C-Reactive Protein High Sensitivity 8.27H, Total Protein 6.3L, Albumin 3.4 01/02/20 15:36: Blood Gas Puncture Site UNK, Blood Gas Patient Temperature 36, Arterial Blood pH 7.43, Arterial Blood Partial Pressure CO2 27L, Arterial Blood Partial Pressure O2 74L, Arterial Blood HCO3 18L, Arterial Blood Total CO2 18.4L, Arterial Blood Oxygen Saturation 96, Arterial Blood Base Excess -6.1L, Pietro Test UNK, Blood Gas Ventilator Setting NO, Blood Gas Inspired Oxygen UNK 01/02/20 15:45: Total Bilirubin 0.6, Aspartate Amino Transf (AST/SGOT) 63H, Alanine Aminotransferase (ALT/SGPT) 21, Alkaline Phosphatase 82, Total Protein 6.7, Albumin 3.5, White Blood Count 14.8H, Red Blood Count 3.85L, Hemoglobin 10.7L, Hematocrit 34L, Mean Corpuscular Volume 87, Mean Corpuscular Hemoglobin 28, Mean Corpuscular Hemoglobin Concent 32, Red Cell Distribution Width 14.2, Platelet Count 384, Mean Platelet Volume 10.6H, Neutrophils (%) (Auto) 82H, Lymphocytes (%) (Auto) 9L, Monocytes (%) (Auto) 9, Eosinophils (%) (Auto) 0, Basophils (%) (Auto) 0, Neutrophils # (Auto) 12.2H, Lymphocytes # (Auto) 1.4, Monocytes # (A uto) 1.3H, Eosinophils # (Auto) 0.0, Basophils # (Auto) 0.0, Sodium Level 140, Potassium Level 4.0, Chloride Level 108H, Carbon Dioxide Level 17L, Anion Gap 15H, Blood Urea Nitrogen 16, Creatinine 1.35H, Estimat Glomerular Filtration Rate 38, BUN/Creatinine Ratio 12, Glucose Level 101, Lactic Acid Level 3.58*H, Calcium Level 8.6, Corrected Calcium 9.0 01/02/20 17:35: Lactic Acid Level 2.30*H, Ammonia 13 01/02/20 19:35: Lactic Acid Level 2.64*H 01/02/20 21:50: Lactic Acid Level 2.06*H 01/03/20 03:46: White Blood Count 9.6, Red Blood Count 3.45L, Hemoglobin 9.8L, Hematocrit 31L, Mean Corpuscular Volume 89, Mean Corpuscular Hemoglobin 28, Mean Corpuscular Hemoglobin Concent 32, Red Cell Distribution Width 14.3, Platelet Count 254, Mean Platelet Volume 11.3H, Neutrophils (%) (Auto) 78H, Lymphocytes (%) (Auto) 12, Monocytes (%) (Auto) 10, Eosinophils (%) (Auto) 0, Basophils (%) (Auto) 0, Neutrophils # (Auto) 7.5, Lymphocytes # (Auto) 1.1, Monocytes # (Auto) 1.0, Eosinophils # (Auto) 0.0, Basophils # (Auto) 0.0, Sodium Level 140, Potassium Level 4.0, Chloride Level 112H, Carbon Dioxide Level 13L, Anion Gap 15H, Blood Urea Nitrogen 19H, Creatinine 1.33H, Estimat Glomerular Filtration Rate 39, BUN/Creatinine Ratio 14, Glucose Level 126H, Calcium Level 8.0L, Phosphorus Level 3.9, Magnesium Level 1.6, Total Bilirubin 0.6, Direct Bilirubin 0.3, Indirect Bilirubin 0.3, Aspartate Amino Transf (AST/SGOT) 46H, Alanine Aminotransferase (ALT/SGPT) 20, Alkaline Phosphatase 65, Total Protein 5.7L, Albumin 3.0L, Procalcitonin 2.91H 01/03/20 11:05: Vancomycin Level Trough 17.4 Microbiology 01/01/20 Urine Culture - Final, Complete NO GROWTH 01/01/20 Blood Culture - Preliminary, Resulted No growth Assessment/Plan Assessment/Plan Assess & Plan/Chief Complaint NSTEMI s/p colonoscopy for persistent diarrhea, nausea, and weight loss. HIDA with EF% during this admission. however if positive would wait until least 3 months for surgery. Clinical Quality Measures DVT/VTE Risk/Contraindication: Risk Factor Score Per Nursin RFS Level Per Nursing on Admit: 3=High KEEGAN PRESSLEY MD January 03, 2020 13:04
--- NOTE | 2020-01-03 13:20 | NUR ---
PT TO NUCLEAR MEDICINE VIA BED ACCOMPANIED BY NUCLEAR MEDICINE STAFF.
--- NOTE | 2020-01-03 14:38 | Diagnostic Imaging Report ---
INDICATION: Anorexia, diarrhea, weight loss. FINDINGS: The patient was administered 5.39 mCi of Tc 99m Choletec and sequential imaging was performed over the right upper abdomen. There is progressive, homogeneous accumulation of radiotracer within the liver parenchyma. There is filling of the bile ducts and subsequent filling of the gallbladder. Imaging performed for total of 40 minutes. There is progressive clearance of activity from the liver parenchyma and free flow of radiotracer into loops of proximal small bowel. Stimulation for gallbladder ejection fraction was not performed. IMPRESSION: 1. Hepatobiliary scan demonstrates a patent biliary tree. Dictated by: Dictated on workstation # [id number]
--- NOTE | 2020-01-03 16:27 | Progress Note - Hospitalist ---
Subjective HPI/CC On Admission Date Seen by Provider: January 03, 2020 Time Seen by Provider: 08:45 Yvonne Resendez is a 79-year-old female with past medical history of hypertension, hyperlipidemia, hypothyroidism, CVA, recent weight loss, who presented as a transfer from [facility] with non-ST elevated myocardial infarction. She had been admitted yesterday after undergoing a colonoscopy to evaluate for her weight loss. She was admitted due to weakness. She was found to have electrolyte abnormalities which were replaced. An EKG was performed and was concerning for possible acute changes. A troponin was checked and was elevated at 4 and she was subsequently transferred for cardiology consultation. Upon my examination she has just returned from a left heart catheterization and is minimally responsive. She is unable to provide any significant history. Subjective/Events-last exam She is sedated. She appears to be hallucinating. I spoke with her on the phone and he states that she has no known underlying dementia. She lives at home with her independently. Focused Exam Lactate Level 01/02/20 17:35: Lactic Acid Level 2.30*H 01/02/20 19:35: Lactic Acid Level 2.64*H 01/02/20 21:50: Lactic Acid Level 2.06*H Objective Exam Vital Signs Vital Signs Date Time Temp Pulse Resp B/P (MAP) Pulse Ox O2 Delivery O2 Flow Rate FiO2 01/03/20 13:04 70 01/03/20 12:00 36.1 01/03/20 12:00 17 134/77 (96) 97 Room Air 01/03/20 08:00 1.00 Capillary Refill : Less Than 3 Seconds General Appearance: No Apparent Distress, WD/WN HEENT: PERRL/EOMI, Pharynx Normal Neck: Normal Inspection, Supple Respiratory: Lungs Clear, Normal Breath Sounds, No Respiratory Distress Cardiovascular: Regular Rate, Rhythm, No Murmur Gastrointestinal: Normal Bowel Sounds, Non Tender, Soft Extremity: Normal Inspection, Non Tender, Pedal Edema Neurologic/Psychiatric: Disoriented, Other (Sedated, appears to be hallucinating) Skin: Normal Color, Warm/Dry Results/Procedures Lab Laboratory Tests 01/03/20 03:46 Patient resulted labs reviewed. Imaging: Reviewed Imaging Report Assessment/Plan Assessment and Plan Assess & Plan/Chief Complaint Acute metabolic encephalopathy Likely delirium Requiring sedation with Precedex GTT Haldol as needed If persists, consider MRI NSTEMI, type 2 Acute heart failure with reduced ejection fraction Cardiology consulted, appreciate assistance left heart catheterization revealed mild coronary artery disease Echocardiogram with ejection fraction 25-30 percent and severe global hypokinesis Diuresis with Lasix Severe sepsis Acute respiratory failure with hypoxia Metabolic acidosis Pneumonia SIRS+ with leukocytosis and tachycardia chest x-ray with possible bibasilar infiltrate Blood cultures drawn, no growth Urinalysis not indicative of UTI, urine culture with no growth Procalcitonin trending down Discontinue fluids Continue vancomycin and Zosyn Pulmonology consulted, appreciate assistance CT chest/abdomen/pelvis with mildly distended gallbladder, small to moderate bilateral pleural effusions with bibasilar infiltrates versus atelectasis Euthyroid sick syndrome TSH low at 0.14 T3 and T4 normal Repeat TSH and T4 today Hypertension Hyperlipidemia Hypothyroidism History of CVA Continue home meds DVT prophylaxis: Lovenox high anion gap metabolic acidosis, resolved Lactic acidosis, resolved Critical Care Critically Ill Patient Diagnosis/Problems Diagnosis/Problems (1) Severe sepsis Status: Acute (2) Lactic acidosis Status: Resolved Resolution Date/Time: 01/02/20 @ 11:44 (3) High anion gap metabolic acidosis Status: Resolved Resolution Date/Time: 01/02/20 @ 11:44 (4) Acute respiratory failure with hypoxia Status: Acute (5) NSTEMI (non-ST elevation myocardial infarction) Status: Acute (6) Acute HFrEF (heart failure with reduced ejection fraction) Status: Acute (7) HTN (hypertension) Status: Chronic Qualifiers: Hypertension type: essential hypertension Qualified Codes: I10 - Essential (primary) hypertension (8) HLD (hyperlipidemia) Status: Chronic Qualifiers: Hyperlipidemia type: unspecified Qualified Codes: E78.5 - Hyperlipidemia, unspecified (9) Hypothyroidism Status: Chronic (10) History of CVA (cerebrovascular accident) Status: Chronic (11) Euthyroid sick syndrome Clinical Quality Measures DVT/VTE Risk/Contraindication: Risk Factor Score Per Nursin RFS Level Per Nursing on Admit: 3=High MILLICENT SÁNCHEZ MD January 03, 2020 16:27
[2020-01-03] MEDS ORDERED: LORazepam 0.5 MG (ATIVAN) TABLET PO PRN (18:15)
[2020-01-03] MEDS ORDERED: LORazepam INJ 2 MG/ML (ATIVAN) VIAL IVP PRN (18:15)
[2020-01-03] MEDS ORDERED: CALCIUM GLUC. 10% 4.65 MEQ/10 ML VIAL IV NR (18:45)
[2020-01-03] MEDS ORDERED: SODIUM BICARB 8.4% 50 MEQ/50 ML VIAL IV NR (18:45)
[2020-01-03] MEDS ORDERED: AMIODARONE FOR BOLUS 150 MG in D5W 100 ML IVPB 100 ML IV NR (18:45)
[2020-01-03] MEDS ORDERED: AMIODARONE FOR BOLUS 150 MG in D5W 100 ML IVPB 100 ML IV ONE ×2 (18:45→19:30)
[2020-01-03 19:20] LABS: POTASSIUM 3.1 MMOL/L (3.6-5.0)
[2020-01-03 19:26] LABS: CREATININE SERUM 1.42 MG/DL (0.60-1.30)
[2020-01-03] MEDS ORDERED: AMIODARONE INJECTION 450 MG in D5W IV SOLUTION (EXCEL) 250 ML IV SCH (19:30)
[2020-01-03] MEDS: AMIODARONE INJECTION 450 MG in D5W IV SOLUTION (EXCEL) 250 ML IV SCH (19:41)
[2020-01-03] MEDS: DexMEDEtomidine 250 ML DRIP 250 ML IV SCH (19:46)
[2020-01-03] MEDS ORDERED: DIGOXIN 0.25 MG/ML (LANOXIN) 2 ML AMP ONE (19:47)
[2020-01-03 19:49] LABS: FREE T4 (FREE THYROXINE) 1.1 NG/DL (0.70-1.48)
[2020-01-03] MEDS ORDERED: DIGOXIN 0.25 MG/ML (LANOXIN) 2 ML AMP IV ONE (20:00)
--- NOTE | 2020-01-03 20:09 | NUR ---
1830 PT NOTED BY APRON WORKER THAT PT IN [facility] E-ICU NOTIFIED THIS RN TO ROOM, ALONG WITH Kiah YANG PELT SALTER, ORDERS FOR E-ICU TO GIVE FOLLOWING MEDICATIONS: SEE EMAR AND ORDER HX. PT NOTED TO BE SOA, PT PLACED ON 02 AT 5 LITERS PER NC, PRIOR TO RHYTHM CHANGE PT HAD BEEN YELLING OUT AND HAS HAD INCREASED CONFUSION. SITTER REMAINED AT BEDSIDE. SEVERAL RN'S INCLUDING THIS HOT [employer]ATE [employer] PRESS LABORER ATTEMPTED ADDITIONAL IV ACCESS WITH NO SUCCESS. ORDERS RECEIVED FOR CENTRAL LINE PLACEMENT AND DR SANCHEZ NOTIFIED. 1855 PT IN A-FIB AT THIS TIME AND REPORT GIVEN TO ONCOMING ENRIQUE KEY.
--- NOTE | 2020-01-03 20:50 | Consultation - Surgery ---
History of Present Illness History of Present Illness Patient Consulted On(kristi/time) 01/03/20 20:44 Time Seen by Provider: 20:02 History of Present Illness Surgery asked to consult regarding Venous Insufficiency, Tachycardia, Sepsis; these are new problems. HPI per IM: Yvonne Resendez is a 79-year-old female with past medical history of hypertension, hyperlipidemia, hypothyroidism, CVA, recent weight loss, who presented as a transfer from [facility] with non-ST elevated myocardial infarction. She had been admitted yesterday after undergoing a colonoscopy to evaluate for her weight loss. She was admitted due to weakness. She was found to have electrolyte abnormalities which were replaced. An EKG was performed and was concerning for possible acute changes. A troponin was checked and was elevated at 4 and she was subsequently transferred for cardiology consultation. Upon my examination she has just returned from a left heart catheterization and is minimally responsive. She is unable to provide any significant history. Pt was on 4th floor but got transferred up to the ICU because of hypotension, tachycardia. Nursing unable to get IV access (she had one IV that was leaking) and need central line for IV access. Pt is confused and unable to answer questions, hx obtained from chart. Allergies and Home Medications Allergies Coded Allergies: cyclobenzaprine (Unverified Allergy, Unknown, UNKNOWN, 01/01/20) Home Medications Acetaminophen/Diphenhydramine 1 Each Tablet, 1 TAB PO HS PRN for SLEEP, (Reported) Atorvastatin Calcium 20 Mg Tablet, 20 MG PO 1800, (Reported) Citalopram Hydrobromide 20 Mg Tablet, 20 MG PO 1800, (Reported) Clonidine HCl 0.1 Mg Tablet, 0.1 MG PO DAILY, (Reported) TAKE 1 TAB DAILY AND MAY TAKE ANOTHER TAB IF SYSTOLIC BLOOD PRESSURE IS OVER 190 Clonidine HCl 0.1 Mg Tablet, 0.1 MG PO DAILY PRN for BLOOD PRESSURE, (Reported) TAKE 1 TAB DAILY AND MAY TAKE ANOTHER TAB IF SYSTOLIC BLOOD PRESSURE IS OVER 190 Clopidogrel Bisulfate 75 Mg Tablet, 75 MG PO DAILY, (Reported) Cyanocobalamin (Vitamin B-12) 2,000 Mcg Tablet, 2,000 MCG PO DAILY, (Reported) Diltiazem HCl 300 Mg Cap.er.24h, 300 MG PO DAILY, (Reported) Hydrochlorothiazide 25 Mg Tablet, 25 MG PO DAILY, (Reported) LAST FILLED 11-08-2019 #30/30 DAY SUPPLY Levothyroxine Sodium 100 Mcg Tablet, 100 MCG PO DAILY, (Reported) Losartan Potassium 100 Mg Tablet, 100 MG PO DAILY, (Reported) [place]-3/Dha/Epa/Fish Oil 1 Each Capsule, 1 CAP PO DAILY, (Reported) Potassium Chloride 20 Meq Tablet.er, 20 MEQ PO BID, (Reported) FILLED 12-26-2019 #10/5 DAY SUPPLY Patient Home Medication List Home Medication List Reviewed: Yes Past Xeztqrl-Bhcyfr-Hdeeyy Hx Patient Social History Alcohol Use: Denies Use Recreational Drug Use: No Recent Foreign Travel: No Recent Hopitalizations: No Physical Abuse Screen: No Sexual Abuse: No Immunizations Up To Date Date of Pneumonia Vaccine: Jan 20, 2015 Date of Influenza Vaccine: Jun 08, 2017 Seasonal Allergies Seasonal Allergies: No Surgeries History of Surgeries: Yes Surgeries: Lobectomy, Thyroidectomy Respiratory History of Respiratory Disorde: No Cardiovascular History of Cardiac Disorders: Yes Cardiac Disorders: High Cholesterol, Hypertension Neurological History of Neurological Disord: No Reproductive System Hx Reproductive Disorders: No Sexually Transmitted Disease: No HIV/AIDS: No Female Reproductive Disorders: Denies Gastrointestinal History of Gastrointestinal Di: No Musculoskeletal History of Musculoskeletal Dis: Yes (SEVERAL FX RIBS AND SHOULDER DISLOCATION) Musculoskeletal Disorders: Osteoporosis, Arthritis, Fractures Endocrine History of Endocrine Disorders: Yes Endocrine Disorders: Hypothyroidsim HEENT HEENT Disorders: Cataract Loss of Vision: Bilateral Hearing Impairment: Denies Cancer History of Cancer: Yes (BREAST-LUMPECTOMY, THYROID) Cancer: Breast, Thyroid Psychosocial History of Psychiatric Problem: Yes (TAKES MEDS) Behavioral Health Disorders: Depression Integumentary History of Skin or Integumenta: No Blood Transfusions History of Blood Disorders: No Adverse Reaction to a Blood Tr: No Family Medical History Significant Family History: CAD Over 55 Years Old, Vascular Disease Family Medial History: Arthritis 19 FATHER 19 MOTHER Cardiovascular disease 19 FATHER Cataracts 19 MOTHER Dementia 19 FATHER Hypertension 19 MOTHER Myocardial infarction 19 FATHER Thyroid disease 19 MOTHER Review of Systems-General ROS-Unable to Obtain: pt is confused and cannot answer Physical Exam-General Problems Physical Exam Vital Signs Vital Signs - First Documented 01/01/20 01/01/20 01/01/20 00:05 00:10 00:15 Temp 36.8 Pulse 94 Resp 10 B/P (MAP) 145/94 (111) Pulse Ox 99 O2 Delivery Room Air O2 Flow Rate 3.00 Capillary Refill : Less Than 3 Seconds General Appearance: mild distress, obese Eyes: Bilateral Eye PERRL, Bilateral Eye EOMI HEENT: pharynx normal; No scleral icterus (R), No scleral icterus (L) Respiratory: lungs clear, normal breath sounds, no respiratory distress, no accessory muscle use Cardiovascular: tachycardia, systolic murmur, other (pt has external pacer leads and defibrillator on her chest) Gastrointestinal: non tender, soft, no organomegaly Extremities: no pedal edema, normal capillary refill Neurologic/Psychiatric: disoriented x 3 Skin: normal color, warm/dry Lymphatic: no adenopathy (neck, axilla or groin) Data Review Labs Laboratory Tests 01/02/20 21:50: Lactic Acid Level 2.06*H 01/03/20 03:46: White Blood Count 9.6, Red Blood Count 3.45L, Hemoglobin 9.8L, Hematocrit 31L, Mean Corpuscular Volume 89, Mean Corpuscular Hemoglobin 28, Mean Corpuscular Hemoglobin Concent 32, Red Cell Distribution Width 14.3, Platelet Count 254, Mean Platelet Volume 11.3H, Neutrophils (%) (Auto) 78H, Lymphocytes (%) (Auto) 12, Monocytes (%) (Auto) 10, Eosinophils (%) (Auto) 0, Basophils (%) (Auto) 0, Neutrophils # (Auto) 7.5, Lymphocytes # (Auto) 1.1, Monocytes # (Auto) 1.0, Eosinophils # (Auto) 0.0, Basophils # (Auto) 0.0, Sodium Level 140, Potassium Level 4.0, Chloride Level 112H, Carbon Dioxide Level 13L, Anion Gap 15H, Blood Urea Nitrogen 19H, Creatinine 1.33H, Estimat Glomerular Filtration Rate 39, BUN/Creatinine Ratio 14, Glucose Level 126H, Calcium Level 8.0L, Phosphorus Level 3.9, Magnesium Level 1.6, Total Bilirubin 0.6, Direct Bilirubin 0.3, Indirect Bilirubin 0.3, Aspartate Amino Transf (AST/SGOT) 46H, Alanine Aminotransferase (ALT/SGPT) 20, Alkaline Phosphatase 65, Total Protein 5.7L, Albumin 3.0L, Procalcitonin 2.91H 01/03/20 11:05: Vancomycin Level Trough 17.4 01/03/20 19:03: Sodium Level 145, Potassium Level 3.1L, Chloride Level 107, Carbon Dioxide Level 19L, Anion Gap 19H, Blood Urea Nitrogen 21H, Creatinine 1.42H, Estimat Glomerular Filtration Rate 36, BUN/Creatinine Ratio 15, Glucose Level 138H, Calcium Level 10.0, Thyroid Stimulating Hormone (TSH) 0.89, Free Thyroxine 1.10 Microbiology 01/03/20 C. difficile GDH Antigen & Toxins - Final, Complete 01/01/20 Urine Culture - Final, Complete NO GROWTH 01/01/20 Blood Culture - Preliminary, Resulted No growth Assessment/Plan Assessment/Plan Assessment/Plan Venous Insufficiency Uncontrolled Tachycardia with episodes of VTach and Afib Hypokalemia DM, HTN Dementia Pt was having uncontrolled tachycardia and episodes of Hypotension (per nursing) and they were unable to get good IV acces for meds and fluids. Central line needed to be placed; I actually spoke with son and got consent from him for the central line. I went over risks and complications not limited to pain, bleeding, infection, scar and pneumothorax. I also explained the reasoning behind getting better IV access; he agreed to procedure. Clinical Quality Measures DVT/VTE Risk/Contraindication: Risk Factor Score Per Nursin RFS Level Per Nursing on Admit: 3=High AR SANCHEZ DO January 03, 2020 20:50
--- NOTE | 2020-01-03 20:59 | NUR ---
UPON THIS RN ARRIVAL TO SHIFT, PT NOTED WITH HR IN 150-160S ORDERS FROM E-ICU TO GIVE 0.5 MG OF DIGOXIN IV PRIOR IV LEAKING AND MEDS NOT FLOWING. 22 GAUGE TO L HAND STARTED. IV DIGOXIN GIVEN. PREVIOUSLY ORDERED AMIODARONE AND MAGNESIUM STARTED. DR SANCHEZ CALLED AND AT BEDSIDE FOR CENTRAL LINE PLACEMENT. PROCEDURE EXPLAINED TO SON BY DR SANCHEZ. TELEPHONE CONSENT FROM KOMAL BELL GIVEN. CONSENT WITNESSED BY THIS RN AND ENRIQUE BARRY. RIGHT TRIPLE LUMEN IJ PLACED. PER DR SANCHEZ- CENTRAL LINE OK TO USE, NO CHEST XRAY NEEDED. PT RESTING COMFORTABLY AT THIS TIME. VITALS SIGNS STABLE. HR 70-80S. BOTH SONKOMAL AND DAUGHTER, EVA UPDATED ON PT CONDITION. QUESTIONS AND CONCERNS WERE ADDRESSED BY THIS RN.
--- NOTE | 2020-01-03 21:02 | Progress Note-Post Operative ---
Post-Operative Progess Note Surgeon (s)/Counter Control Operator (s) Surgeon AR SANCHEZ DO Counter Control Operator: none Pre-Operative Diagnosis Venous Insufficiency, Hypokalemia, uncontrolled tachycardia Post-Operative Diagnosis same Procedure & Operative Findings Date of Procedure 01/03/20 Procedure Performed/Findings PROCEDURE: [Right] internal jugular central line placement using ultrasound guidance. COMPLICATIONS: None. INDICATIONS: The patient is a 79 year old female [with venous insufficiency]. Patient's son understands the risks and benefits of central line placement and wished to proceed with the procedure. Consent was signed on the chart. PROCEDURE: The patient in her bed in the ICU and was prepped and draped in the sterile fashion. A surgical pause was performed. Ultrasound was used to locate the internal jugular vein. Once located anesthetic was infiltrated above it. An 18 gauge finder needle was then advanced with negative inspiration and watched as it entered the right internal jugular vein. Dark nonpulsatile blood was withdrawn. The guidewire was then inserted using the Seldinger technique and fluoroscopy assured proper placement; could see the wire going down jugular vein. The needle was removed. A [#11] blade scalpel was used to make a stab incision over the wire. The dilator sheath was then advanced over the guidewire using the seldinger technique and then removed and finally the triple lumen catheter was inserted over the guidewire using the seldinger technique. The triple lumen catheter was then accessed in each line; aspirated and then flushed with sterile saline. It was then sutured in place with 3-0 Nylon on a Fredo needle and a sterile dressing placed. The patient tolerated the procedure well without complication. Anesthesia Type Local lidocaine Estimated Blood Loss Estimated blood loss (mL): scant Specimens/Packing Specimens Removed none AR SANCHEZ DO January 03, 2020 21:01
[2020-01-03] MEDS: risperiDONE 1 MG (RisperDAL) TAB PO SCH (21:17)
[2020-01-04] VITALS (23 sets, daily range): BP systolic 86–152; BP diastolic 50–103
[2020-01-04 02:40] LABS: BASOPHILS % (AUTO) 0 % (0-10); EOSINOPHILS % (AUTO) 0 % (0-10); HEMATOCRIT 28 % (35-52); HEMOGLOBIN 9.2 G/DL (11.5-16.0); LYMPHOCYTES # (AUTO) 1.2 X 10^3 (1.0-4.0); LYMPHOCYTES % (AUTO) 14 % (12-44); MEAN CORPUSCULAR HEMOGLOBIN 28 PG (25-34); MEAN CORPUSCULAR HGB CONC 33 G/DL (32-36); MEAN CORPUSCULAR VOLUME 85 FL (80-99); MEAN PLATELET VOLUME 11.2 FL (7.4-10.4); MONOCYTES # (AUTO) 0.6 X 10^3 (0.0-1.0); MONOCYTES % (AUTO) 7 % (0-12); NEUTROPHILS # (AUTO) 6.7 X 10^3 (1.8-7.8); NEUTROPHILS % (AUTO) 79 % (42-75); PLATELET COUNT 256 10^3/uL (130-400); RED CELL DISTRIBUTION WIDTH 13.8 % (10.0-14.5); WHITE BLOOD COUNT 8.5 10^3/uL (4.3-11.0)
[2020-01-04 03:03] LABS: CREATININE SERUM 1.28 MG/DL (0.60-1.30); MAGNESIUM 2.1 MG/DL (1.6-2.4); PHOSPHORUS 3.1 MG/DL (2.3-4.7); POTASSIUM 3.2 MMOL/L (3.6-5.0)
[2020-01-04] MEDS: AMIODARONE INJECTION 450 MG in D5W IV SOLUTION (EXCEL) 250 ML IV SCH ×2 (03:18→20:15)
[2020-01-04] MEDS: PIPERACILLIN/TAZOBACTAM (BULK) 4.5 GM in NS (IVPB) 100 ML IV SCH ×3 (05:03→20:14)
[2020-01-04] MEDS: POTASSIUM CL 10MEQ/50ML IVPB 50 ML IV SCH ×3 (05:43→06:39)
[2020-01-04] MEDS: KCL 20 MEQ TAB (K-DUR) PO SCH (05:44)
[2020-01-04] MEDS: MAGNESIUM 1 GM/100 ML IVPB 100 ML IV SCH (05:44)
[2020-01-04] MEDS: LEVOTHYROXINE 100 MCG (LEVOTHROID) TAB PO SCH (05:52)
[2020-01-04] MEDS: FUROSEMIDE 40 MG/4 ML INJ (LASIX) IVP SCH ×2 (05:56→16:54)
[2020-01-04] MEDS: RT-ALBUTEROL/IPRATROPIUM 3 ML (DUONEB) VIAL INH SCH ×5 (06:23→22:25)
--- NOTE | 2020-01-04 06:23 | Diagnostic Imaging Report ---
Indication: Chest pain Portable chest 3:30 AM Right jugular central line tip projects over the SVC. Heart size and pulmonary vascularity are normal. There is been improvement of the pulmonary vascular congestion since the previous day. There is some left perihilar and left basilar atelectasis. IMPRESSION: Improving chest with resolution of the pulmonary edema. There continues be some left basilar atelectasis. There is no effusion. Dictated by: Dictated on workstation # [id number]
--- NOTE | 2020-01-04 07:10 | Pulmonary Progress Note ---
Subjective Time Seen by a Provider: 07:08 Sepsis Event Evaluation Height, Weight, BMI Height: 5'0.00" Weight: 163lbs. 7.4oz. 74.592463lm; 24.04 BMI Method:Stated Focused Exam Lactate Level 01/02/20 17:35: Lactic Acid Level 2.30*H 01/02/20 19:35: Lactic Acid Level 2.64*H 01/02/20 21:50: Lactic Acid Level 2.06*H Exam Exam Vital Signs Date Time Temp Pulse Resp B/P (MAP) Pulse Ox O2 Delivery O2 Flow Rate FiO2 01/04/20 06:23 92 Room Air 01/04/20 06:00 72 14 124/58 (80) 94 Room Air 01/04/20 05:00 64 25 129/66 (87) 96 Room Air 01/04/20 04:22 77 9 95 Room Air 01/04/20 04:00 74 26 128/62 (84) 93 Nasal Cannula 2.00 01/04/20 03:36 36.3 01/04/20 03:16 98 Nasal Cannula 4.00 01/04/20 03:00 70 15 118/74 (89) 93 Nasal Cannula 2.00 01/04/20 02:30 65 14 86/53 (64) 98 Nasal Cannula 2.00 01/04/20 02:25 100 Nasal Cannula 5.00 01/04/20 02:00 76 13 115/67 (83) 93 Nasal Cannula 4.00 01/04/20 01:00 71 19 115/68 (84) 96 Nasal Cannula 4.00 01/04/20 01:00 71 01/04/20 00:07 69 17 88/55 (66) 100 Nasal Cannula 4.00 01/04/20 00:00 98 Nasal Cannula 4.00 01/04/20 00:00 70 18 87/50 (62) 98 Nasal Cannula 4.00 01/03/20 23:30 71 22 82/53 (63) 99 Nasal Cannula 4.00 01/03/20 23:00 80 13 126/60 (82) 98 Nasal Cannula 5.00 01/03/20 22:35 76 23 107/52 (70) 97 Nasal Cannula 5.00 01/03/20 22:00 90 24 127/68 (87) 98 Nasal Cannula 5.00 01/03/20 21:30 80 25 115/64 (81) 97 Nasal Cannula 5.00 01/03/20 21:00 67 19 89/55 (66) 97 Nasal Cannula 5.00 01/03/20 20:30 86 120/80 (93) 100 Nasal Cannula 5.00 01/03/20 20:05 135 137/86 (103) Nasal Cannula 5.00 01/03/20 20:00 36.6 01/03/20 20:00 98 Nasal Cannula 5.00 01/03/20 19:46 170 01/03/20 19:11 125 150/66 01/03/20 19:06 140 19 118/80 (93) 93 Nasal Cannula 5.00 01/03/20 19:00 133 01/03/20 19:00 133 24 97 Nasal Cannula 5.00 01/03/20 16:00 125 31 Room Air 01/03/20 15:40 36.9 85 19 150/66 (94) 98 01/03/20 13:04 70 01/03/20 12:00 36.1 01/03/20 12:00 69 17 134/77 (96) 97 Room Air 01/03/20 11:00 71 21 127/75 (92) 96 Room Air 01/03/20 10:02 98 Room Air 01/03/20 10:00 59 30 100/69 (79) 98 Room Air 01/03/20 09:00 58 38 112/73 (86) 95 Room Air 01/03/20 08:15 96 Room Air 01/03/20 08:00 67 11 99/73 (82) 93 Nasal Cannula 1.00 01/03/20 08:00 36.0 I & O 01/04/20 07:00 Intake Total 1843 ml Output Total 1250 ml Balance 593 ml Height & Weight Height: 5'0.00" Weight: 163lbs. 7.4oz. 74.153505qc; 24.04 BMI Method:Stated General Appearance: No Apparent Distress, WD/WN HEENT: PERRL/EOMI, Pharynx Normal Neck: Normal Inspection, Supple Respiratory: Lungs Clear, Normal Breath Sounds, No Respiratory Distress Cardiovascular: Regular Rate, Rhythm, No Murmur Capillary Refill: Less Than 3 Seconds Gastrointestinal: non tender, soft, no organomegaly Extremity: Normal Inspection, Non Tender, Pedal Edema Neurologic/Psychiatric: Disoriented, Other (Sedated, appears to be hallucinating) Skin: Normal Color, Warm/Dry Lymphatic: No Adenopathy Results Lab Laboratory Tests 01/02/20 15:45 01/03/20 03:46 01/03/20 19:03 01/04/20 02:30 Assessment/Plan Assessment/Plan CP with NSTEMI -Cardiology following -s/p cath Acute respiratory distress -Repeat labs Acute renal failure with metabolic lactic acidosis -IVF Sepsis - Zosyn, vanco - LR -- decrease to 30cc/hr -Check gray cultures Metabolic lactic acidosis -LA is improving Combativeness - precedex gtt -Lacie PRN Probable chronic dementia Metabolic encephalopathy/severe confusion OCTAVIO STANFORD DO January 04, 2020 07:10
--- NOTE | 2020-01-04 07:30 | NUR ---
This RN called to pt's room by sitter at this time. Pt had removed central line from right internal jugular at this time. Upon arrival to room pt is confused and combative. crew supervisor notified of incident, and Dr. Renteria notified at this time. New orders received for PICC line. Will attempt IV start at this time for prescribed medications.
--- NOTE | 2020-01-04 08:00 | NUR ---
Multiple attempts at IV starts unsuccessful at this time by multiple staff members. IV placed in right AC space at this time. Unable to obtain more access. Dr. Massey notified at this time. Mittens also placed on pt per physician orders. Sitter remains at bedside at this time. Family also updated at this time.
[2020-01-04] MEDS: CLOPIDOGREL 75 MG (PLAVIX) TABLET PO SCH (08:31)
[2020-01-04] MEDS: risperiDONE 1 MG (RisperDAL) TAB PO SCH ×2 (08:32→20:42)
[2020-01-04] MEDS: meTOprolol TARTRATE 25 MG (LOPRESSOR) TABLET PO SCH ×2 (08:54→20:41)
[2020-01-04] MEDS: PANTOPRAZOLE 40 MG (PROTONIX) VIAL IV SCH (08:54)
[2020-01-04] MEDS: LOSARTAN 100 MG (COZAAR) TABLET PO SCH (08:58)
[2020-01-04] MEDS: ASPIRIN E.C. 81 MG (ECOTRIN) TAB PO SCH (08:58)
[2020-01-04] MEDS ORDERED: CALCIUM CHLORIDE 1 GM/10 ML (IMS) SYR INJ ONE (10:26)
[2020-01-04] MEDS ORDERED: SODIUM BICARB 8.4% 50 MEQ/50 ML VIAL IV ONE (10:26)
[2020-01-04] MEDS ORDERED: AMIODARONE (OMNICELL DRIP KIT) 150 MG/3 ML IV ONE (10:26)
[2020-01-04] MEDS ORDERED: MAG SULFATE 1 GM/100 ML IV PRE-MIX BAG IV ONE (10:26)
--- NOTE | 2020-01-04 10:37 | Cardiology Progress Note ---
Subjective Date Seen by Provider: January 04, 2020 Time Seen by Provider: 10:34 Subjective/Events-last exam Patient is laying down in bed, confused, opening her eyes responding by yes or no. Still lethargic. Review of Systems General: Fatigue, Malaise, Other (unable to provide review of systems) Focused Exam Lactate Level 01/02/20 17:35: Lactic Acid Level 2.30*H 01/02/20 19:35: Lactic Acid Level 2.64*H 01/02/20 21:50: Lactic Acid Level 2.06*H Objective-Cardiology Exam Last Set of Vital Signs Vital Signs 01/04/20 01/04/20 01/04/20 03:36 04:00 10:00 Temp 36.3 Pulse 70 Resp 23 B/P (MAP) 122/54 (76) Pulse Ox 96 O2 Delivery Room Air O2 Flow Rate 2.00 Capillary Refill : Less Than 3 Seconds I&O Intake and Output 01/04/20 00:00 Intake Total 1963 ml Output Total 1050 ml Balance 913 ml Intake Oral 220 ml IV Total 1743 ml Output Urine Total 1050 ml # Bowel Movements 1 General: Moderate Distress, Other (arousable, not following commands) HEENT: Atraumatic, PERRLA Neck: Supple, No JVD, +2 Carotid Pulse No Bruit Lungs: Clear to Auscultation, Normal Air Movement Heart: Regular Rate, Normal S1, Normal S2 Abdomen: Soft, Other (ttp lower quadrants) Extremities: No Edema Skin: No Rashes, No Significant Lesion Neuro: Other (not following commands) Psych/Mental Status: Other (not responding appropriately) Results Lab Laboratory Tests 01/03/20 19:03 01/04/20 02:30 A/P-Cardiology Admission Diagnosis NSTEMI Sepsis Assessment/Plan Acute change in mental status, acute delirium, currently opening her eyes responding by yes or no but still confused and not following commands. Her baseline mental status is normal for her age, patient was seen as an outpatient and has been independent. Currently managed by primary care team and Dr. Renteria Congestive heart failure, acute left ventricular systolic dysfunction with ejection fraction 20 percent, nonischemic cardiomyopathy, responding to diuretics. Continue to monitor Metabolic acidosis, lactic acidosis and respiratory alkalosis, improving, managed by medical team. Continue to monitor Acute renal failure, improving, continue to monitor renal function Sepsis, unknown source, elevated lactic acid and pro-calcitonin, gray cultures are negative so far and receiving antibiotic. Managed by primary care team Coronary artery disease,NSTEMI- cardiac catheterization done 01/01/2020 revealed 50% proximal stenosis in the left circumflex artery has a fractional flow reserve of 0.98, indicating hemodynamic insignificance. Other coronaries have diffuse mild to moderate plaque. Marked impairment of global left ventricular systolic function with global hypokinesis and left ventricular ejection fraction of approximately 20%. On beta zenobia and ARB History of recent persistent diarrhea and weight loss, underwent colonoscopy on 12/31/2019, Dr. Ramey following. 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 Hypertension, history of labile blood pressure, continue to monitor. Renal artery stenosis- Stent in the right renal artery Express SD 5 x19 mm ex panded to 6 , CTA of abdominal aorta and renal arteries done March 02, 2017 revealed patent stent to the right renal artery, continue to monitor Hyperlipidemia, maintained on Lipitor as outpatient Nonobstructive carotid artery stenosis-most recent carotid duplex done in October 2018, still having left carotid bruit, CT scan of the neck was reported as 50 percent stenosis at the level of the proximal aspect of the right internal carotid artery, continue to monitor History of thyroidectomy, maintained on thyroid replacement, monitored by primary care physician History of partial hysterectomy in 1982, 2 knee replacement 2004 in 2004, breast surgery. History of breast cancer, had lumpectomy in 2011. Degenerative joint disease Clinical Quality Measures DVT/VTE Risk/Contraindication: Risk Factor Score Per Nursin RFS Level Per Nursing on Admit: 3=High NGHIA COOPER MD January 04, 2020 10:37
[2020-01-04] MEDS: ENOXAPARIN 40 MG/0.4 ML (LOVENOX) SYR SC SCH (11:10)
--- NOTE | 2020-01-04 14:18 | Progress Note - Hospitalist ---
Subjective HPI/CC On Admission Date Seen by Provider: January 04, 2020 Time Seen by Provider: 09:15 Yvonne Resendez is a 79-year-old female with past medical history of hypertension, hyperlipidemia, hypothyroidism, CVA, recent weight loss, who presented as a transfer from [facility] with non-ST elevated myocardial infarction. She had been admitted yesterday after undergoing a colonoscopy to evaluate for her weight loss. She was admitted due to weakness. She was found to have electrolyte abnormalities which were replaced. An EKG was performed and was concerning for possible acute changes. A troponin was checked and was elevated at 4 and she was subsequently transferred for cardiology consultation. Upon my examination she has just returned from a left heart catheterization and is minimally responsive. She is unable to provide any significant history. Subjective/Events-last exam She is awake but confused. She denies any pain. She denies any trouble breathing. She has no other complaints or concerns. Focused Exam Lactate Level 01/02/20 17:35: Lactic Acid Level 2.30*H 01/02/20 19:35: Lactic Acid Level 2.64*H 01/02/20 21:50: Lactic Acid Level 2.06*H Objective Exam Vital Signs Vital Signs Date Time Temp Pulse Resp B/P (MAP) Pulse Ox O2 Delivery O2 Flow Rate FiO2 01/04/20 13:00 69 01/04/20 13:00 21 135/102 (113) 97 Room Air 01/04/20 11:45 35.8 01/04/20 04:00 2.00 Capillary Refill : Less Than 3 Seconds General Appearance: No Apparent Distress, WD/WN Neck: Normal Inspection, Supple Respiratory: Lungs Clear, Normal Breath Sounds, No Respiratory Distress Cardiovascular: Regular Rate, Rhythm, No Edema, No Murmur Gastrointestinal: Normal Bowel Sounds, Non Tender, Soft Extremity: Normal Inspection, Non Tender, No Pedal Edema Neurologic/Psychiatric: Alert, No Motor/Sensory Deficits, Normal Mood/Affect, D isoriented Skin: Normal Color, Warm/Dry Results/Procedures Lab Laboratory Tests 01/03/20 19:03 01/04/20 02:30 Patient resulted labs reviewed. Imaging: Reviewed Imaging Report Assessment/Plan Assessment and Plan Assess & Plan/Chief Complaint Acute metabolic encephalopathy Likely delirium Requiring sedation with Precedex GTT Haldol as needed NSTEMI, type 2 Acute heart failure with reduced ejection fraction Cardiology consulted, appreciate assistance left heart catheterization revealed mild coronary artery disease Echocardiogram with ejection fraction 25-30 percent and severe global hypokinesis Continue Lasix Severe sepsis Acute respiratory failure with hypoxia Metabolic acidosis Pneumonia SIRS+ with leukocytosis and tachycardia chest x-ray with possible bibasilar infiltrate Blood cultures drawn, no growth Urinalysis not indicative of UTI, urine culture with no growth Procalcitonin trending down Discontinue fluids Continue vancomycin and Zosyn Pulmonology consulted, appreciate assistance CT chest/abdomen/pelvis with mildly distended gallbladder, small to moderate bilateral pleural effusions with bibasilar infiltrates versus atelectasis Euthyroid sick syndrome TSH low at 0.14, now normalized T3 and T4 normal Hypertension Hyperlipidemia Hypothyroidism History of CVA Continue home meds DVT prophylaxis: Lovenox high anion gap metabolic acidosis, resolved Lactic acidosis, resolved Critical Care Critically Ill Patient Diagnosis/Problems Diagnosis/Problems (1) Severe sepsis Status: Acute (2) Lactic acidosis Status: Resolved Resolution Date/Time: 01/02/20 @ 11:44 (3) High anion gap metabolic acidosis Status: Resolved Resolution Date/Time: 01/02/20 @ 11:44 (4) Acute respiratory failure with hypoxia Status: Acute (5) NSTEMI (non-ST elevation myocardial infarction) Status: Acute (6) Acute HFrEF (heart failure with reduced ejection fraction) Status: Acute (7) HTN (hypertension) Status: Chronic Qualifiers: Hypertension type: essential hypertension Qualified Codes: I10 - Essential (primary) hypertension (8) HLD (hyperlipidemia) Status: Chronic Qualifiers: Hyperlipidemia type: unspecified Qualified Codes: E78.5 - Hyperlipidemia, unspecified (9) Hypothyroidism Status: Chronic (10) History of CVA (cerebrovascular accident) Status: Chronic (11) Euthyroid sick syndrome Clinical Quality Measures DVT/VTE Risk/Contraindication: Risk Factor Score Per Nursin RFS Level Per Nursing on Admit: 3=High MILLICENT SÁNCHEZ MD January 04, 2020 14:18
--- NOTE | 2020-01-04 15:08 | Diagnostic Imaging Report ---
EXAM: Portable erect AP chest at 2:49 p.m. INDICATION: PICC line insertion In the interval since the exam performed earlier today at 3:28 AM a left-sided PICC line has been inserted. The tip of the line overlies the cavoatrial junction. There is no pneumothorax identified. The heart is stable in size when compared to the prior exam. There does seem to be somewhat greater involvement of both lung bases by atelectasis/infiltrate. The mediastinum is not widened. The osseous structures are intact. IMPRESSION: 1. There has been interval insertion of a left-sided PICC line without apparent complication. The tip overlies the cavoatrial junction. 2. There is somewhat greater involvement of both lung bases by atelectasis/infiltrate. Follow-up study would be recommended for continued evaluation. Dictated by: Dictated on workstation # [id number]
[2020-01-04] MEDS: DexMEDEtomidine 250 ML DRIP 250 ML IV SCH (15:22)
[2020-01-05] VITALS (24 sets, daily range): BP systolic 106–156; BP diastolic 54–94
[2020-01-05] MEDS: RT-ALBUTEROL/IPRATROPIUM 3 ML (DUONEB) VIAL INH SCH ×6 (02:30→22:00)
[2020-01-05] MEDS: PIPERACILLIN/TAZOBACTAM (BULK) 4.5 GM in NS (IVPB) 100 ML IV SCH (03:46)
[2020-01-05 04:06] LABS: BASOPHILS % (AUTO) 0 % (0-10); EOSINOPHILS # (AUTO) 0.2 10^3/uL (0.0-0.3); EOSINOPHILS % (AUTO) 2 % (0-10); HEMATOCRIT 29 % (35-52); HEMOGLOBIN 9.5 G/DL (11.5-16.0); LYMPHOCYTES # (AUTO) 1.6 X 10^3 (1.0-4.0); LYMPHOCYTES % (AUTO) 17 % (12-44); MEAN CORPUSCULAR HEMOGLOBIN 28 PG (25-34); MEAN CORPUSCULAR HGB CONC 33 G/DL (32-36); MEAN CORPUSCULAR VOLUME 86 FL (80-99); MEAN PLATELET VOLUME 11.6 FL (7.4-10.4); MONOCYTES # (AUTO) 0.7 X 10^3 (0.0-1.0); MONOCYTES % (AUTO) 7 % (0-12); NEUTROPHILS # (AUTO) 7.1 X 10^3 (1.8-7.8); NEUTROPHILS % (AUTO) 74 % (42-75); PLATELET COUNT 259 10^3/uL (130-400); WHITE BLOOD COUNT 9.5 10^3/uL (4.3-11.0)
[2020-01-05 04:14] LABS: POTASSIUM 3.2 MMOL/L (3.6-5.0)
[2020-01-05 04:15] LABS: CALCIUM 7.7 MG/DL (8.5-10.1)
[2020-01-05 04:20] LABS: CREATININE SERUM 1.31 MG/DL (0.60-1.30); PHOSPHORUS 2.8 MG/DL (2.3-4.7)
[2020-01-05 04:22] LABS: MAGNESIUM 1.7 MG/DL (1.6-2.4)
[2020-01-05] MEDS: POTASSIUM CL 10MEQ/50ML IVPB 50 ML IV SCH ×5 (05:05→08:23)
[2020-01-05] MEDS: MAGNESIUM 1 GM/100 ML IVPB 100 ML IV SCH ×3 (05:05→06:23)
[2020-01-05] MEDS: KCL 20 MEQ TAB (K-DUR) PO SCH (05:05)
[2020-01-05] MEDS: LEVOTHYROXINE 100 MCG (LEVOTHROID) TAB PO SCH (05:42)
--- NOTE | 2020-01-05 06:19 | Pulmonary Progress Note ---
Subjective Time Seen by a Provider: 06:19 Subjective/Events-last exam refusing PO meds and still becomes combative with RN. Sepsis Event Evaluation Height, Weight, BMI Height: 5'0.00" Weight: 163lbs. 7.4oz. [id number]; 24.04 BMI Method:Stated Focused Exam Lactate Level 01/02/20 17:35: Lactic Acid Level 2.30*H 01/02/20 19:35: Lactic Acid Level 2.64*H 01/02/20 21:50: Lactic Acid Level 2.06*H Exam Exam Vital Signs Date Time Temp Pulse Resp B/P (MAP) Pulse Ox O2 Delivery O2 Flow Rate FiO2 01/05/20 04:00 Room Air 01/05/20 03:45 36.2 01/05/20 03:00 57 17 156/80 (105) 98 Room Air 01/05/20 02:00 56 19 110/84 (93) 96 Room Air 01/05/20 01:00 62 21 148/79 (102) 97 Room Air 01/05/20 01:00 62 01/05/20 00:00 56 16 152/81 (104) 98 Room Air 01/05/20 00:00 Room Air 01/04/20 23:54 36.2 01/04/20 23:00 53 19 143/81 (101) 100 Room Air 01/04/20 22:00 59 21 138/83 (101) 96 Room Air 01/04/20 21:00 56 22 152/94 (113) 96 Room Air 01/04/20 20:00 98 Room Air 01/04/20 20:00 66 21 115/60 (78) 98 Room Air 01/04/20 19:42 36.1 01/04/20 19:00 64 01/04/20 19:00 63 15 115/67 (83) 97 Room Air 01/04/20 18:00 61 20 121/85 (97) 96 Room Air 01/04/20 17:00 58 17 146/65 (92) 93 Room Air 01/04/20 16:00 98 Room Air 01/04/20 16:00 62 19 132/77 (95) 98 Room Air 01/04/20 15:22 36.6 01/04/20 15:22 62 01/04/20 15:00 61 28 97 Room Air 01/04/20 14:00 68 21 97 Room Air 01/04/20 13:00 69 01/04/20 13:00 69 21 135/102 (113) 97 Room Air 01/04/20 12:00 65 20 129/103 (112) 97 Room Air 01/04/20 12:00 98 Room Air 01/04/20 11:45 35.8 01/04/20 11:00 67 23 134/90 (105) 95 Room Air 01/04/20 10:00 70 23 122/54 (76) 96 Room Air 01/04/20 09:00 70 19 97 Room Air 01/04/20 08:00 98 Room Air 01/04/20 08:00 67 18 136/78 (97) 95 Room Air 01/04/20 07:00 66 01/04/20 07:00 67 26 136/78 (97) 96 Room Air 01/04/20 06:23 92 Room Air I & O 01/05/20 07:00 Intake Total 1329 ml Output Total 1325 ml Balance 4 ml Height & Weight Height: 5'0.00" Weight: 163lbs. 7.4oz. 74.082194qb; 24.04 BMI Method:Stated General Appearance: No Apparent Distress, WD/WN HEENT: PERRL/EOMI, Pharynx Normal Neck: Normal Inspection, Supple Respiratory: Lungs Clear, Normal Breath Sounds, No Respiratory Distress Cardiovascular: Regular Rate, Rhythm, No Edema, No Murmur Capillary Refill: Less Than 3 Seconds Gastrointestinal: non tender, soft, no organomegaly Extremity: Normal Inspection, Non Tender, No Pedal Edema Neurologic/Psychiatric: Alert, No Motor/Sensory Deficits, Normal Mood/Affect, Disoriented Skin: Normal Color, Warm/Dry Lymphatic: No Adenopathy Results Lab Laboratory Tests 01/03/20 19:03 01/04/20 02:30 01/05/20 03:52 Assessment/Plan Assessment/Plan CP with NSTEMI -Cardiology following -s/p cath Psychosis -Pt becomes combative and is currently requiring precedex gtt -Pt refuses to take PO meds and spits meds out at RN. Acute renal failure with metabolic lactic acidosis -IVF Sepsis - Zosyn -Check gray cultures Metabolic lactic acidosis -LA is improving Combativeness - precedex gtt -Geodon -- make scheduled BID since pt will not take PO meds Probable chronic dementia Metabolic encephalopathy/severe confusion OCTAVIO STANFORD DO January 05, 2020 06:19
[2020-01-05] MEDS: FUROSEMIDE 40 MG/4 ML INJ (LASIX) IVP SCH ×2 (06:23→17:45)
--- NOTE | 2020-01-05 08:16 | Diagnostic Imaging Report ---
INDICATION: Coronary artery disease, STEMI COMPARISON: 01/04/2020 FINDINGS: Single view of the chest demonstrates cardiac enlargement with persistent but decreased central vascular congestion. Persistent but decreased trace effusions are present. There is no pneumothorax. PICC line is stable. Osseous structures are age-appropriate. IMPRESSION: Improving aeration. Dictated by: Dictated on workstation # [id number]
[2020-01-05] MEDS: ZIPRASIDONE 20 MG INJ (GEODON) VIAL IM SCH ×2 (08:23→21:33)
[2020-01-05] MEDS: ASPIRIN E.C. 81 MG (ECOTRIN) TAB PO SCH (08:24)
[2020-01-05] MEDS: PANTOPRAZOLE 40 MG (PROTONIX) VIAL IV SCH (08:24)
[2020-01-05] MEDS: LOSARTAN 100 MG (COZAAR) TABLET PO SCH (08:24)
[2020-01-05] MEDS: meTOprolol TARTRATE 25 MG (LOPRESSOR) TABLET PO SCH ×2 (08:24→21:34)
[2020-01-05] MEDS: CLOPIDOGREL 75 MG (PLAVIX) TABLET PO SCH (08:24)
[2020-01-05] MEDS ORDERED: ZIPRASIDONE 20 MG INJ (GEODON) VIAL IM SCH (09:00)
--- NOTE | 2020-01-05 09:55 | Cardiology Progress Note ---
Subjective Date Seen by Provider: January 05, 2020 Time Seen by Provider: 09:54 Subjective/Events-last exam Patient ate breakfast today, took her medication, currently sleeping, weaning her precedex, started on Geodon Review of Systems General: Other (Sleeping) Focused Exam Lactate Level 01/02/20 17:35: Lactic Acid Level 2.30*H 01/02/20 19:35: Lactic Acid Level 2.64*H 01/02/20 21:50: Lactic Acid Level 2.06*H Objective-Cardiology Exam Last Set of Vital Signs Vital Signs 01/04/20 01/05/20 01/05/20 04:00 07:31 09:00 Temp 36.0 Pulse 54 Resp 14 B/P (MAP) 139/84 (102) Pulse Ox 95 O2 Delivery Room Air O2 Flow Rate 2.00 Capillary Refill : Less Than 3 Seconds I&O Intake and Output 01/05/20 00:00 Intake Total 1409 ml Output Total 1475 ml Balance -66 ml Intake Oral 400 ml IV Total 1009 ml Output Urine Total 1475 ml # Bowel Movements 3 General: Moderate Distress, Other (Sleeping) HEENT: Atraumatic, PERRLA Neck: Supple, No JVD, +2 Carotid Pulse No Bruit Lungs: Clear to Auscultation, Normal Air Movement Heart: Regular Rate, Normal S1, Normal S2 Abdomen: Soft, No Tenderness Extremities: No Edema Skin: No Rashes, No Significant Lesion Neuro: Other (Sleeping) Psych/Mental Status: Other (not responding appropriately) Results Lab Laboratory Tests 01/05/20 03:52 A/P-Cardiology Admission Diagnosis NSTEMI Sepsis Assessment/Plan Acute change in mental status, acute delirium/psychosis, improving slowly. Currently started on Geodon Congestive heart failure, acute left ventricular systolic dysfunction with ejection fraction 20 percent, nonischemic cardiomyopathy, responding to diuretics. Continue to monitor Metabolic acidosis, lactic acidosis and respiratory alkalosis, improving, managed by medical team. Continue to monitor Acute renal failure, improving, continue to monitor renal function Sepsis, unknown source, elevated lactic acid and pro-calcitonin, gray cultures are negative so far and receiving antibiotic. Managed by primary care team Coronary artery disease,NSTEMI- cardiac catheterization done 01/01/2020 revealed 50% proximal stenosis in the left circumflex artery has a fractional flow reserve of 0.98, indicating hemodynamic insignificance. Other coronaries have diffuse mild to moderate plaque. Marked impairment of global left ventricular systolic function with global hypokinesis and left ventricular ejection fraction of approximately 20%. On beta zenobia and ARB History of recent persistent diarrhea and weight loss, underwent colonoscopy on 12/31/2019, Dr. Karoline vargas. 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 Hypertension, history of labile blood pressure, continue to monitor. Renal artery stenosis- Stent in the right renal artery Express SD 5 x19 mm expanded to 6 , CTA of abdominal aorta and renal arteries done March 02, 2017 revealed patent stent to the right renal artery, continue to monitor Hyperlipidemia, maintained on Lipitor as outpatient Nonobstructive carotid artery stenosis-most recent carotid duplex done in October 2018, still having left carotid bruit, CT scan of the neck was reported as 50 percent stenosis at the level of the proximal aspect of the right internal carotid artery, continue to monitor History of thyroidectomy, maintained on thyroid replacement, monitored by primary care physician History of partial hysterectomy in 1981, 2 knee replacement 2004 in 2004, breast surgery. History of breast cancer, had lumpectomy in 2011. Degenerative joint disease Clinical Quality Measures DVT/VTE Risk/Contraindication: Risk Factor Score Per Nursin RFS Level Per Nursing on Admit: 3=High NGHIA COOPER MD January 05, 2020 09:55
[2020-01-05] MEDS: cefTRIAXone FOR IV USE 1,000 MG in WATER (STERILE) FOR INJECTION 10 ML IV SCH (10:05)
[2020-01-05] MEDS: ENOXAPARIN 40 MG/0.4 ML (LOVENOX) SYR SC SCH (10:44)
[2020-01-05] MEDS: DexMEDEtomidine 250 ML DRIP 250 ML IV SCH (10:45)
--- NOTE | 2020-01-05 13:32 | Progress Note - Hospitalist ---
Subjective HPI/CC On Admission Date Seen by Provider: January 05, 2020 Time Seen by Provider: 08:55 Yvonne Resendez is a 79-year-old female with past medical history of hypertension, hyperlipidemia, hypothyroidism, CVA, recent weight loss, who presented as a transfer from [facility] with non-ST elevated myocardial infarction. She had been admitted yesterday after undergoing a colonoscopy to evaluate for her weight loss. She was admitted due to weakness. She was found to have electrolyte abnormalities which were replaced. An EKG was performed and was concerning for possible acute changes. A troponin was checked and was elevated at 4 and she was subsequently transferred for cardiology consultation. Upon my examination she has just returned from a left heart catheterization and is minimally responsive. She is unable to provide any significant history. Subjective/Events-last exam She is sleeping but awakens to answer a few questions. She denies any pain. She denies any nausea and vomiting. She has no other complaints or concerns. Focused Exam Lactate Level 01/02/20 17:35: Lactic Acid Level 2.30*H 01/02/20 19:35: Lactic Acid Level 2.64*H 01/02/20 21:50: Lactic Acid Level 2.06*H Objective Exam Vital Signs Vital Signs Date Time Temp Pulse Resp B/P (MAP) Pulse Ox O2 Delivery O2 Flow Rate FiO2 01/05/20 13:00 52 14 124/73 (90) 100 Room Air 01/05/20 11:31 36.4 01/04/20 04:00 2.00 Capillary Refill : Less Than 3 Seconds General Appearance: No Apparent Distress, WD/WN Respiratory: Lungs Clear, Normal Breath Sounds, No Respiratory Distress Cardiovascular: Regular Rate, Rhythm, No Edema, No Murmur Gastrointestinal: Normal Bowel Sounds, Non Tender, Soft Extremity: Normal Inspection, Non Tender, No Pedal Edema Neurologic/Psychiatric: Other (Sedated, Sleeping, easily awakens) Skin: Normal Color, Warm/Dry Results/Procedures Lab Laboratory Tests 01/05/20 03:52 Patient resulted labs reviewed. Imaging: Reviewed Imaging Report Assessment/Plan Assessment and Plan Assess & Plan/Chief Complaint Acute metabolic encephalopathy Likely delirium Requiring sedation with Precedex GTT Geodon ordered NSTEMI, type 2 Acute heart failure with reduced ejection fraction Cardiology consulted, appreciate assistance left heart catheterization revealed mild coronary artery disease Echocardiogram with ejection fraction 25-30 percent and severe global hypokinesis Continue Lasix Severe sepsis Acute respiratory failure with hypoxia Metabolic acidosis Pneumonia CT chest/abdomen/pelvis with mildly distended gallbladder, small to moderate bilateral pleural effusions with bibasilar infiltrates versus atelectasis Continue Zosyn Pulmonology consulted, appreciate assistance Euthyroid sick syndrome TSH low at 0.14, now normalized T3 and T4 normal Hypertension Hyperlipidemia Hypothyroidism History of CVA Continue home meds DVT prophylaxis: Lovenox high anion gap metabolic acidosis, resolved Lactic acidosis, resolved Critical Care Critically Ill Patient Diagnosis/Problems Diagnosis/Problems (1) Severe sepsis Status: Acute (2) Lactic acidosis Status: Resolved Resolution Date/Time: 01/02/20 @ 11:44 (3) High anion gap metabolic acidosis Status: Resolved Resolution Date/Time: 01/02/20 @ 11:44 (4) Acute respiratory failure with hypoxia Status: Acute (5) NSTEMI (non-ST elevation myocardial infarction) Status: Acute (6) Acute HFrEF (heart failure with reduced ejection fraction) Status: Acute (7) HTN (hypertension) Status: Chronic Qualifiers: Hypertension type: essential hypertension Qualified Codes: I10 - Essential (primary) hypertension (8) HLD (hyperlipidemia) Status: Chronic Qualifiers: Hyperlipidemia type: unspecified Qualified Codes: E78.5 - Hyperlipidemia, unspecified (9) Hypothyroidism Status: Chronic (10) History of CVA (cerebrovascular accident) Status: Chronic (11) Euthyroid sick syndrome Clinical Quality Measures DVT/VTE Risk/Contraindication: Risk Factor Score Per Nursin RFS Level Per Nursing on Admit: 3=High MILLICENT SÁNCHEZ MD January 05, 2020 13:31
[2020-01-05] MEDS ORDERED: WATER (STERILE) FOR INJECTION 10 ML ONE (20:55)
[2020-01-06] VITALS (24 sets, daily range): BP systolic 115–160; BP diastolic 61–104
[2020-01-06] MEDS: morphine INJ 4 MG/ML 1 ML (VIAL/SYRINGE) IV PRN ×2 (00:38→18:47)
[2020-01-06] MEDS: RT-ALBUTEROL/IPRATROPIUM 3 ML (DUONEB) VIAL INH SCH (02:16)
[2020-01-06 03:19] LABS: BASOPHILS % (AUTO) 0 % (0-10); EOSINOPHILS # (AUTO) 0.2 10^3/uL (0.0-0.3); EOSINOPHILS % (AUTO) 3 % (0-10); HEMATOCRIT 29 % (35-52); HEMOGLOBIN 9.4 G/DL (11.5-16.0); LYMPHOCYTES # (AUTO) 1.5 X 10^3 (1.0-4.0); LYMPHOCYTES % (AUTO) 18 % (12-44); MEAN CORPUSCULAR HEMOGLOBIN 28 PG (25-34); MEAN CORPUSCULAR HGB CONC 33 G/DL (32-36); MEAN CORPUSCULAR VOLUME 87 FL (80-99); MEAN PLATELET VOLUME 11.5 FL (7.4-10.4); MONOCYTES # (AUTO) 0.7 X 10^3 (0.0-1.0); MONOCYTES % (AUTO) 8 % (0-12); NEUTROPHILS # (AUTO) 6.3 X 10^3 (1.8-7.8); NEUTROPHILS % (AUTO) 72 % (42-75); PLATELET COUNT 250 10^3/uL (130-400); RED CELL DISTRIBUTION WIDTH 13.9 % (10.0-14.5); WHITE BLOOD COUNT 8.8 10^3/uL (4.3-11.0)
[2020-01-06 03:36] LABS: CALCIUM 7.5 MG/DL (8.5-10.1); CREATININE SERUM 1.16 MG/DL (0.60-1.30); MAGNESIUM 1.8 MG/DL (1.6-2.4); PHOSPHORUS 3.1 MG/DL (2.3-4.7); POTASSIUM 2.8 MMOL/L (3.6-5.0)
[2020-01-06] MEDS: POTASSIUM CL 10MEQ/50ML IVPB 50 ML IV SCH ×9 (04:00→18:20)
--- NOTE | 2020-01-06 04:21 | Pulmonary Progress Note ---
Subjective Time Seen by a Provider: 04:16 Subjective/Events-last exam Pt continues to be combative through the night. She is still on precedex gtt. Sepsis Event Evaluation Height, Weight, BMI Height: 5'0.00" Weight: 163lbs. 7.4oz. 74.594154fu; 24.04 BMI Method:Stated Exam Exam Vital Signs Date Time Temp Pulse Resp B/P (MAP) Pulse Ox O2 Delivery O2 Flow Rate FiO2 01/06/20 03:00 51 20 115/62 (79) 100 Nasal Cannula 1.00 01/06/20 02:45 Nasal Cannula 1.00 01/06/20 02:16 100 Room Air 01/06/20 02:00 49 20 135/71 (92) 97 Room Air 01/06/20 01:00 56 24 124/69 (87) 96 Room Air 01/06/20 01:00 54 01/06/20 00:00 100 Room Air 01/06/20 00:00 36.2 01/06/20 00:00 58 16 148/77 (100) 96 Room Air 01/05/20 23:00 58 16 127/61 (83) 98 Room Air 01/05/20 22:00 60 14 124/68 (86) 93 Room Air 01/05/20 21:00 64 20 145/73 (97) 100 Room Air 01/05/20 20:00 36.0 01/05/20 20:00 58 13 109/54 (72) 100 Room Air 01/05/20 20:00 100 Room Air 01/05/20 19:00 53 17 125/71 (89) 96 Room Air 01/05/20 19:00 56 01/05/20 18:52 100 Room Air 01/05/20 18:00 53 18 123/65 (84) 100 Room Air 01/05/20 17:00 54 17 134/74 (94) 100 Room Air 01/05/20 16:00 100 Room Air 01/05/20 16:00 57 15 140/69 (92) 100 Room Air 01/05/20 15:00 55 21 117/67 (84) 100 Room Air 01/05/20 14:06 Room Air 01/05/20 14:00 72 35 128/82 (97) 100 Room Air 01/05/20 13:00 52 14 124/73 (90) 100 Room Air 01/05/20 12:45 63 01/05/20 12:00 100 Room Air 01/05/20 12:00 53 18 138/81 (100) 100 Room Air 01/05/20 11:31 36.4 01/05/20 11:00 54 20 149/80 (103) 100 Room Air 01/05/20 10:45 65 142/65 01/05/20 10:26 Room Air 01/05/20 10:00 50 18 131/87 (102) 100 Room Air 01/05/20 09:00 54 14 139/84 (102) 95 Room Air 01/05/20 08:00 100 Room Air 01/05/20 08:00 54 28 123/73 (90) 93 Room Air 01/05/20 07:31 36.0 01/05/20 07:00 54 21 133/83 (100) 93 Room Air 01/05/20 07:00 52 01/05/20 06:29 Room Air 01/05/20 06:00 54 20 133/71 (91) 100 Room Air 01/05/20 05:00 57 18 106/94 (98) 100 Room Air I & O 01/06/20 07:00 Intake Total 520 ml Output Total 2050 ml Balance -1530 ml Height & Weight Height: 5'0.00" Weight: 163lbs. 7.4oz. 74.236093nj; 24.04 BMI Method:Stated General Appearance: No Apparent Distress, WD/WN HEENT: PERRL/EOMI, Pharynx Normal Neck: Normal Inspection, Supple Respiratory: Lungs Clear, Normal Breath Sounds, No Respiratory Distress Cardiovascular: Regular Rate, Rhythm, No Edema, No Murmur Capillary Refill: Less Than 3 Seconds Gastrointestinal: non tender, soft, no organomegaly Extremity: Normal Inspection, Non Tender, No Pedal Edema Neurologic/Psychiatric: Other (Sedated, Sleeping, easily awakens) Skin: Normal Color, Warm/Dry Lymphatic: No Adenopathy Results Lab Laboratory Tests 01/05/20 03:52 01/06/20 03:05 Assessment/Plan Assessment/Plan CP with NSTEMI -Cardiology following -s/p cath Psychosis -Pt becomes combative and is currently requiring precedex gtt -Pt refuses to take PO meds and spits meds out at RN. Acute renal failure with metabolic lactic acidosis -IVF Sepsis - Zosyn -Check gray cultures Metabolic lactic acidosis -LA is improving Combativeness - precedex gtt -Geodon 10mg Q12 and 10mg q12 PRN Probable chronic dementia Metabolic encephalopathy/severe confusion OCTAVIO STANFORD DO January 06, 2020 04:21
[2020-01-06] MEDS ORDERED: ZIPRASIDONE 20 MG INJ (GEODON) VIAL IM PRN (04:30)
[2020-01-06] MEDS: DexMEDEtomidine 250 ML DRIP 250 ML IV SCH ×2 (05:30→18:50)
[2020-01-06] MEDS: MAGNESIUM 1 GM/100 ML IVPB 100 ML IV SCH (05:58)
[2020-01-06] MEDS: KCL 20 MEQ TAB (K-DUR) PO SCH (05:58)
[2020-01-06] MEDS: FUROSEMIDE 40 MG/4 ML INJ (LASIX) IVP SCH ×2 (06:46→17:19)
[2020-01-06] MEDS: LEVOTHYROXINE 100 MCG (LEVOTHROID) TAB PO SCH (06:47)
[2020-01-06] MEDS: ASPIRIN E.C. 81 MG (ECOTRIN) TAB PO SCH (07:37)
[2020-01-06] MEDS: LOSARTAN 100 MG (COZAAR) TABLET PO SCH (07:37)
[2020-01-06] MEDS: meTOprolol TARTRATE 25 MG (LOPRESSOR) TABLET PO SCH ×2 (07:38→21:10)
[2020-01-06] MEDS: CLOPIDOGREL 75 MG (PLAVIX) TABLET PO SCH (07:38)
[2020-01-06] MEDS: ZIPRASIDONE 20 MG INJ (GEODON) VIAL IM SCH (07:44)
[2020-01-06] MEDS: PANTOPRAZOLE 40 MG (PROTONIX) VIAL IV SCH (07:53)
[2020-01-06] MEDS: cefTRIAXone FOR IV USE 1,000 MG in WATER (STERILE) FOR INJECTION 10 ML IV SCH (07:53)
[2020-01-06] MEDS ORDERED: POTASSIUM CL 10MEQ/50ML IVPB 50 ML IV ONE (08:00)
--- NOTE | 2020-01-06 08:50 | Diagnostic Imaging Report ---
INDICATION: Myocardial infarction. TECHNIQUE: Single view chest 3:16 AM. CORRELATION STUDY: 01/05/2020 FINDINGS: Left sided central line projects over the region of the right atrium, partially obscured by overlying monitor leads. Cardiac enlargement stable. There has been increasing severity of pulmonary vascular congestion and perihilar edema. Superimposed edema and/or less likely infiltrate in the perihilar and basilar regions, left greater than right. IMPRESSION: 1. Findings of congestive heart failure, adversely changed from prior study. Dictated by: Dictated on workstation # [id number]
[2020-01-06] MEDS ORDERED: RT-ALBUTEROL/IPRATROPIUM 3 ML (DUONEB) VIAL INH PRN (10:30)
--- NOTE | 2020-01-06 10:40 | Cardiology Progress Note ---
Subjective Date Seen by Provider: January 06, 2020 Time Seen by Provider: 10:38 Subjective/Events-last exam Patient is laying down in bed, opening her eyes, not following commands, not able to hold conversation, responding by yes or no occasionally Review of Systems General: Other (unable to provide review of systems) Objective-Cardiology Exam Last Set of Vital Signs Vital Signs 01/06/20 01/06/20 04:00 10:00 Temp 35.8 Pulse 70 Resp 34 B/P (MAP) 153/90 (111) Pulse Ox 94 O2 Delivery Nasal Cannula O2 Flow Rate 1.00 Capillary Refill : Less Than 3 Seconds I&O Intake and Output 01/06/20 00:00 Intake Total 960 ml Output Total 2300 ml Balance -1340 ml Intake Oral 320 ml IV Total 640 ml Output Urine Total 2300 ml General: Moderate Distress, Other (awake, not following commands) HEENT: Atraumatic, PERRLA Neck: Supple, No JVD, +2 Carotid Pulse No Bruit Lungs: Clear to Auscultation, Normal Air Movement Heart: Regular Rate, Normal S1, Normal S2 Abdomen: Soft, No Tenderness Extremities: No Edema Skin: No Rashes, No Significant Lesion Neuro: Other (I weight, not following commands) Psych/Mental Status: Other (awake, not following commands) Results Lab Laboratory Tests 01/06/20 03:05 A/P-Cardiology Admission Diagnosis NSTEMI Sepsis Assessment/Plan Acute change in mental status, acute delirium/psychosis, no improvement today. Managed by primary care team Congestive heart failure, acute left ventricular systolic dysfunction with ejection fraction 20 percent, nonischemic cardiomyopathy, continue to monitor Metabolic acidosis, lactic acidosis and respiratory alkalosis, improving, managed by medical team. Continue to monitor Hypokalemia, replace and monitor Acute renal failure, improving, continue to monitor renal function Sepsis, unknown source, elevated lactic acid and pro-calcitonin, gray cultures are negative so far and receiving antibiotic. Managed by primary care team Coronary artery disease,NSTEMI- cardiac catheterization done 01/01/2020 revealed 50% proximal stenosis in the left circumflex artery has a fractional flow reserve of 0.98, indicating hemodynamic insignificance. Other coronaries have diffuse mild to moderate plaque. Marked impairment of global left ventricular sy stolic function with global hypokinesis and left ventricular ejection fraction of approximately 20%. On beta zenobia and ARB History of recent persistent diarrhea and weight loss, underwent colonoscopy on 12/31/2019, Dr. Ramey following. 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 Hypertension, history of labile blood pressure, continue to monitor. Renal artery stenosis- Stent in the right renal artery Express SD 5 x19 mm expanded to 6 , CTA of abdominal aorta and renal arteries done March 02, 2017 revealed patent stent to the right renal artery, continue to monitor Hyperlipidemia, maintained on Lipitor as outpatient Nonobstructive carotid artery stenosis-most recent carotid duplex done in October 2018, still having left carotid bruit, CT scan of the neck was reported as 50 percent stenosis at the level of the proximal aspect of the right internal car otid artery, continue to monitor History of thyroidectomy, maintained on thyroid replacement, monitored by primary care physician History of partial hysterectomy in 1981, 2 knee replacement 2004 in 2004, breast surgery. History of breast cancer, had lumpectomy in 2011. Degenerative joint disease Clinical Quality Measures DVT/VTE Risk/Contraindication: Risk Factor Score Per Nursin RFS Level Per Nursing on Admit: 3=High NGHIA COOPER MD January 06, 2020 10:40 am
--- NOTE | 2020-01-06 11:38 | Progress Note - Hospitalist ---
Subjective HPI/CC On Admission Date Seen by Provider: January 06, 2020 Time Seen by Provider: 09:00 Yvonne Resendez is a 79-year-old female with past medical history of hypertension, hyperlipidemia, hypothyroidism, CVA, recent weight loss, who presented as a transfer from [facility] with non-ST elevated myocardial infarction. She had been admitted yesterday after undergoing a colonoscopy to evaluate for her weight loss. She was admitted due to weakness. She was found to have electrolyte abnormalities which were replaced. An EKG was performed and was concerning for possible acute changes. A troponin was checked and was elevated at 4 and she was subsequently transferred for cardiology consultation. Upon my examination she has just returned from a left heart catheterization and is minimally responsive. She is unable to provide any significant history. Subjective/Events-last exam she remains confused. She is reluctant to talk with me. She is not cooperative. Objective Exam Vital Signs Vital Signs Date Time Temp Pulse Resp B/P (MAP) Pulse Ox O2 Delivery O2 Flow Rate FiO2 01/06/20 11:00 72 14 145/90 (108) 97 Nasal Cannula 1.00 01/06/20 04:00 35.8 Capillary Refill : Less Than 3 Seconds General Appearance: No Apparent Distress, Chronically ill, Other (uncooperative) Neck: Normal Inspection, Supple Respiratory: Lungs Clear, Normal Breath Sounds, No Respiratory Distress Cardiovascular: Regular Rate, Rhythm, No Edema, No Murmur Gastrointestinal: Normal Bowel Sounds, Non Tender, Soft Extremity: Normal Inspection, No Pedal Edema Neurologic/Psychiatric: Alert (lightly sedated), Disoriented, Other (uncooperative) Skin: Normal Color, Warm/Dry Results/Procedures Lab Laboratory Tests 01/06/20 03:05 Patient resulted labs reviewed. Imaging: Reviewed Imaging Report Assessment/Plan Assessment and Plan Assess & Plan/Chief Complaint Acute metabolic encephalopathy Likely dementia with behavioral disturbance Acute psychosis/delirium Requiring sedation with Precedex GTT Geodon ordered social service manager consulted for geriatric psychiatry placement NSTEMI, type 2 Acute heart failure with reduced ejection fraction Cardiology consulted, appreciate assistance left heart catheterization revealed mild coronary artery disease Echocardiogram with ejection fraction 25-30 percent and severe global hypokinesis Continue Lasix Acute respiratory failure with hypoxia Metabolic acidosis Pneumonia CT chest/abdomen/pelvis with mildly distended gallbladder, small to moderate bilateral pleural effusions with bibasilar infiltrates versus atelectasis Continue Zosyn Pulmonology consulted, appreciate assistance Euthyroid sick syndrome TSH low at 0.14, now normalized T3 and T4 normal Hypertension Hyperlipidemia Hypothyroidism History of CVA Continue home meds DVT prophylaxis: Lovenox high anion gap metabolic acidosis, resolved Lactic acidosis, resolved Severe sepsis, resolved Critical Care Critically Ill Patient Diagnosis/Problems Diagnosis/Problems (1) Severe sepsis Status: Resolved Resolution Date/Time: 01/06/20 @ 11:41 (2) Lactic acidosis Status: Resolved Resolution Date/Time: 01/02/20 @ 11:44 (3) High anion gap metabolic acidosis Status: Resolved Resolution Date/Time: 01/02/20 @ 11:44 (4) Acute respiratory failure with hypoxia Status: Acute (5) NSTEMI (non-ST elevation myocardial infarction) Status: Acute (6) Acute HFrEF (heart failure with reduced ejection fraction) Status: Acute (7) HTN (hypertension) Status: Chronic Qualifiers: Hypertension type: essential hypertension Qualified Codes: I10 - Essential (primary) hypertension (8) HLD (hyperlipidemia) Status: Chronic Qualifiers: Hyperlipidemia type: unspecified Qualified Codes: E78.5 - Hyperlipidemia, unspecified (9) Hypothyroidism Status: Chronic (10) History of CVA (cerebrovascular accident) Status: Chronic (11) Euthyroid sick syndrome Status: Resolved Resolution Date/Time: 01/06/20 @ 11:42 Clinical Quality Measures DVT/VTE Risk/Contraindication: Risk Factor Score Per Nursin RFS Level Per Nursing on Admit: 3=High MILLICENT SÁNCHEZ MD January 06, 2020 11:38
[2020-01-06] MEDS: ENOXAPARIN 40 MG/0.4 ML (LOVENOX) SYR SC SCH (14:01)
[2020-01-06 14:30] LABS: POTASSIUM 3.2 MMOL/L (3.6-5.0)
[2020-01-06 14:31] LABS: CALCIUM 7.7 MG/DL (8.5-10.1)
[2020-01-06 14:36] LABS: CREATININE SERUM 1.06 MG/DL (0.60-1.30)
[2020-01-06 14:38] LABS: MAGNESIUM 1.6 MG/DL (1.6-2.4)
--- NOTE | 2020-01-06 16:07 | NUR ---
GrandVilma adhikari phone number is [phone].
[2020-01-06] MEDS ORDERED: WATER (STERILE) FOR INJECTION 10 ML ONE (16:15)
[2020-01-07] VITALS (24 sets, daily range): BP systolic 134–176; BP diastolic 69–107
--- NOTE | 2020-01-07 00:08 | NUR ---
Spoke to E-ICU doctor and informed her that pt is currently having 10 second apneic episodes with abd retractions and expiratory wheezes. Pt is on room air with saturations 99-100%. Informed her that presedex was stopped at 0000 and no other sedations meds given on my shift. Orders received to stop all sedation meds,to give a duoneb and draw an ABG. Will carry out orders and continue to monitor pt.
[2020-01-07] MEDS ORDERED: RT-ALBUTEROL/IPRATROPIUM 3 ML (DUONEB) VIAL INH ONE (00:15)
[2020-01-07] MEDS: ZIPRASIDONE 20 MG INJ (GEODON) VIAL IM SCH ×3 (00:29→21:47)
[2020-01-07 00:37] LABS: ABG BASE EXCESS -1.8 MMOL/L (-2.5-2.5); ABG OXYGEN SATURATION 99 % (94-100); ABG PCO2 26 MMHG (35-45); ABG PH 7.51 (7.37-7.43); ABG PO2 163 MMHG (79-93)
[2020-01-07 00:40] LABS: ALLENS TEST ART LINE; INSPIRED O2 NOT INDICATED; PATIENT TEMP 35.9; VENTILATOR YES
[2020-01-07 01:22] LABS: ABG BASE EXCESS -2.2 MMOL/L (-2.5-2.5); ABG OXYGEN SATURATION 95 % (94-100); ABG PCO2 26 MMHG (35-45); ABG PO2 79 MMHG (79-93); ABG TCO2 21.6 MMOL/L (21.0-31.0)
[2020-01-07 01:23] LABS: ALLENS TEST YES-POS; INSPIRED O2 ROOM AIR
[2020-01-07 01:24] LABS: PATIENT TEMP 36.2; VENTILATOR NO
[2020-01-07 02:45] LABS: BASOPHILS % (AUTO) 0 % (0-10); EOSINOPHILS # (AUTO) 0.2 10^3/uL (0.0-0.3); EOSINOPHILS % (AUTO) 2 % (0-10); HEMATOCRIT 31 % (35-52); HEMOGLOBIN 9.9 G/DL (11.5-16.0); LYMPHOCYTES # (AUTO) 1.5 X 10^3 (1.0-4.0); LYMPHOCYTES % (AUTO) 17 % (12-44); MEAN CORPUSCULAR HEMOGLOBIN 28 PG (25-34); MEAN CORPUSCULAR HGB CONC 32 G/DL (32-36); MEAN CORPUSCULAR VOLUME 88 FL (80-99); MEAN PLATELET VOLUME 10.9 FL (7.4-10.4); MONOCYTES # (AUTO) 0.8 X 10^3 (0.0-1.0); MONOCYTES % (AUTO) 9 % (0-12); NEUTROPHILS # (AUTO) 6.6 X 10^3 (1.8-7.8); NEUTROPHILS % (AUTO) 73 % (42-75); PLATELET COUNT 265 10^3/uL (130-400); RED CELL DISTRIBUTION WIDTH 14.6 % (10.0-14.5); WHITE BLOOD COUNT 9.1 10^3/uL (4.3-11.0)
[2020-01-07 02:53] LABS: POTASSIUM 3.6 MMOL/L (3.6-5.0)
[2020-01-07 02:55] LABS: CALCIUM 8.1 MG/DL (8.5-10.1)
[2020-01-07 02:59] LABS: CREATININE SERUM 1.08 MG/DL (0.60-1.30); PHOSPHORUS 3.4 MG/DL (2.3-4.7)
[2020-01-07 03:01] LABS: MAGNESIUM 1.7 MG/DL (1.6-2.4)
[2020-01-07] MEDS: KCL 20 MEQ TAB (K-DUR) PO SCH (03:39)
[2020-01-07] MEDS: POTASSIUM CL 10MEQ/50ML IVPB 50 ML IV SCH ×3 (03:39→03:56)
[2020-01-07] MEDS: MAGNESIUM 1 GM/100 ML IVPB 100 ML IV SCH ×2 (03:39→03:56)
[2020-01-07] MEDS ORDERED: morphine INJ 4 MG/ML 1 ML (VIAL/SYRINGE) IV PRN (06:30)
--- NOTE | 2020-01-07 06:35 | Pulmonary Progress Note ---
Subjective Time Seen by a Provider: 06:27 Subjective/Events-last exam Pt had episodes of respiratory depression last night. Sepsis Event Evaluation Height, Weight, BMI Height: 5'0.00" Weight: 163lbs. 7.4oz. 74.737395rt; 24.04 BMI Method:Stated Exam Exam Vital Signs Date Time Temp Pulse Resp B/P (MAP) Pulse Ox O2 Delivery O2 Flow Rate FiO2 01/07/20 06:00 36.5 73 16 165/93 (117) 99 Room Air 01/07/20 05:00 68 20 170/104 (126) 100 Room Air 01/07/20 05:00 36.3 78 16 170/104 (126) 100 01/07/20 04:00 Room Air 01/07/20 04:00 36.4 63 16 175/90 (118) 100 01/07/20 03:00 59 17 157/94 (115) 99 Room Air 01/07/20 02:00 53 18 134/75 (94) 97 Room Air 01/07/20 01:00 35.4 50 13 146/81 (102) 100 01/07/20 01:00 50 01/07/20 00:44 36.2 01/07/20 00:34 100 Room Air 01/07/20 00:00 35.4 46 16 162/86 (111) 100 01/07/20 00:00 Room Air 01/06/20 23:00 48 13 153/103 (120) 100 Room Air 01/06/20 22:00 58 17 142/104 (117) 92 Room Air 01/06/20 21:00 47 15 148/84 (105) 98 Room Air 01/06/20 20:00 Room Air 01/06/20 20:00 36.5 49 14 149/79 (102) 95 Room Air 01/06/20 19:00 60 01/06/20 19:00 56 29 148/87 (107) 96 Room Air 01/06/20 18:50 65 01/06/20 18:46 Room Air 01/06/20 18:10 Room Air 01/06/20 18:00 56 15 137/76 (96) 99 Nasal Cannula 5.00 01/06/20 17:00 60 20 141/87 (105) 100 Nasal Cannula 5.00 01/06/20 16:00 69 20 151/100 (117) 97 Room Air 01/06/20 16:00 100 Room Air 01/06/20 16:00 36.6 144/87 (106) 100 Nasal Cannula 5.00 01/06/20 15:00 70 20 147/76 (99) 91 Nasal Cannula 1.00 01/06/20 14:00 61 24 137/78 (97) 97 Nasal Cannula 1.00 01/06/20 13:00 79 19 142/68 (92) 89 Nasal Cannula 1.00 01/06/20 12:16 65 01/06/20 12:00 77 160/88 (112) 92 Nasal Cannula 1.00 01/06/20 12:00 100 Room Air 01/06/20 11:00 72 14 145/90 (108) 97 Nasal Cannula 1.00 01/06/20 10:00 70 34 153/90 (111) 94 Nasal Cannula 1.00 01/06/20 09:00 77 29 142/87 (105) 98 Nasal Cannula 1.00 01/06/20 08:00 62 18 135/84 (101) 92 Nasal Cannula 1.00 01/06/20 08:00 100 Room Air 01/06/20 07:00 61 9 146/77 (100) 98 Nasal Cannula 1.00 01/06/20 07:00 77 I & O 01/07/20 07:00 Intake Total 600 ml Output Total 1595 ml Balance -995 ml Height & Weight Height: 5'0.00" Weight: 163lbs. 7.4oz. 74.729298df; 24.04 BMI Method:Stated General Appearance: No Apparent Distress, WD/WN HEENT: PERRL/EOMI, Pharynx Normal Neck: Normal Inspection, Supple Respiratory: Lungs Clear, Normal Breath Sounds, No Respiratory Distress Cardiovascular: Regular Rate, Rhythm, No Edema, No Murmur Capillary Refill: Less Than 3 Seconds Gastrointestinal: non tender, soft, no organomegaly Extremity: Normal Inspection, Non Tender, No Pedal Edema Neurologic/Psychiatric: Other (Sedated, Sleeping, easily awakens) Skin: Normal Color, Warm/Dry Lymphatic: No Adenopathy Results Lab Laboratory Tests 01/06/20 03:05 01/06/20 14:15 01/07/20 02:37 Assessment/Plan Assessment/Plan CP with NSTEMI -Cardiology following -s/p cath Psychosis -Pt becomes combative and is currently requiring precedex gtt -Pt refuses to take PO meds and spits meds out at RN. -Secondary to respiratory depression -- Decrease Morphine, D/C precedex -Continue Geodon for now secondary to psychosis -Possible senior behavioral unit Acute renal failure with metabolic lactic acidosis -IVF Sepsis - Zosyn -Check gray cultures Metabolic lactic acidosis -LA is improving Probable chronic dementia Metabolic encephalopathy/severe confusion OCTAVIO STANFORD DO January 07, 2020 06:35
[2020-01-07] MEDS: LEVOTHYROXINE 100 MCG (LEVOTHROID) TAB PO SCH (06:42)
[2020-01-07] MEDS: FUROSEMIDE 40 MG/4 ML INJ (LASIX) IVP SCH ×2 (06:44→20:30)
--- NOTE | 2020-01-07 08:02 | Diagnostic Imaging Report ---
EXAMINATION: Chest 1 view INDICATION: Myocardial infarction. COMPARISON: 01/06/2020 FINDINGS: There is improved aeration of the lungs. Pulmonary edema has improved and is now mild. No pneumothorax. There may be a small left pleural effusion. Heart is mildly enlarged, unchanged. Left upper extremity peripherally inserted central venous catheter tip terminates in the superior vena cava. IMPRESSION: 1. Improved, now mild pulmonary edema and likely small left pleural effusion. Dictated by: Dictated on workstation # [id number]
--- NOTE | 2020-01-07 08:03 | Progress Note - Hospitalist ---
Subjective HPI/CC On Admission Date Seen by Provider: January 07, 2020 Time Seen by Provider: 07:57 Yvonne Resendez is a 79-year-old female with past medical history of hypertension, hyperlipidemia, hypothyroidism, CVA, recent weight loss, who presented as a transfer from [facility] with non-ST elevated myocardial infarction. She had been admitted yesterday after undergoing a colonoscopy to evaluate for her weight loss. She was admitted due to weakness. She was found to have electrolyte abnormalities which were replaced. An EKG was performed and was concerning for possible acute changes. A troponin was checked and was elevated at 4 and she was subsequently transferred for cardiology consultation. Upon my examination she has just returned from a left heart catheterization and is minimally responsive. She is unable to provide any significant history. Subjective/Events-last exam Pt is alert and cooperative. Oriented to person and year. No to place or situation. Objective Exam Vital Signs Vital Signs Date Time Temp Pulse Resp B/P (MAP) Pulse Ox O2 Delivery O2 Flow Rate FiO2 01/07/20 07:00 77 01/07/20 06:41 92 Room Air 01/07/20 06:00 36.5 16 165/93 (117) 01/06/20 18:00 5.00 Capillary Refill : Less Than 3 Seconds General Appearance: No Apparent Distress, Chronically ill, Other (lying in bed with soft mittens in place) Respiratory: Lungs Clear, No Respiratory Distress Cardiovascular: Regular Rate, Rhythm, No Murmur Gastrointestinal: Normal Bowel Sounds, Non Tender, Soft Extremity: Pedal Edema Neurologic/Psychiatric: Alert; No Aphasia, No Facial Droop; Other (oriented x2) Results/Procedures Lab Laboratory Tests 01/06/20 14:15 01/07/20 02:37 Patient resulted labs reviewed. Imaging: Reviewed Imaging Report Assessment/Plan Assessment and Plan Assess & Plan/Chief Complaint Acute metabolic encephalopathy Likely dementia with behavioral disturbance Acute psychosis/delirium Precedex discontinued, doing well Lacie mcdowell, none since yesterday afternoon pediatric social worker consulted for geriatric psychiatry placement - appears to have refused all oral meds yesterday - Attempt to remove mittens today if able NSTEMI, type 2 Acute heart failure with reduced ejection fraction Cardiology consulted, appreciate assistance left heart catheterization revealed mild coronary artery disease Echocardiogram with ejection fraction 25-30 percent and severe global hypokinesis Continue Lasix Acute respiratory failure with hypoxia Metabolic acidosis Pneumonia CT chest/abdomen/pelvis with mildly distended gallbladder, small to moderate bilateral pleural effusions with bibasilar infiltrates versus atelectasis Continue Rocephin Pulmonology consulted, appreciate assistance Euthyroid sick syndrome TSH low at 0.14, now normalized T3 and T4 normal - Refusing synthroid Hypertension Hyperlipidemia Hypothyroidism History of CVA Continue home meds DVT prophylaxis: Lovenox high anion gap metabolic acidosis, resolved Lactic acidosis, resolved Severe sepsis, resolved Critical Care Critically Ill Patient Clinical Quality Measures DVT/VTE Risk/Contraindication: Risk Factor Score Per Nursin RFS Level Per Nursing on Admit: 3=High LATONIA RANDALL MD January 07, 2020 08:02
[2020-01-07] MEDS: PANTOPRAZOLE 40 MG (PROTONIX) VIAL IV SCH (08:45)
[2020-01-07] MEDS: cefTRIAXone FOR IV USE 1,000 MG in WATER (STERILE) FOR INJECTION 10 ML IV SCH (08:45)
[2020-01-07] MEDS: CLOPIDOGREL 75 MG (PLAVIX) TABLET PO SCH (08:45)
[2020-01-07] MEDS: ASPIRIN E.C. 81 MG (ECOTRIN) TAB PO SCH (08:45)
[2020-01-07] MEDS: meTOprolol TARTRATE 25 MG (LOPRESSOR) TABLET PO SCH ×2 (08:46→21:47)
[2020-01-07] MEDS: LOSARTAN 100 MG (COZAAR) TABLET PO SCH (08:46)
--- NOTE | 2020-01-07 11:37 | Cardiology Progress Note ---
Subjective Date Seen by Provider: January 07, 2020 Time Seen by Provider: 11:35 Subjective/Events-last exam Patient is awake, significant improvement, responding appropriately, pleasant. Able to recall multiple events from the past Review of Systems General: No Chills, No Night Sweats, No Fatigue, No Malaise, No Appetite, No Other HEENT: No Head Aches, No Visual Changes, No Eye Pain, No Ear Pain, No Dysphasia, No Sinus Congestion, No Post Nasal Drip, No Sore Throat, No Other Pulmonary: No Dyspnea, No Cough, No Pleuritic Chest Pain, No Other Cardiovascular: No: Chest Pain, Palpitations, Orthopnea, Paroxysmal Noc. Dyspnea, Edema, Lt Headedness, Other Objective-Cardiology Exam Last Set of Vital Signs Vital Signs 01/06/20 01/07/20 01/07/20 18:00 06:00 11:00 Temp 36.5 Pulse 80 Resp 29 B/P (MAP) 174/95 (121) Pulse Ox 97 O2 Delivery Room Air O2 Flow Rate 5.00 Capillary Refill : Less Than 3 Seconds I&O Intake and Output 01/07/20 00:00 Intake Total 750 ml Output Total 1900 ml Balance -1150 ml Intake Oral 300 ml IV Total 450 ml Output Urine Total 1900 ml # Bowel Movements 1 General: Alert, Oriented X3, Cooperative, Mild Distress HEENT: Atraumatic, PERRLA Neck: Supple, No JVD, +2 Carotid Pulse No Bruit Lungs: Clear to Auscultation, Normal Air Movement Heart: Regular Rate, Normal S1, Normal S2 Abdomen: Soft, No Tenderness Extremities: No Edema Skin: No Rashes, No Significant Lesion Neuro: Normal Speech Psych/Mental Status: Mental Status NL, Mood NL Results Lab Laboratory Tests 01/06/20 14:15 01/07/20 02:37 A/P-Cardiology Admission Diagnosis NSTEMI Sepsis Assessment/Plan Status post acute change in mental status, better at this time, significant improvement. Recovering well. Managed by primary care team Congestive heart failure, acute left ventricular systolic dysfunction with ejection fraction 20 percent, nonischemic cardiomyopathy, continue to monitor Metabolic acidosis, lactic acidosis and respiratory alkalosis, improving, managed by medical team. Continue to monitor Hypokalemia, replace and monitor Acute renal failure, improving, continue to monitor renal function Sepsis, unknown source, elevated lactic acid and pro-calcitonin, gray cultures are negative so far and receiving antibiotic. Managed by primary care team Coronary artery disease,NSTEMI- cardiac catheterization done 01/01/2020 revealed 50% proximal stenosis in the left circumflex artery has a fractional flow reserve of 0.98, indicating hemodynamic insignificance. Other coronaries have diffuse mild to moderate plaque. Marked impairment of global left ventricular systolic function with global hypokinesis and left ventricular ejection fraction of approximately 20%. On beta zenobia and ARB History of recent persistent diarrhea and weight loss, underwent colonoscopy on 12/31/2019, Dr. Karoline vargas. 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 Hypertension, history of labile blood pressure, continue to monitor. Renal artery stenosis- Stent in the right renal artery Express SD 5 x19 mm expanded to 6 , CTA of abdominal aorta and renal arteries done March 02, 2017 revealed patent stent to the right renal artery, continue to monitor Hyperlipidemia, maintained on Lipitor as outpatient Nonobstructive carotid artery stenosis-most recent carotid duplex done in October 2018, still having left carotid bruit, CT scan of the neck was reported as 50 percent stenosis at the level of the proximal aspect of the right internal carotid artery, continue to monitor History of thyroidectomy, maintained on thyroid replacement, monitored by primary care physician History of partial hysterectomy in 1982, 2 knee replacement 2004 in 2004, breast surgery. History of breast cancer, had lumpectomy in 2011. Degenerative joint disease Clinical Quality Measures DVT/VTE Risk/Contraindication: Risk Factor Score Per Nursin RFS Level Per Nursing on Admit: 3=High NGHIA COOPER MD January 07, 2020 11:37
--- NOTE | 2020-01-07 11:40 | NUR ---
CM/SS visited with the patient for social service consult. The patient was lying in bed sleeping with a sitter in the room. CM/SS was talking with the sitting and the patient woke up. CM/SS asked the patient if she knew where she was and she stated "yes, [address] [facility] [address]". However, patient did have difficulty trying to figure out what day it is and believed she was only here for the past 2 days. She states that previous to this hospitalization she was completely independent and able to complete all of her ADL'S without assistance. The patient does live with her spouse Murphy who is 80+ years old. She reports that he is in good health. CM/SS discussed with the patient how she felt about [facility] home placement if it was needed. The patient reports that she would be willing to go as long as it is in [place]. The patient did seem to have slight confusion on differentiating the hospital form Skilled placement. CM/SS explained this further. Patient verbalized understanding. CM/SS was consulted to make a referral for [facility]. CM/SS contacted the facility and spoke with Estella. She asked this SS to fax over the information. CM/SS faxed referral and awaiting for Cara or Tan to screen patient. The patient does not have DPOA paper work in the chart but according to weekend physician she was agreeable to go yesterday 01/05. Cara contacted this ss. This ss taking phone to ICU to screen patient.
[2020-01-07] MEDS: ENOXAPARIN 40 MG/0.4 ML (LOVENOX) SYR SC SCH (11:48)
--- NOTE | 2020-01-07 13:50 | NUR ---
RD ASSESSMENT PMHx: HTN; HLD; hypothyroidism; CVA; CA(breast, thyroid); CAD PT INTERACTION: Pt was awake and pleasant during nutrition follow-up. Pt states her current appetite is "not good." Note avg PO intake <25% x3d, per chart review. Pt states no issues with nausea, vomiting, or constipation since last assessment, but has had some issues with diarrhea. Note last BM was 01/06, and pt not currently on bowel regimen per chart review. ABNORMAL NUTRITION-RELATED LAB VALUES LOW: Ca 8.1 HIGH: Est. kcal needs: 1867-0553 kcal | 25-30 kcal/kg Est. Pro needs: 60-75 g Pro | 0.8-1.0 g Pro/kg PES STATEMENT: Inadequate oral intake (NI-2.1) related to loss of appetite | diarrhea as evidenced by pt interview | avg PO intake <25% x3d INTERVENTION: Continue with current diet order of DYS2 Mechanically Altered diet. Add Ensure Enlive (vary) to meals TID, for increased kcal intake. Provides 350 kcal and 13 g Pro per serving. Encouraged pt to eat when able. Will continue to follow and reassess as pt needs, intake, and status change. MONITOR/EVALUATE: PO Intake; Plan of Care; Hydration Status; Weight Status; Lab Values Jeff Aldana, MS, RD, LD
--- NOTE | 2020-01-07 14:21 | NUR ---
CM/SS update. Plan: The patient will discharge to [facility] unit tomorrow after 1 p.m. CM/SS took the phone into patients room and had Cara the screener on Speaker phone. Cara asked the patient the needed questions, the patient seemed to answer appropriately. The patient verbalized that she was willing to go and signed a consent form from [place]. CM/SS faxed back consent form. CM/SS informed the patients nurse of plan for discharge tomorrow. CM/SS contacted the patients rebecca Rice ([phone]) to update him on plan. He verbalized understanding. CM/SS contacted the patients Bill to update him on plan and give him a list of items he could bring for the patient. He verbalized understanding. The patients family did not express any concerns or questions at this time.
[2020-01-08] VITALS (13 sets, daily range): BP systolic 116–164; BP diastolic 81–109
[2020-01-08 02:09] LABS: BASOPHILS % (AUTO) 0 % (0-10); EOSINOPHILS # (AUTO) 0.2 10^3/uL (0.0-0.3); EOSINOPHILS % (AUTO) 1 % (0-10); HEMATOCRIT 33 % (35-52); HEMOGLOBIN 10.6 G/DL (11.5-16.0); LYMPHOCYTES % (AUTO) 20 % (12-44); MEAN CORPUSCULAR HEMOGLOBIN 29 PG (25-34); MEAN CORPUSCULAR HGB CONC 33 G/DL (32-36); MEAN CORPUSCULAR VOLUME 88 FL (80-99); MONOCYTES # (AUTO) 1.6 X 10^3 (0.0-1.0); MONOCYTES % (AUTO) 11 % (0-12); NEUTROPHILS # (AUTO) 9.9 X 10^3 (1.8-7.8); NEUTROPHILS % (AUTO) 67 % (42-75); PLATELET COUNT 390 10^3/uL (130-400); RED CELL DISTRIBUTION WIDTH 15.3 % (10.0-14.5); WHITE BLOOD COUNT 14.7 10^3/uL (4.3-11.0)
[2020-01-08 02:15] LABS: POTASSIUM 3.3 MMOL/L (3.6-5.0)
[2020-01-08 02:16] LABS: CALCIUM 8.1 MG/DL (8.5-10.1)
[2020-01-08 02:21] LABS: CREATININE SERUM 1.13 MG/DL (0.60-1.30); PHOSPHORUS 3.1 MG/DL (2.3-4.7)
[2020-01-08 02:23] LABS: MAGNESIUM 1.9 MG/DL (1.6-2.4)
[2020-01-08 02:37] LABS: ANISOCYTOSIS MODERATE; EOSINOPHILS % (MANUAL) 1 %; LYMPHOCYTES % (MANUAL) 15 %; MONOCYTES % (MANUAL) 11 %; NEUTROPHILS % (MANUAL) 73 %; NUCLEATED RED BLOOD CELLS 3; POLYCHROMASIA SLIGHT
[2020-01-08] MEDS: POTASSIUM CL 10MEQ/50ML IVPB 50 ML IV SCH ×3 (02:46→06:58)
[2020-01-08] MEDS: KCL 20 MEQ TAB (K-DUR) PO SCH (02:46)
[2020-01-08] MEDS: MAGNESIUM 1 GM/100 ML IVPB 100 ML IV SCH (02:46)
--- NOTE | 2020-01-08 05:10 | Pulmonary Progress Note ---
Subjective Time Seen by a Provider: 05:10 Subjective/Events-last exam Pt appears to be doing better. Sepsis Event Evaluation Height, Weight, BMI Height: 5'0.00" Weight: 163lbs. 7.4oz. 74.665935pc; 24.04 BMI Method:Stated Exam Exam Vital Signs Date Time Temp Pulse Resp B/P (MAP) Pulse Ox O2 Delivery O2 Flow Rate FiO2 01/08/20 04:37 37.1 01/08/20 04:00 Room Air 01/08/20 04:00 90 21 137/96 (110) 95 Room Air 01/08/20 03:00 87 15 155/90 (111) 98 Room Air 01/08/20 02:00 85 18 164/91 (115) 98 Room Air 01/08/20 01:00 80 01/08/20 01:00 88 16 154/91 (112) 98 Room Air 01/08/20 00:00 84 19 147/87 (107) 100 Room Air 01/08/20 00:00 Room Air 01/08/20 00:00 37.5 01/07/20 23:00 80 15 145/82 (103) 98 Room Air 01/07/20 22:00 94 20 162/84 (110) 98 Room Air 01/07/20 21:00 96 21 168/93 (118) 100 Room Air 01/07/20 20:00 36.9 94 24 156/88 (110) 98 Room Air 01/07/20 20:00 Room Air 01/07/20 19:00 100 01/07/20 19:00 93 16 157/106 (123) 99 Room Air 01/07/20 18:00 95 25 161/93 (115) 97 Room Air 01/07/20 17:00 93 27 162/83 (109) 99 Room Air 01/07/20 16:00 90 21 154/83 (106) 95 Room Air 01/07/20 16:00 Room Air 01/07/20 16:00 36.8 01/07/20 15:00 83 25 170/88 (115) 98 Room Air 01/07/20 14:00 87 22 167/107 (127) 97 Room Air 01/07/20 13:00 89 20 139/107 (118) 90 Room Air 01/07/20 12:13 91 01/07/20 12:00 Room Air 01/07/20 12:00 80 34 175/95 (121) 97 Room Air 01/07/20 11:00 80 29 174/95 (121) 97 Room Air 01/07/20 10:00 92 23 176/95 (122) 97 Room Air 01/07/20 09:00 85 15 151/84 (106) 100 Room Air 01/07/20 08:00 77 14 145/69 (94) 99 Room Air 01/07/20 08:00 Room Air 01/07/20 07:00 77 18 151/80 (103) 97 Room Air 01/07/20 07:00 77 01/07/20 06:41 92 Room Air 01/07/20 06:00 36.5 73 16 165/93 (117) 99 Room Air I & O 01/08/20 07:00 Intake Total 880 ml Output Total 2075 ml Balance -1195 ml Height & Weight Height: 5'0.00" Weight: 163lbs. 7.4oz. 74.548289on; 24.04 BMI Method:Stated General Appearance: No Apparent Distress, Chronically ill, Other (lying in bed with soft mittens in place) HEENT: PERRL/EOMI, Pharynx Normal Neck: Normal Inspection, Supple Respiratory: Lungs Clear, No Respiratory Distress Cardiovascular: Regular Rate, Rhythm, No Murmur Capillary Refill: Less Than 3 Seconds Gastrointestinal: non tender, soft, no organomegaly Extremity: Pedal Edema Neurologic/Psychiatric: Alert; No Aphasia, No Facial Droop; Other (oriented x2) Skin: Normal Color, Warm/Dry Lymphatic: No Adenopathy Results Lab Laboratory Tests 01/06/20 14:15 01/07/20 02:37 01/08/20 01:55 Assessment/Plan Assessment/Plan CP with NSTEMI -Cardiology following -s/p cath Psychosis -RN states pt is taking PO meds now. -Scheduled Geodon was not given yesterday per RN -Since pt is taking PO meds now I am going to change Geodon to Risperadol PO -Possible senior behavioral unit Acute renal failure with metabolic lactic acidosis -IVF Sepsis - Zosyn -Check gray cultures Metabolic lactic acidosis -LA is improving Probable chronic dementia Metabolic encephalopathy/severe confusion OCTAVIO STANFORD DO January 08, 2020 05:09
[2020-01-08] MEDS ORDERED: PIPERACILLIN/TAZOBACTAM (BULK) 4.5 GM in NS (IVPB) 100 ML IV SCH ×2 (05:15→14:00)
[2020-01-08] MEDS ORDERED: KCL 20 MEQ POWDER FOR ORAL SOLUTION PO ONE (05:15)
[2020-01-08] MEDS: FUROSEMIDE 40 MG/4 ML INJ (LASIX) IVP SCH (06:55)
[2020-01-08] MEDS: LEVOTHYROXINE 100 MCG (LEVOTHROID) TAB PO SCH (06:56)
--- NOTE | 2020-01-08 07:37 | Diagnostic Imaging Report ---
EXAMINATION: Chest radiograph, portable AP view. DATE: 01/08/2020 4:59 AM hours. INDICATION: 79-year-old female, chest pain. History of myocardial infarction. COMPARISON: January 07, 2020. FINDINGS: There is a left-sided venous line with tip at the level of the upper right atrium. Stable overall appearance of the cardiomediastinal silhouette. The heart is mildly enlarged. There is no identified pneumothorax. There is nonspecific left basilar airspace consolidation. There are streaky bilateral perihilar opacities. Overall appearance of the lungs is unchanged. IMPRESSION: 1. Unchanged left basilar airspace consolidation and streaky bilateral perihilar opacities. 2. Left-sided venous line at the level of the upper right atrium. Dictated by: Dictated on workstation # [id number]
[2020-01-08 07:40] LABS: BILIRUBIN,URINE NEGATIVE (NEGATIVE); CLARITY,URINE CLEAR; COLOR,URINE YELLOW; GLUCOSE, URINE (UA) NEGATIVE (NEGATIVE); KETONES,URINE 1+ (NEGATIVE); LEUKOCYTE ESTERASE ,URINE 2+ (NEGATIVE); NITRITE,URINE NEGATIVE (NEGATIVE); PROTEIN,URINE NEGATIVE (NEGATIVE)
[2020-01-08 07:50] LABS: BACTERIA,URINE TRACE /HPF; RBC,URINE 50-100 /HPF; YEAST,URINE LARGE /HPF
[2020-01-08] MEDS ORDERED: PIPERACILLIN/TAZO 4.5 GM/NS 100 ML IV NR ×2 (08:00)
[2020-01-08] MEDS: LOSARTAN 100 MG (COZAAR) TABLET PO SCH (08:08)
[2020-01-08] MEDS: CLOPIDOGREL 75 MG (PLAVIX) TABLET PO SCH (08:08)
[2020-01-08] MEDS: meTOprolol TARTRATE 25 MG (LOPRESSOR) TABLET PO SCH (08:08)
[2020-01-08] MEDS: ASPIRIN E.C. 81 MG (ECOTRIN) TAB PO SCH (08:08)
[2020-01-08] MEDS: PANTOPRAZOLE 40 MG (PROTONIX) VIAL IV SCH (08:09)
[2020-01-08] MEDS: ENOXAPARIN 40 MG/0.4 ML (LOVENOX) SYR SC SCH (08:09)
--- NOTE | 2020-01-08 08:40 | Cardiology Progress Note ---
Subjective Date Seen by Provider: January 08, 2020 Time Seen by Provider: 08:39 Subjective/Events-last exam Patient is laying down in bed, more awake today. Denied any chest pain Review of Systems General: No Chills, No Night Sweats; Fatigue; No Malaise, No Appetite, No Other HEENT: No Head Aches, No Visual Changes, No Eye Pain, No Ear Pain, No Dysphasia, No Sinus Congestion, No Post Nasal Drip, No Sore Throat, No Other Pulmonary: Dyspnea; No Cough, No Pleuritic Chest Pain, No Other Cardiovascular: No: Chest Pain, Palpitations, Orthopnea, Paroxysmal Noc. Dyspnea, Edema, Lt Headedness, Other Objective-Cardiology Exam Last Set of Vital Signs Vital Signs 01/06/20 01/08/20 01/08/20 18:00 04:37 08:00 Temp 37.1 Pulse 94 Resp 26 B/P (MAP) 163/109 (127) Pulse Ox 99 O2 Delivery Room Air O2 Flow Rate 5.00 Capillary Refill : Less Than 3 Seconds I&O Intake and Output 01/08/20 00:00 Intake Total 1680 ml Output Total 1745 ml Balance -65 ml Intake Oral 1230 ml IV Total 450 ml Output Urine Total 1745 ml # Bowel Movements 2 General: Alert, Oriented X3, Cooperative, Mild Distress HEENT: Atraumatic, PERRLA Neck: Supple, No JVD, +2 Carotid Pulse No Bruit Lungs: Clear to Auscultation, Normal Air Movement Heart: Regular Rate, Normal S1, Normal S2 Abdomen: Soft, No Tenderness Extremities: No Edema Skin: No Rashes, No Significant Lesion Neuro: Normal Speech Psych/Mental Status: Mental Status NL, Mood NL Results Lab Laboratory Tests 01/08/20 01:55 A/P-Cardiology Admission Diagnosis NSTEMI Sepsis Assessment/Plan Status post acute change in mental status, better at this time, significant improvement. Recovering well. Managed by primary care team Congestive heart failure, acute left ventricular systolic dysfunction with ejection fraction 20 percent, nonischemic cardiomyopathy, continue on diuretics and monitor closely Metabolic acidosis, lactic acidosis and respiratory alkalosis, improving, managed by medical team. Continue to monitor Hypokalemia, replace and monitor Acute renal failure, improving, continue to monitor renal function Sepsis, unknown source, elevated lactic acid and pro-calcitonin, gray cultures are negative so far and receiving antibiotic. Managed by primary care team Coronary artery disease,NSTEMI- cardiac catheterization done 01/01/2020 revealed 50% proximal stenosis in the left circumflex artery has a fractional flow reserve of 0.98, indicating hemodynamic insignificance. Other coronaries have diffuse mild to moderate plaque. Marked impairment of global left ventricular systolic function with global hypokinesis and left ventricular ejection fraction of approximately 20%. On beta zenobia and ARB History of recent persistent diarrhea and weight loss, underwent colonoscopy on 12/31/2019, Dr. Ramey following. 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 Hypertension, history of labile blood pressure, continue to monitor. Renal artery stenosis- Stent in the right renal artery Express SD 5 x19 mm expanded to 6 , CTA of abdominal aorta and renal arteries done March 02, 2017 revealed patent stent to the right renal artery, continue to monitor Hyperlipidemia, maintained on Lipitor as outpatient Nonobstructive carotid artery stenosis-most recent carotid duplex done in October 2018, still having left carotid bruit, CT scan of the neck was reported as 50 percent stenosis at the level of the proximal aspect of the right internal carotid artery, continue to monitor History of thyroidectomy, maintained on thyroid replacement, monitored by [facility] physician History of partial hysterectomy in 1982, 2 knee replacement 2004 in 2004, breast surgery. History of breast cancer, had lumpectomy in 2011. Degenerative joint disease Clinical Quality Measures DVT/VTE Risk/Contraindication: Risk Factor Score Per Nursin RFS Level Per Nursing on Admit: 3=High NGHIA COOPER MD January 08, 2020 8:40 am
[2020-01-08] MEDS ORDERED: risperiDONE 1 MG (RisperDAL) TAB PO SCH (09:00)
[2020-01-08] MEDS ORDERED: SPIRONOLACTONE 25 MG (ALDACTONE) TAB PO SCH (09:00)
--- NOTE | 2020-01-08 09:49 | NUR ---
ISELA/RAMIRO follow up. ISELA/RAMIRO spoke with Cara from [facility] who wanted updated information on patient. She gave this ss the nurse report phone number ([phone]). ISELA/SS gave the patients nurse the phone number and informed her it will either be Ruthann or Xiao as well as she was provided with the EMS non-emergent transport form due to patients risk of becoming combative. ISELA/SS spoke with the patients physician who verbalized she is still appropriate to discharge to [facility] today. CM/SS will fax finalized orders when available.
[2020-01-08] MEDS ORDERED: POTASSIUM BICARB 20 MEQ (EFFER-K) TABLET PO NR (10:33)
[2020-01-08] MEDS ORDERED: AMOX-358 PO (10:41)
--- NOTE | 2020-01-08 10:43 | Discharge Summary ---
Diagnosis/Chief Complaint Date of Admission January 01, 2020 at 10:59 Date of Discharge Discharge Date: January 08, 2020 Admission Diagnosis NSTEMI Primary Care VolodymyrMandeep garza DO Discharge Diagnosis (1) Severe sepsis Status: Resolved (2) Lactic acidosis Status: Resolved (3) High anion gap metabolic acidosis Status: Resolved (4) Acute respiratory failure with hypoxia Status: Acute (5) NSTEMI (non-ST elevation myocardial infarction) Status: Acute (6) Acute HFrEF (heart failure with reduced ejection fraction) Status: Acute (7) HTN (hypertension) Status: Chronic (8) HLD (hyperlipidemia) Status: Chronic (9) Hypothyroidism Status: Chronic (10) History of CVA (cerebrovascular accident) Status: Chronic (11) Euthyroid sick syndrome Status: Resolved Discharge Summary Discharge Physical Exam Allergies: Coded Allergies: cyclobenzaprine (Unverified Allergy, Unknown, UNKNOWN, 01/01/20) Vitals & I&Os Vital Signs Date Time Temp Pulse Resp B/P (MAP) Pulse Ox O2 Delivery O2 Flow Rate FiO2 01/08/20 13:00 84 01/08/20 12:00 Room Air 01/08/20 12:00 20 159/104 (122) 99 01/08/20 08:00 37.6 01/06/20 18:00 5.00 General Appearance: No Apparent Distress, Chronically ill Respiratory: Lungs Clear, No Respiratory Distress Cardiovascular: Regular Rate, Rhythm, No Murmur Neurologic/Psychiatric: Alert, Other (oriented to self only) Hospital Course Patient is a 79-year-old female who was admitted from [facility] following colonoscopy due to an NSTEMI. She underwent cardiac catheterization with Dr. Woodward and no interventions were required. She was managed conservatively. Unfortunately she developed significant delirium. She was quite combative and uncooperative. She was transferred to the ICU as this was a significant change. She was treated with Precedex. She slowly cleared but still was only oriented to person on day of discharge. It was felt that this was likely ICU psychosis from her multiple procedures and changes in location. It was concern for sepsis as well though no source was identified. She was treated with IV Zosyn. This will be continued. She was transitioned to [place] swing bed for continued therapy and hopeful continued improvement in her mentation. [facility] psych was consulted as well and will be available at [place] if needed. Labs (last 24 hrs) Laboratory Tests 01/08/20 01:55: White Blood Count 14.7H, Red Blood Count 3.72L, Hemoglobin 10.6L, Hematocrit 33L , Mean Corpuscular Volume 88, Mean Corpuscular Hemoglobin 29, Mean Corpuscular Hemoglobin Concent 33, Red Cell Distribution Width 15.3H, Platelet Count 390, Mean Platelet Volume 11.0H, Neutrophils (%) (Auto) 67, Lymphocytes (%) (Auto) 20, Monocytes (%) (Auto) 11, Eosinophils (%) (Auto) 1, Basophils (%) (Auto) 0, Neutrophils # (Auto) 9.9H, Lymphocytes # (Auto) 3.0, Monocytes # (Auto) 1.6H, Eosinophils # (Auto) 0.2, Basophils # (Auto) 0.0, Neutrophils % (Manual) 73, Lymphocytes % (Manual) 15, Monocytes % (Manual) 11, Eosinophils % (Manual) 1, Nucleated Red Blood Cells 3, Polychromasia SLIGHT, Anisocytosis MODERATE, Sodium Level 142, Potassium Level 3.3L, Chloride Level 104, Carbon Dioxide Level 19L, Anion Gap 19H, Blood Urea Nitrogen 14, Creatinine 1.13, Estimat Glomerular Filtration Rate 47, BUN/Creatinine Ratio 12, Glucose Level 74, Calcium Level 8.1L, Phosphorus Level 3.1, Magnesium Level 1.9 01/08/20 07:25: Urine Color YELLOW, Urine Clarity CLEAR, Urine pH 6.0, Urine Specific [place] 1.015L, Urine Protein NEGATIVE, Urine Glucose (UA) NEGATIVE, Urine Ketones 1+H, Urine Nitrite NEGATIVE, Urine Bilirubin NEGATIVE, Urine Urobilinogen 0.2, Urine Leukocyte Esterase 2+H, Urine RBC (Auto) 3+H, Urine RBC 50-100H, Urine WBC 10- 25H, Urine Crystals NONE, Urine Bacteria TRACE, Urine Casts NONE, Urine Mucus NEGATIVE, Urine Yeast LARGEH, Urine Culture Indicated YES Microbiology 01/03/20 C. difficile GDH Antigen & Toxins - Final, Complete 01/01/20 Urine Culture - Final, Complete NO GROWTH 01/01/20 Blood Culture - Final, Complete No growth Patient resulted labs reviewed. Pending Labs Laboratory Tests 01/08/20 07:25: Urine Color YELLOW, Urine Clarity CLEAR, Urine pH 6.0, Urine Specific [place] 1.015, Urine Protein NEGATIVE, Urine Glucose (UA) NEGATIVE, Urine Ketones 1+, Urine Nitrite NEGATIVE, Urine Bilirubin NEGATIVE, Urine Urobilinogen 0.2, Urine Leukocyte Esterase 2+, Urine RBC (Auto) 3+, Urine RBC 50-100, Urine WBC 10-25, Urine Crystals NONE, Urine Bacteria TRACE, Urine Casts NONE, Urine Mucus NEGATIVE, Urine Yeast LARGE, Urine Culture Indicated YES Imaging: Reviewed Imaging Report Discussion & Recommendations Discharge Planning: >30 minutes discharge planning Discharge Home Medications: Active Scripts Active Augmentin 875-125 Tablet (Amoxicillin/Potassium Clav) 1 Each Tablet 1 Each PO BID Reported Hydrochlorothiazide 25 Mg Tablet 25 Mg PO DAILY LAST FILLED 11-08-2019 #30 DAY SUPPLY Plavix (Clopidogrel Bisulfate) 75 Mg Tablet 75 Mg PO DAILY Clonidine HCl 0.1 Mg Tablet 0.1 Mg PO DAILY PRN TAKE 1 TAB DAILY AND MAY TAKE ANOTHER TAB IF SYSTOLIC BLOOD PRESSURE IS OVER 190 K-Tab ER (Potassium Chloride) 20 Meq Tablet.er 20 Meq PO BID 5 Days FILLED 12-26-2019 #10 DAY SUPPLY Fish Oil 1,000 mg Softgel ([place]-3/Dha/Epa/Fish Oil) 1 Each Capsule 1 Cap PO DAILY Vitamin B-12 (Cyanocobalamin (Vitamin B-12)) 2,000 Mcg Tablet 2,000 Mcg PO DAILY Losartan Potassium 100 Mg Tablet 100 Mg PO DAILY Citalopram HBr (Citalopram Hydrobromide) 20 Mg Tablet 20 Mg PO 1800 Cartia Xt (Diltiazem HCl) 300 Mg Cap.er.24h 300 Mg PO DAILY Clonidine HCl 0.1 Mg Tablet 0.1 Mg PO DAILY TAKE 1 TAB DAILY AND MAY TAKE ANOTHER TAB IF SYSTOLIC BLOOD PRESSURE IS OVER 190 Lipitor (Atorvastatin Calcium) 20 Mg Tablet 20 Mg PO 1800 Tylenol Pm Ex-Strength [place] (Acetaminophen/Diphenhydramine) 1 Each Tablet 1 Tab PO HS PRN Levothyroxine Sodium 100 Mcg Tablet 100 Mcg PO DAILY Instructions to patient/family Please see electronic discharge instructions given to patient. Clinical Quality Measures DVT/VTE Risk/Contraindication: Risk Factor Score Per Nursin RFS Level Per Nursing on Admit: 3=High Problem Qualifiers (1) HTN (hypertension): Hypertension type: essential hypertension Qualified Codes: I10 - Essential (primary) hypertension (2) HLD (hyperlipidemia): Hyperlipidemia type: unspecified Qualified Codes: E78.5 - Hyperlipidemia, unspecified LATONIA RANDALL MD January 08, 2020 10:43
--- NOTE | 2020-01-08 11:45 | Physical Therapy Evaluation ---
PT Evaluation-General Medical Diagnosis Admission Date January 01, 2020 at 10:59 Medical Diagnosis: NSTEMI Onset Date: January 01, 2020 Therapy Diagnosis Therapy Diagnosis: generalized weakness/debility Height/Weight Height (Feet): 5 Height (Inches): 0.00 Weight (Pounds): 163 Weight (Ounces): 7.4 Precautions Precautions/Isolations: Fall Prevention, Standard Precautions Referral Physician: Colten Reason for Referral: Evaluation/Treatment Medical History Pertinent Medical History: CVA, Dementia, HTN, Hypothroidism, Renal Insufficiency Current History Transfer from [facility] secondary to recent weight loss and CT Reviewed History: Yes Social History Current Living Status: Spouse Prior Prior Level of Function SCALE: Activities may be completed with or without assistive devices. 2-Qmyxlzyues-xgqdvpb completes the activity by him/herself with no assistance from a helper. 5-Set-up or Clean-up Assistance-helper sets up or cleans up; patient completes activity. [place] assists only prior to or following the activity. 4-Supervision or Touching Assistance-helper provides verbal cues and/or touching/steadying and/or contact guard assistance as patient completes activity. Assistance may be provided throughout the activity or intermittently. 3-Partial/Moderate Assistance-helper does LESS THAN HALF the effort. [place] l ifts, holds or supports trunk or limbs, but provides less than half the effort. 2-Substantial/Maximal Assistance-helper does MORE THAN HALF the effort. [place] lifts or holds trunk or limbs and provides more than half the effort. 8-Lvzoxfbfx-uuknsb does ALL the effort. Patient does none of the effort to complete the activity. Or, the assistance of 2 or more helpers is required for t he patient to complete the activity. If activity was not attempted, code reason: 7-Patient Refused. 9-Not Applicable-not attempted and the patient did not perform the activity before the current illness, exacerbation or injury. 10-Not Attempted due to Environmental Limitations-(lack of equipment, weather restraints, etc.). 88-Not Attempted due to Medical Conditions or Safety Concerns. Bed Mobility: 5 Transfers (B,C,W/C): 5 Gait: 5 Indoor Mobility (Ambulation): Independent Prior Devices Use: Walker PT Evaluation-Current Subjective Patient is very confused and has a sitter. Agrees to PT. Objective Patient Orientation: Confused Attachments: [place] Catheter, IV ROM/Strength ROM Lower Extremities bilateral LE WFL Strength Lower Extremities 3/5 grossly bilateral LE Integumentary/Posture Integumentary refer to nursing notes Bladder Incontinence: [place] Cath Posture WFL Neuromuscular (Tone, Coordination, Reflexes) diminished coordination Sensory Vision: Functional Hearing: Functional Transfers Roll Left to Right (QC): 3 Sit to Lying (QC): 3 Lying to Sitting/Side of Bed(Q: 3 Sit to Stand (QC): 3 Chair/Nxc-qo-Bewto Xfer(QC): 3 Gait Does the Patient Walk?: Yes Mode of Locomotion: Walk Anticipated Mode of Locomotion: Walk Walk 10 feet (QC): 2 Walk 50 ft with 2 Turns(QC): 2 Walk 150 ft (QC): 2 Distance: 175' Gait Assistive Device: FWW Comments/Gait Description PT to advance FWW and to assist patient with forward propulsion Balance Sitting Static: Fair Sitting Dynamic: Fair Standing Static: Fair Standing Dynamic: Fair Assessment/Needs 79 y.o. female, will benefit from skilled PT to address functional strength and mobility. Physician notified of findings. Rehab Potential: Fair PT Plan Treatment/Plan Treatment Plan: Discontinue PT (patient transferring to [facility] per physician) Treatment Duration: January 08, 2020 Frequency: 1 time per week Estimated Hrs Per Day: .5 hour per day PT to continue at [facility] Discharge Recommendations Therapy Discharge Recommendati: Other, See Comments (SWB at [facility] per physician) Time/GCodes Time In: 1055 Time Out: 1112 Total Billed Treatment Time: 17 [facility] CARMELLA OCHOA PT January 08, 2020 11:45
--- NOTE | 2020-01-08 11:46 | Occupational Therapy Eval ---
OT Evaluation-General/PLF Medical Diagnosis Admission Date January 01, 2020 at 10:59 Medical Diagnosis: NSTEMI Onset Date: January 01, 2020 Therapy Diagnosis Therapy Diagnosis: impaired ADLs and functional mobility, weakness Height/Weight Height (Feet): 5 Height (Inches): 0.00 Weight (Pounds): 163 Weight (Ounces): 7.4 Precautions Precautions/Isolations: Fall Prevention, Standard Precautions Referral Physician: Colten Referral Reason: Evaluation/Treatment Medical History Pertinent Medical History: HTN, Hypothroidism Additional Medical History hyperlipidemia, CVA, recent weight loss, osteoporosis, arthritis, fractures Current History Per H&P: "Yvonne Resendez is a 79-year-old female with past medical history of hypertension, hyperlipidemia, hypothyroidism, CVA, recent weight loss, who presented as a transfer from [facility] with non-ST elevated myocardial infarction. She had been admitted yesterday after undergoing a colonoscopy to evaluate for her weight loss. She was admitted due to weakness. She was found to have electrolyte abnormalities which were replaced. An EKG was performed and was concerning for possible acute changes. A troponin was checked and was elevated at 4 and she was subsequently transferred for cardiology consultation. Upon my examination she has just returned from a left heart catheterization and is minimally responsive. She is unable to provide any significant history." Social History Current Living Status: Spouse Pt states she lived with her [place]. Pt unable to recall further information about living environment. ADL-Prior Level of Function SCALE: Activities may be completed with or without assistive devices. 8-Powhgifyjn-fhyrndj completes the activity by him/herself with no assistance from a helper. 5-Set-up or Clean-up Assistance-helper sets up or cleans up; patient completes activity. [place] assists only prior to or following the activity. 4-Supervision or Touching Assistance-helper provides verbal cues and/or touching/steadying and/or contact guard assistance as patient completes activity. Assistance may be provided throughout the activity or intermittently. 3-Partial/Moderate Assistance-helper does LESS THAN HALF the effort. [place] lifts, holds or supports trunk or limbs, but provides less than half the effort. 2-Substantial/Maximal Assistance-helper does MORE THAN HALF the effort. [place] lifts or holds trunk or limbs and provides more than half the effort. 2-Vxxesuemn-wbuafs does ALL the effort. Patient does none of the effort to complete the activity. Or, the assistance of 2 or more helpers is required for the patient to complete the activity. If activity was not attempted, code reason: 7-Patient Refused. 9-Not Applicable-not attempted and the patient did not perform the activity before the current illness, exacerbation or injury. 10-Not Attempted due to Environmental Limitations-(lack of equipment, weather restraints, etc.). 88-Not Attempted due to Medical Conditions or Safety Concerns. ADL PLOF Comments Pt unable to provide information about PLOF. Self Care: Unknown Functional Cognition: Unknown OT Current Status Subjective Pt seated in recliner, with a sitter present. She agreed to OT evaluation on this date. Mental Status/Objective Patient Orientation: Person, Confused, Time Pt able to recall her name, date, and the current year. She did not know where she was or why she was here. OT reoriented pt to her being in the hospital. Attachments: [place] Catheter Current Glasses/Contacts: Yes Hearing Aids: No Dentures/Partials: Yes Hand Dominance: Right Upper Extremity ROM BUE shoulder flexion to approximately 120 degrees, she was able to touch the back of her head with her hands with increased time. Upper Extremity Coordination decreased thumb opposition to each finger. Upper Extremity Sensation Pt denies tingling/numbness in BUEs Other Treatments Pt seated in recliner with a sitter present. OT educated pt on purpose and benefits of OT, she verbalized understanding. Pt attempted to provide information about home set up and PLOF but had difficulty recalling this information. Her PLOF is unknown at this time. Pt participated in UE screen, demo'ing decreased ROM and coordination. Pt unable to recall the town she currently lives in but did recall that she lives with her . Pt asked if she could call her kid, OT provided pt with the room phone. OT asked pt what the number was, and pt stated "[phone]". She was unable to recall any further numbers. Based on pt's current functional level, pt would benefit from skilled OT servies in order to increase UE strength, endurance, ROM, coordination, and to increase safety and independence with ADLs. Post OT tx, pt sitting in recliner with sitter present and all needs met. Education OT Patient Education: Correct positioning, Modified ADL techniques, Progress toward Goal/Update tx plan, Purpose of tx/functional activities Teaching Recipient: Patient Teaching Methods: Discussion Response to Teaching: Reinforcement Needed OT School Coordinator Goals School Coordinator Goals Time Frame: January 18, 2020 Eating (QC): 6 Oral Hygiene (QC): 6 Toileting Hygiene (QC): 6 Shower/Bathe Self (QC): 6 Upper Body Dressing (QC): 6 Lower Body Dressing (QC): 6 On/Off Footwear (QC): 6 1=Demonstrate adherence to instructed precautions during ADL tasks. 2=Patient will verbalize/demonstrate understanding of assistive devices/modifications for ADL. 3=Patient will improve strength/tolerance for activity to enable patient to perform ADL's. OT Education/Plan Problem List/Assessment Assessment: Decreased Activ Tolerance, Decreased Safety Aware, Decreased UE Strength, Impaired Cognition, Impaired Coordination, Impaired I ADL's, Impaired Self-Care Skills, Restricted Funct UE ROM Based on pt's current functional level, pt would benefit from skilled OT servies in order to increase UE strength, endurance, ROM, coordination, and to increase safety and independence with ADLs. Discharge Recommendations Plan/Recommendations: Continue POC Treatment Plan/Plan of Care Treatment,Training & Education: Yes Patient would benefit from OT for education, treatment and training to promote independence in ADL's, mobility, safety and/or upper extremity function for ADL's. Plan of Care: ADL Retraining, Functional Mobility, UE Funct Exercise/Act Treatment Duration: January 18, 2020 Frequency: 5 times per week Estimated Hrs Per Day: .25 hour per day Rehab Potential: Fair Time/GCodes Start Time: 11:25 Stop Time: 11:33 Total Time Billed (hr/min): 8 Billed Treatment Time 1PORTIA ADDISON OT January 08, 2020 11:46
--- NOTE | 2020-01-08 11:56 | NUR ---
Change of discharge plan. Plan: The patient will discharge to [facility] Swing Bed program. CM/SS contacted the patients rebecca Rice to inform him of this change. He verbalized understanding. He is going to call the patients to inform him of update. CM/SS awaiting physical therapy and updated discharge to fax to facility. EMS non-emergent transport: CM/SS weighted out different options for transport. The patient is unable to safely transported in a van due to patients limited mobility and maintaining erect sitting positions. The patient is confused and has a high possibility of getting combative during transport. It would not be safe for hospital transport services for mental health at this time.
[2020-01-08] MEDS ORDERED: PIPE4.5V IV (14:30)
--- NOTE | 2020-01-08 14:44 | NUR ---
Report called to [facility] RN at this time.
--- NOTE | 2020-01-08 14:48 | NUR ---
[facility] called at this time to transport pt to [facility]. VSS at this time. Will continue to monitor.
--- NOTE | 2020-01-08 15:24 | NUR ---
EMS at bedside at this time to transfer pt. VSS prior to transfer. Personal belongings with pt at time of transfer. Pt transferring to Room 108 at [facility] per Latoya at [facility].
== END 2020-01-08 15:26 | disposition swing bed (61) | DRG 871 ==
LOC: ICU 00:01 → INTOOBSV 00:01 → OBSVTOIN 10:59 → 4TH 01-02 08:58 → ICU 01-02 15:33
PROVIDERS: ADMIT Internal Medicine; ATTEND Internal Medicine
PROC: 4A023N7 Measurement of Cardiac Sampling and Pressure, Left Heart, Percutaneous Approach (ICD-10-PCS; principal; 2020-01-01)
PROC: B2111ZZ Fluoroscopy of Multiple Coronary Arteries using Low Osmolar Contrast (ICD-10-PCS; 2020-01-01)
PROC: B2151ZZ Fluoroscopy of Left Heart using Low Osmolar Contrast (ICD-10-PCS; 2020-01-01)
PROC: 4A033BC Measurement of Arterial Pressure, Coronary, Percutaneous Approach (ICD-10-PCS; 2020-01-01)
DX: A41.9 Sepsis, unspecified organism (principal); R65.20 Severe sepsis without septic shock; I21.A1 Myocardial infarction type 2; J18.9 Pneumonia, unspecified organism; I50.21 Acute systolic (congestive) heart failure; I25.110 Atherosclerotic heart disease of native coronary artery with unstable angina pectoris; I23.7 Postinfarction angina; J96.01 Acute respiratory failure with hypoxia; G93.41 Metabolic encephalopathy; E87.2 Acidosis; I42.0 Dilated cardiomyopathy; N17.9 Acute kidney failure, unspecified; E87.3 Alkalosis; I47.2 Ventricular tachycardia; I11.0 Hypertensive heart disease with heart failure; D64.9 Anemia, unspecified; K57.90 Diverticulosis of intestine, part unspecified, without perforation or abscess without bleeding; E89.0 Postprocedural hypothyroidism; R63.4 Abnormal weight loss; F32.9 Major depressive disorder, single episode, unspecified; E78.5 Hyperlipidemia, unspecified; M81.0 Age-related osteoporosis without current pathological fracture; M19.91 Primary osteoarthritis, unspecified site; E07.81 Sick-euthyroid syndrome; F03.90 Unspecified dementia, unspecified severity, without behavioral disturbance, psychotic disturbance, mood disturbance, and anxiety; I87.2 Venous insufficiency (chronic) (peripheral); I48.91 Unspecified atrial fibrillation; E87.6 Hypokalemia; E11.9 Type 2 diabetes mellitus without complications
CPT/HCPCS: 36415; 36569; 36600; 71045; 71250; 74176; 76937; 78226; 80048; 80053; 80061; 80076; 80202; 81000; 82140; 82805; 82962; 83605; 83615; 83735; 83874; 83880; 84100; 84145; 84439; 84443; 84481; 84484; 85007; 85025; 85027; 85610; 85652; 85730; 86141; 86618; 86666; 86668; 86757; 87040; 87088; 87324; 87449; 87899; 93005; 93306; 93458; 94640

== ENCOUNTER → 2020-02-28 | Outpatient (CLI) | payer MEDICARE ==
[~2020-02-28] MED LIST changes: +AMOX-358 PO; +CLOP75TA69 PO; +PIPE4.5V IV; +POTA-53 PO
== END ==
LOC: CARD 08:50
PROVIDERS: ATTEND Physician Assistant
DX: I08.1 Rheumatic disorders of both mitral and tricuspid valves (principal); I25.10 Atherosclerotic heart disease of native coronary artery without angina pectoris; I11.9 Hypertensive heart disease without heart failure; E78.2 Mixed hyperlipidemia; I70.1 Atherosclerosis of renal artery
CPT/HCPCS: 93306

== ENCOUNTER → 2020-12-02 | Outpatient (CLI) | payer MEDICARE ==
[~2020-12-02] MED LIST changes: -ACET-2715 PO; +ACET-3075 PO; +CLN.1T PO; +CLN.2T PO; -CLON0.1T PO; -CLON0.2T PO
--- NOTE | 2020-12-02 09:51 | Diagnostic Imaging Report ---
Bilateral renal ultrasound arterial Doppler. INDICATION: Hypertension. The previous renal Doppler arterial exam of 12/16/2016 noted that the velocity in the right renal artery was increased. This did suggest mild/moderate stenosis. On this exam both kidneys were identified. The right kidney measures 8.9 x 4.4 x 4.4 cm while the left kidney is estimated to be 10.1 x 5.4 x 4.1 cm. There is no evidence for solid renal mass or hydronephrosis. The renal cortices are normal in thickness and echogenicity. Spectral and color-flow imaging of the renal arteries and aorta was performed. The elevated velocity in the right proximal renal artery seen previously has resolved. On the prior exam, the velocity in this area was 139 cm/s. On this study the velocity is only 76 cm/s. There is still no evidence for any abnormal elevation of the renal artery to aorta ratios to indicate a hemodynamically significant stenosis. The bladder was not imaged during the course of this exam. IMPRESSION: 1. There is no evidence for solid renal mass or for acute abnormality of either kidney. 2. The elevated velocity within the proximal right renal artery seen previously has resolved. There is still no evidence for hemodynamically significant stenosis of either renal artery. Dictated by: Dictated on workstation # [id number]
== END ==
LOC: RAD 12-01 13:57
PROVIDERS: ATTEND Physician Assistant
DX: I10 Essential (primary) hypertension (principal)
CPT/HCPCS: 76775; 93976

== ENCOUNTER → 2021-05-08 | Outpatient (CLI) | payer OTHER, MEDICARE | LOC: GIR 17:34 | PROVIDERS: ATTEND Internal Medicine | DX: Z01.89 Encounter for other specified special examinations (principal) | CPT/HCPCS: 84145 ==

== ENCOUNTER → 2021-06-17 | Outpatient (CLI) | payer MEDICARE | LOC: CARD 14:00 | PROVIDERS: ATTEND Internal Medicine Cardiovascular Disease | DX: I08.1 Rheumatic disorders of both mitral and tricuspid valves (principal); I11.9 Hypertensive heart disease without heart failure | CPT/HCPCS: 93306 ==

== ENCOUNTER 2022-07-17 23:29 | Emergency (ER) | payer MEDICARE ==
[~2022-07-17] VITALS: Ht 154.9 cm; Wt 55.0 kg
[~2022-07-17 23:29] MED LIST changes: -BENA40TA5 PO; +BENA40TA84 PO
--- NOTE | 2022-07-17 23:53 | ED General ---
General Stated Complaint: LACK OF THYROID MEDS,NAUSEA VOMITING DIARRHEA Source of Information: Patient Exam Limitations: No Limitations History of Present Illness Date Seen by Provider: Jul 17, 2022 Time Seen by Provider: 23:00 Initial Comments Patient is a 81-year-old female, dyslipidemia on high hypothyroidism who presents with generalized weakness nausea and diarrhea. Symptoms of started 3 days ago. She has been out of her thyroid medications for the past 5 days. She denies cough, fever chills, sweats, chest pain palpitations, shortness of breath. No abdominal pain. No urinary frequency urgency or dysuria. No other acute symptoms or complaints Timing/Duration: 2-3 Days Severity: Mild Modifying Factors: improves with Other Associated Systoms: Other Allergies and Home Medications Allergies Coded Allergies: cyclobenzaprine (Unverified Allergy, Unknown, UNKNOWN, 01/01/20) Patient Home Medication List Home Medication List Reviewed: Yes Acetaminophen/Diphenhydramine (Tylenol Pm Ex-Strength Caplet) 1 Each Tablet, 1 TAB PO HS PRN for SLEEP, (Reported) Entered as Reported by: VAN CASEY on 07/20/17 0843 Atorvastatin Calcium (Lipitor) 20 Mg Tablet, 20 MG PO 1800, (Reported) Entered as Reported by: VAN CASEY on 07/20/17 0843 Citalopram Hydrobromide (Citalopram HBr) 20 Mg Tablet, 20 MG PO 1800, (Reported) Entered as Reported by: VAN CASEY on 02/16/19 1530 Clonidine HCl (Clonidine HCl) 0.1 Mg Tablet, 0.1 MG PO DAILY, (Reported) Entered as Reported by: VAN CASEY on 07/20/17 0844 Clonidine HCl (Clonidine HCl) 0.1 Mg Tablet, 0.1 MG PO DAILY PRN for BLOOD PRESSURE, (Reported) Entered as Reported by: JADA HOWELL on 01/01/20 1157 Clopidogrel Bisulfate (Plavix) 75 Mg Tablet, 75 MG PO DAILY, (Reported) Entered as Reported by: JADA HOWELL on 01/01/20 1157 Cyanocobalamin (Vitamin B-12) (Vitamin B-12) 2,000 Mcg Tablet, 2,000 MCG PO DAILY, (Reported) Entered as Reported by: JADA HOWELL on 02/16/19 1614 Diltiazem HCl (Cartia Xt) 300 Mg Cap.er.24h, 300 MG PO DAILY, (Reported) Entered as Reported by: VAN CASEY on 07/20/17 0956 Hydrochlorothiazide (Hydrochlorothiazide) 25 Mg Tablet, 25 MG PO DAILY, (Reported) Entered as Reported by: JADA HOWELL on 01/01/20 1159 Levothyroxine Sodium (Levothyroxine Sodium) 100 Mcg Tablet, 100 MCG PO DAILY, (Reported) Entered as Reported by: VAN CASEY on 07/20/17 0843 Losartan Potassium (Losartan Potassium) 100 Mg Tablet, 100 MG PO DAILY, (Reported) Entered as Reported by: VAN CASEY on 02/16/19 1530 [place]-3/Dha/Epa/Fish Oil (Fish Oil 1,000 mg Softgel) 1 Each Capsule, 1 CAP PO DAILY, (Reported) Entered as Reported by: JADA HOWELL on 02/16/19 1614 Piperacillin Sodium/Tazobactam (Zosyn 4.5 Gram Vial) 4.5 Gm Vial, 4.5 GM IV Q8H Prescribed by: LATONIA RANDALL on 01/08/20 1430 Potassium Chloride (K-Tab ER) 20 Meq Tablet.er, 20 MEQ PO BID, (Reported) Entered as Reported by: JADA HOWELL on 01/01/20 1157 Review of Systems Review of Systems Constitutional: see HPI EENTM: see HPI Respiratory: see HPI Cardiovascular: see HPI Gastrointestinal: see HPI Genitourinary: see HPI Musculoskeletal: see HPI Skin: see HPI Psychiatric/Neurological: See HPI Hematologic/Lymphatic: See HPI Immunological/Allergic: see HPI All Other Systems Reviewed Negative Unless Noted: No Past Tcmbekr-Hymqud-Wewugv Hx Patient Social History Tobacco Use?: No Seasonal Allergies Seasonal Allergies: No Past Medical History Surgeries: Yes Lobectomy, Thyroidectomy Respiratory: No Cardiac: Yes High Cholesterol, Hypertension Neurological: No Reproductive Disorders: No Female Reproductive Disorders: Denies Sexually Transmitted Disease: No HIV/AIDS: No Gastrointestinal: No Musculoskeletal: Yes (SEVERAL FX RIBS AND SHOULDER DISLOCATION) Osteoporosis, Arthritis, Fractures Endocrine: Yes Hypothyroidsim Cataract Loss of Vision: Bilateral Hearing Impairment: Denies Cancer: Yes (BREAST-LUMPECTOMY, THYROID) Breast, Thyroid Psychosocial: Yes (TAKES MEDS) Depression Integumentary: No Blood Disorders: No Adverse Reaction/Blood Tranf: No Family Medical History Arthritis 19 FATHER 19 MOTHER Cardiovascular disease 19 FATHER Cataracts 19 MOTHER Dementia 19 FATHER Hypertension 19 MOTHER Myocardial infarction 19 FATHER Thyroid disease 19 MOTHER No Family History of: AIDS Alcoholism Alzheimer's disease Asthma Colon cancer Completed stroke Diabetes mellitus Drug abuse Glaucoma Kidney disease Parkinson's disease Prostate cancer Psychosocial problem Respiratory disorder Seizure disorder Severe allergy Tuberculosis CAD Over 55 Years Old, Vascular Disease Physical Exam Vital Signs Capillary Refill : Height, Weight, BMI Height: 5'0.00" Weight: 163lbs. 7.4oz. 74.038139bu; 24.04 BMI Method:Stated General Appearance: No Apparent Distress, WD/WN, Anxious Eyes: Bilateral Eye Normal Inspection, Bilateral Eye PERRL, Bilateral Eye EOMI HEENT: PERRL/EOMI, Pharynx Normal, Moist Mucous Membranes; No Pharyngeal Erythema Neck: Non Tender, Supple Respiratory: Lungs Clear Cardiovascular: Regular Rate, Rhythm, No Edema Gastrointestinal: Non Tender, Soft Back: Normal Inspection Extremity: Normal Capillary Refill Neurologic/Psychiatric: Alert, Oriented x3, No Motor/Sensory Deficits Skin: Normal Color, Warm/Dry Focused Exam Sepsis Stage: Ruled Out Progress/Results/Core Measures Suspected Sepsis SIRS Temperature: Pulse: Respiratory Rate: Laboratory Tests 07/18/22 00:05: White Blood Count 7.6 Blood Pressure / Mean: Laboratory Tests 07/18/22 00:05: Creatinine 1.03, Platelet Count 183, Total Bilirubin 0.4 Results/Orders Lab Results Laboratory Tests Test 07/18/22 00:05 Range/Units White Blood Count 7.6 4.3-11.0 10^3/uL Red Blood Count 4.34 3.80-5.11 10^6/uL Hemoglobin 13.0 11.5-16.0 g/dL Hematocrit 39 35-52 % Mean Corpuscular Volume 91 80-99 fL Mean Corpuscular Hemoglobin 30 25-34 pg Mean Corpuscular Hemoglobin Concent 33 32-36 g/dL Red Cell Distribution Width 14.0 10.0-14.5 % Platelet Count 183 130-400 10^3/uL Mean Platelet Volume 10.7 9.0-12.2 fL Immature Granulocyte % (Auto) 0 % Neutrophils (%) (Auto) 60 42-75 % Lymphocytes (%) (Auto) 26 12-44 % Monocytes (%) (Auto) 11 0-12 % Eosinophils (%) (Auto) 3 0-10 % Basophils (%) (Auto) 1 0-10 % Neutrophils # (Auto) 4.5 1.8-7.8 10^3/uL Lymphocytes # (Auto) 2.0 1.0-4.0 10^3/uL Monocytes # (Auto) 0.8 0.0-1.0 10^3/uL Eosinophils # (Auto) 0.2 0.0-0.3 10^3/uL Basophils # (Auto) 0.1 0.0-0.1 10^3/uL Immature Granulocyte # (Auto) 0.0 0.0-0.1 10^3/uL Sodium Level 138 135-145 MMOL/L Potassium Level 3.7 3.6-5.0 MMOL/L Chloride Level 105 98-107 MMOL/L Carbon Dioxide Level 20 L 21-32 MMOL/L Anion Gap 13 5-14 MMOL/L Blood Urea Nitrogen 24 H 7-18 MG/DL Creatinine 1.03 0.60-1.30 MG/DL Estimat Glomerular Filtration Rate 55 BUN/Creatinine Ratio 23 Glucose Level 101 70-105 MG/DL Calcium Level 9.3 8.5-10.1 MG/DL Corrected Calcium 9.1 8.5-10.1 MG/DL Total Bilirubin 0.4 0.1-1.0 MG/DL Aspartate Amino Transf (AST/SGOT) 18 5-34 U/L Alanine Aminotransferase (ALT/SGPT) 14 0-55 U/L Alkaline Phosphatase 85 40-136 U/L Troponin I < 0.30 <0.30 NG/ML Total Protein 7.0 6.4-8.2 GM/DL Albumin 4.2 3.2-4.5 GM/DL My Orders Orders - SOLE HOLCOMB DO Cbc With Automated Diff (07/17/22 23:37) Comprehensive Metabolic Panel (07/17/22 23:37) Troponin I Fs (07/17/22 23:37) Ekg Tracing (07/17/22 23:37) Vital Signs/I&O Capillary Refill : Departure Communication (Admissions) EKG: Sinus bradycardia, no acute ST-T wave changes Generalized weakness stable vital signs and noncompliance with medication regimen. We will refill brief course of Synthroid with instructions to follow- up with PCP for outpatient testing and further management. Return precautions reviewed. Patient verbalizes understanding agreement discharge instructions prior to departure. Impression Primary Impression: Generalized weakness Additional Impression: Medication refill Disposition: 01 HOME, SELF-CARE Condition: Stable Departure-Patient Inst. Decision time for Depature: 00:37 Referrals: DEMOND ALONSO DO (PCP/Family) Primary Care Physician Patient Instructions: Generalized Weakness (DC) Add. Discharge Instructions: You were evaluated in the emergency department for generalized weakness and medication refill. Basic lab was obtained and nondiagnostic. Please fill Synthroid prescription and contact PCP in the next 2 days to arrange for outpatient thyroid testing and for further management. In the meantime, resume all medications and stay home and rest. Return to the ED if new or concerning symptoms. Scripts Levothyroxine Sodium (Synthroid) 100 Mcg Tablet 100 MCG PO DAILY for 10 Days, TAB Prov: SOLE HOLCOMB DO 07/18/22 SOLE HOLCOMB DO Jul 17, 2022 23:52
[2022-07-18 00:07] LABS: BASOPHILS # (AUTO) 0.1 10^3/uL (0.0-0.1); BASOPHILS % (AUTO) 1 % (0-10); EOSINOPHILS # (AUTO) 0.2 10^3/uL (0.0-0.3); EOSINOPHILS % (AUTO) 3 % (0-10); HEMATOCRIT 39 % (35-52); LYMPHOCYTES % (AUTO) 26 % (12-44); MEAN CORPUSCULAR HEMOGLOBIN 30 pg (25-34); MEAN CORPUSCULAR HGB CONC 33 g/dL (32-36); MEAN CORPUSCULAR VOLUME 91 fL (80-99); MEAN PLATELET VOLUME 10.7 fL (9.0-12.2); MONOCYTES # (AUTO) 0.8 10^3/uL (0.0-1.0); MONOCYTES % (AUTO) 11 % (0-12); NEUTROPHILS # (AUTO) 4.5 10^3/uL (1.8-7.8); NEUTROPHILS % (AUTO) 60 % (42-75); PLATELET COUNT 183 10^3/uL (130-400); WHITE BLOOD COUNT 7.6 10^3/uL (4.3-11.0)
[2022-07-18 00:29] LABS: SODIUM 138 MMOL/L (135-145)
[2022-07-18 00:30] LABS: ALANINE AMINOTRANSFERASE 14 U/L (0-55); ALBUMIN 4.2 GM/DL (3.2-4.5); ALKALINE PHOSPHATASE 85 U/L (40-136); BILIRUBIN,TOTAL 0.4 MG/DL (0.1-1.0); BUN/CREATININE RATIO 23; CALCIUM 9.3 MG/DL (8.5-10.1); CARBON DIOXIDE 20 MMOL/L (21-32); CHLORIDE 105 MMOL/L (98-107); CREATININE SERUM 1.03 MG/DL (0.60-1.30); GFR ESTIMATED 55; GLUCOSE 101 MG/DL (70-105); POTASSIUM 3.7 MMOL/L (3.6-5.0)
[2022-07-18] MEDS ORDERED: LEVO100T PO (00:38)
[2022-07-18 01:05] VITALS: BP 169/68
== END 2022-07-18 01:05 | disposition home or self-care (01) ==
LOC: EDUNIT# 23:29 → ER FS 23:33
DX: R53.1 Weakness (principal); T38.1X6A Underdosing of thyroid hormones and substitutes, initial encounter; Z91.138 Patient's unintentional underdosing of medication regimen for other reason; Z76.0 Encounter for issue of repeat prescription
CPT/HCPCS: 36415; 80053; 84484; 85025; 93005

== ENCOUNTER 2023-05-07 16:34 | Emergency (ER) | payer MEDICARE ==
[~2023-05-07] VITALS: Ht 152.4 cm; Wt 72.6 kg
[~2023-05-07 16:34] MED LIST changes: +CLOP-31 PO; -CLOP75TA69 PO; +LEVO100T PO; -LOSA100T57 PO; +LOSA100T58 PO
[2023-05-07 16:45] VITALS: BP 144/77
[2023-05-07] MEDS ORDERED: cefTRIAXone 1,000 MG VIAL IV/IM IM STA (16:46)
--- NOTE | 2023-05-07 16:50 | ED Lower Extremity ---
General Chief Complaint: Lower Extremity Stated Complaint: LT FOOT INJ Source: patient, family History of Present Illness Date Seen by Provider: May 07, 2023 Time Seen by Provider: 16:39 Initial Comments 82-year-old female presenting with complaints of pain and swelling to the left foot. She had a fall recently at [facility] and they started antibiotics yesterday for cellulitis. The nursing staff told the patient's family that they wanted to get x-rays because they felt like something was being missed. They denied any other injuries. Patient rates her pain at a 2 and is able to ambulate and walk. Onset: last week Pain/Injury Location: left foot Method of Injury: fell Modifying Factors: Worse With Movement Allergies and Home Medications Allergies Coded Allergies: cyclobenzaprine (Unverified Allergy, Unknown, UNKNOWN, 01/01/20) nabumetone (Verified Allergy, Unknown, 05/07/23) Patient Home Medication List Home Medication List Reviewed: Yes Acetaminophen/Diphenhydramine (Tylenol Pm Ex-Strength Caplet) 1 Each Tablet, 1 TAB PO HS PRN for SLEEP, (Reported) Entered as Reported by: VAN CASEY on 07/20/17 0843 Atorvastatin Calcium (Lipitor) 20 Mg Tablet, 20 MG PO 1800, (Reported) Entered as Reported by: VAN CASEY on 07/20/17 0843 Citalopram Hydrobromide (Citalopram HBr) 20 Mg Tablet, 20 MG PO 1800, (Reported) Entered as Reported by: VAN CASEY on 02/16/19 1530 Clonidine HCl (Clonidine HCl) 0.1 Mg Tablet, 0.1 MG PO DAILY, (Reported) Entered as Reported by: VAN CASEY on 07/20/17 0844 Clonidine HCl (Clonidine HCl) 0.1 Mg Tablet, 0.1 MG PO DAILY PRN for BLOOD PRESSURE, (Reported) Entered as Reported by: JADA HOWELL on 01/01/20 1157 Clopidogrel Bisulfate (Plavix) 75 Mg Tablet, 75 MG PO DAILY, (Reported) Entered as Reported by: JADA HOWELL on 01/01/20 1157 Cyanocobalamin (Vitamin B-12) (Vitamin B-12) 2,000 Mcg Tablet, 2,000 MCG PO DAILY, (Reported) Entered as Reported by: JADA HOWELL on 02/16/19 1614 Diltiazem HCl (Cartia Xt) 300 Mg Cap.er.24h, 300 MG PO DAILY, (Reported) Entered as Reported by: VAN CASEY on 07/20/17 0956 Hydrochlorothiazide (Hydrochlorothiazide) 25 Mg Tablet, 25 MG PO DAILY, (Reported) Entered as Reported by: JADA HOWELL on 01/01/20 1159 Levothyroxine Sodium (Levothyroxine Sodium) 100 Mcg Tablet, 100 MCG PO DAILY, (Reported) Entered as Reported by: VAN CASEY on 07/20/17 0843 Levothyroxine Sodium (Synthroid) 100 Mcg Tablet, 100 MCG PO DAILY Prescribed by: SOLE HOLCOMB on 07/18/22 0038 Losartan Potassium (Losartan Potassium) 100 Mg Tablet, 100 MG PO DAILY, (Reported) Entered as Reported by: VAN CASEY on 02/16/19 1530 [place]-3/Dha/Epa/Fish Oil (Fish Oil 1,000 mg Softgel) 1 Each Capsule, 1 CAP PO DAILY, (Reported) Entered as Reported by: JADA HOWELL on 02/16/19 1614 Piperacillin Sodium/Tazobactam (Zosyn 4.5 Gram Vial) 4.5 Gm Vial, 4.5 GM IV Q8H Prescribed by: LATONIA RANDALL on 01/08/20 1430 Potassium Chloride (K-Tab ER) 20 Meq Tablet.er, 20 MEQ PO BID, (Reported) Entered as Reported by: JADA HOWELL on 01/01/20 1157 Review of Systems Constitutional: No chills, No fever EENTM: no symptoms reported Respiratory: no symptoms reported Cardiovascular: no symptoms reported Gastrointestinal: no symptoms reported Genitourinary: no symptoms reported Musculoskeletal: see HPI Skin: see HPI Psychiatric/Neurological: No Symptoms Reported Past Vicqzph-Wgpsix-Fuskuh Hx Immunizations Up To Date First/Initial COVID19 Vaccinat: date unknown Second COVID19 Vaccination Javan: date unknown Seasonal Allergies Seasonal Allergies: No Past Medical History Surgery/Hospitalization HX: Hypothyroidism, Essn HTN, Hyperlipidemia, CVA, CHF w/ reduced EF, CAD, Dilated Cardiomegagly, Ca in situ breast, CKD Stage 3, Rheumatic Tricuspid and Mitral Insuff, Pacemaker: hx SSS and Right BBB, DM Type II, Unspecified dementia, Sick Euthyroid Syndrome Surgeries: Yes Lobectomy, Thyroidectomy Respiratory: No Cardiac: Yes High Cholesterol, Hypertension Neurological: No Reproductive Disorders: No Female Reproductive Disorders: Denies Sexually Transmitted Disease: No HIV/AIDS: No Gastrointestinal: No Musculoskeletal: Yes (SEVERAL FX RIBS AND SHOULDER DISLOCATION) Osteoporosis, Arthritis, Fractures Endocrine: Yes Hypothyroidsim Cataract Loss of Vision: Bilateral Hearing Impairment: Denies Cancer: Yes (BREAST-LUMPECTOMY, THYROID) Breast, Thyroid Psychosocial: Yes (TAKES MEDS) Depression Integumentary: No Blood Disorders: No Adverse Reaction/Blood Tranf: No Family Medical History Arthritis 19 FATHER 19 MOTHER Cardiovascular disease 19 FATHER Cataracts 19 MOTHER Dementia 19 FATHER Hypertension 19 MOTHER Myocardial infarction 19 FATHER Thyroid disease 19 MOTHER No Family History of: AIDS Alcoholism Alzheimer's disease Asthma Colon cancer Completed stroke Diabetes mellitus Drug abuse Glaucoma Kidney disease Parkinson's disease Prostate cancer Psychosocial problem Respiratory disorder Seizure disorder Severe allergy Tuberculosis CAD Over 55 Years Old, Vascular Disease Physical Exam Vital Signs Vital Signs - First Documented 05/07/23 16:45 Temp 36.4 Pulse 82 Resp 18 B/P (MAP) 144/77 (99) Pulse Ox 95 O2 Delivery Room Air Capillary Refill : Height, Weight, BMI Height: 5'0.00" Weight: 163lbs. 7.4oz. 74.002329mo; 22.00 BMI Method:Stated General Appearance: WD/WN, no apparent distress Cardiovascular: normal peripheral pulses Feet: left foot soft tissue tenderness, left foot swelling (Erythema and swelling to the left foot with tenderness to palpation.) Neurologic/Tendon: normal sensation, normal motor functions, normal tendon functions Neurologic/Psychiatric: alert Skin: warm/dry Progress/Results/Core Measures Results/Orders My Orders Orders - KRISHNA MANJARREZ MD Ceftriaxone Iv/Im (Ceftriaxone Iv/Im) (05/07/23 16:46) Lidocaine 1% Inj 20 Ml (Xylocaine 1% Inj (05/07/23 17:00) Foot 3 View Left (05/07/23 16:46) Medications Given in ED Current Medications Medications Dose Ordered Sig/Krishna Route Start Time Stop Time Status Last Admin Dose Admin Lidocaine HCl 2.1 ml ONCE ONCE INJ 05/07/23 17:00 05/07/23 17:01 DC 05/07/23 17:04 2.1 ML Vital Signs/I&O 05/07/23 16:45 Temp 36.4 Pulse 82 Resp 18 B/P (MAP) 144/77 (99) Pulse Ox 95 O2 Delivery Room Air Progress Progress Note #1: Progress Note Differential diagnosis includes cellulitis, foot fracture, foot sprain, foot contusion. Obtain x-rays of the left foot to look for acute bony abnormality. Administer Rocephin 1 g IM to help with possible cellulitis that she just started cephalexin yesterday to treat. Progress Note #2: Progress Note No acute fractures or bony abnormality on the x-rays of the foot. Reassured patient and family. Continue with the antibiotics that were started yesterday and the IM dose from tonight should help. Try to elevate the foot when possible to help with pain and swelling and redness. Diagnostic Imaging Diagonstic Imaging: Xray Plain Films/CT/US/NM/MRI: other (foot) Comments NAME: JOHN AGUIRRE V [facility] REC#: [id number] PT STATUS: REG ER : 1940 PHYSICIAN: KRISHNA MANJARREZ MD ADMIT DATE: 05/07/23/ER FS Signed Date of Exam:05/07/23 FOOT 3 VIEW LEFT CLINICAL HISTORY: Left foot pain. Fall. COMPARISON: None. TECHNIQUE: 3 views of the left foot. FINDINGS: There is no acute fracture or dislocation of the left foot. Alignment is anatomic. The imaged joint spaces are preserved. IMPRESSION: No acute fracture or dislocation of the left foot. Dictated by: Dictated on workstation # [id number] Dict: 05/07/231709 Trans: 05/07/231713 [facility] [id number] Interpreted by: JAYY DUNN DO Electronically signed by: JAYY DUNN DO 05/07/234 Reviewed: Reviewed by Me Departure Impression Primary Impression: Cellulitis of left foot Additional Impressions: Contusion of left foot, initial encounter Other sprain of left foot, initial encounter Disposition: 01 HOME, SELF-CARE Condition: Stable Departure-Patient Inst. Decision time for Depature: 17:18 Referrals: LILA BONILLA APRN (PCP) Primary Care Physician SOFIA LEWIS MD (Family) Primary Care Physician Patient Instructions: Foot Sprain ED, Minor Contusion ED, Cellulitis (Skin Infection), Adult ED Add. Discharge Instructions: Take the full course of antibiotics to treat for infection. The Rocephin or ceftriaxone injection you received here will help boost the antibiotics you are taking by mouth to help treat for infection. May apply ice 10 to 15 minutes every few hours as needed for pain and swelling. Try to elevate the foot when you are able to. Check back with primary care provider for continued concerns. The xrays do not show any broken bones or bones that are out of place. All discharge instructions reviewed with patient and/or family. Voiced understanding. KRISHNA MANJARREZ MD May 07, 2023 16:50
[2023-05-07] MEDS ORDERED: LIDOCAINE 1% INJ 20 ML VIAL INJ ONE (17:00)
--- NOTE | 2023-05-07 17:13 | Diagnostic Imaging Report ---
CLINICAL HISTORY: Left foot pain. Fall. COMPARISON: None. TECHNIQUE: 3 views of the left foot. FINDINGS: There is no acute fracture or dislocation of the left foot. Alignment is anatomic. The imaged joint spaces are preserved. IMPRESSION: No acute fracture or dislocation of the left foot. Dictated by: Dictated on workstation # [id number]
== END 2023-05-07 17:23 | disposition home or self-care (01) ==
LOC: EDUNIT# 16:34 → ER FS 16:36
DX: S93.692A Other sprain of left foot, initial encounter (principal); L03.116 Cellulitis of left lower limb; F32.A Depression, unspecified; Z79.899 Other long term (current) drug therapy; W18.30XA Fall on same level, unspecified, initial encounter; Y92.239 Unspecified place in hospital as the place of occurrence of the external cause
CPT/HCPCS: 73630